=== PATIENT | female | born 1955 | race Caucasian/White ===

== ENCOUNTER → 2016-07-26 | Outpatient (CLI) | payer OTHER ==
[~2016-07-26] MED LIST: ACET-1138 PO; ADVIN10/60 INH; ADVIN25050 INH; ALBU18002 INH; ASPEC81 PO; FLNIN; FLUT0.15; GUAISYP4 PO; IBUP-1459 PO; LVQ500 PO; MONT1TAB3 PO; OXGN; OXYSR10 PO; PSEU60TA80 PO; RXC5 PO; SNK PO; VNTHFA/IN INH
--- NOTE | 2016-07-27 06:36 | PAP/PSG TECHNICIAN REPORT ---
[facility] Avionics Systems Technician Polysomnogram Report Study name: None Report date: 07/27/2016 Study date: 07/26/2016 Referring Physician: Seda Chadwick PA-C, PA-C Name: FRANCIS DAWN Interpreting Physician: Wilfred Greenberg M.D. Date of : 1955 Avionics Systems Technician: Nilam Hsieh [facility]. Sex: Female Age: 61 Study Type: PSG Weight: 293 lbs Height: 61 years, Height 5' 7" BMI: 45.89 Medications: NONE REPORTED Patient History 61 yr-old female here for a baseline study. She has a history of snoring and some daytime sleepiness. Her [place] scale is 8. The test was started on room air. ETCO2 testing was not utilized during this study. Room 1 Parameters Monitored NPSG: E1-M2, E2-M1, Fp1-M2, Fp2-M1, F3-M2, F4-M2, F4-M1, C3-M2, C4-M2, C4-M1, O1-M2, O2-M2, O2-M1, T3-M2, T4-M1, P3-M2, P4-M1, CHIN1, CHIN2, HR, EKG, Legs, PFLOW, SNOR, FLOW, CFLOW, Tidal Volume, THOR, ABDO, SpO2, PLTH, CPRESS, ETCO2 Wave, ETCO2, pH Sleep Architecture Sleep Stages Time at Lights Off 9:18:37 PM STAGES Time (min.) TST (%) Time at Lights On 5:37:07 AM Wake 57.0 -- Total Recording Time (TRT) 498.50 min. N1 54.5 12 Total Sleep Period (TSP) 476.5 min. N2 300.5 68 Total Sleep Time (TST) 441.5min. N3 9.0 2 Awake Time 57.0 min. REM 77.5 18 Wake after Sleep Onset 35.0 min. Sleep Efficiency (SE) 89 % Sleep Onset Latency (BRENDA) 22.0 min. Number of Stage 1 Shifts None Awakenings 20 Stage Changes 110 Number of REM periods 9 REM 77.5 18 REM Latency 111.5 min. NREM 364.0 82 Body Position Analysis Supine Right Left Side Prone Vertical Total Sleep Time (min.) 1.3 201.5 240.0 441.50 0.0 0.0 Total Sleep Time (%) 0% 46% 54% 100 0% N/A% Total Sleep Time REM (min.) 0.0 29.5 48.0 None 0.0 0.0 Total Sleep Time NREM (min.) 0.0 172.0 192.0 None 0.0 0.0 Intermittent Wake (min.) 1.3 15.6 40.1 None 0.0 0.0 Total Sleep Period (%) 0% None None None None None Arousals Myoclonus (PLM) * Events Count Index Events Count Index Spontaneous 53 7 Events Awake (PLMW) 61 64.2 Respiratory 8 1.2 Events Asleep w/ Arousal (PLMA) 9 1.2 PLM 9 1 Events Asleep w/o Arousal (PLMS) 91 12.4 Snoring 19 3 Total Asleep 100 13.6 Total 88 12 Total 161 19 Respiratory Analysis * CA OA MA CH H RERA Total Count 0 0 0 0 24 7 24 Index 0.0 0.0 0.0 0 3.3 1 4.2 Mean Duration 0.0 0.0 0.0 0.00 16.6 16.0 16.5 Longest Duration 0.0 0.0 0.0 0.00 0.0 18.0 22.2 Respiratory Event Summary Total Supine ~Supine Right Left Prone REM NREM Apneas Count 0 N/A 0 0 0 N/A 0 0 Index 0.0 N/A 0 0.0 0.0 N/A 0 0 Hypopneas (4% Desat) Count 24 N/A 24 7 17 N/A 17 7 Index 3.3 N/A 3 2.1 4.3 N/A 13.2 1.2 Apneas & All Hypopneas Count 24 N/A 24 7 17 N/A 17 7 Index 3.3 N/A 3 2 4 N/A 13.2 1.2 Respiratory Events (Safety And Health Manager+All Hyp+RERA) Count 24 N/A 31 10 21 N/A 17 7 Index 4.2 N/A 4 3.0 5.3 N/A 15.5 1.8 Respiratory Related Arousal Count 8 N/A 9 3 6 N/A 4 5 Index 1.2 N/A 1 1 2 N/A 3 1 Snoring Analysis Supine Right Left Prone REM NREM Total Snore duration 46.7 min Snores count N/A 1,093 910 N/A 259 1,744 2,003 Snore mean duration 1.4 Sec Snores index N/A 325 228 N/A 200.5 287.5 272.2 TST with snoring (%) 10.6% Desaturation Event Summary: Minimum %SpO2 Event Count Mean/Min/Max Duration(sec.) Desaturation Index % Time In Bed > 90 11 36.5 / 8.3 / 59.5 99.8 1.3 86 - 90 30 29.5 / 7.0 / 59.5 24.4 15.0 81 - 85 32 29.4 / 5.0 / 54.0 6.0 65.2 76 - 80 12 26.8 / 5.0 / 53.8 8.3 17.5 71 - 75 1 14.3 / 14.3 / 14.3 13.0 0.9 66 - 70 0 N/A 0.0 0.0 61 - 65 0 N/A 0.0 0.0 56 - 60 0 N/A 0.0 0.0 51 - 55 0 N/A 0.0 0.0 < 50 0 N/A 0.0 0.0 Total REM NREM Awake <50% 0.0 min. 0.0 min. 0.0 min. 0.0 min. 51 - 60% 0.0 min. 0.0 min. 0.0 min. 0.0 min. 61 - 70% 0.0 min. 0.0 min. 0.0 min. 0.0 min. 71 - 80% 90.9 min. 25.8 min. 64.2 min. 0.8 min. 81 - 90% 394.3 min. 51.7 min. 298.1 min. 44.6 min. 91 - 100% 6.6 min. 0.0 min. 1.6 min. 5.0 min. Average 83 82 83 87 Minimum SpO2 71 71 76 75 Desaturation Event Index 7.2 17.8 4.6 9.5 # Desat. Events below 89% 60 23 28 9 Time(%) with Saturation below 89% 95.5 15.7 72.6 7.2 Time(min.) with Saturation below 89% 469.7 77.4 357.2 35.2 Time (mins) REM (mins) NREM (mins) % of TST SpO2 Below 90% 51 23 N28 99.4 SpO2 Below 88% 24 0 0 97 Heart Rate Analysis Min (bpm) Max (bpm) Average (bpm) Awake 56 80 70 NREM 57 80 69 REM 52 83 67 Overall 52 83 69 Supplemental O2 Values Minimum O2 level: None Value Start Time End Time Avionics Systems Technician Comments Ms. Dawn slept in the right and left positions. No cardiac arrhythmias were noted. Some PLMs were noted. No bruxism noted. Snoring was noted and scored as a 3 on a scale of 1 through 5. (0=no snoring, 5=snoring loud enough to be heard through a closed door or down the crocker way) Her O2 saturations ran in the low to mid 80's all night. She awoke to use the restroom one time during the night. Ms. Dawn stated that she tossed and turned more than usual. The final report will be interpreted and signed by a sleep physician. The completed physician report will then be placed in the patient medical record. Therapy (cm H2O) 0 TIB (min.) 498.5 TST (min.) 441.5 Sleep Onset (min.) 22.0 REM Onset From Sleep (min.) 111.5 Sleep Efficiency % 89 Wakefulness (%) 11 Wakefulness (min.) 57.0 NREM 1 (%) 12 NREM 1 (min.) 54.5 NREM 2 (%) 68 NREM 2 (min.) 300.5 NREM 3 (%) 2 NREM 3 (min.) 9.0 REM (%) 18 REM (min.) 77.5 # Arousals 88 Arousal Index 12 # Snore 2,003 Snore Index 272.2 AHI 3.3 AHI Supine N/A AHI Non-Supine 3 NREM AHI 1.2 REM AHI 13.2 RDI 4.2 # Obstructive Apnea 0 # Central Apnea 0 # Mixed Apnea 0 # Hypopneas 24 RERAs 7 Total Respiratory Events 32 Time Below SpO2 89% (min.) 434.6 Mean NREM SpO2 (%) 83 Mean REM SpO2 (%) 82 Mean Sleep SpO2 (%) 83 Min NREM SpO2 (%) 76 Min REM SpO2 (%) 71 Position Supine (min.) 1.3 Position Non-supine (min.) 441.5 LM Index Sleep 13.6 LM Index NREM 13.0 LM Index REM 16.3 Mean Heart Rate (bpm) 69 Min Heart Rate (bpm) 52
--- NOTE | 2016-07-28 23:34 | POLYSOMNOGRAPH REPORT ---
CLINICAL DATA: A 61-year-old female with BMI of 45.9 referred by Seda Chadwick, Dr. Pace and Dr. Gera Ludwig for evaluation of daytime fatigue and snoring. Her [place] sleepiness score was 8/24. SLEEP ARCHITECTURE: Total sleep period was 476.5 minutes. Total sleep time was 441.5 minutes divided between 364 minutes of non-REM sleep and 77.5 minutes of REM sleep. Sleep onset latency was 22 minutes. REM latency was 111.5 minutes. Sleep efficiency was 89%. Wake after sleep onset was 35 minutes. Sleep consisted of stage N1 12%, N2 68%, N3 2%, REM 18%. AROUSAL DATA: Eighty eight arousals were recorded for an index of 12 per hour. PLM DATA: One hundred limb movements during sleep were noted for an index of 13.6 per hour with arousal index of 1.2 per hour. RESPIRATORY DATA: There was no evidence of clinically significant sleep apnea/hypopnea noted. The AHI was 3.3. The RDI was 4.2. There were 24 hypopneic episodes. The mean duration of hypopnea was 16.6 seconds. There were 7 RERAs. The longest RERA was 18 seconds. OXIMETRY DATA: Significant nocturnal hypoxemia was seen. Oxygen wilner was 71%. Mean saturation was 83%. EKG: Heart rates ranged from 57-83 beats per minute. No arrhythmias were noted. BACK JOINER'S COMMENTS: The patient slept in the right and left positions. Saturations ran in the low to mid 80s all night. Snoring was moderate, rated 3 on a scale of 1-5. IMPRESSION: 1. No evidence of clinically significant sleep apnea/hypopnea with an apnea-hypopnea index of 3.3. 2. Significant nocturnal hypoxemia. RECOMMENDATIONS: The patient may benefit from use of nocturnal oxygen. It does not appear that CPAP is required at this time. Clinical correlation is needed. [facility]
== END | disposition home or self-care (01) ==
LOC: C.NEUR 20:00
PROVIDERS: ATTEND Internal Medicine Pulmonary Disease
DX: R06.83 Snoring (principal); R06.02 Shortness of breath; G47.36 Sleep related hypoventilation in conditions classified elsewhere

== ENCOUNTER 2016-11-08 05:13 | Inpatient (IN) | payer OTHER ==
--- NOTE | 2016-10-13 10:33 | HISTORY & PHYSICAL EXAMINATION ---
DATE OF ADMISSION: 11/08/2016 PROCEDURE: Right knee replacement. HISTORY OF PRESENT ILLNESS: The patient is a andrew 61-year-old female who presents for preoperative evaluation prior to right knee replacement. She states she has been having pain in this knee for many years now, which has gradually worsened, she has failed conservative measures including oral anti-inflammatories, Depo-Medrol injection, viscosupplementation without relief. She has tried a course of physical therapy. X-rays were obtained which revealed end-stage DJD of her right knee and after discussing further care would like to proceed with a right knee replacement. PAST MEDICAL HISTORY: She denies a history of hypertension, high cholesterol, bleeding or clotting disorders. She was recently diagnosed with sleep apnea and uses a CPAP machine. ALLERGIES: No known drug allergies. CURRENT MEDICATIONS: None. PAST SURGICAL HISTORY: None. SOCIAL HISTORY: She denies a history of smoking or tobacco use. No alcohol consumption. REVIEW OF SYSTEMS: Otherwise negative. Please see HPI for pertinent positives. PHYSICAL EXAMINATION: GENERAL: Andrew 61-year-old female in no acute distress, alert and oriented x3. She is 5 feet 7 inches, weighs 302 pounds. VITAL SIGNS: Blood pressure is 142/88, pulse 64, O2 sats 98% on room air. HEENT: Normocephalic, atraumatic. CARDIAC: Regular rate and rhythm. No murmurs or gallops appreciated. Resting pulse 64 beats per minute. LUNGS: Clear to auscultation without rales or wheezes bilaterally. ABDOMEN: Soft, nontender, obese. Bowel sounds present. EXTREMITIES: Right lower extremity is neurovascularly intact. Calves are soft and nontender. DP pulse +2. Overall has varus alignment. Positive crepitation with motion, range of motion is 0/5/110. Her knee is ligamentously stable. IMAGING: Reviewed of the right knee shows findings consistent with end-stage degenerative joint disease including joint space narrowing, subchondral sclerosis, osteophyte formation noted. She has complete loss of joint space of the medial compartment. IMPRESSION: 1. Right knee degenerative joint disease. PLAN: Further care discussed with patient. At this point in time, has failed conservative measures and would like to proceed with a right knee replacement. We will plan on discharge home with home health physical therapy for 2 weeks, place on aspirin 81 mg p.o. b.i.d. for a month postop.
[2016-10-13 10:50] VITALS: BMI 46.0
--- NOTE | 2016-10-13 11:23 | PAT Medication Instructions ---
Service Date October 13, 2016. Current Home Medication List Albuterol Hfa (Ventolin Hfa), Unknown Dose INH Q6H PRN for cold symptoms Fluticasone Prop/Salmeterol (Advair Diskus 100/50 60 Dose), Unknown Dose INH BID PRN for cold symptoms Fluticasone Propionate (Nasal) (Flonase Allergy Relief), Unknown Dose for cold symptoms Ibuprofen (Motrin), 400 MG PO Q6H PRN for Pain Oxygen (Oxygen), 2 LITERS NA HS Medication Instructions For Your Scheduled Surgery - Check with surgeon for instructions: Ibuprofen (Motrin), 400 MG PO Q6H PRN for Pain - Take the following medications the morning of surgery with a sip of water: Fluticasone Propionate (Nasal) (Flonase Allergy Relief), Unknown Dose for cold symptoms Fluticasone Prop/Salmeterol (Advair Diskus 100/50 60 Dose), Unknown Dose INH BID PRN for cold symptoms Albuterol Hfa (Ventolin Hfa), Unknown Dose INH Q6H PRN for cold symptoms (bring with you to hospital morning of surgery) - Take the following medications as scheduled the night before surgery: Oxygen (Oxygen), 2 LITERS NA HS Fluticasone Propionate (Nasal) (Flonase Allergy Relief), Unknown Dose for cold symptoms Fluticasone Prop/Salmeterol (Advair Diskus 100/50 60 Dose), Unknown Dose INH BID PRN for cold symptoms Albuterol Hfa (Ventolin Hfa), Unknown Dose INH Q6H PRN for cold symptoms If you have any questions please call us at [phone] (Nadja Varghese PA-C) or [phone] or [phone]
--- NOTE | 2016-10-13 12:05 | DIAGNOSTIC IMAGING REPORT ---
CHEST 2 VIEWS ROUTINE CLINICAL HISTORY: PAT preoperative evaluation COMPARISON STUDY: 05/26/2016 FINDINGS: The bones soft tissues and hemidiaphragms are normal. The cardiomediastinal silhouette is normal. The lungs are clear. The pulmonary vasculature is normal. IMPRESSION: Negative chest. Electronically signed by: Luis Shah M.D. 10/13/2016 12:04 PM Dictated Date/Time: 10/13/2016 12:03 PM
[2016-10-13 12:24] LABS: BASO % 0.7 %; BASO ABS # 0.06 K/uL (0-0.2); COMPLETE YES; EOS % 4.4 %; HEMATOCRIT 39.7 % (37-47); IG% 0.1 %; LYMPH % 21.4 %; LYMPH ABS # 1.88 K/uL (1.2-3.4); MEAN CORPUSCULAR HEMOGLOBIN 28.9 pg (25-34); MEAN CORPUSCULAR HGB CONC 32.5 g/dl (32-36); MONO % 4.6 %; NEUT % 68.8 %; PLATELET COUNT 302 K/uL (130-400); RED BLOOD COUNT 4.46 M/uL (4.2-5.4); WHITE BLOOD COUNT 8.77 K/uL (4.8-10.8)
[2016-10-13 12:33] LABS: URINE APPEARANCE CLEAR (CLEAR); URINE BILIRUBIN NEG (NEG); URINE COLOR YELLOW; URINE NITRITE NEG (NEG); URINE SPECIFIC GRAVITY 1.015 (1.000-1.030); UROBILINOGEN NEG (NEG)
[2016-10-13 12:39] LABS: PARTIAL THROMBOPLASTIN RATIO 1.2; PROTHROMBIN TIME (PATIENT) 10.2 SECONDS (9.0-12.0)
[2016-10-13 12:45] LABS: MANUAL MICROSCOPIC REQUIRED? NO; REVIEW REQ? NO
[2016-10-13 13:25] LABS: CALCIUM 9.1 mg/dl (8.5-10.1); CREATININE 0.91 mg/dl (0.60-1.20)
[2016-10-13 13:26] LABS: ESTIMATED AVERAGE GLUCOSE 111 mg/dl; HA1C FLAG Normal (Normal)
[2016-11-08] VITALS (10 sets, daily range): BP systolic 117–148; BP diastolic 70–88; PULSE 42–69; TEMP 36.3–36.7; O2SAT 91–95; Ht 170.2 cm; Wt 134.7 kg
[~2016-11-08] VITALS: Ht 170.2 cm; Wt 134.7 kg
[~2016-11-08 05:13] MED LIST changes: -ACET-1138 PO; -ADVIN25050 INH; -ALBU18002 INH; -ASPEC81 PO; -FLNIN; -GUAISYP4 PO; -LVQ500 PO; -MONT1TAB3 PO; -OXYSR10 PO; -PSEU60TA80 PO; -RXC5 PO; -SNK PO
[2016-11-08] MEDS ORDERED: GABAPENTIN 300 MG CAP PO SCH (06:00)
[2016-11-08] MEDS ORDERED: ROPIVACAINE 5MG/ML 30 ML 150 MG, BUPIVACAINE/EPINEPHR 0.5% MPF 30 ML, KETOROLAC TROMETH... INFIL SCH ×7 (06:00)
[2016-11-08] MEDS ORDERED: LACTATED RINGER'S 1000ML 1,000 ML IV SCH (06:00)
[2016-11-08] MEDS ORDERED: LACTATED RINGER'S 1000ML IV SCH (06:00)
[2016-11-08] MEDS ORDERED: METOCLOPRAMIDE HCL 10 MG TAB PO SCH (06:00)
[2016-11-08] MEDS ORDERED: CEFAZOLIN 3000 MG/65 ML D5W 65 ML IV SCH (06:00)
[2016-11-08] MEDS ORDERED: LACTATED RINGER'S 1000ML 500 ML IV SCH (06:00)
[2016-11-08] MEDS ORDERED: ACETAMINOPHEN 500 MG TAB PO SCH (06:00)
[2016-11-08] MEDS ORDERED: DEXAMETHASONE 4 MG TAB PO SCH (06:00)
[2016-11-08] MEDS ORDERED: CeleBREX 200 MG CAP PO SCH (06:00)
[2016-11-08] MEDS ORDERED: FAMOTIDINE 20 MG TAB PO SCH (06:00)
[2016-11-08] MEDS ORDERED: POVIDONE-IODINE OP SOLN 30 ML BTL ONE (06:32)
[2016-11-08] MEDS ORDERED: ORTHO JOINT ANESTHETIC ONE (06:32)
[2016-11-08] MEDS ORDERED: BACITRACIN 50000 UNIT VIAL ONE (06:32)
[2016-11-08] MEDS ORDERED: BUPIVACAINE 0.5 % 5 MG/1 ML PF 10ML VIAL ONE (06:33)
[2016-11-08] MEDS ORDERED: BUPIVACAINE 0.25% 30 ML VIAL ONE (06:33)
[2016-11-08] MEDS ORDERED: PROPOFOL IV EMULSION 10 MG/ML 20 ML VIAL IV ONE ×2 (06:36→07:43)
[2016-11-08] MEDS ORDERED: LIDOCAINE HCL 2% 2 ML VIAL (20MG/ML) ONE (06:36)
[2016-11-08] MEDS ORDERED: MIDAZOLAM HCL 1 MG/ML 2ML VIAL ONE (06:36)
[2016-11-08] MEDS: TRANEXAMIC ACID INJ 1,000 MG in SODIUM CHLORIDE 0.9% 100ML 100 ML IV SCH ×2 (06:42→10:35)
--- NOTE | 2016-11-08 06:47 | History & Physical Bridge Note ---
H&P Re-Evaluation Bridge Note: I have examined the patient, reviewed the History & Physical and in the interval since the performance of the History & Physical I have noted the following changes of clinical significance: No changes noted
[2016-11-08] MEDS ORDERED: LACTATED RINGER'S 1000ML 1,000 ML IV PRN (07:04)
[2016-11-08] MEDS ORDERED: ONDANSETRON INJ 2 MG/ML 2 ML VIAL IV PRN ×2 (07:15→08:00)
[2016-11-08] MEDS ORDERED: FENTANYL CITRATE INJ 50 MCG/1 ML 2 ML VIAL IV PRN (07:15)
[2016-11-08] MEDS ORDERED: KETAMINE HCL INJ 50 MG/ML 10 ML VIAL ONE (07:26)
[2016-11-08] MEDS ORDERED: SODIUM CHLORIDE 0.9% INJ 10 ML VIAL ONE (07:34)
--- NOTE | 2016-11-08 07:55 | [facility] Post Operative Brief Note ---
Immediate Operative Summary Operative Date November 08, 2016. Pre-Operative Diagnosis Right Knee Degenerative Joint Disease Post-Operative Diagnosis Right Knee Degenerative Joint Disease Procedure(s) Performed Right Total Knee Arthroplasty Surgeon Dr. Nikita Lechuga Respite Care Provider Surgeon(s) Luis Chacko PA-c Estimated Blood Loss 5 ml Findings severe djd rt knee Specimens Permanent Specimen: A: Bone and tissue Right knee Complication(s) None Disposition Recovery Room / PACU
[2016-11-08] MEDS ORDERED: DiphenhydrAMINE HCL 50 MG/ML VIAL IV PRN (08:00)
[2016-11-08] MEDS ORDERED: ZOLPIDEM TARTRATE 5 MG TAB PO PRN (08:00)
[2016-11-08] MEDS ORDERED: TRAMADOL HCL 50 MG TAB PO PRN (08:00)
[2016-11-08] MEDS ORDERED: MAGNESIUM HYDROXIDE SUSP 30 ML UDC PO PRN (08:00)
[2016-11-08] MEDS ORDERED: BISACODYL 10 MG SUPP PR PRN (08:00)
[2016-11-08] MEDS ORDERED: SOD PHOSPHATE/SOD BIPHOSPHATE ENEMA 132 ML BTL PR PRN (08:00)
[2016-11-08] MEDS ORDERED: HYDROCODONE/ACETAMOPHEN 5/325MG TAB PO PRN (08:00)
[2016-11-08] MEDS ORDERED: METOCLOPRAMIDE HCL INJ 5 MG/ML 2 ML VIAL IV PRN (08:00)
[2016-11-08] MEDS ORDERED: ALUMINUM/MAGNESIUM/SIMETH (MAALOX MAX) 30 ML UDC PO PRN (08:00)
--- NOTE | 2016-11-08 08:18 | OPERATIVE REPORT ---
DATE OF OPERATION: 11/08/2016 PREOPERATIVE DIAGNOSIS: Severe end-stage tricompartmental degenerative joint disease, right knee. POSTOPERATIVE DIAGNOSIS: Severe end-stage tricompartmental degenerative joint disease, right knee. PROCEDURE: Right total knee arthroplasty utilizing Vasquez \T\ Nephew Journey II patient matched total knee arthroplasty size 5 femur, 3 tibia, 13 poly, 32 patella. SURGEON: Dr. Lechuga. CLIENT PROFESSIONAL: Luis Chacko, who was necessary for prepping, draping, retraction, wound closure of deep fascia, subQ, and skin and was necessary for the case. ESTIMATED BLOOD LOSS: 5 mL TOURNIQUET TIME: 40 minutes. COMPLICATIONS: None. HISTORY: The patient presents as a 61-year-old white female with severe endstage DJD about her right knee. She presents today for right total knee arthroplasty after failing attempts at conservative management including physical therapy, anti-inflammatories, relative rest, activity modification and presents for total knee arthroplasty. OPERATION AND FINDINGS: PROCEDURE: The patient was properly prepped and draped in supine position for total knee arthroplasty after identifying the appropriate surgical site. An anterior midline incision was made through the subcutaneous tissues down to the region of the extensor mechanism. A medial parapatellar incision was subsequently made. Meticulous hemostasis was obtained and performed at all times. The patella having been subluxed lateralward, medial and lateral meniscal remnants were excised. The patellar cut was then initially made and was sized to the appropriate size. After subluxing the tibia forward the appropriate meniscal fragments having been removed the distal femur was then cut first utilizing a Vasquez and Nephew block. The distal femoral cuts and chamfer cuts were all made under direct visualization and the proximal tibial osteotomy cut was also made utilizing Vasquez and Nephew blocks and checked with an extramedullary guide. The appropriate trial components on the femur and tibia were placed. Appropriate trial spacers were used to check flexion and extension gaps. With flexion and extension gaps being equal, the components were then subsequently after thorough irrigation and debridement lavage components were then subsequently cemented in the following order: femur, tibia and patella. Exparel was used for intraoperative anesthesia, the medial parapatellar incision was closed utilizing #1 Vicryl, subQ was closed with 2-0 Vicryl, skin was closed with skin clips. A sterile compression dressing was placed. The patient was taken to recovery room in stable condition. Due to the complex nature of the procedure, the entire surgery was performed with the operational assistance of Luis Chacko PA-C. The dam tender assistant, under direct supervision, was involved in the actual performance of all aspects of the surgical procedure including hemostasis, tissue retraction and incision, instrument management, patient positioning, and wound closure. I attest to the content of the Intraoperative Record and any orders documented therein. Any exceptio ns are noted below.
[2016-11-08] MEDS ORDERED: KETOROLAC TROMETHAMINE 30 MG/ML VIAL IV PRN (08:45)
[2016-11-08] MEDS ORDERED: MoRPHine SULFATE 2 MG/ML CARP IV PRN (08:45)
[2016-11-08] MEDS ORDERED: ASPIRIN 325 MG ECTAB PO SCH ×2 (09:00)
--- NOTE | 2016-11-08 09:18 | DIAGNOSTIC IMAGING REPORT ---
RIGHT KNEE 1 OR 2 VIEWS ROUTINE CLINICAL HISTORY: Right knee osteoarthritis. COMPARISON: None FINDINGS: Alignment of the total right knee arthroplasty is anatomic. There is no periprosthetic fracture or unexpected radiopaque foreign body. Drains and skin ryan are present. IMPRESSION: Expected findings following total right knee arthroplasty. Electronically signed by: Ayden Key M.D. 11/08/2016 9:17 AM Dictated Date/Time: 11/08/2016 9:16 AM
--- NOTE | 2016-11-08 09:28 | Anesthesiology Progress Note ---
Anesthesia Post Op Note Date & Time November 08, 2016 at 09:26 Vital Signs Pain Intensity: 0 Vital Signs Past 12 Hours Date Time Temp Pulse Resp B/P Pulse Ox O2 Delivery O2 Flow Rate FiO2 11/08/16 09:05 36.5 45 14 113/59 96 Nasal Cannula 4 11/08/16 08:55 50 16 115/66 92 Nasal Cannula 4 11/08/16 08:45 54 14 105/63 95 Mask 6 11/08/16 08:38 36.7 60 15 116/64 95 Mask 10 11/08/16 05:40 36.6 54 20 148/87 93 Room Air Notes Mental Status: alert / awake / arousable, participated in evaluation Pt Amnestic to Procedure: No (recall as expected) Nausea / Vomiting: adequately controlled Pain: adequately controlled Airway Patency, RR, SpO2: stable & adequate BP & HR: stable & adequate Hydration State: stable & adequate Neuraxial Anesthesia: was administered, sensory block is resolving Anesthetic Complications: no major complications apparent SB into 40s which was her pre-op baseline. Asymptomatic w/ this. Needing 4L O2 to keep sats in 90s when she sleeps. She's supposed to wear 2L O2 at home for this reason. I'm ordering continuous pulse ox until at least tomorrow morning.
[2016-11-08] MEDS: SODIUM CHLORIDE 0.9% 1000ML 1,000 ML IV SCH ×2 (10:30→19:50)
[2016-11-08] MEDS ORDERED: MoRPHine SULFATE 10 MG/ML CARP/VIAL IV PRN (10:30)
[2016-11-08] MEDS: OXYCODONE HCL IR 5 MG TAB (IMMEDIATE RELEASE) PO PRN ×2 (12:54→17:56)
[2016-11-08] MEDS ORDERED: TRANEXAMIC ACID INJ 1,000 MG in SODIUM CHLORIDE 0.9% 100ML 100 ML IV SCH (14:00)
[2016-11-08] MEDS: CEFAZOLIN IV 3,000 MG in DEXTROSE 5% 50ML 50 ML IV SCH ×2 (14:13→21:55)
[2016-11-08] MEDS: FERROUS GLUCONATE 324 MG TAB PO SCH (17:56)
[2016-11-08] MEDS: OXYCODONE HCL 10 MG TABCR (OXYCONTIN) PO SCH (21:07)
[2016-11-08] MEDS: SENNA 8.6 MG TAB PO SCH (21:07)
[2016-11-08] MEDS: ASPIRIN 81 MG ECTAB PO SCH (21:07)
[2016-11-08] MEDS: DOCUSATE SODIUM 100 MG CAP PO SCH (21:07)
[2016-11-09 04:02] VITALS: BP 119/81; PULSE 54; TEMP 36.5; O2SAT 92
[2016-11-09] MEDS: OXYCODONE HCL IR 5 MG TAB (IMMEDIATE RELEASE) PO PRN (04:21)
[2016-11-09 06:28] LABS: HEMATOCRIT 36.1 % (37-47); MEAN CELL VOLUME 89.6 fL (80-100); MEAN CORPUSCULAR HEMOGLOBIN 28.5 pg (25-34); MEAN CORPUSCULAR HGB CONC 31.9 g/dl (32-36); MEAN PLATELET VOLUME 10.5 fL (7.4-10.4); PLATELET COUNT 258 K/uL (130-400); RED BLOOD COUNT 4.03 M/uL (4.2-5.4); WHITE BLOOD COUNT 12.59 K/uL (4.8-10.8)
[2016-11-09] MEDS: SODIUM CHLORIDE 0.9% 1000ML 1,000 ML IV SCH (06:31)
--- NOTE | 2016-11-09 07:12 | Orthopedic Progress Note ---
Orthopedic Progress Note Date of Service Nov 09, 2016. Subjective Post OP Day: 1 (s/p Right TKA) Reports: feeling well, pain controlled w PO medications, Denies: complaints, chest pain, SOB, nausea / vomiting, light headedness, calf pain Objective calves soft nontender, N/V intact, capillary refill less than 2 sec., dressing C /D/I, A&O x3, toes mobile, hemovac drainage (150cc/8 hours) Date Time Temp Pulse Resp B/P (MAP) Pulse Ox O2 Delivery O2 Flow Rate FiO2 11/09/16 04:02 36.5 54 16 119/81 (94) 92 Nasal Cannula 2.0 11/08/16 23:19 36.5 58 16 145/88 (107) 94 Nasal Cannula 2.0 11/08/16 19:45 Room Air 11/08/16 19:01 36.6 69 16 128/76 (93) 91 Room Air 11/08/16 15:40 36.7 62 16 126/74 (91) 91 11/08/16 12:35 36.7 52 19 139/84 (102) 95 Nasal Cannula 2.0 11/08/16 11:32 36.3 56 17 137/82 (100) 94 Nasal Cannula 2.0 11/08/16 10:35 36.3 52 16 122/77 (92) 93 Nasal Cannula 2.0 11/08/16 10:10 94 Nasal Cannula 3.0 11/08/16 10:08 36.4 47 16 117/76 (90) 92 Nasal Cannula 2.0 11/08/16 09:35 95 Nasal Cannula 4.0 11/08/16 09:35 Nasal Cannula 4.0 11/08/16 09:35 36.6 42 16 122/70 (87) 95 Nasal Cannula 4.0 11/08/16 09:15 49 14 103/59 (72) 97 Nasal Cannula 4 11/08/16 09:05 36.5 45 14 113/59 96 Nasal Cannula 4 11/08/16 08:55 50 16 115/66 92 Nasal Cannula 4 11/08/16 08:45 54 14 105/63 95 Mask 6 11/08/16 08:38 36.7 60 15 116/64 95 Mask 10 Laboratory Results 24 Hours: Test 11/09/16 05:34 Hematocrit 36.1 % Hemoglobin 11.5 g/dL Assessment & Plan Assessment: POD #1 s/p Right TKA -PT/OT -dvt proph w/ danial/scd/asa -ASA 81 mg po bid x 1 month -[facility]prevena on for 7 days Discharge Planning Discharge Planning: home with home health DVT Prophylaxis: TEDs, SCDs, ASA Therapy: Physical Therapy
[2016-11-09] MEDS: OXYCODONE HCL 10 MG TABCR (OXYCONTIN) PO SCH ×2 (07:42→20:53)
[2016-11-09] MEDS: ASPIRIN 81 MG ECTAB PO SCH ×2 (07:42→20:52)
[2016-11-09] MEDS: PANTOprazole SOD 40 MG TAB PO SCH (07:42)
[2016-11-09] MEDS: FERROUS GLUCONATE 324 MG TAB PO SCH ×3 (07:42→17:19)
[2016-11-09] MEDS: DOCUSATE SODIUM 100 MG CAP PO SCH ×2 (07:43→20:52)
[2016-11-09] MEDS: MULTIVITAMIN TAB PO SCH (07:43)
[2016-11-09 07:45] VITALS: BP 120/68; PULSE 46; TEMP 36.4; O2SAT 91; O2SAT 92
--- NOTE | 2016-11-09 07:59 | Discharge Instructions ---
Discharge Instructions Date of Service Nov 09, 2016. Admission Reason for Admission: Right Knee Osteoarthritis Discharge Discharge Diagnosis / Problem: Right Total Knee Replacement Discharge Goals Goal(s): Decrease discomfort, Improve function, Increase independence Activity Recommendations Activity Limitations: as noted below Weightbearing Status: Right weightbearing (as tolerated) . Instructions / Follow-Up Instructions / Follow-Up ACTIVITY RECOMMENDATIONS: SELF CARE INSTRUCTIONS AFTER TOTAL KNEE REPLACEMENT A. You may need to continue a physical therapy program after discharge from the hospital. There are several options available to you. Your doctor will assist you in selecting the best one for you. 1. An out-patient facility 2 to 3 times a week for therapy or home therapy. 2. Continue working on all exercises taught to you in the hospital. Your goals should be to increase bending of your knee to 90 degrees and beyond and to fully straighten your knee. B. You may progress at your own pace from walking with a walker or crutches to a cane; then to no assistive devices. C. Make walking a part of your daily routine. Be up as much as comfortable with rest periods throughout the day. Rest with leg elevation is very important. Use the ice wrap frequently for the first 3-4 weeks. D. There are no restrictions on activities. You may ride in a car, shop, participate in senior energy market coordinator and all social activities. E. Wear the long elastic stockings (KRISTEN hose) 20 hours a day for 2 weeks after surgery. They can be removed several times a day for laundering and for a bath. F. You may shower, no tub baths until cleared by your doctor. SPECIAL CARE INSTRUCTIONS: VERY IMPORTANT TO READ AND REVIEW A. There are a few signs you need to watch for after you are home. Call [facility] if you notice any of the followin. Increased severe knee pain. Some pain is expected especially when you exercise. 2. Increased swelling in your leg or knee; pain or swelling of the calf muscle in either lower leg. 3. Any fluid drainage from the incision. 4. Shortness of breath or chest pain. B. Please call [facility] at if you have any concerns or questions about your operation or recovery. The doctor or his nurse will return your call promptly. C. You must take antibiotics before dental work, bladder, bowel or other surgery. Your doctor will provide you with a permanent care to carry describing this precaution. IMPORTANT: * REMEMBER TO TAKE ASPIRIN, 81 MG, TWICE DAILY FOR 4 WEEKS UNLESS OTHERWISE DIRECTED. THIS IS YOUR BLOOD THINNER. * HIGH RISK PATIENTS MAY BE PRESCRIBED A STRONGER BLOOD THINNER. THIS WILL BE PROVIDED AT DISCHARGE. * CALL IF INCREASED PAIN, REDNESS, DRAINAGE OR FEVER GREATER THAT 101. * WEAR KRISTEN HOSE 20 HOURS PER DAY FOR 2 WEEKS. * Prevena- This is a large suction dressing covering your incision. This will help pull any excess drainage from the wound and allow your incision to heal properly. You may shower with this if you can keep the unit outside of the shower. If any bleeding or leakage is noted please call your doctor's office. This will remain on your incision for 7 days and then should be removed. This can be done yourself or by the home nursing staff if applicable. The entire unit is disposable once removed. Once removed, keep incision clean and dry. If redness or drainage is noted, please call your surgeon. FOLLOW UP VISIT: If appointment is not already scheduled: Please call [facility] to make a follow-up appointment for 2 weeks after your surgery at . Current Hospital Diet Patient's current hospital diet: Regular Diet Discharge Diet Recommended Diet: Regular Diet Procedures Procedures Performed: Right Total Knee Arthroplasty Pending Studies Studies pending at discharge: no Laboratory Results Hemoglobin A1c Test 10/13/16 11:28 Range/Units Estimated Average Glucose 111 mg/dl Hemoglobin A1c 5.5 4.5-5.6 % Medical Emergencies . Who to Call and When: Medical Emergencies: If at any time you feel your situation is an emergency, please call 911 immediately. . Non-Emergent Contact Non-Emergency issues call your: Primary Care Provider, Surgeon . "Provider Documentation" section prepared by Luis Chacko. . VTE Core Measure Inpt VTE Proph given/why not?: Other Anticoagulation (ASA 81mg po bid x 1 month ), [facility] [place] Drug Monitoring Program Search Results: patient reviewed within database, no issues identified
[2016-11-09 08:05] VITALS: O2SAT 91
--- NOTE | 2016-11-09 09:27 | Anesthesiology Progress Note ---
Anesthesia Post Op Note Date & Time Nov 09, 2016 at 09:27 Vital Signs Pain Intensity: 5.0 Vital Signs Past 12 Hours Date Time Temp Pulse Resp B/P (MAP) Pulse Ox O2 Delivery O2 Flow Rate FiO2 11/09/16 08:05 91 Room Air 11/09/16 07:45 92 Room Air 11/09/16 07:45 36.4 46 20 120/68 (85) 91 Room Air 11/09/16 04:02 36.5 54 16 119/81 (94) 92 Nasal Cannula 2.0 11/08/16 23:19 36.5 58 16 145/88 (107) 94 Nasal Cannula 2.0 Notes Mental Status: alert / awake / arousable, participated in evaluation Pt Amnestic to Procedure: Yes Nausea / Vomiting: adequately controlled Pain: adequately controlled Airway Patency, RR, SpO2: stable & adequate BP & HR: stable & adequate Hydration State: stable & adequate Neuraxial Anesthesia: was administered, sensory block resolved Anesthetic Complications: no major complications apparent
[2016-11-09 11:51] VITALS: BP 120/80; PULSE 38; TEMP 36.6; O2SAT 95
[2016-11-09 15:37] VITALS: BP 156/77; PULSE 46; TEMP 36.6; O2SAT 92
[2016-11-09] MEDS: SENNA 8.6 MG TAB PO SCH (20:52)
[2016-11-09 23:10] VITALS: BP 134/84; PULSE 47; TEMP 36.6; O2SAT 94
[2016-11-10 06:43] VITALS: BP 163/81; PULSE 43; TEMP 36.6; O2SAT 92
[2016-11-10] MEDS: OXYCODONE HCL 10 MG TABCR (OXYCONTIN) PO SCH (07:04)
[2016-11-10] MEDS: PANTOprazole SOD 40 MG TAB PO SCH (07:05)
[2016-11-10] MEDS: OXYCODONE HCL IR 5 MG TAB (IMMEDIATE RELEASE) PO PRN (07:05)
[2016-11-10] MEDS: FERROUS GLUCONATE 324 MG TAB PO SCH ×2 (07:05→12:40)
[2016-11-10] MEDS: MULTIVITAMIN TAB PO SCH (07:05)
[2016-11-10] MEDS: DOCUSATE SODIUM 100 MG CAP PO SCH (07:05)
[2016-11-10] MEDS: ASPIRIN 81 MG ECTAB PO SCH (07:05)
[2016-11-10 07:50] VITALS: O2SAT 93
--- NOTE | 2016-11-10 07:53 | Orthopedic Progress Note ---
Orthopedic Progress Note Date of Service Nov 10, 2016. Subjective Post OP Day: 2 Reports: light headedness (having episodes of LH this am, she feels is related to taking full dose of pain meds this am), pain controlled w PO medications, Denies: chest pain, SOB, nausea / vomiting, calf pain, using FIELD RESEARCH ASSISTANT Objective calves soft nontender, N/V intact, capillary refill less than 2 sec., dressing C /D/I, A&O x3, toes mobile Date Time Temp Pulse Resp B/P (MAP) Pulse Ox O2 Delivery O2 Flow Rate FiO2 11/10/16 06:43 36.6 43 16 163/81 (108) 92 Room Air 11/09/16 23:10 36.6 47 16 134/84 (101) 94 Nasal Cannula 2.0 11/09/16 19:40 Room Air 11/09/16 15:37 36.6 46 19 156/77 (103) 92 Room Air 11/09/16 11:51 36.6 38 20 120/80 (93) 95 Nasal Cannula 2.0 11/09/16 08:05 91 Room Air Assessment & Plan Assessment: POD #2 s/p Right TKA -PT/OT -dvt proph w/ danial/scd/asa -ASA 81 mg po bid x 1 month -[facility]prevena on for 7 days LH this am, low HR, will check H/H, hold on d/c until after labs/PT, recheck this afternoon Discharge Planning Discharge Planning: home with home health DVT Prophylaxis: TEDs, SCDs, ASA Therapy: Physical Therapy
[2016-11-10 08:59] LABS: HEMATOCRIT 36.3 % (37-47)
[2016-11-10 09:03] VITALS: BP 133/67; PULSE 43; O2SAT 91
[2016-11-10 15:33] VITALS: BP 145/87; PULSE 51; TEMP 36.6; O2SAT 96
[2016-11-10] MEDS ORDERED: ASPEC81 PO (15:54)
[2016-11-10] MEDS ORDERED: RXC5 PO (15:54)
[2016-11-10] MEDS ORDERED: OXYSR10 PO (15:54)
[2016-11-10] MEDS ORDERED: SNK PO ×2 (15:54→16:00)
[2016-11-10] MEDS ORDERED: ACET-1138 PO (15:54)
[2016-11-10 16:13] VITALS: BP 145/87; PULSE 51; TEMP 36.6; O2SAT 96
--- NOTE | 2016-11-11 17:26 | Discharge Summary ---
Orthopedic Discharge Summary Admission Date/Reason November 08, 2016 at 06:45 Right Knee Osteoarthritis. Discharge Date/Disposition Nov 10, 2016 Home with services Diagnosis Principal Diagnosis: right total knee replacement Procedure(s) Performed Right total knee arthroplasty utilizing Vasquez \T\ [facility] patient matched total knee arthroplasty size 5 femur, 3 tibia, 13 poly, 32 patella. Medication Reconciliation New Medications: Acetaminophen (Tylenol Extra Strength) 500 Mg Tab 2 TABS PO Q8H for 30 Days Aspirin (Aspirin EC Low Dose) 81 Mg Ectab 81 MG PO BID for 30 Days Oxycodone HCl (Oxycontin) 10 Mg Tabcr 10 MG PO Q12H, #20 Oxycodone HCl (Oxycodone HCl) 5 Mg Tab 5-10 MG PO Q4H PRN for Pain, #60 TAB Senna (Senna Lax) 8.6 Mg Tab 17.2 MG PO HS, #30 TAB Hold for loose stools Continued Medications: Albuterol Hfa (Ventolin Hfa) Unknown Strength Aers Unknown Dose INH Q6H PRN for cold symptoms , #1 INHALER uses as directed prn for cold symptoms...does not use on reg basis - had pneumonia in apr and was prescribed this then Fluticasone Prop/Salmeterol (Advair Diskus 100/50 60 Dose) Unknown Strength Aerp Unknown Dose INH BID PRN for cold symptoms , INHALER uses as directed prn for cold symptoms...does not use on reg basis Fluticasone Propionate (Nasal) (Flonase Allergy Relief) Unknown Strength Spr Unknown Dose PRN for cold symptoms 2 sprays each nosril prn for cold symptoms...does not use on regular basis Oxygen (Oxygen) Gas 2 LITERS NA HS Discontinued Medications: Ibuprofen (Motrin) 400 Mg Tab 400 MG PO Q6H PRN for Pain, TAB pt aware to stop [address] ludwig office paperwork Admission Physical Exam As per Admitting History & Physical. Hospital Course Patient was a same day admission after undergoing a successful left TKA. she tolerated the procedure well. Post-operatively, her activity was progressed and well tolerated. she did experience episodes of lightheadedness on POD #2 which was felt to be related to her pain medication, and was improved by only taking 1 /2 of her scheduled dose. Please refer to daily progress notes and PT notes for complete details. After exam on 11/11/16, patient felt to be stable for discharge home with home PT. Patient will f/u in the office in 2 weeks for further evaluation including x-rays and incision check, sooner if having any issues or concerns. Below are pertinent labs/studies during their hospital stay: Last Vital Signs Documentation Date Time Temp Pulse Resp B/P (MAP) Pulse Ox O2 Delivery O2 Flow Rate FiO2 11/10/16 16:13 36.6 51 17 96 Room Air 11/10/16 15:33 145/87 (106) 11/09/16 23:10 2.0 Last Resulted CBC 11/09/16 05:34 11/10/16 08:15 Last Resulted BMP 10/13/16 11:28 Discharge Instructions ACTIVITY RECOMMENDATIONS: SELF CARE INSTRUCTIONS AFTER TOTAL KNEE REPLACEMENT A. You may need to continue a physical therapy program after discharge from the hospital. There are several options available to you. Your doctor will assist you in selecting the best one for you. 1. An out-patient facility 2 to 3 times a week for therapy or home therapy. 2. Continue working on all exercises taught to you in the hospital. Your goals should be to increase bending of your knee to 90 degrees and beyond and to fully straighten your knee. B. You may progress at your own pace from walking with a walker or crutches to a cane; then to no assistive devices. C. Make walking a part of your daily routine. Be up as much as comfortable with rest periods throughout the day. Rest with leg elevation is very important. Use the ice wrap frequently for the first 3-4 weeks. D. There are no restrictions on activities. You may ride in a car, shop, participate in home theater installer and all social activities. E. Wear the long elastic stockings (KRISTEN hose) 20 hours a day for 2 weeks after surgery. They can be removed several times a day for laundering and for a bath. F. You may shower, no tub baths until cleared by your doctor. SPECIAL CARE INSTRUCTIONS: VERY IMPORTANT TO READ AND REVIEW A. There are a few signs you need to watch for after you are home. Call [facility] if you notice any of the followin. Increased severe knee pain. Some pain is expected especially when you exercise. 2. Increased swelling in your leg or knee; pain or swelling of the calf muscle in either lower leg. 3. Any fluid drainage from the incision. 4. Shortness of breath or chest pain. B. Please call [facility] at if you have any concerns or questions about your operation or recovery. The doctor or his nurse will return your call promptly. C. You must take antibiotics before dental work, bladder, bowel or other surgery. Your doctor will provide you with a permanent care to carry describing this precaution. IMPORTANT: * REMEMBER TO TAKE ASPIRIN, 81 MG, TWICE DAILY FOR 4 WEEKS UNLESS OTHERWISE DIRECTED. THIS IS YOUR BLOOD THINNER. * HIGH RISK PATIENTS MAY BE PRESCRIBED A STRONGER BLOOD THINNER. THIS WILL BE PROVIDED AT DISCHARGE. * CALL IF INCREASED PAIN, REDNESS, DRAINAGE OR FEVER GREATER THAT 101. * WEAR KRISTEN HOSE 20 HOURS PER DAY FOR 2 WEEKS. Prevena- This is a large suction dressing covering your incision. This will help pull any excess drainage from the wound and allow your incision to heal properly. You may shower with this if you can keep the unit outside of the shower. If any bleeding or leakage is noted please call your doctor's office. This will remain on your incision for 7 days and then should be removed. This can be done yourself or by the home nursing staff if applicable. The entire unit is disposable once removed. Once removed, keep incision clean and dry. If redness or drainage is noted, please call your surgeon. FOLLOW UP VISIT: If appointment is not already scheduled: Please call [facility] to make a follow-up appointment for 2 weeks after your surgery at .
== END 2016-11-10 18:00 | disposition home health service (06) | DRG 470 ==
LOC: ENRESERVTM → ENRESERVDT → C.ACU 05:13 → C.3E 06:45
PROVIDERS: ADMIT Orthopaedic Surgery; ATTEND Orthopaedic Surgery
PROC: 0SRC0J9 Replacement of Right Knee Joint with Synthetic Substitute, Cemented, Open Approach (ICD-10-PCS; principal; 2016-11-08 07:00)
DX: M17.11 Unilateral primary osteoarthritis, right knee (principal); Z68.42 Body mass index [BMI] 45.0-49.9, adult; M21.161 Varus deformity, not elsewhere classified, right knee; J45.909 Unspecified asthma, uncomplicated; E66.01 Morbid (severe) obesity due to excess calories; G62.9 Polyneuropathy, unspecified; G47.30 Sleep apnea, unspecified; Z99.81 Dependence on supplemental oxygen; Z99.89 Dependence on other enabling machines and devices; Z79.51 Long term (current) use of inhaled steroids; Z79.899 Other long term (current) drug therapy

== ENCOUNTER 2018-06-12 05:04 | Inpatient (IN) ==
--- NOTE | 2018-05-13 07:48 | History & Physical Report ---
Date of Service May 13, 2018 Assessment & Plan (1) Arthritis of knee, left: Risks and benefits of procedure discussed in detail today, patient would like to proceed with Left TKA @ [facility] as scheduled. will obtain medical clearance prior to surgery as well as obtain PATs at [facility]. Will place on ASA 81mg po bid x 1 month post op, f/u 2 weeks post op for routine post-operative care and xray, sooner if having any problems. will make arrangements for HHPT at the time of discharge. History of Present Illness Chief Complaint: left knee pain Primary Care Provider: Tariq Lou MD Ms Dawn is a 62 year old female who is here for a follow up of left knee pain, presents for her pre-op appt for Left TKA on 06-12-18. She states that the symptoms have been chronic non-traumatic. The symptoms occur intermittently. The problem is fluctuating. Currently the patient states that the symptoms are mild-moderate. The pain is described as aching and sharp. The symptoms occur intermittently. She rates her worst pain as 8/10. She rates her current pain as 3/10. The symptoms are aggravated by ascending stairs, descending stairs, walking and daily activities. Hortensia states that the symptoms are relieved by no specific activity. In addition to left knee pain the patient is also experiencing limping and swelling. The patient has had a previous MRI. Patient had Synvisc one injection on 02/26/17. Patient had the right knee replaced on . 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 She lives in [address] home with one step. Allergies Allergy/AdvReac Type Severity Reaction Status Date / Time No Known Allergies Allergy Unverified 04/30/18 10:55 Home Medications Home Medications Medication Instructions Recorded Confirmed Type No Known Home Medications 04/30/18 04/30/18 History Past Med/Surg History Medical History History of hysterectomy TOTAL-DX'D OVARIAN CANCER WITH [id number] CHEMO/NO RADIATION Hyperlipidemia BORDERLINE-NO MEDS Osteoarthritis Pneumonia 2 YRS AGO Surgical History History of total knee replacement RIGHT Social History Current Living Situation: Spouse Other Information That Helps Us Care for You: No Feels Safe at Home: Yes Safety Concerns: Feels Safe At This Time Smoking Status: Never smoker Do You Dip or Chew Tobacco: No Second Hand Exposure: No Hx Alcohol Use: Yes (RARELY) Alcohol type: hard liquor Alcohol Intake Frequency : holidays/special occasions only Hx Substance Use: No Beliefs That Will Affect Care: None Preferred Language: Divehi Communication Ability: Effective Blood Donor Unit Assistant Required: No Review of Systems All systems reviewed & are unremarkable except as noted in HPI & below Physical Exam 2 Constitutional: WD/WN, vitals as above well developed; no acute distress Respiratory: normal respiratory effort, lungs clear to auscultation Cardiovascular: RRR, no murmur, no edema Heart Sounds: no murmur Musculoskeletal: Left Knee Physical Exam Findings Details Ankle ROM L * Active ROM - Factors: normal, Description: active pain free range of motion. Passive ROM - Factors: normal, Description: passive pain free range of motion. Hip ROM L * Active ROM - Factors: normal, Description: active pain free range of motion. Passive ROM - Factors: normal, Description: passive pain free range of motion. Knee ROM L * Active ROM - Flexion: 120 degrees, Extension: 3 degrees, Factors: pain, Description: active painful range of motion. Passive ROM - Flexion: 120 degrees , Extension: 3 degrees, Factors: pain, Description: passive painful range of motion. Strength LE Normal Strength Description - Normal lower extremity: Bilateral. Hip: Right: strength is normal, Left: strength is normal. Knee: Right: strength is normal, Left: strength is normal. Ankle/Foot: Right: strength is normal, Left: strength is normal. Knee * Inspection - Gait: limp. Alignment - Right: varus, Clinical, Left: varus. Ecchymosis - Right: none, Left: none. Effusion - Right: mild, Left: mild. Swelling - Right: mild. Maximum tenderness - Right: diffuse, Left: diffuse. Patella exam - Crepitation - Right: moderate, Left: moderate. Iris's - Left: Positive. [facility]'s - lateral - Right: Positive, Left: Positive. [facility]'s - medial - Right: Positive, Left: Positive. Knee Comments Calf SNT, DP+2 Knee Normal Inspection - Atrophy - Right: Absent, Left: Absent. Patella exam - Apprehension - Right: Negative. Iris's - Right: Negative. Valgus stress - Right: Negative , Left: Negative. Varus stress - Right: Negative, Left: Negative. Extensor lag - Right: Normal, Left: Normal. Neurovascular LE Normal Neurovascular examination including reflexes, sensation, and pulses is within normal limits. Results & Data Diagnostic Findings Left Knee X-ray: left knee series confirm advanced degenerative changes to the left knee, greatest medial compartments and patellofemoral joint, showing joint space narrowing, osteophyte formation and subchondral sclerosis. no acute bony pathology noted.
--- NOTE | 2018-05-13 12:50 | Anesthesiology Consultation ---
Date of Service May 13, 2018 Assessment & Plan (1) Encounter for pre-operative examination: Chart Review Chart Review: Acceptable Risk for Surgery and Patient seen in Pre Admission Testing Teaching & Discussion Pre-Anesthesia Teaching/Discussion Notes: Instructed NPO after midnight before surgery,except medications with 15 cc of water. Medication instructions provided according to the PAT guidelines. History Surgery Operation Date: 06/12/18 08:20 Proposed Procedures p Left Total Knee Arthroplasty - Nikita Lechuga DO Height/Weight Height: 5 ft 7 in Weight: 115.1 kg Allergies Allergy/AdvReac Type Severity Reaction Status Date / Time No Known Allergies Allergy Unverified 04/30/18 10:55 Medications Home Medications Medication Instructions Recorded Confirmed Last Taken No Known Home Medications 04/30/18 04/30/18 Unknown Past Medical History Medical History Hyperlipidemia "BORDERLINE"- NO MEDS Obesity Osteoarthritis Ovarian cancer NO CHEMO/NO RADIATION Past Surgical History Surgical History History of hysterectomy TOTAL History of total knee replacement RIGHT TKA= 11/08/16= SAB + PNB AT [facility] Past Anesthesia History No Hx of Anesthesia Complications and No Family Hx of Anesthesia Complications History of PONV No Motion Sickness Screening History of Motion Sickness: Yes (OCCASIONAL) Social History Smoking Status: Never smoker Do You Dip or Chew Tobacco: No Hx Alcohol Use: Yes (RARELY) Alcohol type: hard liquor alcohol intake frequency: holidays/special occasions only Hx Substance Use: No Exercise / Class Metabolic Activity II 4-5 Yardwork/Stairs/Walk up hill Review of Systems Patient reports knee pain. Patient denies chest pain, shortness of breath, dyspnea on exertion, reflux, cough, wheezing, palpitations. Physical Exam Vital Signs VITALS BP 118/81 P 59 TEMP 97.7 RESP 14 SP02 93%RA Full neck and c-spine range of motion. Full TMJ range of motion. TMD 3.5 finger breaths Mallampati Score 2 Dentition: intact, upper front/molars caps Lungs: clear throughout to auscultation Cardiac: regular rate and rhythm, no murmurs noted Spine: normal Carotid arteries: negative bruit Extremities: no edema Testing Electrocardiogram Date: 05/13/18 SB with sinus arrhythmia at 49bpm. Low voltage QRS (No significant change from 04/27/16 per cardio). Chest X-Ray Date: 05/13/18 Findings: + NAD Chronic linear scarring left midlung. Laboratory Results 05/13/18 13:20 05/13/18 13:20 Blood Type B Positive 05/13/18 13:20 Antibody Screen NEGATIVE 05/13/18 13:20 PT 10.3 Seconds (9.0-12.0) 05/13/18 13:20 INR 1.0 (0.9-1.1) 05/13/18 13:20 APTT 30.2 Seconds (21.0-31.0) 05/13/18 13:20 Hemoglobin A1c 5.4 % (4.5-5.6) 05/13/18 13:20 Urine Color Yellow 05/13/18 13:20 Urine Appearance Clear (Clear) 05/13/18 13:20 Urine pH 6.0 (4.5-7.5) 05/13/18 13:20 Ur Specific [place] 1.019 (1.000-1.030) 05/13/18 13:20 Urine Protein Negative (Negative) 05/13/18 13:20 Urine Glucose (UA) Negative (Negative) 05/13/18 13:20 Urine Ketones Negative (Negative) 05/13/18 13:20 Urine Nitrite Negative (Negative) 05/13/18 13:20 Ur Leukocyte Esterase Negative (Negative) 05/13/18 13:20
--- NOTE | 2018-05-13 13:47 | XRay Report ---
XR chest Pre-admission PA/Lat CLINICAL HISTORY: PAT preoperative evaluation COMPARISON STUDY: 04/27/2016 FINDINGS: The bones soft tissues and hemidiaphragms are normal. The cardiomediastinal silhouette is n ormal. The lungs are clear. The pulmonary vasculature is normal. Chronic linear scarring left midlung . IMPRESSION: No acute process. The above report was generated using voice recognition software. It may contain grammatical, syntax or spelling errors. Electronically signed by: Luis Shah M.D. 05/13/2018 1:45 PM
[2018-05-13 13:59] LABS: Basophils # (auto) 0.03 K/uL (0-0.2); Basophils % (auto) 0.4 %; Eosinophils # (auto) 0.23 K/uL (0-0.5); Eosinophils % (auto) 2.8 %; Hematocrit (blood only) 36.2 % (37-47); Hemoglobin 12.1 g/dL (12.0-16.0); Immature Granulocytes # (auto) 0.01 K/uL (0.00-0.02); Immature Granulocytes % (auto) 0.1 %; Lymphocytes # (auto) 1.99 K/uL (1.2-3.4); Lymphocytes % (auto) 24.3 %; Mean Corpuscular Hgb Conc 33.4 g/dL (32-36); Mean Corpuscular Volume 89.8 fL (80-100); Mean Platelet Volume 10.1 fL (7.4-10.4); Monocytes # (auto) 0.52 K/uL (0.11-0.59); Monocytes % (auto) 6.4 %; Platelet Count 239 K/uL (130-400); RDW Coefficient of Variation 13.9 % (11.5-14.5); Red Blood Count 4.03 M/uL (4.2-5.4); White Blood Count 8.18 K/uL (4.8-10.8)
[2018-05-13 14:14] LABS: Partial Thromboplastin Ratio 1.2; Partial Thromboplastin Time 30.2 Seconds (21.0-31.0); Prothrombin Time 10.3 Seconds (9.0-12.0)
[2018-05-13 14:18] LABS: Appearance Urine Clear (Clear); Bilirubin Urine Negative (Negative); Color Urine Yellow; Glucose Urine UA Negative (Negative); Ketones Urine Negative (Negative); Leukocyte Esterase Urine Negative (Negative); Nitrite Urine Negative (Negative); Protein Urine Negative (Negative); Specific Gravity Urine 1.019 (1.000-1.030); Urobilinogen Urine Negative (Negative)
[2018-05-13 14:47] LABS: Estimated Average Glucose 108 mg/dl
[2018-05-13 15:25] LABS: Albumin Level 3.5 gm/dl (3.4-5.0); Calcium 8.8 mg/dl (8.5-10.1); Creatinine Clr Calc Pharmacy 84.3 ml/min; Est GFR (African American) 77.4; Est GFR (Non-African American) 66.8
[2018-06-12] MEDS ORDERED: GABAPENTIN 300 MG x 2 PO SCH (06:00)
[2018-06-12] MEDS ORDERED: FAMOTIDINE 20 MG TAB PO SCH (06:00)
[2018-06-12] MEDS ORDERED: TRANEXAMIC ACID 1,000 MG **IV Pre-op IV SCH (06:00)
[2018-06-12] MEDS ORDERED: CEFAZOLIN 2000MG 2,000 MG/15 ML SYR IV SCH (06:00)
[2018-06-12] MEDS ORDERED: ROPIVACAINE 0.5% HCL/PF 150 MG, BUPIVACAINE 0.5% MPF 30 ML, EPINEPHrine 30MG/30ML (OR U... INFIL SCH (06:00)
[2018-06-12] MEDS ORDERED: METOCLOPRAMIDE HCL 10 MG TABLET PO SCH (06:00)
[2018-06-12] MEDS ORDERED: ACETAMINOPHEN 500 MG TAB PO SCH (06:00)
[2018-06-12] MEDS ORDERED: CeleBREX 200 MG CAP PO SCH (06:00)
[2018-06-12] MEDS ORDERED: dexAMETHasone 4 MG TAB PO SCH (06:00)
[2018-06-12] MEDS: LR 500ML BOLUS, THEN 15ML/HR IV SCH ×3 (06:10→11:22)
[2018-06-12] MEDS ORDERED: LIDOCAINE HCL 2% 2 ML VIAL/AMP(20MG/ML) INFIL ONE (06:18)
[2018-06-12] MEDS ORDERED: MIDAZOLAM HCL 1 MG/ML 2ML VIAL ONE ×3 (06:18→07:48)
[2018-06-12] MEDS ORDERED: PROPOFOL IV EMULSION 10 MG/ML 20 ML VIAL IV ONE (06:18)
[2018-06-12] MEDS ORDERED: HYDROmorphone INJ 1 MG/ML SYRINGE IV PRN (06:27)
[2018-06-12] MEDS ORDERED: ONDANSETRON INJ 2 MG/ML 2 ML VIAL IV PRN ×2 (06:27→10:47)
[2018-06-12] MEDS ORDERED: fentaNYL citrate 100 MCG/2 ML VIAL IV PRN (06:27)
[2018-06-12] MEDS ORDERED: PROMETHAZINE HCL 12.5 MG in SODIUM CHLORIDE 0.9% 50 ML IV PRN (06:27)
[2018-06-12] MEDS ORDERED: ePHEDrine sulfate 50 MG/ML AMP IV PRN (06:27)
[2018-06-12] MEDS ORDERED: ATROPINE SULFATE 0.1 MG/ML 5ML SYR IV PRN (06:27)
[2018-06-12] MEDS ORDERED: TRANEXAMIC ACID 1,000 MG **IV Intra-op IV SCH (06:30)
[2018-06-12] MEDS ORDERED: BUPIVACAINE 0.5 % 5 MG/1 ML PF 10ML VIAL ONE (06:31)
[2018-06-12] MEDS ORDERED: ROPIVACAINE 0.5% 5 MG/ML 30 ML VIAL ONE (06:32)
[2018-06-12] MEDS ORDERED: ORTHO JOINT ANESTHETIC ONE (06:33)
[2018-06-12] MEDS ORDERED: POVIDONE-IODINE OP SOLN 30 ML BTL ONE (06:34)
[2018-06-12] MEDS ORDERED: BACITRACIN INJ 50,000 UNIT VIAL ONE (06:34)
--- NOTE | 2018-06-12 06:56 | History & Physical Bridge Note ---
Date of Service June 12, 2018 History & Physical Bridge Note I have examined the patient, reviewed the History & Physical and in the interval since the performance of the History & Physical I have noted the following changes of clinical significance: no changes noted
--- NOTE | 2018-06-12 08:03 | Operative Report ---
Post Operative Report Date of Surgery June 12, 2018 Pre & Post Diagnosis Operation Date: 06/12/18 07:00 Pre-Op Diagnosis: Left Knee Osteoarthritis Post-Op Diagnosis: Left Knee Osteoarthritis Procedure Operation Date: 06/12/18 07:00 Actual Procedures p Left Total Knee Arthroplasty(Left) utilizing [facility] 2 patient matched total knee arthroplasty size 5 femur 3 tibia 15 constrained polyethylene 32 oval patella- Nikita Lechuga DO Surgeon Nikita Lechuga DO Box Maker Wood Osmany PAUL Estimated Blood Loss 10 Findings Consistent with Post-Op Diagnosis Patient presents with severe end-stage DJD of the left knee medial thrust and shift of the femur is related to the tibial medial osteophytes bone to bone changes tricompartmentally with eburnated bone marginal osteophyte subchondral cystic changes a moderate to large effusion there is also substantial ligamentous laxity medially grade 3 Specimens Bone and cartilage Drains Medium bore Hemovac Complications none Disposition Accompanied Patient To Recovery: No Disposition: Recovery Room Indications Patient presents for left total knee arthroplasty after failed attempts at conservative management including physical therapy anti-inflammatories relative rest activity modification corticosteroid injections Visco supplementation patient previously undergone successful right total knee arthroplasty presents today for left total knee arthroplasty Description of Procedure After proper prepping and draping of the left lower extremity anterior midline incision was made over the region of the extensor extensor mechanism after meticulous hemostasis was obtained and maintained in subcutaneous tissues a medial parapatellar incision was made The patella was subluxed lateralward the medial lateral gutter were cleaned from any hypertrophic synovitis and scar tissue of the distal femoral block was placed and the distal femoral osteotomy cut was made subsequently the chamfers anterior and posterior osteotomy cuts were made utilizing the 4-in-1 block the tibia was subsequently subluxed anteriorward medial and ateral meniscal remnants were excised in their entirety remnants of the anterior and posterior cruciate ligaments were excised in their entirety excellent exposure of the proximal tibia was obtained the tibial osteotomy guide was placed on the proximal tibial osteotomy cut was made once again the knee was irrigated with copious amounts of sterile saline solution the patella was subsequently everted lateralward thickened scar tissue around the patella was removed the patella was subsequently cut utilizing a freehand technique and was drilled prepared for final preparation and placement of patella socially flexion-extension gaps were checked and the equal and symmetric trials were placed to the appropriate femoral and tibial trials with poly-spacer being placed for equal flexion and extension gaps and full range of motion including extension to 0 and flexion to 140� the trial components after having been taken to recovery range of motion was subsequently removed meticulous hemostasis was obtained and maintained subsequently a knee block injection of joint cocktail including ropivacaine 0.5% 150 mg. Bupivacaine 0.5 % epinephrine 1-200,030 mL's toradol 30 mg dexamethasone 4 mg ketamine 10 mg clonidine 100 micrograms normal saline solution 30 mg was infiltrated into the soft tissues of the posterior knee medial lateral gutters and periosteal synovium special attention was paid to protect neurovascular structures at all times subsequently trial components having been removed the knee was irrigated with sterile saline solution. debris was removed the proximal tibia was subsequently prepared and was made ready for the placement of the tibial component tibial component was also cemented and tamped into position the femoral component was subsequently placed and cemented in the position the patellar component was subsequently cemented in position because hemostasis once again obtained and maintained wound having been thoroughly irrigated with debridement and debridement lavage was performed as well as a medial parapatellar incision closed with #1 Vicryl in interrupted fashion subcutaneous was closed with #2 Vicryl skin was closed with skin clips. PA-C was necessary for prepping and drapping as well as wound closure of deep fascia Sub cutaneous tissue and skin and was necessary for the case. A sterile compressive dressing was placed patient was taken to recovery in stable condition of report dictated by Ankush I attest to the content of the Intraoperative Record and any orders documented therein. Any exceptions are noted below. I attest to the content of the Intraoperative Record and any orders documented therein. Any exceptions are noted below.
--- NOTE | 2018-06-12 08:08 | Operative Report ---
Post Operative Report Date of Surgery June 12, 2018 Pre & Post Diagnosis Operation Date: 06/12/18 07:00 Pre-Op Diagnosis: Left Knee Osteoarthritis Post-Op Diagnosis: Left Knee Osteoarthritis Procedure Operation Date: 06/12/18 07:00 Actual Procedures p Left Total Knee Arthroplasty(Left) utilizing [employer] [facility] 2 patient matched total knee arthroplasty size 5 femur 3 tibia 15 constrained polyethylene 32 oval patella- Nikita Lechuga DO Surgeon Nikita Lechuga DO Optical Coating Technician Luis PAUL Estimated Blood Loss 10 Findings Consistent with Post-Op Diagnosis Patient presents with severe end-stage DJD with medial thrust of femur on tibia malalignment of the knee joint with medial osteophyte subchondral cystic changes marginal osteophytes subchondral sclerosis pseudo-ligamentous laxity grade 3 medial collateral ligament and moderate to large effusion Specimens Bone Drains Medium bore Hemovac Complications none Disposition Accompanied Patient To Recovery: No Disposition: Recovery Room Indications Patient presents with ongoing complaints of pain about the left knee no response to conservative management including physical therapy anti- inflammatories relative rest activity modification corticosteroid injection Visco supplementation patient's previous undergone successful right total knee arthroplasty presents today for left total knee arthroplasty the above findings were noted Description of Procedure After proper prepping and draping of the left lower extremity anterior midline incision was made over the region of the extensor extensor mechanism after meticulous hemostasis was obtained and maintained in subcutaneous tissues a medial parapatellar incision was made The patella was subluxed lateralward the medial lateral gutter were cleaned from any hypertrophic synovitis and scar tissue of the distal femoral block was placed and the distal femoral osteotomy cut was made subsequently the chamfers anterior and posterior osteotomy cuts were made utilizing the 4-in-1 block the tibia was subsequently subluxed anteriorward medial and ateral meniscal remnants were excised in their entirety remnants of the anterior and posterior cruciate ligaments were excised in their entirety excellent exposure of the proximal tibia was obtained the tibial osteotomy guide was placed on the proximal tibial osteotomy cut was made once again the knee was irrigated with copious amounts of sterile saline solution the patella was subsequently everted lateralward thickened scar tissue around the patella was removed the patella was subsequently cut utilizing a freehand technique and was drilled prepared for final preparation and placement of patella socially flexion-extension gaps were checked and the equal and symmetric trials were placed to the appropriate femoral and tibial trials with poly-spacer being placed for equal flexion and extension gaps and full range of motion including extension to 0 and flexion to 140� the trial components after having been taken to recovery range of motion was subsequently removed meticulous hemostasis was obtained and maintained subsequently a knee block injection of joint cocktail including ropivacaine 0.5% 150 mg. Bupivacaine 0.5 % epinephrine 1-200,030 mL's toradol 30 mg dexamethasone 4 mg ketamine 10 mg clonidine 100 micrograms normal saline solution 30 mg was infiltrated into the soft tissues of the posterior knee medial lateral gutters and periosteal synovium special attention was paid to protect neurovascular structures at all times subsequently trial components having been removed the knee was irrigated with sterile saline solution. debris was removed the proximal tibia was subsequently prepared and was made ready for the placement of the tibial component tibial component was also cemented and tamped into position the femoral component was subsequently placed and cemented in the position the patellar component was subsequently cemented in position because hemostasis once again obtained and maintained wound having been thoroughly irrigated with debridement and debridement lavage was performed as well as a medial parapatellar incision closed with #1 Vicryl in interrupted fashion subcutaneous was closed with #2 Vicryl skin was closed with skin clips. PA-C was necessary for prepping and drapping as well as wound closure of deep fascia Sub cutaneous tissue and skin and was necessary for the case. A sterile compressive dressing was placed patient was taken to recovery in stable condition of report dictated by Ankush I attest to the content of the Intraoperative Record and any orders documented therein. Any exceptions are noted below. I attest to the content of the Intraoperative Record and any orders documented therein. Any exceptions are noted below.
--- NOTE | 2018-06-12 09:26 | XRay Report ---
XR knee LT 2V routine CLINICAL HISTORY: Surgical Post Op postoperative evaluation COMPARISON: None. DISCUSSION: Anatomic alignment post total left knee arthroplasty. Good contact between prosthetic and the Bone. Surgical drains are in position. Expected postoperative soft tissue change. IMPRESSION: Anatomic alignment post total left knee arthroplasty. The above report was generated using voice recognition software. It may contain grammatical, syntax or spelling errors. Electronically signed by: Luis Shah M.D. 06/12/2018 9:25 AM
--- NOTE | 2018-06-12 10:05 | Anesthesiology Progress Note ---
Date of Service June 12, 2018 Anesthesia Post Procedure Vital Signs Vital Signs: Temp Pulse Pulse Resp BP BP Pulse Ox 06/12/18 09:56 48 L 100/62 91 06/12/18 09:55 47 L 91 06/12/18 09:51 46 L 112/60 91 06/12/18 09:50 45 L 92 06/12/18 09:46 45 L 110/64 92 06/12/18 09:45 45 L 92 06/12/18 09:42 44 L 92 06/12/18 09:41 46 L 108/63 92 06/12/18 09:40 43 L 92 06/12/18 09:36 40 L 121/62 92 06/12/18 09:35 41 L 93 06/12/18 09:32 42 L 108/62 98 06/12/18 09:30 42 L 92 06/12/18 09:27 44 L 92 06/12/18 09:26 41 L 120/63 92 06/12/18 09:25 42 L 94 06/12/18 09:21 44 L 114/66 92 06/12/18 09:20 44 L 92 06/12/18 09:18 43 L 98 06/12/18 09:17 44 L 113/64 99 06/12/18 09:15 42 L 92 06/12/18 09:11 44 L 115/63 95 06/12/18 09:10 44 L 96 06/12/18 09:07 47 L 99 06/12/18 09:06 43 L 112/62 99 06/12/18 09:05 45 L 93 06/12/18 09:01 48 L 118/66 92 06/12/18 09:00 50 L 92 06/12/18 08:56 52 L 107/60 94 06/12/18 08:55 47 L 93 06/12/18 08:51 55 L 105/58 L 96 06/12/18 08:50 55 L 95 06/12/18 08:48 36.1 C L 54 L 54 L 97 H 109/62 109/62 92 06/12/18 08:47 96 06/12/18 05:39 36.5 C 52 L 18 137/88 97 Notes Mental Status: alert / awake / arousable Patient Amnestic to Procedure: Yes Nausea / Vomiting: adequately controlled Pain: adequately controlled Airway Patency, RR, SpO2: stable & adequate BP & HR: stable & adequate Neuraxial Anesthesia: was administered and sensory block is resolving Anesthetic Complications: no major complications apparent
[2018-06-12] MEDS ORDERED: MAGNESIUM HYDROXIDE SUSP 30 ML UDC PO PRN (10:47)
[2018-06-12] MEDS ORDERED: BISACODYL 10 MG SUPP PR PRN (10:47)
[2018-06-12] MEDS ORDERED: MoRPHine SULFATE 2 MG/ML CARP IV PRN (10:47)
[2018-06-12] MEDS ORDERED: DiphenhydrAMINE HCL 50 MG/ML VIAL IV PRN (10:47)
[2018-06-12] MEDS: MULTIVITAMIN TAB PO SCH (12:31)
[2018-06-12] MEDS: SODIUM CHLORIDE 0.9% 1000ML 1,000 ML IV SCH ×2 (12:31→23:12)
[2018-06-12] MEDS: DOCUSATE SODIUM 100 MG CAP PO SCH ×2 (12:31→20:35)
[2018-06-12] MEDS: ASPIRIN 81 MG ECTAB PO SCH ×2 (12:31→20:35)
[2018-06-12] MEDS: KETOROLAC TROMETHAMINE 15 MG/ML VIAL IV SCH ×3 (12:33→23:36)
[2018-06-12] MEDS: CEFAZOLIN 2000MG 2,000 MG/15 ML SYR IV SCH ×2 (13:37→21:46)
[2018-06-12] MEDS: ACETAMINOPHEN 500 MG TAB PO SCH ×2 (13:38→21:46)
[2018-06-12] MEDS: OXYCODONE HCL IR 5 MG TAB (IMMEDIATE RELEASE) PO PRN (15:46)
[2018-06-12] MEDS: SENNA 8.6 MG TAB PO SCH (20:35)
[2018-06-12] MEDS ORDERED: Nursing to Pharmacy Communication ONE (20:48)
[2018-06-13] MEDS: KETOROLAC TROMETHAMINE 15 MG/ML VIAL IV SCH (05:54)
[2018-06-13 05:57] LABS: Hematocrit (blood only) 36.2 % (37-47); Hemoglobin 11.8 g/dL (12.0-16.0); Mean Corpuscular Hgb Conc 32.6 g/dL (32-36); Mean Corpuscular Volume 88.7 fL (80-100); Mean Platelet Volume 9.6 fL (7.4-10.4); Platelet Count 250 K/uL (130-400); RDW Coefficient of Variation 13.5 % (11.5-14.5); RDW Standard Deviation 43.9 fL (36.4-46.3); Red Blood Count 4.08 M/uL (4.2-5.4); White Blood Count 18.36 K/uL (4.8-10.8)
[2018-06-13] MEDS ORDERED: dexAMETHasone 4 MG TAB PO SCH (06:00)
[2018-06-13] MEDS: ACETAMINOPHEN 500 MG TAB PO SCH ×3 (06:15→21:06)
[2018-06-13 06:32] LABS: BUN Creatinine Ratio 20.7 (10-20); Calcium 9.2 mg/dl (8.5-10.1); Est GFR (African American) 77.9; Est GFR (Non-African American) 67.2; Potassium 4.2 mmol/L (3.5-5.1)
--- NOTE | 2018-06-13 07:40 | Orthopedic Progress Note ---
Date of Service June 13, 2018 Assessment & Plan (1) Status post left knee replacement: 63 yo female stable POD #1 s/p left TKA 1. Med management 2. DVT prophylaxis- ASA, SCDs 3. PT/OT 4. D/C planning- home w/ HH Subjective Pt resting comfortably in bed, pain controlled, denies complaints Physical Exam 2 Vital Signs (Past 24 Hours): Last Vital Signs Temp 36.8 C 06/13/18 06:55 Pulse 53 L 06/13/18 06:55 Resp 18 06/13/18 06:55 BP 132/81 06/13/18 06:55 Pulse Ox 97 06/13/18 06:55 Physical Exam: Toes mobile, N/V/I, dressing and drain in place, WENDI in place Results & Data Laboratory Results 06/13/18 06/13/18 Range/Units 05:38 05:38 WBC 18.36 H (4.8-10.8) K/uL RBC 4.08 L (4.2-5.4) M/uL Hgb 11.8 L (12.0-16.0) g/dL Hct 36.2 L (37-47) % MCV 88.7 (80-100) fL MCH 28.9 (25-34) pg MCHC 32.6 (32-36) g/dL RDW Std Deviation 43.9 (36.4-46.3) fL RDW Coeff of Bret 13.5 (11.5-14.5) % Plt Count 250 (130-400) K/uL MPV 9.6 (7.4-10.4) fL Sodium 140 (136-145) mmol/L Potassium 4.2 (3.5-5.1) mmol/L Chloride 109 H (98-107) mmol/L Carbon Dioxide 24 (21-32) mmol/L Anion Gap 7.0 (3-11) BUN 19 H (7-18) mg/dl Creatinine 0.92 (0.6-1.2) mg/dl Est Cr Clr Drug Dosing 84.0 ml/min Est GFR ( Amer) 77.9 Est GFR (Non-Af Amer) 67.2 BUN/Creatinine Ratio 20.7 H (10-20) Glucose 139 H (70-99) mg/dl Calcium 9.2 (8.5-10.1) mg/dl
--- NOTE | 2018-06-13 07:42 | Orthopedic Progress Note ---
Date of Service June 13, 2018 Physical Exam 2 Vital Signs (Past 24 Hours): Last Vital Signs Temp 36.8 C 06/13/18 06:55 Pulse 53 L 06/13/18 06:55 Resp 18 06/13/18 06:55 BP 132/81 06/13/18 06:55 Pulse Ox 97 06/13/18 06:55 Results & Data Laboratory Results 06/13/18 06/13/18 Range/Units 05:38 05:38 WBC 18.36 H (4.8-10.8) K/uL RBC 4.08 L (4.2-5.4) M/uL Hgb 11.8 L (12.0-16.0) g/dL Hct 36.2 L (37-47) % MCV 88.7 (80-100) fL MCH 28.9 (25-34) pg MCHC 32.6 (32-36) g/dL RDW Std Deviation 43.9 (36.4-46.3) fL RDW Coeff of Bret 13.5 (11.5-14.5) % Plt Count 250 (130-400) K/uL MPV 9.6 (7.4-10.4) fL Sodium 140 (136-145) mmol/L Potassium 4.2 (3.5-5.1) mmol/L Chloride 109 H (98-107) mmol/L Carbon Dioxide 24 (21-32) mmol/L Anion Gap 7.0 (3-11) BUN 19 H (7-18) mg/dl Creatinine 0.92 (0.6-1.2) mg/dl Est Cr Clr Drug Dosing 84.0 ml/min Est GFR ( Amer) 77.9 Est GFR (Non-Af Amer) 67.2 BUN/Creatinine Ratio 20.7 H (10-20) Glucose 139 H (70-99) mg/dl Calcium 9.2 (8.5-10.1) mg/dl
[2018-06-13] MEDS: ASPIRIN 81 MG ECTAB PO SCH ×2 (08:15→21:06)
[2018-06-13] MEDS: MULTIVITAMIN TAB PO SCH (08:15)
[2018-06-13] MEDS: DOCUSATE SODIUM 100 MG CAP PO SCH ×2 (08:15→21:05)
[2018-06-13] MEDS: OXYCODONE HCL IR 5 MG TAB (IMMEDIATE RELEASE) PO PRN ×3 (13:46→22:25)
--- NOTE | 2018-06-13 14:06 | Anesthesiology Progress Note ---
Date of Service June 13, 2018 Anesthesia Post Procedure Vital Signs Vital Signs: Temp Pulse Resp BP BP Pulse Ox 06/13/18 11:06 36.5 C 54 L 18 127/80 95 06/13/18 06:55 36.8 C 53 L 18 132/81 97 06/13/18 03:06 36.8 C 64 16 132/78 96 06/12/18 23:59 36.6 C 45 L 17 147/84 H 94 06/12/18 19:57 36.0 C L 46 L 17 139/83 96 06/12/18 15:16 36.4 C L 52 L 18 122/72 93 Pain Intensity Left Knee: Pain Intensity: 5 Notes Mental Status: alert / awake / arousable and participated in evaluation Patient Amnestic to Procedure: Yes Nausea / Vomiting: adequately controlled Pain: adequately controlled Airway Patency, RR, SpO2: stable & adequate BP & HR: stable & adequate Hydration State: stable & adequate Neuraxial Anesthesia: was administered and sensory block resolved Anesthetic Complications: no major complications apparent and Pt Satisfied with anesthetic care
[2018-06-13] MEDS: CeleBREX 200 MG CAP PO SCH (21:06)
[2018-06-13] MEDS: SENNA 8.6 MG TAB PO SCH (21:07)
[2018-06-14] MEDS: ACETAMINOPHEN 500 MG TAB PO SCH (06:18)
--- NOTE | 2018-06-14 07:22 | Orthopedic Progress Note ---
Date of Service June 14, 2018 Assessment & Plan (1) Status post left knee replacement: 63 yo female stable POD #2 s/p left TKA 1. Med management 2. DVT prophylaxis- ASA, SCDs 3. PT/OT 4. D/C planning- home w/ HH Subjective POD #2 s/p Left TKA denies CP/SOB, denies Fever/Chills Physical Exam 2 Vital Signs (Past 24 Hours): Last Vital Signs Temp 36.8 C 06/14/18 06:21 Pulse 47 L 06/14/18 06:21 Resp 16 06/14/18 06:21 BP 141/75 H 06/14/18 06:21 Pulse Ox 97 06/14/18 06:21 Musculoskeletal: NVDI, calf SNT, negative sofya sign. DP palpable, able to wiggle toes/ankle movement without difficulty. WENDI dressing clean dry and intact. expected post-operative bruising noted.
[2018-06-14] MEDS: OXYCODONE HCL IR 5 MG TAB (IMMEDIATE RELEASE) PO PRN (07:47)
[2018-06-14] MEDS: CeleBREX 200 MG CAP PO SCH (07:48)
[2018-06-14] MEDS: MULTIVITAMIN TAB PO SCH (07:48)
[2018-06-14] MEDS: ASPIRIN 81 MG ECTAB PO SCH (07:48)
[2018-06-14] MEDS: DOCUSATE SODIUM 100 MG CAP PO SCH (07:48)
--- NOTE | 2018-06-14 08:43 | Discharge Summary ---
Date of Service Date of Admission: 06/12/18 Date of Discharge: June 14, 2018 Admission HPI Per Admitting Provider Ms Dawn is a 62 year old female who is here for a follow up of left knee pain, presents for her pre-op appt for Left TKA on 06-12-18. She states that the symptoms have been chronic non-traumatic. The symptoms occur intermittently. The problem is fluctuating. Currently the patient states that the symptoms are mild-moderate. The pain is described as aching and sharp. The symptoms occur intermittently. She rates her worst pain as 8/10. She rates her current pain as 3/10. The symptoms are aggravated by ascending stairs, descending stairs, walking and daily activities. Hortensia states that the symptoms are relieved by no specific activity. In addition to left knee pain the patient is also experiencing limping and swelling. The patient has had a previous MRI. Patient had Synvisc one injection on 02/26/17. Patient had the right knee replaced on . 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 She lives in [address] with one step. Admission Exam Per Admitting Provider Left Knee Physical Exam Findings Details Ankle ROM L * Active ROM - Factors: normal, Description: active pain free range of motion. Passive ROM - Factors: normal, Description: passive pain free range of motion. Hip ROM L * Active ROM - Factors: normal, Description: active pain free range of motion. Passive ROM - Factors: normal, Description: passive pain free range of motion. Knee ROM L * Active ROM - Flexion: 115 degrees, Extension: 3 degrees, Factors: pain, Description: active painful range of motion. Passive ROM - Flexion: 120 degrees , Extension: 3 degrees, Factors: pain, Description: passive painful range of motion. Strength LE Normal Strength Description - Normal lower extremity: Bilateral. Hip: Right: strength is normal, Left: strength is normal. Knee: Right: strength is normal, Left: strength is normal. Ankle/Foot: Right: strength is normal, Left: strength is normal. Knee * Inspection - Gait: limp. Alignment - Right: varus, Clinical, Left: varus. Ecchymosis - Right: none, Left: none. Effusion - Right: mild, Left: mild. Swelling - Right: mild. Maximum tenderness - Right: diffuse, Left: diffuse. Patella exam - Crepitation - Right: moderate, Left: moderate. Iris's - Left: Positive. Radha's - lateral - Right: Positive, Left: Positive. Radha's - medial - Right: Positive, Left: Positive. Knee Comments Calf SNT, DP+2 Knee Normal Inspection - Atrophy - Right: Absent, Left: Absent. Patella exam - Apprehension - Right: Negative. Iris's - Right: Negative. Valgus stress - Right: Negative , Left: Negative. Varus stress - Right: Negative, Left: Negative. Extensor lag - Right: Normal, Left: Normal. Neurovascular LE Normal Neurovascular examination including reflexes, sensation, and pulses is within normal limits. Principal Diagnosis Left knee osteoarthritis Discharge Exam Musculoskeletal NVDI, calf SNT, negative sofya sign. DP palpable, able to wiggle toes/ankle movement without difficulty. WENDI dressing clean dry and intact. expected post- operative bruising noted. Discharge Data Allergies Allergy/AdvReac Type Severity Reaction Status Date / Time No Known Allergies Allergy Unverified 06/12/18 05:38 Consultations 06/12/18 10:47 Consult Case Management - Discharge Planning Routine Procedures Performed Operation Date: 06/12/18 07:00 Actual Procedures p Left Total Knee Arthroplasty(Left) - Nikita Lechuga DO Ordered Studies 06/12/18 05:00 US - OR guided needle placemen Routine Hospital Course (1) Status post left knee replacement: 63 yo female stable POD #2 s/p left TKA 1. Med management 2. DVT prophylaxis- ASA, SCDs 3. PT/OT 4. D/C planning- home w/ HH Patient was a same day admission after undergoing a successful Left TKA. She tolerated the procedure well. Post-operatively, her activity was progressed and well tolerated. Please refer to daily progress notes and PT notes for complete details. After exam on 06/14/18, patient felt to be stable for discharge home with home health PT. Patient will f/u in the office in 2 weeks for further evaluation including x-rays and incision check, sooner if having any issues or concerns. Below are pertinent labs/studies during their hospital stay: Vital Signs Temp 37.1 C 06/14/18 08:04 Pulse 44 L 06/14/18 08:04 Resp 18 06/14/18 08:04 BP 128/84 06/14/18 08:04 Pulse Ox 96 06/14/18 08:04 Intake & Output 06/13/18 06/14/18 06/14/18 18:59 06:59 18:59 Intake Total 1235 / 1235 Output Total / Balance 1010 / 1010 - Intake: Oral 1235 / 1235 Output: Drain Output Left Knee Hemovac #1 # Bowel Movements Other: # Unmeasured Voids 1 Lab Results 05/13/18 05/13/18 05/13/18 Range/Units 13:20 13:20 13:20 WBC 8.18 (4.8-10.8) K/uL RBC 4.03 L (4.2-5.4) M/uL Hgb 12.1 (12.0-16.0) g/dL Hct 36.2 L (37-47) % MCV 89.8 (80-100) fL MCH 30.0 (25-34) pg MCHC 33.4 (32-36) g/dL RDW Std Deviation 46.0 (36.4-46.3) fL RDW Coeff of Bret 13.9 (11.5-14.5) % Plt Count 239 (130-400) K/uL MPV 10.1 (7.4-10.4) fL Immature Gran % (Auto) 0.1 % Neut % (Auto) 66.0 % Lymph % (Auto) 24.3 % Mcdonald % (Auto) 6.4 % Eos % (Auto) 2.8 % Baso % (Auto) 0.4 % Immature Gran # (Auto) 0.01 (0.00-0.02) K/uL Neut # (Auto) 5.40 (1.4-6.5) K/uL Lymph # (Auto) 1.99 (1.2-3.4) K/uL Mcdonald # (Auto) 0.52 (0.11-0.59) K/uL Eos # (Auto) 0.23 (0-0.5) K/uL Baso # (Auto) 0.03 (0-0.2) K/uL PT 10.3 (9.0-12.0) Seconds INR 1.0 (0.9-1.1) APTT 30.2 (21.0-31.0) Seconds PTT Ratio 1.2 Sodium 140 (136-145) mmol/L Potassium 4.0 (3.5-5.1) mmol/L Chloride 107 (98-107) mmol/L Carbon Dioxide 30 (21-32) mmol/L Anion Gap 3.0 (3-11) BUN 20 H (7-18) mg/dl Creatinine 0.93 (0.6-1.2) mg/dl Est Cr Clr Drug Dosing 84.3 ml/min Est GFR ( Amer) 77.4 Est GFR (Non-Af Amer) 66.8 BUN/Creatinine Ratio 22.0 H (10-20) Glucose 98 (70-99) mg/dl Estimat Average Glucose mg/dl Hemoglobin A1c (4.5-5.6) % Calcium 8.8 (8.5-10.1) mg/dl Albumin 3.5 (3.4-5.0) gm/dl Urine Color Urine Appearance (Clear) Urine pH (4.5-7.5) Ur Specific Florence (1.000-1.030) Urine Protein (Negative) Urine Glucose (UA) (Negative) Urine Ketones (Negative) Urine Blood (Negative) Urine Nitrite (Negative) Urine Bilirubin (Negative) Urine Urobilinogen (Negative) Ur Leukocyte Esterase (Negative) Blood Type Antibody Screen 05/13/18 05/13/18 05/13/18 Range/Units 13:20 13:20 13:20 WBC (4.8-10.8) K/uL RBC (4.2-5.4) M/uL Hgb (12.0-16.0) g/dL Hct (37-47) % MCV (80-100) fL MCH (25-34) pg MCHC (32-36) g/dL RDW Std Deviation (36.4-46.3) fL RDW Coeff of Bret (11.5-14.5) % Plt Count (130-400) K/uL MPV (7.4-10.4) fL Immature Gran % (Auto) % Neut % (Auto) % Lymph % (Auto) % Mcdonald % (Auto) % Eos % (Auto) % Baso % (Auto) % Immature Gran # (Auto) (0.00-0.02) K/uL Neut # (Auto) (1.4-6.5) K/uL Lymph # (Auto) (1.2-3.4) K/uL Mcdonald # (Auto) (0.11-0.59) K/uL Eos # (Auto) (0-0.5) K/uL Baso # (Auto) (0-0.2) K/uL PT (9.0-12.0) Seconds INR (0.9-1.1) APTT (21.0-31.0) Seconds PTT Ratio Sodium (136-145) mmol/L Potassium (3.5-5.1) mmol/L Chloride (98-107) mmol/L Carbon Dioxide (21-32) mmol/L Anion Gap (3-11) BUN (7-18) mg/dl Creatinine (0.6-1.2) mg/dl Est Cr Clr Drug Dosing ml/min Est GFR ( Amer) Est GFR (Non-Af Amer) BUN/Creatinine Ratio (10-20) Glucose (70-99) mg/dl Estimat Average Glucose 108 mg/dl Hemoglobin A1c 5.4 (4.5-5.6) % Calcium (8.5-10.1) mg/dl Albumin (3.4-5.0) gm/dl Urine Color Yellow Urine Appearance Clear (Clear) Urine pH 6.0 (4.5-7.5) Ur Specific Florence 1.019 (1.000-1.030) Urine Protein Negative (Negative) Urine Glucose (UA) Negative (Negative) Urine Ketones Negative (Negative) Urine Blood Negative (Negative) Urine Nitrite Negative (Negative) Urine Bilirubin Negative (Negative) Urine Urobilinogen Negative (Negative) Ur Leukocyte Esterase Negative (Negative) Blood Type B Positive Antibody Screen NEGATIVE 06/13/18 06/13/18 Range/Units 05:38 05:38 WBC 18.36 H (4.8-10.8) K/uL RBC 4.08 L (4.2-5.4) M/uL Hgb 11.8 L (12.0-16.0) g/dL Hct 36.2 L (37-47) % MCV 88.7 (80-100) fL MCH 28.9 (25-34) pg MCHC 32.6 (32-36) g/dL RDW Std Deviation 43.9 (36.4-46.3) fL RDW Coeff of Bret 13.5 (11.5-14.5) % Plt Count 250 (130-400) K/uL MPV 9.6 (7.4-10.4) fL Immature Gran % (Auto) % Neut % (Auto) % Lymph % (Auto) % Mcdonald % (Auto) % Eos % (Auto) % Baso % (Auto) % Immature Gran # (Auto) (0.00-0.02) K/uL Neut # (Auto) (1.4-6.5) K/uL Lymph # (Auto) (1.2-3.4) K/uL Mcdonald # (Auto) (0.11-0.59) K/uL Eos # (Auto) (0-0.5) K/uL Baso # (Auto) (0-0.2) K/uL PT (9.0-12.0) Seconds INR (0.9-1.1) APTT (21.0-31.0) Seconds PTT Ratio Sodium 140 (136-145) mmol/L Potassium 4.2 (3.5-5.1) mmol/L Chloride 109 H (98-107) mmol/L Carbon Dioxide 24 (21-32) mmol/L Anion Gap 7.0 (3-11) BUN 19 H (7-18) mg/dl Creatinine 0.92 (0.6-1.2) mg/dl Est Cr Clr Drug Dosing 84.0 ml/min Est GFR ( Amer) 77.9 Est GFR (Non-Af Amer) 67.2 BUN/Creatinine Ratio 20.7 H (10-20) Glucose 139 H (70-99) mg/dl Estimat Average Glucose mg/dl Hemoglobin A1c (4.5-5.6) % Calcium 9.2 (8.5-10.1) mg/dl Albumin (3.4-5.0) gm/dl Urine Color Urine Appearance (Clear) Urine pH (4.5-7.5) Ur Specific Florence (1.000-1.030) Urine Protein (Negative) Urine Glucose (UA) (Negative) Urine Ketones (Negative) Urine Blood (Negative) Urine Nitrite (Negative) Urine Bilirubin (Negative) Urine Urobilinogen (Negative) Ur Leukocyte Esterase (Negative) Blood Type Antibody Screen Total Time Total Time Spent Total Time Spent (In Minutes): 30 Discharge Plan Discharge Items Patient Disposition: Home - Home Health Services Reason For Visit: Left Knee Osteoarthritis Discharge Diagnosis: Left total knee replacement Condition: Good Discharge Goals: Decrease discomfort, Improve function and Increase independence Activity: Per 'Additional Instructions' section Lifting: Wait until after follow-up appointment Weightbearing: Left weightbearing Weightbearing Comment: WBAT with walker Non-emergency contact: Primary Care Provider and Surgeon Call non-emergency contact if: you have any medication questions, your pain is worsening, your temperature is above 101.5, your wound has increased redness, your wound has increased drainage and your wound pain has increased Follow-up/Referrals: Mickey Ludwig MD [Primary Care Provider] - Diet: Regular Addtl Provider Instructions: ACTIVITY RECOMMENDATIONS: SELF CARE INSTRUCTIONS AFTER TOTAL KNEE REPLACEMENT A. You may need to continue a physical therapy program after discharge from the hospital. There are several options available to you. Your doctor will assist you in selecting the best one for you. 1. An out-patient facility 2 to 3 times a week for therapy or home therapy. 2. Continue working on all exercises taught to you in the hospital. Your goals should be to increase bending of your knee to 90 degrees and beyond and to fully straighten your knee. B. You may progress at your own pace from walking with a walker or crutches to a cane; then to no assistive devices. C. Make walking a part of your daily routine. Be up as much as comfortable with rest periods throughout the day. Rest with leg elevation is very important. Use the ice wrap frequently for the first 3-4 weeks. D. There are no restrictions on activities. You may ride in a car, shop, participate in straightener and all social activities. E. Wear the long elastic stockings (KRISTEN hose) 20 hours a day for 2 weeks after surgery. They can be removed several times a day for laundering and for a bath. F. You may shower, no tub baths until cleared by your doctor. SPECIAL CARE INSTRUCTIONS: VERY IMPORTANT TO READ AND REVIEW A. There are a few signs you need to watch for after you are home. Call [facility] if you notice any of the followin. Increased severe knee pain. Some pain is expected especially when you exercise. 2. Increased swelling in your leg or knee; pain or swelling of the calf muscle in either lower leg. 3. Any fluid drainage from the incision. 4. Shortness of breath or chest pain. B. Please call [facility] at if you have any concerns or questions about your operation or recovery. The doctor or his nurse will return your call promptly. C. You must take antibiotics before dental work, bladder, bowel or other surgery. Your doctor will provide you with a permanent care to carry describing this precaution. IMPORTANT: * REMEMBER TO TAKE ASPIRIN, 81 MG, TWICE DAILY FOR 4 WEEKS UNLESS OTHERWISE DIRECTED. THIS IS YOUR BLOOD THINNER. * HIGH RISK PATIENTS MAY BE PRESCRIBED A STRONGER BLOOD THINNER. THIS WILL BE PROVIDED AT DISCHARGE. * CALL IF INCREASED PAIN, REDNESS, DRAINAGE OR FEVER GREATER THAT 101. * WEAR KRISTEN HOSE 20 HOURS PER DAY FOR 2 WEEKS. * WENDI Dressing- This is a large suction dressing covering your incision. This will help pull any excess drainage from the wound and allow your incision to heal properly. You may shower with this if you can keep the unit outside of the shower. If any bleeding or leakage is noted please call your doctor's office. This will remain on your incision for 7 days and then should be removed. This can be done yourself or by the home nursing staff if applicable. The entire unit is disposable once removed. Once removed, keep incision clean and dry. If redness or drainage is noted, please call your surgeon. Once WENDI dressing is removed, please follow these instructions regarding your incision: DERMABOND Prineo- This is a mesh tape dressing that is covered with glue. It should remain in place until the incision is properly healed, usually 10-14 days. This dressing is designed to naturally slough off. You may trim the excess mesh tape as it peels off. Incision may be briefly wet in a shower. Dry immediately by blotting with a clean, dry towel. Do not bath or swim until instructed by your doctor. Do not scratch, rub, or pick at the dressing. Do not apply any topical ointments or lotions until dressing is completely removed and/or instructed by your doctor. There may be a small piece of suture material at one end of your incision. Do not pull or trim this. If it is bothersome or catching on clothing, you may cover it with a band-aid. FOLLOW UP VISIT: If appointment is not already scheduled: Please call [facility] to make a follow-up appointment for 2 weeks after your surgery at . Prescriptions: New celecoxib [Celebrex] 200 mg Capsule 200 mg PO BID 30 Days Qty: 60 RF: 0 aspirin [Ecotrin Low Strength] 81 mg Tablet,Delayed Release (Dr/Ec) 81 mg PO BID 30 Days Qty: 60 RF: 0 acetaminophen [Pain Reliever] 500 mg Tablet 1,000 mg PO Q8 Qty: 63 RF: 0 docusate sodium 100 mg Capsule 100 mg PO BID 5 Days Qty: 10 RF: 0 oxycodone 5 mg Tablet 5 - 10 mg PO Q4H PRN (Reason: pain) Qty: 30 RF: 0 No Action No Known Home Medications RF: 0 Stand-Alone Forms: [facility] Discharge Orders: Discharge Order (Routine); Ordered 06/14/18 Ordered By: Luis Chacko Admission Data Admit Date/Time: 06/12/18 08:52 Attending Provider: Nikita Lechuga Admit Provider: Nikita Lechuga Primary Care Provider: Mickey Ludwig Service: Surgical Services Other Pending Studies at Discharge: No
== END 2018-06-14 12:03 | disposition home health service (06) | DRG 470 ==
LOC: ASU 05:04 → 3E 08:52

== ENCOUNTER 2021-07-11 09:14 | Inpatient (IN) ==
[2021-07-11] MEDS ORDERED: SODIUM CHLORIDE 0.9% 500 ML IV STA (09:36)
--- NOTE | 2021-07-11 09:42 | Emergency Department Note ---
Impression & Plan Atrial fibrillation with rapid ventricular response, Acute neck pain, SOB (shortness of breath), Near syncope ED Provider Note NAME: FRANCIS RODRIGUEZ AGE: 66 SEX: F : 1955 ARRIVES VIA: Ambulance INFORMANT: [Patient][nursing] ED PROVIDER(S): [Momo Barton MD] CHIEF COMPLAINT: Cardiac assessment HISTORY OF PRESENT ILLNESS: The patient is a 66-year-old female presents with 2.5 hours of symptoms. The patient states that her symptoms resolved just as she got in the ambulance. The patient woke up this morning with a pounding, rapid and somewhat irregular heart rate. She could feel some pain in her neck that was a 5/10. She was short of breath, especially with stairs and exertion. She was slightly nauseated, no sweating. The patient states that she has a history of SVT and is on metoprolol. She went to the EMS building and they did a few ECGs and said that she seemed to be in A. fib. The patient admits that she felt near syncopal today. She has never been officially diagnosed with A. fib but her apple watch today, said she was in A. fib. Patient has been taking her medications as prescribed. She takes her metoprolol once a day. She is not on any anticoagulation. REVIEW OF SYSTEMS: See HPI for pertinent positives and negatives. A total of ten systems were reviewed and were otherwise negative. PMHx/PSHx: See Below SOCIAL HISTORY: See Below. PHYSICAL EXAM: GENERAL: Patient is in no acute distress. HEENT: No acute trauma, normocephalic atraumatic, mucous membranes moist, no nasal congestion, no scleral icterus. NECK: No stridor, no adenopathy, no meningismus, trachea is midline. LUNGS: Clear to auscultation bilaterally, no wheeze, no rhonchi, breath sounds equal. Chest: Nontender chest wall. HEART: Without murmurs gallops or rubs, regular rate and rhythm. ABDOMEN: Soft, nontender, bowel sounds positive, no hernias, no peritonitis. EXTREMITIES: No cyanosis or edema, full range of motion of all the joints witho ut pain or difficulty, no signs for acute trauma. NEUROLOGIC: Oriented x 3, no acute motor or sensory deficits, no focal weakness. SKIN: No rash, no jaundice, no diaphoresis. DIFFERENTIAL DIAGNOSIS: Cardiac ischemia, aortic dissection, pulmonary embolism, SVT, A. fib, a flutter, V. tach, pneumothorax, pneumonia, pericarditis, myocarditis, esophageal rupture, GERD, cholecystitis, pancreatitis, musculoskeletal, as well as other pathologies. EMERGENCY DEPARTMENT COURSE/PROCEDURES: ECG: Indication was chest pain and palpitations. The ECG shows a sinus rhythm with a first-degree AV block. The rate is 66. There is no ST elevation, no PVCs. The QTc is 429. Looking at the patient's ECGs performed prior to arrival, she was in a rapid atrial fibrillation. Continuous Cardiac Monitoring: An order was placed for continuous cardiac monitoring. The monitor shows a rate of 74 with sinus rhythm with a first-degree AV block. MEDICAL DECISION MAKING: There is no leukocytosis or concerning anemia. There is a normal platelet count. No coagulopathy. No significant electrolyte abnormality or kidney failure. No concerning liver enzyme elevation. No evidence for issues with the pancreas. The patient appeared to be in a euthyroid state. ECG shows a sinus rhythm without acute ischemia. Cardiac enzyme testing x2 is not consistent with acute cardiac injury. Chest film does not show pneumonia or CHF. Covid testing is negative. Reviewing her ECGs performed as an outpatient, rapid atrial fibrillation was noted. The patient received IV saline for hydration. The patient has done well here in the ED. There has been no recurrence of her shortness of breath or dysrhythmia. I spoke with cardiology. They saw the patient here in the ED and made some recommendations. The patient is going to be hospitalized for a sotalol load. The patient is aware of her findings, she is currently resting comfortably. I did speak with case management. The on-call hospitalist was consulted. Past Med/Surg History Medical History Hyperlipidemia "BORDERLINE"- NO MEDS Obesity Osteoarthritis Ovarian cancer NO CHEMO/NO RADIATION Surgical History History of hysterectomy TOTAL History of total knee replacement RIGHT TKA= 11/08/16= SAB + PNB AT [facility] Family History Brother Atrial fibrillation hx of ablation Social History Smoking Status: Never smoker Second Hand Exposure: No; Hx Alcohol Use: No (RARELY) Hx Substance Use: No Preferred Language: Kiswahili Communication Ability: Effective Visual Impairment: No Limitations Individual Small Group Instructor Required: No Beliefs That Will Affect Care: None marital status: Current Living Situation: Spouse current occupational status: employed Feels Safe at Home: Yes Assistive Devices: Walker Allergies Allergies Allergy/AdvReac Type Severity Reaction Status Date / Time adhesive tape AdvReac Intermediate blisters Unverified 07/11/21 10:04 Home Meds Home Medications Medication Instructions Recorded Confirmed metoprolol succinate 25 mg 25 mg PO QAM 07/11/21 07/11/21 tablet,extended release 24 hr vitamins A,C,L-[id number]-[id number] 7,160 2 tab PO BID 07/11/21 07/11/21 unit-113 mg-100 unit tablet (PreserVision AREDS) Results & Data (ED) Vital Signs Vital Signs - 24 hr 07/11/21 09:26 07/11/21 09:30 07/11/21 09:40 Temperature 36.9 C Temperature Source Oral Pulse Rate 66 75 68 Pulse Rate [Right Apical] Pulse Rate from SpO2 Sensor 68 75 69 Respiratory Rate 17 16 17 Respiratory Effort / Characteristics Non-Labored Respiratory Depth Normal Blood Pressure 162/97 H Blood Pressure [Right Arm] Blood Pressure Mean 118 Blood Pressure Mean [Right Arm] Blood Pressure Position Lying Blood Pressure Position [Right Arm] Pulse Oximetry 94 95 92 Oxygen Delivery Method Room Air Sepsis Recent Fever Within 48 Hours No Sepsis New/Unexplained Change in Mental Status N/A Sepsis Action Taken by Nursing No Action Required 07/11/21 09:50 07/11/21 10:03 07/11/21 10:10 Temperature Temperature Source Pulse Rate 72 68 Pulse Rate [Right Apical] Pulse Rate from SpO2 Sensor 70 69 Respiratory Rate 14 33 H 15 Respiratory Effort / Characteristics Respiratory Depth Blood Pressure Blood Pressure [Right Arm] Blood Pressure Mean Blood Pressure Mean [Right Arm] Blood Pressure Position Blood Pressure Position [Right Arm] Pulse Oximetry 95 96 Oxygen Delivery Method Sepsis Recent Fever Within 48 Hours Sepsis New/Unexplained Change in Mental Status Sepsis Action Taken by Nursing 07/11/21 10:20 07/11/21 10:30 07/11/21 10:40 Temperature Temperature Source Pulse Rate 64 62 63 Pulse Rate [Right Apical] Pulse Rate from SpO2 Sensor 64 62 63 Respiratory Rate 18 20 23 Respiratory Effort / Characteristics Respiratory Depth Blood Pressure Blood Pressure [Right Arm] Blood Pressure Mean Blood Pressure Mean [Right Arm] Blood Pressure Position Blood Pressure Position [Right Arm] Pulse Oximetry 97 97 96 Oxygen Delivery Method Sepsis Recent Fever Within 48 Hours Sepsis New/Unexplained Change in Mental Status Sepsis Action Taken by Nursing 07/11/21 10:46 07/11/21 12:10 07/11/21 14:24 Temperature Temperature Source Pulse Rate 64 52 L Pulse Rate [Right Apical] 62 Pulse Rate from SpO2 Sensor Respiratory Rate 16 18 18 Respiratory Effort / Characteristics Respiratory Depth Blood Pressure 157/80 H 156/60 H Blood Pressure [Right Arm] 165/83 H Blood Pressure Mean 105 Blood Pressure Mean [Right Arm] 110 Blood Pressure Position Blood Pressure Position [Right Arm] Lying Pulse Oximetry 94 97 Oxygen Delivery Method Room Air Room Air Sepsis Recent Fever Within 48 Hours Sepsis New/Unexplained Change in Mental Status Sepsis Action Taken by [facility] Medications Current Medication List: was personally reviewed by me Laboratory Data Attestation: I reviewed the patient's lab results. Result diagrams: 07/11/21 09:25 07/11/21 09:25 Lab Results 07/11/21 07/11/21 07/11/21 Range/Units 09:25 09:25 09:25 WBC 9.26 (4.8-10.8) K/uL RBC 4.67 (4.2-5.4) M/uL Hgb 13.4 (12.0-16.0) g/dL Hct 41.9 (37-47) % MCV 89.7 (80-100) fL MCH 28.7 (25-34) pg MCHC 32.0 (32-36) g/dL RDW Std Deviation 47.9 H (36.4-46.3) fL RDW Coeff of Bret 14.7 H (11.5-14.5) % Plt Count 258 (130-400) K/uL MPV 10.0 (7.4-10.4) fL Immature Gran % (Auto) 0.2 % Neut % (Auto) 71.9 % Lymph % (Auto) 19.1 % Archer % (Auto) 6.5 % Eos % (Auto) 1.9 % Baso % (Auto) 0.4 % Neut # (Auto) 6.65 H (1.4-6.5) K/uL Lymph # (Auto) 1.77 (1.2-3.4) K/uL Archer # (Auto) 0.60 H (0.11-0.59) K/uL Eos # (Auto) 0.18 (0-0.5) K/uL Baso # (Auto) 0.04 (0-0.2) K/uL Immature Gran # (Auto) 0.02 (0.00-0.02) K/uL PT (9.0-12.0) Seconds INR (0.9-1.1) APTT (21.0-31.0) Seconds PTT Ratio Sodium 142 (136-145) mmol/L Potassium 3.8 (3.5-5.1) mmol/L Chloride 109 H (98-107) mmol/L Carbon Dioxide 24 (21-32) mmol/L Anion Gap 9 (3-11) BUN 16 (6-23) mg/dl Creatinine 0.88 (0.6-1.2) mg/dl Est Cr Clr Drug Dosing 95.8 ml/min Est GFR ( Amer) 80.5 ml/min Est GFR (Non-Af Amer) 69.4 ml/min BUN/Creatinine Ratio 18.2 (10-20) Glucose 81 (70-99(Fasting)) mg/dl Calcium 9.2 (8.5-10.1) mg/dl Magnesium 1.8 (1.7-2.4) mg/dl Total Bilirubin 0.4 (0.2-1.0) mg/dl AST 13 (13-39) U/L ALT 12 (7-52) U/L Alkaline Phosphatase 88 (34-104) U/L Troponin I < 0.03 (0-0.04) ng/ml Total Protein 6.9 (6.0-8.3) gm/dl Albumin 3.9 (3.4-5.0) gm/dl Globulin 3.0 (2.5-4.0) gm/dl Albumin/Globulin Ratio 1.3 (0.9-2) Lipase 46 (11-82) U/L TSH 2.666 (0.300-4.500) uIu/ml SARS-CoV-2, RNA, NAAT (NEGATIVE) 07/11/21 07/11/21 07/11/21 Range/Units 09:25 12:23 12:36 WBC (4.8-10.8) K/uL RBC (4.2-5.4) M/uL Hgb (12.0-16.0) g/dL Hct (37-47) % MCV (80-100) fL MCH (25-34) pg MCHC (32-36) g/dL RDW Std Deviation (36.4-46.3) fL RDW Coeff of Bret (11.5-14.5) % Plt Count (130-400) K/uL MPV (7.4-10.4) fL Immature Gran % (Auto) % Neut % (Auto) % Lymph % (Auto) % Archer % (Auto) % Eos % (Auto) % Baso % (Auto) % Neut # (Auto) (1.4-6.5) K/uL Lymph # (Auto) (1.2-3.4) K/uL Archer # (Auto) (0.11-0.59) K/uL Eos # (Auto) (0-0.5) K/uL Baso # (Auto) (0-0.2) K/uL Immature Gran # (Auto) (0.00-0.02) K/uL PT 9.8 (9.0-12.0) Seconds INR 1.0 (0.9-1.1) APTT 27.0 (21.0-31.0) Seconds PTT Ratio 1.0 Sodium (136-145) mmol/L Potassium (3.5-5.1) mmol/L Chloride (98-107) mmol/L Carbon Dioxide (21-32) mmol/L Anion Gap (3-11) BUN (6-23) mg/dl Creatinine (0.6-1.2) mg/dl Est Cr Clr Drug Dosing ml/min Est GFR ( Amer) ml/min Est GFR (Non-Af Amer) ml/min BUN/Creatinine Ratio (10-20) Glucose (70-99(Fasting)) mg/dl Calcium (8.5-10.1) mg/dl Magnesium (1.7-2.4) mg/dl Total Bilirubin (0.2-1.0) mg/dl AST (13-39) U/L ALT (7-52) U/L Alkaline Phosphatase (34-104) U/L Troponin I < 0.03 (0-0.04) ng/ml Total Protein (6.0-8.3) gm/dl Albumin (3.4-5.0) gm/dl Globulin (2.5-4.0) gm/dl Albumin/Globulin Ratio (0.9-2) Lipase (11-82) U/L TSH (0.300-4.500) uIu/ml SARS-CoV-2, RNA, NAAT NEGATIVE (NEGATIVE) Administered Medications Apixaban (Apixaban 5 Mg Tablet) 5 mg PO BID MIKE Stop: 08/10/21 11:29 Last Admin: 07/11/21 11:59 Dose: 5 mg Documented by: [id number] Sotalol HCl (Sotalol Hcl 80 Mg Tab) 80 mg PO BID MIKE Stop: 08/10/21 11:14 Last Admin: 07/11/21 12:09 Dose: 80 mg Documented by: [id number] Discontinued Medications Sodium Chloride (Nss) 500 mls @ 999 mls/hr IV .Q31M STA Stop: 07/11/21 10:06 Last Infusion: 07/11/21 10:54 Dose: 0 mls/hr Documented by: [id number] Admin: 07/11/21 10:07 Dose: 999 mls/hr Documented by: [id number] Magnesium Sulfate/Dextrose (Magnesium Sulfate / D5w) 1 gm in 100 mls @ 100 mls/hr IV NOW STA Stop: 07/11/21 13:33 Last Infusion: 07/11/21 14:36 Dose: 0 mls/hr Documented by: [id number] Admin: 07/11/21 13:34 Dose: 100 mls/hr Documented by: [id number] Magnesium Oxide (Magnesium Oxide 400 Mg Tab) 400 mg PO ONCE ONE Stop: 07/11/21 11:02 Last Admin: 07/11/21 11:59 Dose: 400 mg Documented by: [id number] Potassium Chloride (Potassium Chloride Crtab 20 Meq Tabcr) 20 meq PO NOW STA Stop: 07/11/21 13:15 Last Admin: 07/11/21 13:33 Dose: 20 meq Documented by: [id number] Imaging Data Radiologist's Impression: Chest X-Ray 07/11/21 09:36 XR chest 1V portable HISTORY: 66 years-old Female Chest Pain elevated blood pressure COMPARISON: Chest radiograph 05/17/2021 TECHNIQUE: Portable AP view of the chest FINDINGS: Calcified plaque of the thoracic aorta. The cardiac mediastinal and hilar silhouettes are within normal limits. No pneumothorax, pleural effusion, airspace consolidation or overt pulmonary edema. Degenerative changes of the shoulders and spine. IMPRESSION: No acute process. ACT 112: Negative or not required by law. The above report was generated using voice recognition software. It may contain grammatical, syntax or spelling errors. Electronically signed by: Anuel Kwong M.D. 07/11/2021 9:48 AM Discharge Plan Visit Data Chief Complaint: Cardiac Assessment ED Provider: Momo Barton Discharge Problem: Atrial fibrillation with rapid ventricular response, Acute neck pain, SOB (shortness of breath), Near syncope Patient Disposition: Admitted As Inpatient Condition: Good Prescriptions Prescriptions: No Action metoprolol succinate 25 mg tablet extended release 24 hr 25 mg PO QAM RF: 0 PreserVision AREDS 7,160 unit- 113 mg-100 unit Tablet 2 tab PO BID RF: 0
--- NOTE | 2021-07-11 09:44 | Cardiology Consultation ---
Date of Consultation July 11, 2021 History of Present Illness History of Present Illness PMHX: 1. Sinus bradycardia 2. Mild hyperlipidemia 3. Paroxysmal supraventricular tachycardia 4. Obesity 5. Obstructive sleep apnea Allergies Allergy/AdvReac Type Severity Reaction Status Date / Time adhesive tape AdvReac Intermediate blisters Unverified 07/11/21 10:04 Home Medications Medication Instructions Recorded Confirmed Type metoprolol succinate 25 mg 25 mg PO QAM 07/11/21 07/11/21 History tablet,extended release 24 hr vitamins A,C,T-oxkp-ldpvno 7,160 2 tab PO BID 07/11/21 07/11/21 History unit-113 mg-100 unit tablet (PreserVision AREDS) Patient History Medical History (Updated 07/11/21 @ 11:07 by FAITH Luu) Hyperlipidemia "BORDERLINE"- NO MEDS Obesity Osteoarthritis Ovarian cancer NO CHEMO/NO RADIATION Surgical History History of hysterectomy TOTAL History of total knee replacement RIGHT TKA= 11/08/16= SAB + PNB AT [facility] Social History Smoking Status: Never smoker Second Hand Exposure: No; Hx Alcohol Use: Yes (RARELY) Alcohol type: hard liquor Hx Substance Use: No Preferred Language: Qatari Communication Ability: Effective Visual Impairment: No Limitations 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 There was sinus bradycardia during the examination. The LV wall thickness is normal. The left ventricular wall motion is normal. Calculated LV ejection Fraction = 68% (three dimensional volumes). The left ventricular diastolic function is moderately abnormal (grade II). The aortic root is normal sized. The proximal ascending thoracic aorta is mildly enlarged with diameter of 4 cm.
--- NOTE | 2021-07-11 09:49 | XRay Report ---
XR chest 1V portable HISTORY: 66 years-old Female Chest Pain elevated blood pressure COMPARISON: Chest radiograph 05/17/2021 TECHNIQUE: Portable AP view of the chest FINDINGS: Calcified plaque of the thoracic aorta. The cardiac mediastinal and hilar silhouettes are within norm al limits. No pneumothorax, pleural effusion, airspace consolidation or overt pulmonary edema. Degene rative changes of the shoulders and spine. IMPRESSION: No acute process. ACT 112: Negative or not required by law. The above report was generated using voice recognition software. It may contain grammatical, syntax o r spelling errors. Electronically signed by: Anuel Kwong M.D. 07/11/2021 9:48 AM
[2021-07-11 09:55] LABS: Basophils # (auto) 0.04 K/uL (0-0.2); Basophils % (auto) 0.4 %; Eosinophils # (auto) 0.18 K/uL (0-0.5); Eosinophils % (auto) 1.9 %; Hematocrit (blood only) 41.9 % (37-47); Hemoglobin 13.4 g/dL (12.0-16.0); Immature Granulocytes # (auto) 0.02 K/uL (0.00-0.02); Immature Granulocytes % (auto) 0.2 %; Lymphocytes # (auto) 1.77 K/uL (1.2-3.4); Lymphocytes % (auto) 19.1 %; Mean Corpuscular Hemoglobin 28.7 pg (25-34); Mean Corpuscular Volume 89.7 fL (80-100); Monocytes % (auto) 6.5 %; Neutrophils # (auto) 6.65 K/uL (1.4-6.5); Neutrophils % (auto) 71.9 %; Platelet Count 258 K/uL (130-400); Prothrombin Time 9.8 Seconds (9.0-12.0); RDW Coefficient of Variation 14.7 % (11.5-14.5); RDW Standard Deviation 47.9 fL (36.4-46.3); Red Blood Count 4.67 M/uL (4.2-5.4); White Blood Count 9.26 K/uL (4.8-10.8)
--- NOTE | 2021-07-11 09:59 | Cardiology Consultation ---
Date of Consultation July 11, 2021 Assessment & Plan (1) Paroxysmal atrial fibrillation: New onset symptomatic paroxysmal atrial fibrillation. I discussed the pathophysiology of atrial fibrillation in detail with both the patient, , and son. Treatment options were discussed. Patient is currently maintaining SR and is asymptomatic. Echo does as an outpatient on 06/15 showed LVEF of 68%, Grade II diastolic dysfunction and normal LA size. Risk vs benefit of anticoagulation discussed. Patient voiced concerns regarding Coumadin, but was agreeable to start Eliquis. Recommended inpatient admission for Sotalol load. Patient in agreement. Case discussed with Dr. Mansfield 1. HOLD metoprolol succinate 2. Start Sotalol 80 mg BID, first dose now. 3. Obtain daily EKGs, monitor QTC 4. Replace electrolytes as necessary. Potassium stable. Mag 1.8- give 400 mg of mag oxide now. 5. Start Eliquis 5 mg BID, first dose now. (2) HTN, goal below 140/80: Elevated above goal. Normally well controlled. Will hold off on making adjustments at this time. (3) GABY (obstructive sleep apnea): Recently diagnosed with GABY. Not currently on CPAP- was planning on obtaining device and being fitted for a mask tomorrow. Can consider arranging this for patient while she is in the hospital. Case and plan discussed with Dr. Mansfield. Supervising Physician Co-Signing Physician Notes Patient seen and examined with FAITH Fish. Agree with findings and assessment as above. Given history of PSVT and now documented coarse atrial fibrillation believe antiarrhythmic therapy would be indicated. Discussed sotalol along with its benefits, risks and alternatives with patient and at bedside. They both state they are in agreement with initiation. Also discussed anticoagulation and patient prefers Eliquis. History of Present Illness Reason for Consultation: Atrial fibrilltion [facility] of Present Illness 66 year old female presenting today for palpitations. Following with Dr. Lou as an outpatient, has seen Dr. Lisa previously. 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 She has been having complaints of palpitations and was also seen at [facility] in May for similar complaints. She was found to be in a narrow complex tachycardia then spontaneously converted to NSR on her own. Today she presents with x2.5 hours of a pound irregular heart rates. Noted worsening dyspnea especially when going up steps and was extremely dizzy, presyncopal. was present and noted that she "turned larkin". No chest pain but did not a pressure. Symptoms resolved when she got into the ambulance. Denies a history of atrial fib. Currently maintains on Metoprolol succinate 25 mg daily. Pre hospital EKGs show course atrial fibrillation. Currently resting comfortably in bed. at bedside. Currently SR with 1 AVB, 66 bpm, QTC 429 ms. No acute concerns. No chest pain, shortness of breath, or palpitations. Denies any lifestyle changes recently. Currently being worked up for GABY by her PCP- was planning on picking up her CPAP tomorrow. PMHX: 1. Sinus bradycardia 2. Mild hyperlipidemia 3. Paroxysmal supraventricular tachycardia 4. Obesity 5. Obstructive sleep apnea Allergies Allergy/AdvReac Type Severity Reaction Status Date / Time adhesive tape AdvReac Intermediate blisters Unverified 07/11/21 10:04 Home Medications Medication Instructions Recorded Confirmed Type metoprolol succinate 25 mg 25 mg PO QAM 07/11/21 07/11/21 History tablet,extended release 24 hr vitamins A,C,Q-rrfl-nqpyfd 7,160 2 tab PO BID 07/11/21 07/11/21 History unit-113 mg-100 unit tablet (PreserVision AREDS) Patient History Medical History (Updated 07/11/21 @ 11:07 by FAITH Luu) Hyperlipidemia "BORDERLINE"- NO MEDS Obesity Osteoarthritis Ovarian cancer NO CHEMO/NO RADIATION Surgical History History of hysterectomy TOTAL History of total knee replacement RIGHT TKA= 11/08/16= SAB + PNB AT [facility] Social History Smoking Status: Never smoker Second Hand Exposure: No; Hx Alcohol Use: Yes (RARELY) Alcohol type: hard liquor Hx Substance Use: No Preferred Language: Serbian Communication Ability: Effective Visual Impairment: No Limitations Nuclear Medicine Medical Director Required: No Beliefs That Will Affect Care: None marital status: Current Living Situation: Spouse Feels Safe at Home: Yes Assistive Devices: Walker Review of Systems Review of Systems: All systems reviewed & are unremarkable except as noted in HPI & below Physical Exam Physical Exam: General: no acute distress and stated age Eyes: conjunctiva are pink and non-injected, sclera clear Neck: normal jugular venous pulse, no hepatojugular reflux Chest: normal shape and normal respiratory effort Lungs: clear to auscultation , no rales rhonchi or wheezing Cardiac Exam: - regular heart sounds, no murmurs, rubs, or gallops Abdomen: abdomen soft, non-tender, no abnormal masses and no hepatosplenomegaly Musculoskeletal: no gait disturbance, no weakness Extremities: no edema and no cyanosis Neuro: grossly normal exam Psych: appropriate affect and insight. Results & Data ([facility]) Vital Signs (Past 12 Hours) Vital Signs Temp Resp BP Pulse Ox 07/11/21 09:26 36.9 C 20 162/97 H 95 Laboratory Results 07/11/21 07/11/21 07/11/21 Range/Units 09:25 09:25 09:25 WBC (4.8-10.8) K/uL RBC (4.2-5.4) M/uL Hgb (12.0-16.0) g/dL Hct (37-47) % MCV (80-100) fL MCH (25-34) pg MCHC (32-36) g/dL RDW Std Deviation (36.4-46.3) fL RDW Coeff of Bret (11.5-14.5) % Plt Count (130-400) K/uL MPV (7.4-10.4) fL Immature Gran % (Auto) % Neut % (Auto) % Lymph % (Auto) % Harrison % (Auto) % Eos % (Auto) % Baso % (Auto) % Neut # (Auto) (1.4-6.5) K/uL Lymph # (Auto) (1.2-3.4) K/uL Harrison # (Auto) (0.11-0.59) K/uL Eos # (Auto) (0-0.5) K/uL Baso # (Auto) (0-0.2) K/uL Immature Gran # (Auto) (0.00-0.02) K/uL PT 9.8 (9.0-12.0) Seconds INR 1.0 (0.9-1.1) APTT 27.0 (21.0-31.0) Seconds PTT Ratio 1.0 Sodium 142 (136-145) mmol/L Potassium 3.8 (3.5-5.1) mmol/L Chloride 109 H (98-107) mmol/L Carbon Dioxide 24 (21-32) mmol/L Anion Gap 9 (3-11) BUN 16 (6-23) mg/dl Creatinine 0.88 (0.6-1.2) mg/dl Est Cr Clr Drug Dosing 95.8 ml/min Est GFR ( Amer) 80.5 ml/min Est GFR (Non-Af Amer) 69.4 ml/min BUN/Creatinine Ratio 18.2 (10-20) Glucose 81 (70-99(Fasting)) mg/dl Calcium 9.2 (8.5-10.1) mg/dl Magnesium 1.8 (1.7-2.4) mg/dl Total Bilirubin 0.4 (0.2-1.0) mg/dl AST 13 (13-39) U/L ALT 12 (7-52) U/L Alkaline Phosphatase 88 (34-104) U/L Troponin I < 0.03 (0-0.04) ng/ml Total Protein 6.9 (6.0-8.3) gm/dl Albumin 3.9 (3.4-5.0) gm/dl Globulin 3.0 (2.5-4.0) gm/dl Albumin/Globulin Ratio 1.3 (0.9-2) Lipase 46 (11-82) U/L TSH Pending 07/11/21 Range/Units 09:25 WBC 9.26 (4.8-10.8) K/uL RBC 4.67 (4.2-5.4) M/uL Hgb 13.4 (12.0-16.0) g/dL Hct 41.9 (37-47) % MCV 89.7 (80-100) fL MCH 28.7 (25-34) pg MCHC 32.0 (32-36) g/dL RDW Std Deviation 47.9 H (36.4-46.3) fL RDW Coeff of Bret 14.7 H (11.5-14.5) % Plt Count 258 (130-400) K/uL MPV 10.0 (7.4-10.4) fL Immature Gran % (Auto) 0.2 % Neut % (Auto) 71.9 % Lymph % (Auto) 19.1 % Harrison % (Auto) 6.5 % Eos % (Auto) 1.9 % Baso % (Auto) 0.4 % Neut # (Auto) 6.65 H (1.4-6.5) K/uL Lymph # (Auto) 1.77 (1.2-3.4) K/uL Harrison # (Auto) 0.60 H (0.11-0.59) K/uL Eos # (Auto) 0.18 (0-0.5) K/uL Baso # (Auto) 0.04 (0-0.2) K/uL Immature Gran # (Auto) 0.02 (0.00-0.02) K/uL PT (9.0-12.0) Seconds INR (0.9-1.1) APTT (21.0-31.0) Seconds PTT Ratio Sodium (136-145) mmol/L Potassium (3.5-5.1) mmol/L Chloride (98-107) mmol/L Carbon Dioxide (21-32) mmol/L Anion Gap (3-11) BUN (6-23) mg/dl Creatinine (0.6-1.2) mg/dl Est Cr Clr Drug Dosing ml/min Est GFR ( Amer) ml/min Est GFR (Non-Af Amer) ml/min BUN/Creatinine Ratio (10-20) Glucose (70-99(Fasting)) mg/dl Calcium (8.5-10.1) mg/dl Magnesium (1.7-2.4) mg/dl Total Bilirubin (0.2-1.0) mg/dl AST (13-39) U/L ALT (7-52) U/L Alkaline Phosphatase (34-104) U/L Troponin I (0-0.04) ng/ml Total Protein (6.0-8.3) gm/dl Albumin (3.4-5.0) gm/dl Globulin (2.5-4.0) gm/dl Albumin/Globulin Ratio (0.9-2) Lipase (11-82) U/L TSH Diagnostic Findings Echo 06/15/20 The examination is adequate to evaluate the referral indication. There was sinus bradycardia during the examination. The LV wall thickness is normal. The left ventricular wall motion is normal. Calculated LV ejection Fraction = 68% (three dimensional volumes). The left ventricular diastolic function is moderately abnormal (grade II). The aortic root is normal sized. The proximal ascending thoracic aorta is mildly enlarged with diameter of 4 cm.
[2021-07-11 10:21] LABS: Troponin I < 0.03 ng/ml (0-0.04)
[2021-07-11 10:33] LABS: Alanine Aminotransferase 12 U/L (7-52); Albumin Globulin Ratio 1.3 (0.9-2); Albumin Level 3.9 gm/dl (3.4-5.0); Alkaline Phosphatase 88 U/L (34-104); Anion Gap 9 (3-11); Aspartate Aminotransferase 13 U/L (13-39); BUN Creatinine Ratio 18.2 (10-20); Bilirubin,Total 0.4 mg/dl (0.2-1.0); Blood Urea Nitrogen 16 mg/dl (6-23); Calcium 9.2 mg/dl (8.5-10.1); Carbon Dioxide 24 mmol/L (21-32); Chloride 109 mmol/L (98-107); Creatinine Clr Calc Pharmacy 95.8 ml/min; Est GFR (African American) 80.5 ml/min; Est GFR (Non-African American) 69.4 ml/min; Glucose 81 mg/dl (70-99(Fasting)); Lipase 46 U/L (11-82); Magnesium 1.8 mg/dl (1.7-2.4); Potassium 3.8 mmol/L (3.5-5.1); Sodium 142 mmol/L (136-145); Total Protein 6.9 gm/dl (6.0-8.3)
[2021-07-11] MEDS ORDERED: MAGNESIUM OXIDE 400 MG TAB PO ONE (11:01)
--- NOTE | 2021-07-11 11:12 | Electrocardiogram Report ---
Test Reason : Blood Pressure : / mmHG Vent. Rate : 066 BPM Atrial Rate : 066 BPM P-R Int : 218 ms QRS Dur : 078 ms QT Int : 410 ms P-R-T Axes : 032 029 033 degrees QTc Int : 429 ms Sinus rhythm with 1st degree A-V block Otherwise normal ECG When compared with ECG of 17-MAY-2021 10:53, No significant change was found Confirmed by Wilfrido Acevedo ([id number]) on 07/11/2021 11:11:33 AM Referred By: ED Confirmed By:Wilfrido Acevedo
[2021-07-11] MEDS: APIXABAN 5 MG TABLET PO SCH ×2 (11:59→20:36)
[2021-07-11] MEDS: SOTALOL HCL 80 MG TAB PO SCH ×2 (12:09→20:36)
[2021-07-11] MEDS ORDERED: MAGNESIUM SULFATE / D5W 1 GM/100 ML BAG IV STA (12:34)
--- NOTE | 2021-07-11 12:47 | History & Physical Report ---
Date of Service July 11, 2021 Assessment & Plan (1) Paroxysmal atrial fibrillation: (2) HTN, goal below 140/80: (3) GABY (obstructive sleep apnea): Plan: This is a 66-year-old female who has significant past medical history of SVT on metoprolol, HTN, GABY, history of endometrial cancer, history of bilateral TKA who presents to ED after experiencing a pounding, rapid and somewhat irregular heart rate for 2.5hrs. Lightheadedness Presyncope - resolved 2/2 to rhythm abating Paroxysmal atrial fibrillation Hx of SVT Admit to telemetry Cardiology consulted Patient will be started on sotalol 80 mg twice daily Eliquis 5 mg twice daily Keep K greater than 4, mag greater than 2, give 1 g magnesium sulfate x1 and Kdur 20meq x 1 TSH WNL pt found to be in afib on outside facility ekg; also reviewed on pt apple watch echo 07/01 revealed ef 68%, grade II diastolic dysfunction, prox ascending aorta mildly enlarged w/ diameter of 4cm. Defer repeat imaging to cardiology. 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 Bone, please see addendum History of Present Illness Chief Complaint: Pounding, irregular heart rate x 2.5 hours. Primary Care Provider: Job Giles DO This is a 66-year-old female who has significant past medical history of SVT on metoprolol, HTN, GABY, history of endometrial cancer, history of bilateral TKA who presents to ED after experiencing a pounding, rapid and somewhat irregular heart rate for 2.5hrs. She woke up this morning with a pounding and rapid heart rate. Symptoms started at approximately 7 AM. She felt unwell, lightheaded, dizzy and presyncopal. She was short of breath with exertion and had a pain in her neck rated as a 5 out of 10. It felt much worse than prior history of SVT. She also had associated nausea. She denied any diaphoresis or fernanda chest pain. She has prior history of SVT on metoprolol and does follow with cardiology. 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 She was unable to drive at home to work and has been drive her. When she presented to work staff performed an EKG which revealed atrial fibrillation. Her blood pressure was also greater than 220 systolically. Of significance patient was seen in ER May 2021 for similar episode. At that time she was found to be in a narrow complex tachycardia which spontaneously converted to normal sinus rhythm. He denies prior history of atrial fibrillation. When found to be in irregular rhythm EMS was summoned and upon arrival patient spontaneously reverted back to normal sinus rhythm. Her symptoms have mostly resolved. She does have a mild occipital headache which she attributes to stress. She also is fatigued. She denies fever, chills, sweats, lightheadedness, dizziness, chest pain, palpitations, nausea, vomiting, abdominal pain, change in bowel or urinary habits. She was seen and evaluated by cardiology who felt symptoms attributed secondary to atrial fibrillation. Her home metoprolol was stopped and she was started on sotalol as well as Eliquis. Allergies Allergy/AdvReac Type Severity Reaction Status Date / Time adhesive tape AdvReac Intermediate blisters Unverified 07/11/21 10:04 Home Medications Medication Instructions Recorded Confirmed Type metoprolol succinate 25 mg 25 mg PO QAM 07/11/21 07/11/21 History tablet,extended release 24 hr vitamins A,C,Q-htla-bqkhxv 7,160 2 tab PO BID 07/11/21 07/11/21 History unit-113 mg-100 unit tablet (PreserVision AREDS) Past Med/Surg History Medical History Hyperlipidemia "BORDERLINE"- NO MEDS Obesity Osteoarthritis Ovarian cancer NO CHEMO/NO RADIATION Surgical History History of hysterectomy TOTAL History of total knee replacement RIGHT TKA= 11/08/16= SAB + PNB AT [facility] Family History Brother Atrial fibrillation hx of ablation Social History Smoking Status: Never smoker Second Hand Exposure: No; Hx Alcohol Use: No Hx Substance Use: No Preferred Language: Mosotho Communication Ability: Effective Visual Impairment: No 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 Beliefs That Will Affect Care: None marital status: Current Living Situation: Alone current occupational status: employed Feels Safe at Home: Yes Assistive Devices: None Review of Systems Review of Systems: All systems reviewed & are unremarkable except as noted in HPI & below Physical Exam Physical Exam: Constitutional: WD/WN, vitals as above, NAD, sitting up in bed, pleasant, conversing easily Head: Normocephalic, Atraumatic Eyes: PERRL, conjunctivae normal, anicteric sclerae ENMT: external ear and nose normal, oropharynx normal Neck: trachea midline, no thyromegaly normal visual inspection Respiratory: normal respiratory effort, lungs clear to auscultation, no wheeze, rales, rhonchi. Normal insp/exp effort, no accessory muscle use Cardiovascular: bradycardiac rate, regular rhythm, no murmur, obese lower ext but no edema Vessels: no JVD or carotid bruit Chest: normal inspection of chest Abdomen: obese abd, normal bowel sounds, soft, nontender, no hepatosplenomegaly Musculoskeletal: no cyanosis or clubbing, extremities motor strength 5/5 Skin: no rashes, warm and dry normal turgor Neurologic: PERRL, EOMI, accommodation nl, no face palsy, no dysarthria CN's II-XI intact bilaterally and moves all extremities Psychiatric: A+Ox3, euthymic affect Lymphatic: no cervical or axillary lymphadenopathy : deferred Results & Data Results & Data ([facility]) Vital Signs (Past 12 Hours) Vital Signs Temp Pulse Pulse Resp BP BP Pulse Ox 07/11/21 12:10 62 18 165/83 H 94 07/11/21 10:46 64 16 157/80 H 07/11/21 10:40 63 23 96 07/11/21 10:30 62 20 97 07/11/21 10:20 64 18 97 07/11/21 10:10 68 15 96 07/11/21 10:03 33 H 07/11/21 09:50 72 14 95 07/11/21 09:40 68 17 92 07/11/21 09:30 75 16 95 07/11/21 09:26 36.9 C 66 17 162/97 H 94 Diagnostic Findings Chest X-Ray 07/11/21 09:36 XR chest 1V portable HISTORY: 66 years-old Female Chest Pain elevated blood pressure COMPARISON: Chest radiograph 05/17/2021 TECHNIQUE: Portable AP view of the chest FINDINGS: Calcified plaque of the thoracic aorta. The cardiac mediastinal and hilar silhouettes are within normal limits. No pneumothorax, pleural effusion, airspace consolidation or overt pulmonary edema. Degenerative changes of the shoulders and spine. IMPRESSION: No acute process. ACT 112: Negative or not required by law. The above report was generated using voice recognition software. It may contain grammatical, syntax or spelling errors. Electronically signed by: Anuel Kwong M.D. 07/11/2021 9:48 AM Medications Administered Medication List Apixaban (Apixaban 5 Mg Tablet) 5 mg PO BID [facility] Stop: 08/10/21 11:29 Last Admin: 07/11/21 11:59 Dose: 5 mg Documented by: [id number] Sotalol HCl (Sotalol Hcl 80 Mg Tab) 80 mg PO BID [facility] Stop: 08/10/21 11:14 Last Admin: 07/11/21 12:09 Dose: 80 mg Documented by: [id number] Discontinued Medications Sodium Chloride (Nss) 500 mls @ 999 mls/hr IV .Q31M STA Stop: 07/11/21 10:06 Last Infusion: 07/11/21 10:54 Dose: 0 mls/hr Documented by: [id number] Admin: 07/11/21 10:07 Dose: 999 mls/hr Documented by: [id number] Magnesium Oxide (Magnesium Oxide 400 Mg Tab) 400 mg PO ONCE ONE Stop: 07/11/21 11:02 Last Admin: 07/11/21 11:59 Dose: 400 mg Documented by: [id number] ECG Rate (beats per minute): 66 Rhythm: normal sinus Findings: + 1st degree AV block COVID-19 Results Results COVID-19 Adm Lab Results: RBC 4.24 M/uL (4.2-5.4) 07/12/21 WBC 9.27 K/uL (4.8-10.8) 07/12/21 Hgb 12.1 g/dL (12.0-16.0) 07/12/21 Hct 38.2 % (37-47) 07/12/21 Plt Count 243 K/uL (130-400) 07/12/21 Neutrophils (%) (Auto) 71.9 % 07/11/21 Lymphocytes (%) (Auto) 19.1 % 07/11/21 Monocytes # (Auto) 0.60 K/uL (0.11-0.59) H 07/11/21 Eosinophils # (Auto) 0.18 K/uL (0-0.5) 07/11/21 Immature Granulocyte % (Auto) 0.2 % 07/11/21 Neutrophils # (Auto) 6.65 K/uL (1.4-6.5) H 07/11/21 Lymphocytes # (Auto) 1.77 K/uL (1.2-3.4) 07/11/21 Monocytes # (Auto) 0.60 K/uL (0.11-0.59) H 07/11/21 Eosinophils # (Auto) 0.18 K/uL (0-0.5) 07/11/21 Basophils # (Auto) 0.04 K/uL (0-0.2) 07/11/21 Immature Granulocyte # (Auto) 0.02 K/uL (0.00-0.02) 07/11/21 Na 139 mmol/L (136-145) 07/12/21 K 4.1 mmol/L (3.5-5.1) 07/12/21 Cl 107 mmol/L (98-107) 07/12/21 CO2 27 mmol/L (21-32) 07/12/21 Anion Gap 5 (3-11) 07/12/21 BUN 17 mg/dl (6-23) 07/12/21 Creatinine 0.89 mg/dl (0.6-1.2) 07/12/21 BUN/Creatinine Ratio 19.1 (10-20) 07/12/21 Glucose Level 96 mg/dl (70-99(Fasting)) 07/12/21 Ca 8.6 mg/dl (8.5-10.1) 07/12/21 Total Bilirubin 0.4 mg/dl (0.2-1.0) 07/11/21 AST/SGOT 13 U/L (13-39) 07/11/21 ALT/SGPT 12 U/L (7-52) 07/11/21 Alkaline Phosphatase 88 U/L (34-104) 07/11/21 Total Protein 6.9 gm/dl (6.0-8.3) 07/11/21 Albumin 3.9 gm/dl (3.4-5.0) 07/11/21 Globulin 3.0 gm/dl (2.5-4.0) 07/11/21 Albumin/Globulin Ratio 1.3 (0.9-2) 07/11/21 Troponin I < 0.03 ng/ml (0-0.04) 07/11/21 PTT 27.0 Seconds (21.0-31.0) 07/11/21 INR 1.0 (0.9-1.1) 07/11/21 SARS-CoV-2, RNA, NAAT NEGATIVE (NEGATIVE) 07/11/21 Chest X-Ray 07/11/21 Code Status & VTE Plan Code Status Full Code VTE Prophylaxis Plan VTE Prophylaxis will be ordered: No Supervising Physician Co-Signing Physician Notes I have seen and examined the patient and have discussed the case with the provider above. I agree with the assessment and plan as stated. 66 yo F presents with symptomatic atrial fibrillation-severe PASCAL, SOB at rest, palpitations. This is the second episode in 3 months. Feels improved now and is in sinus rhythm. My physical exam is consistent with that above. Cont with sotalol load and Eliquis per cardiology recommendations. Committed to 3 day telemetry stay in hospital for close monitoring while loading with sotalol. DO Lizandro
[2021-07-11] MEDS ORDERED: POTASSIUM CHLORIDE CRTAB 20 MEQ TABCR PO STA (13:14)
[2021-07-11] MEDS ORDERED: MAGNESIUM HYDROXIDE SUSP 30 ML UDC PO PRN (14:51)
[2021-07-11] MEDS ORDERED: POLYETHYLENE (MIRALAX) 17 GM PACK PO PRN (14:51)
[2021-07-11] MEDS ORDERED: ACETAMINOPHEN 325 MG TAB PO PRN (14:51)
[2021-07-11] MEDS ORDERED: ALUMINUM/MAGNESIUM SUSP 30 ML UDC PO PRN (14:51)
[2021-07-12 06:28] LABS: Hematocrit (blood only) 38.2 % (37-47); Hemoglobin 12.1 g/dL (12.0-16.0); Mean Corpuscular Hemoglobin 28.5 pg (25-34); Mean Corpuscular Hgb Conc 31.7 g/dL (32-36); Mean Corpuscular Volume 90.1 fL (80-100); Mean Platelet Volume 10.1 fL (7.4-10.4); Platelet Count 243 K/uL (130-400); RDW Standard Deviation 49.5 fL (36.4-46.3); Red Blood Count 4.24 M/uL (4.2-5.4); White Blood Count 9.27 K/uL (4.8-10.8)
[2021-07-12 06:49] LABS: BUN Creatinine Ratio 19.1 (10-20); Calcium 8.6 mg/dl (8.5-10.1); Creatinine Clr Calc Pharmacy 94.6 ml/min; Est GFR (African American) 79.4 ml/min; Est GFR (Non-African American) 68.5 ml/min; Magnesium 2.2 mg/dl (1.7-2.4); Potassium 4.1 mmol/L (3.5-5.1)
[2021-07-12] MEDS: APIXABAN 5 MG TABLET PO SCH ×2 (08:50→20:43)
[2021-07-12] MEDS: CEROVITE ADV FORMULA TAB PO SCH (08:51)
[2021-07-12] MEDS: SOTALOL HCL 80 MG TAB PO SCH ×3 (09:23→20:43)
--- NOTE | 2021-07-12 09:35 | Electrocardiogram Report ---
Test Reason : Blood Pressure : / mmHG Vent. Rate : 052 BPM Atrial Rate : 052 BPM P-R Int : 216 ms QRS Dur : 080 ms QT Int : 484 ms P-R-T Axes : 072 078 070 degrees QTc Int : 450 ms Sinus bradycardia with 1st degree A-V block Early transition of the precordial R wave Otherwise normal ECG When compared with ECG of 11-JUL-2021 09:21, No significant change was found Confirmed by Wilfrido Acevedo ([id number]) on 07/12/2021 9:35:06 AM Referred By: REFERRED SELF Confirmed By:Wilfrido Acevedo
--- NOTE | 2021-07-12 10:29 | Hospitalist Progress Note ---
Date of Service July 12, 2021 Assessment & Plan (1) Paroxysmal atrial fibrillation: Plan: Doing well, remains in sinus rhythm. Cont sotalol load and Eliquis. (2) HTN, goal below 140/80: Plan: chronic, controlled. Toprol XL replaced with sotalol. BP at goal. (3) GABY (obstructive sleep apnea): Plan: recent diagnosis, CPAP in route to home already. CPAP qHS as inpatient. (4) Morbid obesity: Plan: Recommend instituting lifestyle changes at discharge for goal decreased percent body fat and increase lean muscle mass. (5) DVT prophylaxis: Plan: Eliquis Full Dispo-home after sotalol load, must be cleared by cardiology to leave. Angelia Bone DO [facility] Admission and Anticipated Discharge Date Admission Date: July 11, 2021 Subjective 66 yo F with PAF admitted for sotalol loading She is doing well denies CP or SOB tolerating PO normal HR overnight remains in sinus rhythm Review of Systems Review of Systems: All systems were reviewed and negative except as indicated above. Physical Exam Physical Exam: CONSTITUTIONAL: obese, vitals as above, generally well- appearing, NAD EYES: normal conjunctivae, no scleral icterus ENT: external ear and nose normal, NECK: trachea midline, RESPIRATORY: clear to auscultation bilaterally, no crackles, rales or wheezes, normal respiratory effort CARDIOVASCULAR: regular rate and rhythm, S1 and 2 heard without murmurs, gallops or rubs, no JVD, no peripheral edema, CHEST: inspection of chest was normal GASTROINTESTINAL: soft, nontender, no guarding MUSCULOSKELETAL: strength 5/5 throughout, head is normocephalic and atraumatic, SKIN: warm and dry, NEUROLOGIC: pCN 2-12 grossly intact, no sensory deficit, normal cognition, normal speech, no tremor PSYCHIATRIC: alert cooperative and oriented to person, place and time. Results & Data Results & Data ([facility]) Vital Signs (Past 12 Hours) Vital Signs Temp Pulse Pulse Resp BP Pulse Ox 07/12/21 10:13 78 144/81 H 07/12/21 08:20 36.9 C 52 L 16 134/74 93 07/12/21 07:27 54 L 07/12/21 03:08 36.9 C 52 L 18 102/56 L 97 07/12/21 00:00 55 L 07/11/21 23:27 36.6 C 51 L 18 117/68 95 Laboratory Results Short CBC 07/12/21 Range/Units 05:31 WBC 9.27 (4.8-10.8) K/uL Hgb 12.1 (12.0-16.0) g/dL Hct 38.2 (37-47) % Plt Count 243 (130-400) K/uL BMP 07/11/21 07/12/21 09:25 05:31 Sodium 142 139 Potassium 3.8 4.1 Chloride 109 H 107 Carbon Dioxide 24 27 BUN 16 17 Creatinine 0.88 0.89 Glucose 81 96 Calcium 9.2 8.6 Cardiac Enzymes 07/11/21 Range/Units 12:36 Troponin I < 0.03 (0-0.04) ng/ml Liver Function 07/11/21 Range/Units 09:25 Total Bilirubin 0.4 (0.2-1.0) mg/dl AST 13 (13-39) U/L ALT 12 (7-52) U/L Alkaline Phosphatase 88 (34-104) U/L Albumin 3.9 (3.4-5.0) gm/dl Medications Administered Current Inpatient Medications Acetaminophen (Acetaminophen 325 Mg Tab) 650 mg PO Q4H PRN PRN Reason: Pain or Fever Stop: 08/10/21 14:50 Al Hydrox/Mg Hydrox/Simethicone (Aluminum/Magnesium Susp 30 Ml Udc) 15 ml PO Q4H PRN PRN Reason: Dyspepsia Stop: 08/10/21 14:50 Apixaban (Apixaban 5 Mg Tablet) 5 mg PO BID MIKE Stop: 08/10/21 11:29 Last Admin: 07/12/21 08:50 Dose: 5 mg Documented by: Magnesium Hydroxide (Magnesium Hydroxide Susp 30 Ml Udc) 30 ml PO Q12H PRN PRN Reason: Constipation Stop: 08/10/21 14:50 Multivitamins/Minerals (Cerovite Adv Formula Tab) 1 tab PO DAILY MIKE Stop: 08/11/21 08:59 Last Admin: 07/12/21 08:51 Dose: 1 tab Documented by: Polyethylene Glycol (Polyethylene (Miralax) 17 Gm Pack) 17 gm PO DAILY PRN PRN Reason: Constipation Stop: 08/10/21 14:50 Sotalol HCl (Sotalol Hcl 80 Mg Tab) 80 mg PO BID MIKE Stop: 08/10/21 11:14 Last Admin: 07/12/21 10:07 Dose: 80 mg Documented by:
--- NOTE | 2021-07-12 12:34 | Cardiology Progress Note ---
Date of Service July 12, 2021 Assessment & Plan (1) Paroxysmal atrial fibrillation: Plan: New onset symptomatic paroxysmal atrial fibrillation. I discussed the pathophysiology of atrial fibrillation in detail with both the patient, , and son. Treatment options were discussed. Patient is currently maintaining SR and is asymptomatic. Echo does as an outpatient on 06/15 showed LVEF of 68%, Grade II diastolic dysfunction and normal LA size. Risk vs benefit of anticoagulation discussed. Patient voiced concerns regarding Coumadin, but was agreeable to start Eliquis. Recommended inpatient admission for Sotalol load. Patient in agreement. Case discussed with Dr. Mansfield 1. HOLD metoprolol succinate 2. Start Sotalol 80 mg BID, first dose now. 3. Obtain daily EKGs, monitor QTC 4. Replace electrolytes as necessary. Potassium stable. Mag 1.8- give 400 mg of mag oxide now. 5. Start Eliquis 5 mg BID, first dose now. P.m. dose of sotalol was held by nursing for heart rates in the 40s. Sotalol should not be held for rates greater than 40 bpm. I have asked nursing to make a note of this as well. (2) HTN, goal below 140/80: Plan: Elevated above goal. Normally well controlled. Will hold off on making adjustments at this time. (3) GABY (obstructive sleep apnea): Plan: Recently diagnosed with GABY. Not currently on CPAP- was planning on obtaining device and being fitted for a mask tomorrow. Can consider arranging this for patient while she is in the hospital. Plan: Case and plan discussed with Dr. Mansfield. Admission and Anticipated Discharge Date Admission Date: July 11, 2021 Subjective Patient seen and examined, chart reviewed. States that she feels well. States that her resting heart rate is at her baseline in the 40s. Telemetry reviewed: Normal sinus rhythm/sinus bradycardia EKG: Sinus bradycardia with a QTC of 450 ms Review of Systems Review of Systems: All systems reviewed & are unremarkable except as noted in HPI & below Physical Exam Physical Exam: Physical Exam: General: Awake, alert and oriented x 3. No acute distress. HEENT: Normocephalic, atraumatic. Pupils equal, round and reactive to light and accommodation. Extraocular muscles are intact. Anicteric sclera. Moist mucous membranes. Neck: No JVD. No bruit. Cardiovascular: Regular. No S-4. Normal S-1 and S-2. No S-3. No murmurs, rubs or gallops. Pulmonary: Clear to auscultation bilaterally. No rales, rhonchi, or wheezing. Abdomen: Bowel sounds x 4, soft. No rebound, guarding or tenderness. No organomegaly. Extremities: No clubbing, cyanosis or edema. +2 pedal pulses bilaterally. Skin: Warm and dry. Results & Data ([facility]) Vital Signs (Past 12 Hours) Vital Signs Temp Pulse Pulse Resp BP Pulse Ox 07/12/21 11:50 36.9 C 45 L 16 145/75 H 93 07/12/21 10:13 78 144/81 H 07/12/21 08:20 36.9 C 52 L 16 134/74 93 07/12/21 07:27 54 L 07/12/21 03:08 36.9 C 52 L 18 102/56 L 97
[2021-07-13] MEDS: APIXABAN 5 MG TABLET PO SCH ×2 (08:34→20:19)
[2021-07-13] MEDS: SOTALOL HCL 80 MG TAB PO SCH ×2 (08:34→20:19)
[2021-07-13] MEDS: CEROVITE ADV FORMULA TAB PO SCH (08:34)
--- NOTE | 2021-07-13 11:41 | Electrocardiogram Report ---
Test Reason : Blood Pressure : / mmHG Vent. Rate : 046 BPM Atrial Rate : 046 BPM P-R Int : 220 ms QRS Dur : 084 ms QT Int : 504 ms P-R-T Axes : 067 080 058 degrees QTc Int : 441 ms Sinus bradycardia with 1st degree A-V block Otherwise normal ECG When compared with ECG of 12-JUL-2021 06:06, No significant change was found Confirmed by Wilfrido Acevedo ([id number]) on 07/13/2021 11:40:37 AM Referred By: REFERRED SELF Confirmed By:Wilfrido Acevedo
--- NOTE | 2021-07-13 13:10 | Cardiology Progress Note ---
Date of Service July 13, 2021 Assessment & Plan (1) Paroxysmal atrial fibrillation: Plan: New onset symptomatic paroxysmal atrial fibrillation. I discussed the pathophysiology of atrial fibrillation in detail with both the patient, , and son. Treatment options were discussed. Patient is currently maintaining SR and is asymptomatic. Echo does as an outpatient on 06/15 showed LVEF of 68%, Grade II diastolic dysfunction and normal LA size. Risk vs benefit of anticoagulation discussed. Patient voiced concerns regarding Coumadin, but was agreeable to start Eliquis. Recommended inpatient admission for Sotalol load. Patient in agreement. Case discussed with Dr. Mansfield 1. HOLD metoprolol succinate 2. Start Sotalol 80 mg BID, first dose now. 3. Obtain daily EKGs, monitor QTC 4. Replace electrolytes as necessary. Potassium stable. Mag 1.8- give 400 mg of mag oxide now. 5. Start Eliquis 5 mg BID, first dose now. P.m. dose of sotalol was held by nursing for heart rates in the 40s. Sotalol should not be held for rates greater than 40 bpm. I have asked nursing to make a note of this as well. Has tolerated sotalol loading very well to this point. Sixth dose will be tomorrow in the a.m. and will likely discharge to home early in the p.m. (2) HTN, goal below 140/80: Plan: Elevated above goal. Normally well controlled. Will hold off on making adjustments at this time. (3) GABY (obstructive sleep apnea): Plan: Recently diagnosed with GABY. Not currently on CPAP- was planning on obtaining device and being fitted for a mask tomorrow. Can consider arranging this for patient while she is in the hospital. Admission and Anticipated Discharge Date Admission Date: July 11, 2021 Subjective Patient seen and examined, chart reviewed. States that she feels great without complaint. Telemetry reviewed: Sinus bradycardia without arrhythmias or significant ventricular ectopy. EKG: QTC of 441 ms Review of Systems Review of Systems: All systems reviewed & are unremarkable except as noted in HPI & below Physical Exam Physical Exam: Physical Exam: General: Awake, alert and oriented x 3. No acute distress. HEENT: Normocephalic, atraumatic. Pupils equal, round and reactive to light and accommodation. Extraocular muscles are intact. Anicteric sclera. Moist mucous membranes. Neck: No JVD. No bruit. Cardiovascular: Regular. No S-4. Normal S-1 and S-2. No S-3. No murmurs, rubs or gallops. Pulmonary: Clear to auscultation bilaterally. No rales, rhonchi, or wheezing. Abdomen: Bowel sounds x 4, soft. No rebound, guarding or tenderness. No organomegaly. Extremities: No clubbing, cyanosis or edema. +2 pedal pulses bilaterally. Skin: Warm and dry. Results & Data ([facility]) Vital Signs (Past 12 Hours) Vital Signs Temp Pulse Pulse Resp BP Pulse Ox 07/13/21 11:42 36.6 C 46 L 14 120/81 95 07/13/21 07:27 44 L 07/13/21 06:27 36.6 C 52 L 18 111/70 92
--- NOTE | 2021-07-13 13:13 | Hospitalist Progress Note ---
Date of Service July 13, 2021 Assessment & Plan (1) Paroxysmal atrial fibrillation: Plan: Remains in sinus rhythm (sinus bradycardia) Management per Cardiology. Sotalol load began 07/11 (patient did miss one dose), continue Eliquis (2) HTN, goal below 140/80: Plan: Toprol discontinued BP at goal (3) GABY (obstructive sleep apnea): Plan: recent diagnosis, CPAP in route to home already. CPAP qHS as inpatient. (4) Morbid obesity: Plan: Recommend instituting lifestyle changes at discharge for goal decreased percent body fat and increase lean muscle mass. (5) DVT prophylaxis: Plan: Eliquis Full Dispo-home after sotalol load, must be cleared by cardiology to leave. Admission and Anticipated Discharge Date Admission Date: July 11, 2021 Subjective Patient feels well. Denies chest pain, shortness of breath, light headedness, dizziness Anxious to go home Physical Exam Physical Exam: sitting in chair, pleasant, no acute distress Neck: neck thick but supple Respiratory: breathing comfortably on room air, no wheezing/rhonchi/rales Cardiovascular: bradycardic, but regular, no murmurs/rubs/gallops Gastrointestinal (Abdomen): soft, non tender, non distended Musculoskeletal: no edema Neurologic: awake, alert, spontaneously moving extremities Results & Data Results & Data ([facility]) Vital Signs (Past 12 Hours) Vital Signs Temp Pulse Pulse Resp BP Pulse Ox 07/13/21 11:42 36.6 C 46 L 14 120/81 95 07/13/21 07:27 44 L 07/13/21 06:27 36.6 C 52 L 18 111/70 92
[2021-07-14 06:18] LABS: Hematocrit (blood only) 37.7 % (37-47); Hemoglobin 12.1 g/dL (12.0-16.0); Mean Corpuscular Hemoglobin 28.8 pg (25-34); Mean Corpuscular Hgb Conc 32.1 g/dL (32-36); Mean Corpuscular Volume 89.8 fL (80-100); Mean Platelet Volume 9.9 fL (7.4-10.4); Platelet Count 252 K/uL (130-400); RDW Coefficient of Variation 14.5 % (11.5-14.5); RDW Standard Deviation 48.1 fL (36.4-46.3); White Blood Count 9.02 K/uL (4.8-10.8)
[2021-07-14 06:53] LABS: BUN Creatinine Ratio 18.4 (10-20); Calcium 8.6 mg/dl (8.5-10.1); Creatinine Clr Calc Pharmacy 96.6 ml/min; Est GFR (African American) 81.6 ml/min; Est GFR (Non-African American) 70.4 ml/min; Magnesium 2.1 mg/dl (1.7-2.4); Potassium 4.1 mmol/L (3.5-5.1)
[2021-07-14] MEDS: APIXABAN 5 MG TABLET PO SCH (08:45)
[2021-07-14] MEDS: CEROVITE ADV FORMULA TAB PO SCH (08:45)
[2021-07-14] MEDS: SOTALOL HCL 80 MG TAB PO SCH (08:45)
--- NOTE | 2021-07-14 11:51 | Cardiology Progress Note ---
Date of Service July 14, 2021 Assessment & Plan (1) Paroxysmal atrial fibrillation: Plan: New onset symptomatic paroxysmal atrial fibrillation. I discussed the pathophysiology of atrial fibrillation in detail with both the patient, , and son. Treatment options were discussed. Patient is currently maintaining SR and is asymptomatic. Echo does as an outpatient on 06/15 showed LVEF of 68%, Grade II diastolic dysfunction and normal LA size. Risk vs benefit of anticoagulation discussed. Patient voiced concerns regarding Coumadin, but was agreeable to start Eliquis. Recommended inpatient admission for Sotalol load. Patient in agreement. Case discussed with Dr. Mansfield 1. HOLD metoprolol succinate 2. Start Sotalol 80 mg BID, first dose now. 3. Obtain daily EKGs, monitor QTC 4. Replace electrolytes as necessary. Potassium stable. Mag 1.8- give 400 mg of mag oxide now. 5. Start Eliquis 5 mg BID, first dose now. Okay to DC to home. I will send in prescriptions for sotalol and Eliquis My office will call to arrange cardiac follow-up in 4 weeks. (2) HTN, goal below 140/80: Plan: Elevated above goal. Normally well controlled. Will hold off on making adjustments at this time. (3) GABY (obstructive sleep apnea): Plan: Recently diagnosed with GABY. Not currently on CPAP- was planning on obtaining device and being fitted for a mask tomorrow. Can consider arranging this for patient while she is in the hospital. Admission and Anticipated Discharge Date Admission Date: July 11, 2021 Subjective Patient seen and examined, chart reviewed. States that she feels well and without cardiac complaint. Telemetry reviewed: Sinus bradycardia without arrhythmias or significant ventricular ectopy Twelve-lead EKG: Sinus bradycardia with a QTC of 431 ms Review of Systems Review of Systems: All systems reviewed & are unremarkable except as noted in HPI & below Physical Exam Physical Exam: Physical Exam: General: Awake, alert and oriented x 3. No acute distress. HEENT: Normocephalic, atraumatic. Pupils equal, round and reactive to light and accommodation. Extraocular muscles are intact. Anicteric sclera. Moist mucous membranes. Neck: No JVD. No bruit. Cardiovascular: Regular. No S-4. Normal S-1 and S-2. No S-3. No murmurs, rubs or gallops. Pulmonary: Clear to auscultation bilaterally. No rales, rhonchi, or wheezing. Abdomen: Bowel sounds x 4, soft. No rebound, guarding or tenderness. No organomegaly. Extremities: No clubbing, cyanosis or edema. +2 pedal pulses bilaterally. Skin: Warm and dry. Results & Data ([facility]) Vital Signs (Past 12 Hours) Vital Signs Temp Pulse Resp BP Pulse Ox 07/14/21 08:00 37.0 C 50 L 20 141/86 H 96 07/14/21 04:15 37.1 C 45 L 18 137/80 93
--- NOTE | 2021-07-14 11:59 | Discharge Summary ---
Date of Service July 14, 2021 Admission HPI Per Admitting Provider This is a 66-year-old female who has significant past medical history of SVT on metoprolol, HTN, GABY, history of endometrial cancer, history of bilateral TKA who presents to ED after experiencing a pounding, rapid and somewhat irregular heart rate for 2.5hrs. She woke up this morning with a pounding and rapid heart rate. Symptoms started at approximately 7 AM. She felt unwell, lightheaded, dizzy and presyncopal. She was short of breath with exertion and had a pain in her neck rated as a 5 out of 10. It felt much worse than prior history of SVT. She also had associated nausea. She denied any diaphoresis or fernanda chest pain. She has prior history of SVT on metoprolol and does follow with cardiology. 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 She was unable to drive at home to work and has been drive her. When she presented to work staff performed an EKG which revealed atrial fibrillation. Her blood pressure was also greater than 220 systolically. Of significance patient was seen in ER May 2021 for similar episode. At that time she was found to be in a narrow complex tachycardia which spontaneously converted to normal sinus rhythm. He denies prior history of atrial fibrillation. When found to be in irregular rhythm EMS was summoned and upon arrival patient spontaneously reverted back to normal sinus rhythm. Her symptoms have mostly resolved. She does have a mild occipital headache which she attributes to stress. She also is fatigued. She denies fever, chills, sweats, lightheadedness, dizziness, chest pain, palpitations, nausea, vomiting, abdominal pain, change in bowel or urinary habits. She was seen and evaluated by cardiology who felt symptoms attributed secondary to atrial fibrillation. Her home metoprolol was stopped and she was started on sotalol as well as Eliquis. Principal Diagnosis New onset atrial fibrillation Sinus bradycardia GABY new to CPAP Discharge Exam Patient was pleasant and comfortable. Breathing on room air. Sinus bradycardia on telemetry. No light headedness/dizziness. Anxious to return home Discharge Data Allergies Allergy/AdvReac Type Severity Reaction Status Date / Time adhesive tape AdvReac Intermediate blisters Unverified 07/11/21 10:04 Consultations 07/11/21 09:43 Consult Cardiology Stat 07/11/21 12:21 ED Decision to Admit Stat Hospital Course (1) Paroxysmal atrial fibrillation: Remains in sinus rhythm (sinus bradycardia) Management per Cardiology. Started on Sotalol and Eliquis here (2) HTN, goal below 140/80: Toprol discontinued (she was initiated on sotalol here) Will need follow up with PCP for further management (3) GABY (obstructive sleep apnea): recent diagnosis, CPAP in route to home already. CPAP qHS as inpatient. (4) Morbid obesity: Recommend instituting lifestyle changes at discharge for goal decreased percent body fat and increase lean muscle mass. Total Time Total Time Spent Total Time Spent (In Minutes): 35 Discharge Plan Discharge Items Patient Disposition: Home - Self-Care Reason For Visit: AFIB Discharge Diagnosis: New onset atrial fibrillation Sinus bradycardia Condition on Discharge: Good Activity: Resume your previous activity Driving/Machine Use: No limitations Weightbearing: Full weightbearing Non-emergency contact: Primary Care Provider and Scales Inspector Call non-emergency contact if: you have any medication questions and your symptoms worsen Follow-up/Referrals: Job Giles DO [Primary Care Provider] - (Date & Time 07/18/2021 11:20 AM Provider Job Giles DO Department [facility] ) Diet: Low Fat and Low Sodium (2gm) Addtl Attending Provider Instructions: Please follow up with Cardiology for management of your Eliquis and Sotalol Pending Studies at Discharge: No Stand-Alone Forms: My [facility] [employer], Smoking Cessation Medications and DC Order Prescriptions: New Eliquis 5 mg Tablet 5 mg PO BID Qty: 60 RF: 2 sotalol 80 mg Tablet 80 mg PO BID Qty: 60 RF: 2 Continued PreserVision AREDS 7,160 unit- 113 mg-100 unit Tablet 2 tab PO BID RF: 0 Discontinued metoprolol succinate 25 mg tablet extended release 24 hr 25 mg PO QAM RF: 0 Discharge Orders: Discharge Order (Routine); Ordered 07/14/21 Ordered By: Yesica Vázquez/Other Patient Handouts: AFib Dc Admission Data Admit Date/Time: 07/11/21 12:32 Attending Provider: Yesica Armendariz Admit Provider: Angelia Bone Primary Care Provider: Job Giles Other Providers: Isaiah Mansfield ; Angelia Bone
--- NOTE | 2021-07-14 22:32 | Electrocardiogram Report ---
Test Reason : Blood Pressure : / mmHG Vent. Rate : 046 BPM Atrial Rate : 046 BPM P-R Int : 218 ms QRS Dur : 084 ms QT Int : 494 ms P-R-T Axes : 058 065 051 degrees QTc Int : 432 ms Sinus bradycardia with 1st degree A-V block Low voltage QRS Borderline ECG When compared with ECG of 13-JUL-2021 06:05, No significant change was found Confirmed by Shahid Dunbar ([id number]) on 07/14/2021 10:31:51 PM Referred By: REFERRED SELF Confirmed By:Shahid Dunbar
== END 2021-07-14 13:03 | disposition home or self-care (01) | DRG 309 ==
LOC: ED 09:14 → SUATTDRO 12:32 → EDINP 12:32 → 2S 14:24

== ENCOUNTER 2024-07-17 17:11 | Inpatient (IN) ==
[2024-07-17 17:48] LABS: Basophils # (auto) 0.08 K/uL (0.00-0.20); Basophils % (auto) 0.5 %; Eosinophils # (auto) 0.42 K/uL (0.00-0.50); Eosinophils % (auto) 2.9 %; Hematocrit (blood only) 37.9 % (37.0-47.0); Hemoglobin 12.2 g/dl (12.0-16.0); Immature Granulocytes # (auto) 0.05 K/uL (0.01-0.20); Immature Granulocytes % (auto) 0.3 %; Lymphocytes # (auto) 2.23 K/uL (1.20-3.40); Lymphocytes % (auto) 15.3 %; Mean Corpuscular Hemoglobin 28.3 pg (25.0-34.0); Mean Corpuscular Hgb Conc 32.2 g/dL (32.0-36.0); Mean Corpuscular Volume 87.9 fL (80.0-100.0); Mean Platelet Volume 9.8 fL (9.4-12.4); Monocytes # (auto) 0.77 K/uL (0.11-0.59); Monocytes % (auto) 5.3 %; Neutrophils # (auto) 11.07 K/uL (1.40-6.50); Neutrophils % (auto) 75.7 %; Platelet Count 285 K/uL (130-400); RDW Coefficient of Variation 14.3 % (11.5-14.5); RDW Standard Deviation 46.5 fL (36.4-46.3); Red Blood Count 4.31 M/uL (4.20-5.40); White Blood Count 14.62 K/ul (4.8-10.8)
[2024-07-17 18:06] LABS: Albumin Globulin Ratio 1.1 (0.9-2); Albumin Level 3.8 gm/dl (3.4-5.0); BUN Creatinine Ratio 16.8 (10-20); Bilirubin,Total 0.5 mg/dl (0.2-1.0); Calcium 9.8 mg/dl (8.6-10.3); Creatinine Clr Calc Pharmacy 73.9 ml/min; Globulin 3.4 gm/dl (2.5-4.0); Total Protein 7.2 gm/dl (6.0-8.3)
[2024-07-17] MEDS ORDERED: VANCOMYCIN CONSULT ACTIVE PRN (18:11)
[2024-07-17] MEDS: PIPERACILLIN/TAZOBACTAM 4.5 GM/120 ML BAG IV ONE (18:35)
--- NOTE | 2024-07-17 18:57 | Emergency Department Note ---
History of Present Illness General Chief complaint: Referred by Doctor Stated complaint: CELLULITIS IN RT BREAST, IV NEEDED Time Seen by Provider: 07/17/24 18:01 History of Present Illness Provider complaint: Right breast pain Maximum Pain Intensity: 4 69-year-old female presents emergency department for right breast pain. Patient reports she has surgery with Dr. Culp at June 30 at [facility]. She states over the last week she is having increasing pain and redness. She states she saw Dr. Culp in the office was placed on Keflex 2 days ago but the redness has increased. She reports there has been no discharge. She reports chills but no fevers. Home Medications Medication Instructions Recorded Confirmed Type vitamins A,C,I-mlwz-pxgygd 2,148 2 tab PO [facility] 07/11/21 07/17/24 History mcg-113 mg-45 mg-17.4 mg tablet (PreserVision AREDS) apixaban 5 mg tablet (Eliquis) 5 mg PO [facility] 07/17/24 07/17/24 History losartan 50 mg tablet 50 mg PO [facility] 07/17/24 07/17/24 History rosuvastatin 5 mg tablet 5 mg PO [facility] 07/17/24 07/17/24 History Allergies Allergy/AdvReac Type Severity Reaction Status Date / Time adhesive tape AdvReac Intermediate blisters Unverified 07/11/21 10:04 Past Med/Surg History Problem List (Updated 07/17/24 @ 22:58 by Sriram Mccord MD) Breast abscess (Acute) Morbid obesity GABY (obstructive sleep apnea) HTN, goal below 140/80 Paroxysmal atrial fibrillation Status post left knee replacement Encounter for pre-operative examination Arthritis of knee, left Allergic rhinitis DJD (degenerative joint disease) of knee Medical History (Updated 07/17/24 @ 22:58 by Sriram Mccord MD) Atrial fibrillation with rapid ventricular response Obesity Ovarian cancer NO CHEMO/NO RADIATION Osteoarthritis Hyperlipidemia "BORDERLINE"- NO MEDS Surgical History History of total knee replacement RIGHT TKA= 11/08/16= SAB + PNB AT [facility] History of hysterectomy TOTAL Family History Brother Atrial fibrillation hx of ablation Social History Smoking Status: Never smoker Second Hand Exposure: No; Do You Dip or Chew Tobacco: No; Hx Alcohol Use: No Hx Substance Use: No Preferred Language: Mongolian Communication Ability: Effective Visual Impairment: No Limitations Remote Sensing Technologist Required: No Beliefs That Will Affect Care: None marital status: Current Living Situation: Spouse current occupational status: employed How many Children do You have: 3 Other Information That Helps Us Care for You: No Feels Safe at Home: Yes Safety Concerns: Feels Safe At This Time Assistive Devices: Glasses Physical Exam Vital Signs Vital Signs - 24 hr 07/17/24 17:15 07/17/24 19:16 Temperature 36.4 C L Temperature Source Temporal Artery Scan Pulse Rate 86 Pulse Rate [Finger] 58 L Pulse Strength [Finger] Normal Respiratory Rate 20 17 Respiratory Effort / Characteristics Non-Labored Spontaneous Respiratory Depth Normal Respiratory Pattern Regular Blood Pressure 184/96 H Blood Pressure [Right Arm] 125/68 Blood Pressure Mean 125 Blood Pressure Mean [Right Arm] 87 Blood Pressure Position [Right Arm] Sitting Pulse Oximetry 93 98 Oxygen Delivery Method Room Air Room Air Sepsis Recent Fever Within 48 Hours No Sepsis New/Unexplained Change in Mental Status N/A Sepsis Action Taken by Nursing No Action Required Physical Exam performed with female nursing land measurer Dawn at bedside GENERAL: He is oriented to person, place, and time. He appears well-developed and well-nourished. He does not appear distressed. HENT: Exam performed. - Head: Normocephalic and atraumatic. NECK: Normal range of motion. Neck supple. CV: Normal rate, regular rhythm, normal heart sounds and intact distal pulses. There is no peripheral edema. Palpable radial pulses bue. PULM/CHEST: Effort normal and breath sounds normal. No respiratory distress. No stridor. He has no wheezes. He has no rales. BREAST: Right breast: Right breast is greater than large breast. Diffuse erythema over the breast. Tenderness to palpation. Small fluctuant area 9-10 o'clock. No discharge. Left breast: No erythema or warmth. Inverted nipple. NEURO: He is alert and oriented to person, place, and time. He has normal strength. No cranial nerve deficit or sensory deficit. Coordination and gait normal. GCS eye subscore is 4. GCS verbal subscore is 5. GCS motor subscore is 6. Cerebellar tests wnl. SKIN: Skin is warm and dry. He is not diaphoretic. PSYCH: He has a normal mood and affect. Behavior is normal. Judgment and thought content normal. Course Course 1800: The patient was evaluated in room C3. A complete history and physical exam was performed Cardiac monitoring: An order was placed for continuous cardiac monitoring. The monitor shows a rate of 90 with sinus rhythm interpreted by la 2000: Vital signs stable. Labs a leukocytosis of 14. Patient treated with Zosyn and vancomycin. Ultrasound shows a 8.3 x 5.8 x 7 point centimeter right breast abscess at 9:00. Discussed case with on-call general surgery Dr. Hernandez. He states to admit to medicine and the surgical team will evaluate the patient in the morning. N.p.o. after midnight. He agrees with antibiotic choices. Administered Medications Sodium Chloride (Nss) 1,000 mls @ 60 mls/hr IV .[id number] STA Stop: 07/18/24 14:22 Last Admin: 07/17/24 22:54 Dose: 60 mls/hr Documented By: TIMOTEO Discontinued Medications Vancomycin HCl 2,750 mg/ (Sodium Chloride) 555 mls @ 200 mls/hr IV NOW ONE Stop: 07/17/24 20:57 Last Infusion: 07/17/24 22:53 Dose: Infused Documented By: Admin: 07/17/24 19:13 Dose: 200 mls/hr Documented By: AXEL Piperacillin Sod/Tazobactam Sod (Zosyn) 4.5 gm in 120 mls @ 240 mls/hr IV NOW ONE Stop: 07/17/24 18:40 Last Infusion: 07/17/24 19:15 Dose: Infused Documented By: Admin: 07/17/24 18:35 Dose: 240 mls/hr Documented By: MENA Medical Decision Making Laboratory Data Attestation: I reviewed the patient's lab results. 07/17/24 17:33 07/17/24 17:33 Lab Results 07/17/24 07/17/24 Range/Units 17:33 18:21 WBC 14.62 H (4.8-10.8) K/ul RBC 4.31 (4.20-5.40) M/uL Hgb 12.2 (12.0-16.0) g/dl Hct 37.9 (37.0-47.0) % MCV 87.9 (80.0-100.0) fL MCH 28.3 (25.0-34.0) pg MCHC 32.2 (32.0-36.0) g/dL RDW Std Deviation 46.5 H (36.4-46.3) fL RDW Coeff of Bret 14.3 (11.5-14.5) % Plt Count 285 (130-400) K/uL MPV 9.8 (9.4-12.4) fL Immature Gran % (Auto) 0.3 % Neut % (Auto) 75.7 % Lymph % (Auto) 15.3 % Bullock % (Auto) 5.3 % Eos % (Auto) 2.9 % Baso % (Auto) 0.5 % Neut # (Auto) 11.07 H (1.40-6.50) K/uL Lymph # (Auto) 2.23 (1.20-3.40) K/uL Bullock # (Auto) 0.77 H (0.11-0.59) K/uL Eos # (Auto) 0.42 (0.00-0.50) K/uL Baso # (Auto) 0.08 (0.00-0.20) K/uL Immature Gran # (Auto) 0.05 (0.01-0.20) K/uL Sodium 140 (136-145) mmol/L Potassium 4.0 (3.5-5.1) mmol/L Chloride 105 (98-107) mmol/L Carbon Dioxide 26 (21-32) mmol/L Anion Gap 9 (3-11) BUN 18 (6-23) mg/dl Creatinine 1.07 (0.6-1.2) mg/dl Est Cr Clr Drug Dosing 73.9 ml/min eGFR 56.93 BUN/Creatinine Ratio 16.8 (10-20) Glucose 106 H (70-99(Fasting)) mg/dl Lactate 1.9 (0.4-2.0) mmol/L Calcium 9.8 (8.6-10.3) mg/dl Total Bilirubin 0.5 (0.2-1.0) mg/dl AST 13 (13-39) U/L ALT 13 (7-52) U/L Alkaline Phosphatase 84 (34-104) U/L Total Protein 7.2 (6.0-8.3) gm/dl Albumin 3.8 (3.4-5.0) gm/dl Globulin 3.4 (2.5-4.0) gm/dl Albumin/Globulin Ratio 1.1 (0.9-2) Imaging Data Radiologist's Impression: Breast Ultrasound 07/17/24 18:10 EXAM: US Right Breast Limited INDICATION: Pain and redness. Scar tissue removed about 2 weeks ago. TECHNIQUE: Sonographic images right breast 9:00 area of interest provided. COMPARISON: No relevant prior studies available. FINDINGS: Right breast: In the area of interest is a complex fluid collection consistent with an abscess measuring 8.3 x 5.8 x 7.5 cm. There is edema of the surrounding fibroglandular tissue. A tract may be starting to extend to the skin surface. IMPRESSION: 8.3 x 5.8 x 7.5 cm right breast abscess at the 9 o'clock position in the area of interest. BI-RADS 2 ACT 112: Negative or not required by law. Electronically signed by Mariam Kwon 07-17-2024 7:32 PM [facility] Narrative 1801: The patient was evaluated in room C3. A complete history and physical exam was performed Cardiac monitoring: An order was placed for continuous cardiac monitoring. The monitor shows a rate of 90 with sinus rhythm interpreted by me 2000: Vital signs stable. Labs a leukocytosis of 14. Patient treated with Zosyn and vancomycin. Ultrasound shows a 8.3 x 5.8 x 7 point centimeter right breast abscess at 9:00. Discussed case with on-call general surgery Dr. Hernandez. He states to admit to medicine and the surgical team will evaluate the patient in the morning. N.p.o. after midnight. He agrees with antibiotic choices. Impression & Plan Breast abscess Discharge Plan Visit Data Chief Complaint: Referred by Doctor Stated Complaint: CELLULITIS IN RT BREAST, IV NEEDED ED Provider: Sriram Mccord Discharge Problem: Breast abscess Patient Disposition: Admitted As Inpatient Discharge Instructions Interventions: ED Discharge Assessment Last Done: 07/17/24 22:50
[2024-07-17] MEDS: VANCOMYCIN HCL 2,750 MG in SODIUM CHLORIDE 0.9% 500 ML IV ONE (19:13)
--- NOTE | 2024-07-17 19:32 | Ultrasound Report ---
EXAM: US Right Breast Limited INDICATION: Pain and redness. Scar tissue removed about 2 weeks ago. TECHNIQUE: Sonographic images right breast 9:00 area of interest provided. COMPARISON: No relevant prior studies available. FINDINGS: Right breast: In the area of interest is a complex fluid collection consistent with an abscess measuring 8.3 x 5.8 x 7.5 cm. There is edema of the surrounding fibroglandular tissue. A tract may be starting to extend to the skin surface. IMPRESSION: 8.3 x 5.8 x 7.5 cm right breast abscess at the 9 o'clock position in the area of interest. BI-RADS 2 ACT 112: Negative or not required by law. Electronically signed by Mariam Kwon 07-17-2024 7:32 PM
--- OUTSIDE RECORDS SUMMARY | 2024-07-17 19:58 | External Medical Summary | Summary of Care ---
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 [N64.89] Procedures EXC BREAST LESION RADMARK EXCISION OF BREAST LESION RADIOLOGICAL MARKER Jenifer Culp MD [address] [place] [address] Phone: tel: fax: OR [facility], Operating Room, [facility] - 4th Floor [address] [place] [address] Phone: tel: Referral ID Status Reason Start Date Expiration Date Visits Re quested Visits Authorized [id number] Encounter Details Date Type Department Care Team (Latest Contact Info) Description 07/01/2024 6:06 AM EST - 07/01/2024 10:42 AM EST Hospital Encounter OR [facility], Operating Room, [facility] - [facility] Floor [address] [place] [address] Jenifer Culp MD [address] [place] [address] Discharge Disposition: Home - Self Care Allergies Active Allergy Reactions Criticality Noted Date Comments Other Allergy (See Comments) Rash Low 05/14/2018 Rash from dermabond after surgery Sotalol 10/20/2021 Bradycardia, fatigued documented as of this encounter (statuses as of 07/01/2024) Medications CPAP every night at bedtime . Active Amoxicillin 500 MG Oral Tablet TAKE 4 TABLETS BY MOUTH 1 HOUR PRIOR TO PROCEDURE 2 Active PreserVision AREDS Oral Capsule Take 1 Capsule by mouth in the morning and 1 Capsule before bedtime. Active Apixaban 5 MG Oral Tablet (Eliquis)Indica tions:PAF (paroxysmal atrial fibrillation) (HCC) Take 1 Tablet by mouth in the morning and 1 Tablet before bedtime. 180 Tablet 3 4 Active Metoprolol Tartrate 25 MG Oral Tablet (Lopressor)Jodie cations:PAF (paroxysmal atrial fibrillation) (HCC) Take 1 Tablet by mouth 2 times a day as needed (AF/palpitatio ns). 30 Tablet 3 4 Active Rosuvastatin Calcium 5 MG Oral Tablet (Crestor)Indica tions:Dyslipide jordy TAKE 1 TABLET BY MOUTH EVERY DAY IN THE MORNING 90 Tablet 4 Active Losartan Potassium 50 MG Oral Tablet (Cozaar) Take 1 Tablet by mouth in the morning and 1 Tablet before bedtime. 180 Tablet 3 5 Active hydroCHLOROthia zide 25 MG Oral Tablet (Hydrodiuril) Take 1 Tablet by mouth in the morning. 34 Tablet 11 5 Active HYDROcodone-Christopher taminophen 5-325 MG Oral Tablet Take 1 Tablet by mouth every 6 hours as needed for Pain, Moderate. 5 Tablet 5 Active documented as of this encounter (statuses as of 07/01/2024) Active Problems Problem Noted Date Diagnosed Date Radial scar of right breast 05/13/2024 Lichen simplex chronicus 09/07/2023 PAF (paroxysmal atrial fibrillation) 12/10/2021 Chronic heart failure with preserved ejection fr action 12/10/2021 Bradycardia 08/16/2021 Dyslipidemia 08/16/2021 GABY on CPAP 08/16/2021 Endometrial cancer 06/13/2019 Cancer Staging:Clinical stage from 04/03/2017:FIGO Stage IA, calculated as Stage Unknown(cT1a, cNX, cM0) - Signed by Tyrel Sanchez MD on 09/05/2021 Overview (09/07/2023): GynOnc has indicated does not need Pap smears Status post total bilateral knee replacement Obesity documented as of this encounter (statuses as of 07/01/2024) Resolved Problems Problem Noted Date Diagnosed Date Resolved Date Body mass index (BMI) of 40. 0 to 44.9 in adult 12/27/2018 08/24/2021 Overview (03/11/2020): ICD-10 update of inactive term ADVANCE DIRECTIVE INFORMATION 08/28/2018 04/14/2024 Overview (01/28/2007): No, Advance Directive brochure offered , patient declined. BMI 39.0-39.9,adult 02/13/2018 12/28/19 19 Overview: Per Obesity protocol #1 - Primary osteoarthritis of left knee 12/27/2017 12/27/2018 Body mass index (BMI) of 45. 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 (morbid obesity) 06/16/2013 11/01/2016 BMI 40.0-44.9, adult 06/15/2011 014 Hematuria 01/12/2011 09/13/2015 Overview (03/12/2017): ICD-10 update of inactive term NONE 08/06/2007 01/12/2011 documented as of this encounter (statuses as of 07/01/2024) Immunizations Name Administration Dates Next Due Pneumococcal Conjugate Vacci ne, 20-valent ([id number]) 07/14/2022 Seasonal Influenza Vac., MDV , IM, 0.5 mL (Fluzone) 02/27/2013,06/17/2012,06/15/2011 Seasonal Influenza, High Dos e, Trivalent, PF, IM (Fluzone HD) 02/18/2024 Seasonal Influenza, PF, 6 M & above, IM , (FluLaval or Fluzone) 03/18/2022,03/18/2021,03/05/2020,2019,02/28/2018 Seasonal Influenza, Quadriva lent Hd (Fluzone Hd) 03/30/2023 Seasonal Influenza, Quadriva lent, No Preserve, IM 02/27/2017,05/01/2016,03/26/2015 TDAP (age 10 and older)(Boostrix) 01/10/2022 TDAP, Age 7 and older, IM (Adacel) 10/17/2010 Zoster Vaccine Recombinant (Shingrix) 03/03/2019 ,12/27/2018 documented as of this encounter Social History Tobacco Use Types Packs/Day Years Used Date Smoking Tobacco: Never Smokeless Tobacco: Never Alcohol Use Standard Drinks/Week Comments Not Currently 0 (1 standard drink = 0.6 oz pur e alcohol) rarely PHQ-2 Answer Date Recorded PHQ Adult Total Score 0 01/12/2023 Hunger Vital Sign Answer Date Recorded Within the past 12 months, y ou worried that your food would run out before you got the money to buy more. Never true 01/13/20 23 Within the past 12 months, t he food you bought just didn't last and you didn't have money to get more. Never true 01/12/2023 Comments No Sex and Gender Information Value Date Recorded Sex Assigned at Female 01/10/2022 8:54 AM EDT Legal Sex Female 5:27 AM EST Gender Identity Female 01/10/2022 8:54 AM EDT Sexual Orientation Straight 01/10/2022 8: 54 AM EDT documented as of this encounter Last Filed Vital Signs Vital Sign Reading Time Taken Comments Blood Pressure 165/79 07/01/2024 10:30 AM EST Pulse 62 07/01/2024 10:30 AM EST Temperature 36.2 C (97.2 F) 07/01/2024 1 0:30 AM EST Respiratory Rate 16 07/01/2024 10:3 0 AM EST Oxygen Saturation 97% 07/01/2024 10: 30 AM EST Inhaled Oxygen Concentration - - Weight 139.1 kg (306 lb 10.6 oz) 07/01/2024 7:00 AM EST Height 170.2 cm (5' 7.01") 07/01/2024 7:00 AM ES T Body Mass Index 48.02 07/01/2024 7:00 AM EST documented in this encounter Discharge Instructions * Discharge Instr - AVS* Jenifer Culp MD - 07/01/2024 7:47 AM EST Images from the original note were not included. Instructions for: Breast procedures INCISION CARE: If present, remove any outer dressing(s) in 24 hours. The incision(s) may be sealed with a skin adhesive (Dermabond) or covered with white adhesive tapes known as steri-strips. Either way there is noneed to cover up the incisions again with gauze. BRA: Wear a support bra (morning and evening) for at least 1 week and then as you normally do thereafter. ACTIVITY: Avoid any strenuous activity, repetitive motion, lifting over 10 lbs with the affected side for 2 weeks. No high impact or vigorous exercise for 2 weeks. Getting up and walking after surgery aids recovery in many ways. Much of the pain after major surgery is from muscle spasm. Getting out of bed, sitting and walking help you loosen up and actually reduce your pain. This also helps your breathing and quickens the recovery of your bowel function. Walking and using the stairs is permitted. DRIVING: You may resume driving in 24 hours . SHOWER: You may shower in 24 hours (remove outer gauze dressing prior), but do not scrub vigorously over the incisions. It is OK to get the steri-strips wet with soapy water and gently pat them dry. Do not immerse the incision (for example, no swimming, no tub baths, no hot tubs). If the steri-strips come off in the shower, do not become concerned. If they are still in place 10 days after surgery, you may remove them. PAIN MEDICATION: Options for pain medications include products that include ibuprofen or Tylenol. You may alternate between doses of the following medications, every three hours for three days after your surgery: -Tylenol 975mg (3 tabs of 325mg) every 6 hours. Do not take more than 4000mg of Tylenol in 24 hours. -Ibuprofen 600mg (1 tab of 600mg) every 6 hours (take with food). Apply an ice pack to the incision (20 min on, 20 min off) for the first 24-48 hours to help with pain and swelling. If you have been given a script for a narcotic pain medication, this can cause nausea / vomiting and / or constipation. Please take it with food. It is OK to use over the counter laxatives if needed. BIOPSY RESULTS: It normally takes 4-5 working days for the pathology lab to process the biopsy. If you do not hear from the office within 1 week, please call [phone] or send an email in [employer] to see if the results are back. Special Instructions: Call the Surgery office at [phone] if you have any questions or concerns or if you experience any of the following: - Elevated temperatures of 101.5 degrees or greater - Persistent nausea and vomiting - Pus-like drainage or redness around the incision or wound - Pain that is not controlled with prescribed medications Additional Instructions: - Take a stool softener while taking narcotic pain medication; hold for loose stools. - If you have received any drugs or anesthesia you should not drive or drink alcoholic beverages for about [address]. [address] if you are taking narcotics for pain. -Use a surgical bra (if provided) or a sports bra for two weeks - Your incision is typically covered with steri strips or Dermabond which is a clear skin adhesive which will wear off after several weeks. Do not try to remove the adhesive. Do not use tape near theadhesive. Call the office if you have questions about the incision or dressing. There are stitches placed under the skin which will dissolve and do not need to be removed. - You may shower starting 12 hours after surgery. Do not soak or immerse the incisions for about 10-14 days. Do not swim for about 2 weeks. - You may place gauze against the incision if it is irritated by your clothing or bra. Most women find wearing a supportive bra more comfortable than not wearing one after breast surgery. It is not necessary to wear one. Please do whatever you find to be most comfortable. - Please call the office if your incision or surrounding skin becomes red or if there is drainage from the incision. - Please call with signs of an infection such as fever or chills. - We will call you with pathology results as soon as they are available. You will typically be seenin the clinic about 2 weeks after your surgery. Exercises After Breast Surgery: Ball Squeeze, Arm Cross, Broom Stretch As you recover from breast surgery, your doctor will tell you when it is safe to begin exercising, what kind of exercises you can do, and how much exercising you should do. Your goal will be to regain normal range of motion and use of your arm. For your safety, use this handout only as directed by your doctor or physical therapist. [] Ball squeeze While standing, sitting, or lying down, hold a rubber ball in your hand on the operated side. Keep your arm slightly bent, with your palm toward the ceiling. Lift your hand higher than your heart. Squeeze and relax the ball. Repeat 10 times. [] Arm cross Stand with elbows bent and raised to shoulder level. Cross one arm on top of the other arm. Touch your elbows with your fingers. Push your elbows backward, squeezing your shoulder blades together. Repeat 10 times. [] Broom stretch Place the hand on your operated side over the end of a stick (a broom or cane will work). Grasp farther down the stick with your other hand, palm down. Gently but firmly, push the end of the stick as high as you comfortably can. Hold this position for15 seconds. Return to starting position. Repeat 10 times. Exercises After Breast Surgery: Wall Climb, Chicken Wing As you recover from breast surgery, your healthcare provider will tell you when it is safe to beginexercising, what kind of exercises you should do, and how much exercise you should do. Your goal will be to regain normal range of motion and use of your arm. For your safety, use this handout only as directed by your healthcare provider or physical therapist. [] Wall climb Follow these steps: Stand and face a wall, with your toes 4 to [address] your forearms against the wall, hands at eye level. Walk your hands up the wall, keeping palms parallel. Stop if you feel pulling or pain. Hold the stretch for 15 to 20 seconds. Move your hands back down the wall. Repeat 10 times. As you improve, stand closer to the wall. [] Chicken wing Follow these steps: With elbows straight, clasp your fingers in front of you. Raise your arms slowly over your head. Keeping your fingers clasped, put your hands behind your neck. Pull your elbows in until they touch at chin level. (Unclasp your fingers if you need to.) Repeat 10 times. documented in this encounter Progress Notes * Jenifer Culp MD - 07/01/2024 9:24 AM EST [address] [address] OUTPATIENT SURGERY DISCHARGE SUMMARY NOTE Name: Hortensia Dawn Location: [facility] Date: 07/01/2024 Time: 9:24 AM Surgery Date: 07/01/2024 Procedure: EXCISION OF BREAST LESION RADIOLOGICAL MARKER Right Surgeon: Jenifer Culp MD Discharge Diagnosis: right breast biopsy After examination of this patient, I have determined she is ready for discharge to home when the patient meets criteria. Discharge instructions were given to the patient. documented in this encounter H&P Notes * Jenifer Culp MD - 07/01/2024 7:43 AM EST [facility] GENERAL SURGERY NEW BREAST EXAM CLINIC NOTES Chief Complaint Patient presents with NEW PATIENT Right breast radial scar HPI: Hortensia Dawn is a 69 year old female who is here for her excisional right breast biopsy. Since her last visit, she has undergone aneta power saw mechanic placement. She has held her eliquis. No other changes to her medical hsitory. Originally she was seen at the request of Emily Obando MD for evaluation of right breast radial scar. After the biopsy, broke out a rash over her breast/ arm. May have been reaction to solution - took benadryl, used anti itch spray as it was itchy. Rash was over the entire area cleaned. 04/14/24: A. Breast, Right, 10:00 7 cm fn, core biopsy: Benign mammary parenchyma with radial scar No evidence of epithelial atypia or malignancy at 1142 Order Comments Right Breast Ultrasound Guided Core Biopsy of a suspicious hypoechoic area at 10:00 7 cm fn. R/O CA. Gross Description A. Breast, Right. Received in formalin with a container labeled with "Hortensia Dawn", "[id number]", "1955" and " right breast ten o'clock 7 cm from nipple". Received are 5 cores of aviles-yellow fibroadipose tissueranging from 0.3 cm to 0.7 cm in length, each approximately 0.2 cm in diameter. The specimen is entirely submitted in cassettes A1 and A2. Collection/ischemic time: time 8:32 AM, date 04/14/2024, time in formalin: time not provided, date not provided. Gross By: Microscopic Description BNC-5 reveals a benign, polyclonal growth pattern with an intact myoepithelial cell layer surrounding the areas of proliferation. BREAST ROS: No new breast lumps or masses, No severe breast pain, No nipple discharge, and No recent change in shape/color Uterine cancer - s/p hysterectomy and BSO. No further treatment needed. Done in 2017. GYNECOLOGIC HISTORY: LMP: Patient's last menstrual period was 08/26/2007. Patient has had a hysterectomy. Ovaries were removed. Menarche at age: 16 Menopause at age: 52 Number of children: 3 Patient's age at first live : 30 Did you breast feed any of your children: Yes Ever take oral contraceptives? Yes, history of use for 4 or 5 months year(s) Ever take estrogen? No RADIOLOGIC INTERPRETATION: 06/30/24: EXAM US BREAST NEEDLE LOCALIZATION RIGHT; MAMMOGRAM POST BIOPSY CLIP PLACEMENT- 06/30/2024 11:12 am; 06/30/2024 11:23 am HISTORY Right ANETA power saw mechanic COMPARISON Prior examination April 14, 2024 TECHNIQUE Ultrasound-guided localization of the right breast was performed utilizing ANETA power saw mechanic. FINDINGS A timeout procedure was performed by Dr. Terra Middleton in the presence of Abiel Fernando. The patient's identification was verified. Informed consent with agreement of procedure, site, and position was obtained. The procedure matches the verbalized consent. All necessary equipment was availableprior to procedure. The side of the intended procedure was marked on the skin. Patient denies allergies to lidocaine or tape. She does note a sensitivity to chlorhexidine, and therefore an iodine based soap was used to cleanse the skin. She has held her Eliquis as per clinician's instruction. Preliminary images demonstrate subtle hypoechoic mass right breast ten o'clock 7 cm from the nipplemeasuring 5 x 5 x 5 mm. Using aseptic technique, local anesthesia with 1% buffered lidocaine, and sonographic guidance, needle localization using a 7.5 cm needle was advanced through the lesion and the ANETA power saw mechanic reflector was deployed within the mass. ANETA power saw mechanic console and hand piece were used to audibly confirm the presence of the reflector within the breast. The reflector is located 1.8 cm from the skin surface. A bandage was placed at the insertion site. The patient tolerated the procedure well and there were no complications. Confirmatory mammographic images were obtained. The ANETA power saw mechanic reflector is located right breast ten o'clock at site of heart shaped biopsy marker. The images were labeled. The patient left the department in satisfactory condition. IMPRESSION IMPRESSION Ultrasound-guided ANETA power saw mechanic localization of the right breast at 10 o'clock. 04/14/24: ADDENDUM: Received from the department of pathology is the histology diagnosis of benign mammary parenchyma with radial scar. No evidence of epithelial atypia or malignancy. The histology diagnosis is concordant with imaging findings. Surgical consultation and follow-up isadvised. Patient is aware of the findings and recommendations. Telephone encounter was placed with Siomara Kennedy at the breast clinic. Patient has appointment scheduled for 05/13/2024 for surgical c onsultation. Mammography Security Sergeant Tiffanie Alanis has been notified for scheduling and tracking purposes. Signed by Britany Neal MD on 04/28/2024 09:58 ADDENDUM: Preliminary ultrasound demonstrates a 5 x 6 x 6 mm hypoechoic mass at 10 o'clock 7 cm from nipple, right breast. Using aseptic technique, local anesthesia with 1% buffered lidocaine, a small skin incision was made with a surgical blade to permit passage of the 14 gauge core biopsy needle. A spring activated/ automated Inrad biopsy device was utilized. Under direct sonographic guidance and visualization, several passes were made through the target and core specimen obtained. The core specimen were placed in formalin and submitted for histopathologic analysis. Under direct sonographic guidance and visualization, a tissue marker was placed within the lesion for future reference. Post procedural mammogram verified tissue marker placement. The patient tolerated the procedure well and there were no complications. Written discharge instructions were given to the patient and also reviewed verbally with her. The patient expressed understanding of the instructions and was discharged from the department in stable condition. IMPRESSION 1. Ultrasound guided core biopsy of a 5 x 6 x 6 mm hypoechoic mass at 10 o'clock 7 cm from nipple, right breast followed by tissue marker placement. 2. Position of the tissue marker is confirmed on unilateral mammogram obtained following the ultrasound-guided core biopsy and tissue marker placement. 3. Core specimen submitted for histopathologic interpretation. 4. A supplement/addendum to this report will follow pending receipt of pathology results. 5. Further follow-up and management recommendations will be forthcoming once this has been accomplished. Signed by Britany Neal MD on 04/14/2024 13:37 Narrative & Impression EXAM US GUIDED BREAST BIOPSY RIGHT; MAMMOGRAM POST BIOPSY CLIP PLACEMENT- 04/14/2024 8:47 am; 04/14/2024 8:58 am HISTORY Referred for ultrasound guided core biopsy of a 5 x 6 x 6 mm hypoechoic mass at 10 o'clock 7 cm from nipple, right breast. COMPARISON Multiple priors to include most recent previous right diagnostic mammogram and breast ultrasound 04/10/2024. TECHNIQUE ANESTHESIA: 1% lidocaine COATER OPERATOR INSULATION BOARD: Dr. Cuba was present for and performed the entire procedure. The following procedure/examinations were performed: - Ultrasound guided core biopsy and tissue marker placement - Post clip/tissue marker placement unilateral mammogram Following a discussion of the risks and benefits of the procedure as well as a discussion of alternatives to this procedure, the patient was given the opportunity to ask questions. Once the patient'squestions were answered to her satisfaction, informed consent was signed by the patient. A timeout,with verification of patient name and site of procedure was performed by Dr. Cuba in the presence of phlebotomy technologist and it was confirmed that procedure matches verbalized consent. FINDINGS Preliminary ultrasound demonstrates a 5 x 6 x 6 mm hypoechoic mass at 10 o'clock 7 cm from nipple, right breast. Using aseptic technique, local anesthesia with 1% buffered lidocaine, a small skin incision was made with a surgical blade to permit passage of the 14 gauge core biopsy needle. A spring activated/ automated Sertera biopsy device was utilized. Under direct sonographic guidance and visualization, several passes were made through the target and core specimen obtained. The core specimen were placed in formalin and submitted for histopathologic analysis. Under direct sonographic guidance and visualization, a tissue marker was placed within the lesion for future reference. Post procedural mammogramverified tissue marker placement. The patient tolerated the procedure well and there were no complications. Written discharge instructions were given to the patient and also reviewed verbally with her. The patient expressed understanding of the instructions and was discharged from the department in stable condition. IMPRESSION IMPRESSION 1. Ultrasound guided core biopsy of a 5 x 6 x 6 mm hypoechoic mass at 10 o'clock 7 cm from nipple, right breast followed by tissue marker placement. 2. Position of the tissue marker is confirmed on unilateral mammogram obtained following the ultrasound-guided core biopsy and tissue marker placement. 3. Core specimen submitted for histopathologic interpretation. 4. A supplement/addendum to this report will follow pending receipt of pathology results. 5. Further follow-up and management recommendations will be forthcoming once this has been accomplished. 04/10/24: Result MAMMOGRAM DIAGNOSTIC LANRE RIGHT US BREAST LIMITED RIGHT History Abnormal mammogram Family medical history includes ovarian cancer in mother (age of onset: 83). Films Compared 04/04/2024 MAMMOGRAM SCREENING LANRE BILATERAL, 03/30/2023 MAMMOGRAM SCREENING LANRE BILATERAL, 03/22/2022 MAMMOGRAM SCREENING BILATERAL, 03/18/2021 MAMMOGRAM SCREENING BILATERAL, and 03/05/2020 MAMMOGRAM SCREENING BILATERAL Findings MAMMOGRAM DIAGNOSTIC LANRE RIGHT US BREAST LIMITED RIGHT The right breast is heterogeneously dense, which may obscure small masses. The breast tissue has a homogeneous background echotexture - fibroglandular. Targeted ultrasound demonstrates a 6 x 7 x 7 mm taller than wide poorly defined hypoechoic mass at 10 o'clock 7 cm from nipple probable correlate to focal asymmetry with architectural distortion seenin the upper outer middle depth on mammogram. Color Doppler demonstrates no flow in the aforementioned mass lesion. Ultrasound-guided core biopsy and post clip mammogram would be helpful for further evaluation. Ultrasound of the right axilla demonstrates morphologically normal well-defined lymph nodes. Impression MAMMOGRAM DIAGNOSTIC LANRE RIGHT US BREAST LIMITED RIGHT A 6 x 7 x 7 mm poorly defined hypoechoic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
--- OUTSIDE RECORDS SUMMARY | 2024-07-17 19:58 | External Medical Summary | Summary of Care ---
Author Name Unknown Organization [facility] Address [address] [place] [address] Phone [phone] Care Team Providers Care Camera Tuning Engineer Name Role Phone Emily Obando MD Primary Care Provider Reason for Visit * Reason Onset Date Comments Medical Questions 06/10/2024 Pre-Op Testing 06/10/2024 Encounter Details Date Type Department Care Team (Late st Contact Info) Description 06/10/2024 Telephone Pre Surgery Center, [facility] [address] [place] [address] Tash Valdez CRNP [address] [place], [place] [phone] Medical Questions; Pre-Op Testing Allergies Active Allergy Reactions Criticality Noted Date Comments Other Allergy (See Comments) Rash Low 05/14/2018 Rash from dermabond after surgery Sotalol 10/20/2021 Bradycardia, fatigued documented as of this encounter (statuses as of 06/27/2024) Medications CPAP every night at bedtime . Active Amoxicillin 500 MG Oral Tablet TAKE 4 TABLETS BY MOUTH 1 HOUR PRIOR TO PROCEDURE 09/28/19 22 Active PreserVision AREDS Oral Capsule Take 1 Capsule by mouth in the morning and 1 Capsule before bedtime. Active Apixaban 5 MG Oral Tablet (Eliquis)Indic ations:PAF (paroxysmal atrial fibrillation) (HCC) Take 1 Tablet by mouth in the morning and 1 Tablet before bedtime. 180 Tablet 3 09/07/19 24 Active Metoprolol Tartrate 25 MG Oral Tablet (Lopressor)Ind ications:PAF (paroxysmal atrial fibrillation) (HCC) Take 1 Tablet by mouth 2 times a day as needed (AF/palpitati ons). 30 Tablet 3 09/07/19 24 Active Rosuvastatin Calcium 5 MG Oral Tablet (Crestor)Indic ations:Dyslipi demia TAKE 1 TABLET BY MOUTH EVERY DAY IN THE MORNING 90 Tablet 05/19/20 24 Active Losartan Potassium 50 MG Oral Tablet (Cozaar) Take 1 Tablet by mouth in the morning and 1 Tablet before bedtime. 180 Tablet 3 06/25/19 25 Active hydroCHLOROthi azide 25 MG Oral Tablet (Hydrodiuril) Take 1 Tablet by mouth in the morning. 34 Tablet 11 06/25/19 25 Active Losartan Potassium 25 MG Oral Tablet (Cozaar) Take 1 Tablet by mouth in the morning. 34 Tablet 11 06/12/19 25 025 Discontinued documented as of this encounter (statuses as of 06/27/2024) Active Problems Problem Noted Date Diagnosed Date [...] as of this encounter (statuses as of 06/27/2024) Resolved Problems Problem Noted Date Diagnosed Date [...] as of this encounter (statuses as of 06/27/2024) Immunizations Name Administration Dates Next Due Pneumococcal Conjugate Vacci ne, 20-valent ([id number]) 07/14/2022 Seasonal Influenza Vac., MDV , IM, [...] AM EDT documented as of this encounter Miscellaneous Notes * Telephone Encounter - Eileen Jarrell LPN - 06/27/2024 2:47 PM EST Spoke with pt by phone. BP today after taking medication was 118/85 HR "in the 60's" No symptoms, feeling fine. * Telephone Encounter - María Elena James RN - 06/27/2024 1:45 PM EST Following up on HTN control pre-op. Pt is scheduled for surgery on Sunday07/01/24. Is she optimized in regards to her HTN prior to surgery? Thank you, María Elena * Addendum Note - Tash Valdez CRNP - 06/25/2024 9:34 AM EST Addended by: TASH VALDEZ on: 06/25/2024 09:34 AM Modules accepted: Orders * Telephone Encounter - Tash Valdez CRNP - 06/20/2024 11:44 AM EST Personally called patient to see how the readings have been. Still high despite addition of losartan 25 mg dailly 170/101 was the reading today - after the losartan Increase losartan to 50 mg twice per day Will plan to check back next week. Advised to reach out sooner if needed. Thank You, FAITH Avila * Addendum Note - Tash Valdez CRNP - 06/12/2024 10:45 AM EST Addended by: TASH VALDEZ on: 06/12/2024 10:45 AM Modules accepted: Orders * Telephone Encounter - Tash Valdez CRNP - 06/12/2024 10:44 AM EST I personally called the patient and reviewed with her management techniques for the elevated blood pressure. I have requested she start losartan and monitor blood pressure readings at home. I plan to cycle back with her next week via telephone call to see if the readings have improved. Maybe can hold off on repeat in person visit for now. Thank You FAITH Avila * Telephone Encounter - Daniel Hewitt OSA - 06/10/2024 2:18 PM EST Rachel, may I offer this patient a sooner appointment with any provider? Thank you. * Telephone Encounter - Jenifer Culp MD - 06/10/2024 2:11 PM EST She is scheduled for surgery 07/01. Is there any way to get her seen before that please? Thank you. * Telephone Encounter - María Elena James RN - 06/10/2024 1:17 PM EST Spoke with patient to complete ROS for anesthesia on 06/06 and noted pt's recent issues with HTN. She was seen by cardiology on 05/02 and was to have a follow up BP check on 05/13, at which time herBP remained elevated. 05/13/24 188/104 Reviewed pt's hx with Dr. Mason and he is requesting follow up for adequate HTN control prior to surgery. documented in this encounter Plan of Treatment Upcoming Encounters Date Type Department Care Team (Latest Contact Info) Description 06/30/2024 10:30 AM EST Imaging Radiology [facility] [address] [place] [phone] 06/30/2024 10:30 AM EST Imaging Radiology [facility] [address] [place] [address] 07/01/2024 7:40 AM EST Hospital Encounter OR GL, Operating Room, [facility] - 4th Floor [address] [place] [address] Jenifer Culp MD [address] [place] [address] 07/01/2024 7:40 AM EST - 07/01/2024 9:08 AM EST Surgery OR [facility], Operating Room, [facility] - 4th Floor [address] [place] [phone] Jenifer Culp MD [address] [place] [address] EXCISION OF BREAST LESION RADIOLOGICAL MARKER 07/01/2024 3:00 PM EST Imaging Radiology [facility] 132 [facility] [place] [phone] 07/15/2024 10:00 AM EST Office Visit General Surgery, [facility] 132 [facility] [place] [address] Jenifer Culp MD [address] [place] [address] 07/31/2024 2:30 PM EST Office Visit Cardiology, [facility] 132 [facility] [place] [address] Nidhi Jacques PA-C [address] [place] [address] 09/08/2024 10:40 AM EDT Office Visit Family Practice [facility] 132 [facility] [place] [address] Emily Obando MD [address] [place] [address] 09/16/2024 11:30 AM EDT Office Visit Gyne[facility]colog [facility], [facility] [address] Heidi Carpio PA-C [address] [facility] [place] [address] 10/07/2024 10:20 AM EDT Office Visit Sleep Disorders Ctr [facility] [address] [place] [phone] Saskia Vasquez, [address] [place] [address] 10/31/2024 1:30 PM EDT Office Visit Cardiology, [facility] [address] [place] [address] Tash Valdez, FAITH [address] [place] [address] 02/25/2025 2:20 PM EDT Office Visit Dermatology [address] [place] [address] Tiara Pozo PA-C [address] [place] [address] [place] [address] 04/15/2025 9:00 AM EST Imaging Radiology [address] [place] [address] Scheduled Orders Name Type Priority Associated Diagnoses Orde r Schedule BASIC METABOLIC PANEL Lab Routine HTN, goal below 140/90 Expected: 06/25/2024, Expires: 06/25/2025 Scheduled Procedures Name Priority Associated Diagnoses Date/Ti me EXCISION OF BREAST LESION RADIOLOGICAL MARKER Radial scar of right breast 07/01/2024 7:40 AM EST COLONOSCOPY FLEXIBLE PROXIMAL DIAGNOSTIC Recall Encounter for screening colonoscopy Health Maintenance Due Date Last Done Comments Cologuard 2002 Fecal Occult Blood Test 2002 Sigmoidoscopy 2002 Adult Wellness Visit 2023 Depression Screening 01/13/2024 01/12/2023 Mammogram 04/10/2025 04/10/2024, 03/13, 04/04/2024, Additional history exists Diabetes Screening 05/13/2027 05/13/2024, 0 09/27/2023, 08/09/2022, Additional history exists DXA Scan 08/15/2027 08/14/2022, 08/14/2022 Colonoscopy 03/19/2028 03/19/2018, 0 02/2018, 01/30/2011, Additional history exists Colorectal Cancer [...] documented as of this encounter Medical Devices Not on filedocumented as of this encounter Visit Diagnoses Diagnosis Radial scar of right breast- Primary HTN, goal below 140/90- Primary Unspecified essential hypertension Radial scar of right breast Screening mammogram for breast cancer documented in this encounter Advance Directives * Full Code (Latest Code Status on File) Date Activated Date Inactivated Comments 04/03/2017 9:33 AM 04/03/2017 6:32 PM This order reflects the patients wishes and were consensually agreed upon. * Full Code Date Activated Date Inactivated Comments 04/03/2017 5:44 AM 04/03/2017 9:33 AM This order reflects the patients wishes and were consensually agreed upon. Care Teams Camera Tuning Engineer Relationship Specialty Start Date End Date Emily Obando MD 132 [facility] [place] [address] PCP - General Internal Medicine 09/07/23 documented as of this encounter
--- OUTSIDE RECORDS SUMMARY | 2024-07-17 19:58 | External Medical Summary | Summary of Care ---
Author Name Unknown Organization [facility] Address [address] [place] [address] Phone [phone] Care Team Providers Care Statue Maker Name Role Phone Emily Obando MD Primary Care Provider Reason for Visit * Reason Onset Date Comments Medical Questions 06/10/2024 Pre-Op Testing 06/10/2024 Encounter Details Date Type Department Care Team (Late st Contact Info) Description 06/10/2024 Telephone Pre Surgery Center, [facility] [address] [place] [address] Tash Valdez CRNP [address] [place], [place] [phone] Medical Questions; Pre-Op Testing Allergies Active Allergy Reactions Criticality Noted Date Comments Other Allergy (See Comments) Rash Low 05/14/2018 Rash from dermabond after surgery Sotalol 10/20/2021 Bradycardia, fatigued documented as of this encounter (statuses as of 06/20/2024) Medications CPAP every night at bedtime . [...] MORNING 90 Tablet 4 Active Losartan Potassium 25 MG Oral Tablet (Cozaar) Take 1 Tablet by mouth in the morning. 34 Tablet 11 5 Active documented as of this encounter (statuses as of 06/20/2024) Active Problems Problem Noted Date Diagnosed Date [...] as of this encounter (statuses as of 06/20/2024) Resolved Problems Problem Noted Date Diagnosed Date [...] as of this encounter (statuses as of 06/20/2024) Immunizations Name Administration Dates Next Due Pneumococcal Conjugate Vacci ne, 20-valent ([id number]) 07/14/2022 Seasonal Influenza Vac., MDV , IM, [...] encounter Miscellaneous Notes * Telephone Encounter - Tash Valdez CRNP [...] Description 06/30/2024 10:30 AM EST Imaging Radiology [address] [place] [address] 06/30/2024 10:30 AM EST Imaging Radiology [address] [place] [address] 07/01/2024 7:40 AM EST Hospital Encounter OR [facility], Operating Room, [facility] - 4th Floor [address] [phone] Jenifer Culp MD [address] [place] [address] 07/01/2024 7:40 AM EST - 07/01/2024 9:08 AM EST Surgery OR [facility], Operating Room, [facility] - 4th Floor [address] [place] [phone] Jenifer Culp MD [address] [place] [address] EXCISION OF BREAST LESION RADIOLOGICAL MARKER 07/01/2024 3:00 PM EST Imaging Radiology [facility] 1st [facility] [address] [place] [address] 07/15/2024 10:00 AM EST Office Visit General Surgery, [facility] [address] [place] [address] Jenifer Culp MD [address] [place] [address] 07/31/2024 2:30 PM EST Office Visit Cardiology, [facility] [address] [place] [address] Nidhi Jacques PA-C [address] [place] [address] 09/08/2024 10:40 AM EDT Office Visit Family Practice [facility] [address] [place] [address] Emily Obando MD [address] [place] [address] 09/16/2024 11:30 AM EDT Office Visit Gynecology/Oncolog y, [place] [address] [place] [address] Heidi Carpio PA-C [address] [place] [address] 10/07/2024 10:20 AM EDT Office Visit Sleep Disorders Ctr [facility] [address] [place] [phone] Saskia Vasquez DO [address] [facility] [place] [address] 10/31/2024 1:30 PM EDT Office Visit Cardiology, [facility] 132 [facility] [place] [address] Tash Valdez CRNP 400 [facility] [place] [address] 02/25/2025 2:20 PM EDT Office Visit Dermatology [address] [place] [address] Tiara Pozo PA-C [address] [place] [address] [place] [address] 04/15/2025 9:00 AM EST Imaging Radiology [address] [place] [address] Scheduled Procedures Name Priority Associated Diagnoses Date/Ti [...] Not on filedocumented as of this encounter Advance Directives * Full Code (Latest Code Status on File) Date Activated Date Inactivated Comments 04/03/2017 9:33 AM 04/03/2017 6:32 PM This order reflects the patients wishes and were consensually agreed upon. * Full Code Date Activated Date Inactivated Comments 04/03/2017 5:44 AM 04/03/2017 9:33 AM This order reflects the patients wishes and were consensually agreed upon. Care Teams Statue Maker Relationship Specialty Start Date End Date Emily Obando MD [address] [place] [address] PCP - General Internal Medicine 09/07/23 documented as of this encounter
--- OUTSIDE RECORDS SUMMARY | 2024-07-17 19:58 | External Medical Summary | Summary of Care ---
Author Name Unknown Organization [facility] Address [address] [place] [address] Phone [phone] Care Team Providers Care Calender Machine Operator Name Role Phone Emily Obando MD Primary Care Provider Encounter Details Date Type Department Care Team (Late st Contact Info) Description 07/03/2024 Population Health External Data Unspecified Department Allergies Active Allergy Reactions Criticality Noted Date Comments Other Allergy (See Comments) Rash Low 05/14/2018 Rash from dermabond after surgery Sotalol 10/20/2021 Bradycardia, fatigued documented as of this encounter (statuses as of 07/03/2024) Medications CPAP every night at bedtime . [...] as of this encounter (statuses as of 07/03/2024) Active Problems Problem Noted Date Diagnosed Date [...] as of this encounter (statuses as of 07/03/2024) Resolved Problems Problem Noted Date Diagnosed Date Resolved Date Body mass index (BMI) of 40. 0 to 44.9 in adult 12/27/2018 08/24/2021 Overview (03/11/2020): ICD-10 update of inactive term ADVANCE DIRECTIVE INFORMATION 08/28/2018 04/14/2024 Overview (01/28/2007): No, Advance Directive brochure offered , patient declined. BMI 39.0-39.9,adult 02/13/2018 12/28/19 Overview: Per Obesity protocol #1 - Primary [...] as of this encounter (statuses as of 07/03/2024) Immunizations Name Administration Dates Next Due Pneumococcal Conjugate Vacci ne, 20-valent ([id number]) 07/14/2022 Seasonal Influenza Vac., MDV , IM, [...] AM EDT documented as of this encounter Plan of Treatment Upcoming Encounters Date Type Department Care Team (Late st Contact Info) Description 07/15/2024 10:00 AM EST Office Visit General Surgery, [facility] [address] [place] [address] Jenifer Culp MD [address] [place] [address] 07/31/2024 2:30 PM EST Office Visit Cardiology, [facility] [address] [place] [address] Nidhi Jacques PA-C [address] [place] [address] [place] [address] 09/08/2024 10:40 AM EDT Office Visit Family Practice [facility] [address] [place] [address] Emily Obando MD [address] [place] [address] 09/16/2024 11:30 AM EDT Office Visit Gynecology/Oncology, [place] [address] [place] [address] Heidi Carpio PA-C [address] [place] [facility] [place] [address] 10/07/2024 10:20 AM EDT Office Visit Sleep Disorders Ctr [facility] 132 [facility] [place] [phone] Saskia Vasquez, [facility] [place] [address] 10/31/2024 1:30 PM EDT Office Visit Cardiology, [facility] 132 [facility] [place] [address] Sabrina Valdez CRNP 400 [facility] [place], [place] [address] 02/25/2025 2:20 PM EDT Office Visit Dermatology [address] [place] [address] Tiara Pozo PA-C [address] [place] [address] [place] [address] 04/15/2025 9:00 AM EST Imaging Radiology [address] [place] [address] Scheduled Procedures Name Priority Associated Diagnoses Date/Ti me COLONOSCOPY FLEXIBLE PROXIMA L DIAGNOSTIC Recall Encounter for screening colonoscopy Health [...] this encounter Medical Devices Implanted Type Area Aircraft Parts Assembler Device Identifier Shelf Expiration Date Model / Serial / Lot Reflector Aneta Back Strip Machine Operator 7.5cm Sgl - [id number] Implanted:Qty: 1 on 06/30/2024 at [facility] [employer] [facility] [id number] / / documented as of this encounter Advance Directives * [...] and were consensually agreed upon. Care Teams Calender Machine Operator Relationship Specialty Start Date End Date Emily Obando MD [address] [place] [address] PCP - General Internal Medicine 09/07/23 documented as of this encounter
--- OUTSIDE RECORDS SUMMARY | 2024-07-17 19:58 | External Medical Summary | Summary of Care ---
Author Name Unknown Organization [facility] Address [address] [place] [address] Phone [phone] Care Team Providers Care Manager Study Name Role Phone Emily Obando MD Primary Care Provider Encounter Details Date Type Department Care Team (Late st Contact Info) Description 07/07/2024 Telephone General Surgery, [facility] [address] [place] [address] Jenifer Culp MD [address] [facility] [place] [address] Allergies Active Allergy Reactions Criticality Noted Date Comments Other Allergy (See Comments) Rash Low 05/14/2018 Rash from dermabond after surgery Sotalol 10/20/2021 Bradycardia, fatigued documented as of this encounter (statuses as of 07/07/2024) Medications CPAP every night at bedtime . [...] as of this encounter (statuses as of 07/07/2024) Active Problems Problem Noted Date Diagnosed Date [...] as of this encounter (statuses as of 07/07/2024) Resolved Problems Problem Noted Date Diagnosed Date [...] as of this encounter (statuses as of 07/07/2024) Immunizations Name Administration Dates Next Due Pneumococcal Conjugate Vacci ne, 20-valent ([id number]) 07/14/2022 Seasonal Influenza Vac., MDV , IM, [...] encounter Miscellaneous Notes * Telephone Encounter - Emily Obando MD - 07/07/2024 10:29 AM EST Noted, thank you * Telephone Encounter - Jenifer Culp MD - 07/07/2024 10:20 AM EST Path report reviewed with pt. A. 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 No evidence of invasive carcinoma or carcinoma in-situ Changes consistent with prior biopsy site (radiologic clip identified) documented in this encounter Plan of Treatment Upcoming Encounters Date Type Department Care Team (Late st Contact Info) Description 07/15/2024 10:00 AM EST Office Visit General Surgery, [facility] 132 [place] [address] Jenifer Culp MD [address] [place] [address] 07/31/2024 2:30 PM EST Office Visit Cardiology, [facility] 132 [facility] [place] [address] Nidhi Jacques PA-C [facility] [place] [address] 09/08/2024 10:40 AM EDT Office Visit Family Practice [facility] 132 [facility] [place] [address] Emily Obando MD 132 [facility] [place] [address] 09/16/2024 11:30 AM EDT Office Visit Gynecology/Oncology, [place] [address] [place] [address] Heidi Carpio PA-C [address] [place], [place] [phone] 10/07/2024 10:20 AM EDT Office Visit Sleep Disorders Ctr [facility] 132 [facility] [place] [phone] Saskia Vasquez, [address] [place] [address] 10/31/2024 1:30 PM EDT Office Visit Cardiology, [facility] 132 [facility] [place] [address] Sabrina Valdez CRNP 400 [facility] [phone] 02/25/2025 2:20 PM EDT Office Visit Dermatology [address] [place] [address] Tiara Pozo PA-C [address] [place] [address] [place] [address] 04/15/2025 9:00 AM EST Imaging Radiology [address] [place] [address] Scheduled Procedures Name Priority Associated Diagnoses Date/Ti [...] this encounter Medical Devices Implanted Type Area Account Review Specialist Device Identifier Shelf Expiration Date Model / Serial / Lot Reflector Aneta Montez 7.5cm [facility] - [id number] Implanted:Qty: 1 on 06/30/2024 at [facility] [employer] [facility] [id number] / / documented as of this encounter [...] and were consensually agreed upon. Care Teams Manager Study Relationship Specialty Start Date End Date Emily Obando MD [address] [place] [address] PCP - General Internal Medicine 09/07/23 documented as of this encounter
--- OUTSIDE RECORDS SUMMARY | 2024-07-17 19:58 | External Medical Summary | Summary of Care ---
Author Name Unknown Organization [facility] Address [address] [place] [address] Phone [phone] Care Team Providers Care Fixing Machine Operator Name Role Phone mEily Obando MD Primary Care Provider Encounter Details Date Type Department Care Team (Late st Contact Info) Description 07/07/2024 Telephone General Surgery, [facility] [address] [place] [address] Jenifer Culp MD [address] [facility] [place] [address] Allergies Active Allergy Reactions Criticality [...] Next Due Pneumococcal Conjugate Vacci ne, 20-valent ([id number]) 07/14/2022 Seasonal Influenza Vac., MDV , IM, [...] 10:00 AM EST Office Visit General Surgery, [facility] 132 [place] [address] Jenifer Culp MD [address] [place] [address] 07/31/2024 2:30 PM EST Office Visit Cardiology, [facility] 132 [facility] [place] [address] Nidhi Jacques PA-C 400 [facility] [address] 09/08/2024 10:40 AM EDT Office Visit Family Practice [facility] 132 [facility] [place] [address] Emily Obando MD 132 [facility] [place] [address] 09/16/2024 11:30 AM EDT Office Visit Gynecology/Oncology, [place] [address] [place] [address] Heidi Carpio PA-C [address] [place], [place] [phone] 10/07/2024 10:20 AM EDT Office Visit Sleep Disorders Ctr [facility] 132 [facility] [place] [phone] Saskia Vasquez, [address] [place] [address] 10/31/2024 1:30 PM EDT Office Visit Cardiology, [facility] 132 [facility] [place] [address] Sabrina Valdez CRNP 400 [facility] [phone] 02/25/2025 2:20 PM EDT Office Visit Dermatology [address] [place] [address] Tiara Pozo PA-C [address] [place] [address] [place] [address] 04/15/2025 9:00 AM EST Imaging Radiology [address] [place] [address] Scheduled Procedures Name Priority Associated Diagnoses Date/Ti [...] this encounter Medical Devices Implanted Type Area Inspector Chief Device Identifier Shelf Expiration Date Model / Serial / Lot Reflector Aneta Montez 7.5cm [facility] [place] - [id number] Implanted:Qty: 1 on 06/30/2024 at [facility] [email or web address] [facility] [id number] / / documented as of this encounter [...] and were consensually agreed upon. Care Teams Fixing Machine Operator Relationship Specialty Start Date End Date Emily Obando MD [address] [place] [address] PCP - General Internal Medicine 09/07/23 documented as of this encounter
--- OUTSIDE RECORDS SUMMARY | 2024-07-17 19:58 | External Medical Summary | Summary of Care ---
Author Name Unknown Organization [facility] Address [address] [place] [address] Phone [phone] Care Team Providers Care Tooth Cutter Clutch Name Role Phone Emily Obando MD Primary Care Provider Reason for Visit * Reason Comments Post-Op Encounter Details Date Type Department Care Team (Late st Contact Info) Description 07/15/2024 10:00 AM EST Office Visit General Surgery, [facility] [address] [place] [address] Jenifer Culp MD [address] [place] [address] S/P breast biopsy, right*; Superficial skin infection Allergies Active Allergy Reactions Criticality Noted Date Comments Other Allergy (See Comments) Rash Low 05/14/2018 Rash from dermabond after surgery Sotalol 10/20/2021 Bradycardia, fatigued documented as of this encounter (statuses as of 07/16/2024) Medications CPAP every night at bedtime . [...] for Pain, Moderate. 5 Tablet 5 Active Cephalexin 500 MG Oral Capsule (Keflex) Take 1 Capsule by mouth in the morning and 1 Capsule at noon and 1 Capsule in the evening and 1 Capsule before bedtime. Do all this for 10 days. 40 Capsule 5 07/25/19 25 Active documented as of this encounter (statuses as of 07/16/2024) Active Problems Problem Noted Date Diagnosed Date [...] as of this encounter (statuses as of 07/16/2024) Resolved Problems Problem Noted Date Diagnosed Date [...] as of this encounter (statuses as of 07/16/2024) Immunizations Name Administration Dates Next Due Pneumococcal Conjugate Vacci ne, 20-valent ([id number]) 07/14/2022 Seasonal Influenza Vac., MDV , IM, [...] AM EDT documented as of this encounter Progress Notes * Jenifer Culp MD - 07/15/2024 9:55 AM EST [facility] BREAST CLINIC NOTES SUBJECTIVE: Hortensia Dawn is a 69 year old female who is now s/p a right breast biopsy for a radial scar. Developed an infection over the weekend. A. 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 More swollen. No drainage. Woke up this morning in a sweat. Took tylenolyesterday and todayl OBJECTIVE: Last menstrual period 08/26/2007. Examination today reveals healing right breast biopsy upper outer incision(s). There is moderate wound erythema. There is no ecchymosis or hematoma. There is no wound drainage. Warmth is present. Line drawn around erythema. IMPRESSION: Cellulitis following right breast biopsy. Keflex prescribed PLAN: F/u 1 week to assess for improvement. Jenifer Culp M.D. 07/15/2024 4:53 PM documented in this encounter Nursing Notes * So Palacios LPN - 07/15/2024 9:42 AM EST Pt presents in office for post op Dx of mammary parenchyma of right breast radial scar, on 07/01/2024 right breast biopsy. C/o- concern for infection, red rash, swelling, cold chills, malaise, woke up soaking wet with sweat- started to develop redness over weekend and progressed through Sunday. Using tylenol/ice pack documented in this encounter Plan of Treatment Upcoming Encounters Date Type Department Care Team (Late st Contact Info) Description 07/24/2024 11:00 AM EST Office Visit General Surgery, [facility] [address] [place] [address] Jenifer Culp MD 132 [facility] [place] [address] 07/31/2024 2:30 PM EST Office Visit Cardiology, [facility] [address] [place] [address] Nidhi Jacques PA-C [address] [place] [address] [place] [address] 09/08/2024 10:40 AM EDT Office Visit Family Practice [facility] [address] [place] [address] Emily Obando MD [address] [place] [address] 09/16/2024 11:30 AM EDT Office Visit Gynecology/Oncology, [place] [address] [place] [address] Heidi Carpio PA-C [address] [place], [place] [phone] 10/07/2024 10:20 AM EDT Office Visit [facility] Disorders Ctr [facility] [place] [address] Saskia Vasquez DO [address] [place] [address] 10/31/2024 1:30 PM EDT Office Visit Cardiology, [facility] 132 [facility] [place] [address] Sabrina Valdez CRNP [address] [place] [address] 02/25/2025 2:20 PM EDT Office Visit Dermatology [address] [place] [address] Tiara Pozo PA-C [address] [place] [address] [place] [address] 04/15/2025 9:00 AM EST Imaging Radiology [address] [place] [address] Scheduled Procedures Name Priority Associated Diagnoses Date/Ti me COLONOSCOPY FLEXIBLE PROXIMA L DIAGNOSTIC Recall Encounter for screening colonoscopy Health Maintenance Due Date Last Done Comments Cologuard 2002 Fecal Occult Blood Test 2002 Sigmoidoscopy 2002 Adult Wellness Visit 2023 Depression Screening 01/13/2024 01/12/2023 Mammogram 04/10/2025 04/10/2024, 1006/2023, 04/04/2024, Additional history exists Diabetes Screening 05/13/2027 05/13/2024, 0 09/27/2023, 08/09/2022, Additional history exists DXA Scan 08/15/2027 08/14/2022, 08/14/2022 Colonoscopy 03/19/2028 03/19/2018, 100 02/2018, 01/30/2011, Additional history exists Colorectal Cancer [...] this encounter Medical Devices Implanted Type Area Underwear Trimmer Device Identifier Shelf Expiration Date Model / Serial / Lot Reflector [employer] Techn[employer] 7.5cm [facility] [id number] Implanted:Qty: 1 on 06/30/2024 at [facility] [employer] [facility] [id number] / / documented as of this encounter Visit Diagnoses Diagnosis S/P breast biopsy, right- Primary Other postprocedural status Superficial skin infection Unspecified local infection of skin and subcutaneous tissue Screening mammogram for breast cancer documented in [...] and were consensually agreed upon. Care Teams Tooth Cutter Clutch Relationship Specialty Start Date End Date Emily Obando MD [address] [place] [address] PCP - General Internal Medicine 09/07/23 documented as of this encounter
--- OUTSIDE RECORDS SUMMARY | 2024-07-17 19:58 | External Medical Summary | Summary of Care ---
Author Name Unknown Organization [facility] Address [address] [place] [address] Phone [phone] Care Team Providers Care Online Merchandising Manager Name Role Phone Emily Obando MD Primary Care Provider Reason for Visit * Reason Onset Date Comments Medical Questions 06/10/2024 Pre-Op Testing 06/10/2024 Encounter Details Date Type Department Care Team (Late st Contact Info) Description 06/10/2024 Telephone Pre Surgery Center, [facility] [address] [place] [address] Tash Valdez CRNP 400 [place], [place] [phone] Medical Questions; Pre-Op Testing Allergies Active Allergy Reactions Criticality Noted Date Comments Other Allergy (See Comments) Rash Low 05/14/2018 Rash from dermabond after surgery Sotalol 10/20/2021 Bradycardia, fatigued documented as of this encounter (statuses as of 06/25/2024) Medications CPAP every night at bedtime . [...] as of this encounter (statuses as of 06/25/2024) Active Problems Problem Noted Date Diagnosed Date [...] as of this encounter (statuses as of 06/25/2024) Resolved Problems Problem Noted Date Diagnosed Date [...] as of this encounter (statuses as of 06/25/2024) Immunizations Name Administration Dates Next Due Pneumococcal Conjugate Vacci ne, 20-valent ([id number]) 07/14/2022 Seasonal Influenza Vac., MDV , IM, [...] Description 06/30/2024 10:30 AM EST Imaging Radiology [facility] [address] [place] [address] 06/30/2024 10:30 AM EST Imaging Radiology [facility] [place] [address] 07/01/2024 7:40 AM EST Hospital Encounter OR [facility], Operating Room, [facility] - 4th Floor [address] [place] [address] Jenifer Culp MD [address] [place] [address] 07/01/2024 7:40 AM EST - 07/01/2024 9:08 AM EST Surgery OR [facility], Operating Room, [facility] - [address] [place] [address] [address] [place] [address] Jenifer Culp MD [address] [place] [address] EXCISION OF BREAST LESION RADIOLOGICAL MARKER 07/01/2024 3:00 PM EST Imaging Radiology [address] [place] [address] 07/15/2024 10:00 AM EST Office Visit General Surgery, [facility] [address] [place] [address] Jenifer Culp MD [address] [place] [address] 07/31/2024 2:30 PM EST Office Visit Cardiology, [facility] [address] [place] [address] Nidhi Jacques PA-C [address] [place] [address] 09/08/2024 10:40 AM EDT Office Visit Family Practice [facility] [address] [place] [address] Emily Obando MD [address] [place] [address] 09/16/2024 11:30 AM EDT Office Visit Gynecology/Oncolog y, [place] [address] [place] [address] Heidi Carpio PA-C [address] [place] [address] 10/07/2024 10:20 AM EDT Office Visit Sleep Disorders Ctr [facility] [address] [place] [address] Saskia Vasquez DO [address] [place] [address] 10/31/2024 1:30 PM EDT Office Visit Cardiology, [facility] [place] [address] Tash Valdez, FAITH 400 [facility] [place] [address] 02/25/2025 2:20 PM EDT Office Visit Dermatology [address] [place] [address] Tiara Pozo PA-C [address] [place] [address] [place] [address] 04/15/2025 9:00 AM EST Imaging Radiology [address] [place] [address] Scheduled Procedures Name Priority Associated Diagnoses Date/Ti [...] and were consensually agreed upon. Care Teams Online Merchandising Manager Relationship Specialty Start Date End Date Emily Obando MD 132 [facility] [place] [address] PCP - General Internal Medicine 09/07/23 documented as of this encounter
--- OUTSIDE RECORDS SUMMARY | 2024-07-17 19:58 | External Medical Summary | Summary of Care ---
Author Name Unknown Organization [facility] Address [address] [place] [address] Phone [phone] Care Team Providers Care Pathology Technologist Name Role Phone Emily Obando MD Primary Care Provider Reason for Visit * Reason Onset Date Comments Medical Questions 06/10/2024 Pre-Op Testing 06/10/2024 Encounter Details Date Type Department Care Team (Late st Contact Info) Description 06/10/2024 Telephone Pre Surgery Center, [facility] [address] [place] [address] Tash Valdez CRNP [address] [place], [place] [phone] Medical Questions; Pre-Op Testing Allergies Active Allergy [...] Next Due Pneumococcal Conjugate Vacci ne, 20-valent ([id number]) 07/14/2022 Seasonal Influenza Vac., MDV , IM, [...] encounter Miscellaneous Notes * Telephone Encounter - María Elena James [...] high despite addition of losartan 25 mg edylly 170/101 was the reading today - after [...] Description 06/30/2024 10:30 AM EST Imaging Radiology [facility] [address] [place] [address] 06/30/2024 10:30 AM EST Imaging Radiology [address] [place] [address] 07/01/2024 7:40 AM EST Hospital Encounter OR [facility], Operating Room, [facility] - [address] [place] [address] [address] [place] [address] Jenifer Culp MD [address] [place] [address] 07/01/2024 7:40 AM EST - 07/01/2024 9:08 AM EST Surgery OR [facility], Operating Room, [facility] - [facility] Floor [address] [place] [address] Jenifer Culp MD [address] [place] [address] EXCISION OF BREAST LESION RADIOLOGICAL MARKER 07/01/2024 3:00 PM EST Imaging Radiology [address] [place] [address] 07/15/2024 10:00 AM EST Office Visit General Surgery, [facility] [place] [address] Jenifer Culp MD [address] [place] [address] 07/31/2024 2:30 PM EST Office Visit Cardiology, [facility] 132 [facility] [place] [address] Nidhi Jacques PA-C [address] [place] [address] [place] [phone] 09/08/2024 10:40 AM EDT Office Visit Family Practice [facility] [place] [address] Emily Obando MD [address] [place] [address] 09/16/2024 11:30 AM EDT Office Visit Gynecology/Oncolog y, [place] [address] [place] [address] Heidi Carpio PA-C [address] [place], [place] [phone] 10/07/2024 10:20 AM EDT Office Visit Sleep Disorders Ctr [facility] 132 [facility] [place] [address] Saskia Vasquez DO [address] [place] [address] 10/31/2024 1:30 PM EDT Office Visit Cardiology, [facility] 132 [facility] [place] [address] Tash Valdez CRNP [address] [place] [address] 02/25/2025 2:20 PM EDT Office Visit Dermatology [address] [place] [address] Tiara Pozo PA-C [address] [place] [address] [place] [address] 04/15/2025 9:00 AM EST Imaging Radiology [address] [place] [address] Scheduled Orders Name Type Priority Associated Diagnoses [...] and were consensually agreed upon. Care Teams Pathology Technologist Relationship Specialty Start Date End Date Emily Obando MD [address] [place] [address] PCP - General Internal Medicine 09/07/23 documented as of this encounter
--- OUTSIDE RECORDS SUMMARY | 2024-07-17 19:58 | External Medical Summary | Summary of Care ---
Author Name Unknown Organization [facility] Address [address] [place] [address] Phone [phone] Care Team Providers Care Coordinate Measuring Machine Operator Name Role Phone Emily Obando MD Primary Care Provider Reason for Visit * Reason Onset Date Comments Medical Questions 06/10/2024 Pre-Op Testing 06/10/2024 Encounter Details Date Type Department Care Team (Late st Contact Info) Description 06/10/2024 Telephone Pre Surgery Center, [address] [place] [address] Tash Valdez CRNP [address] [place], [place] [phone] Medical Questions; Pre-Op Testing Allergies Active Allergy [...] Next Due Pneumococcal Conjugate Vacci ne, 20-valent ([id number]) 07/14/2022 Seasonal Influenza Vac., MDV , IM, [...] You, FAITH Avila * Addendum Note - Tahs Valdez CRNP - 06/12/2024 10:45 AM EST [...] Description 06/30/2024 10:30 AM EST Imaging Radiology [facility] [address] [place] [address] 06/30/2024 10:30 AM EST Imaging Radiology [address] [place] [address] 07/01/2024 7:40 AM EST Hospital Encounter OR [facility], Operating Room, [facility] - [address] [place] [address] [address] [place] [address] Jenifer Culp MD [address] [place] [address] 07/01/2024 7:40 AM EST - 07/01/2024 9:08 AM EST Surgery OR [facility], Operating Room, [facility] Floor [address] [place] [place] [address] Jenifer Culp MD [address] [place] [address] EXCISION OF BREAST LESION RADIOLOGICAL MARKER 07/01/2024 3:00 PM EST Imaging Radiology [address] [place] [address] 07/15/2024 10:00 AM EST Office Visit General Surgery, [facility] [place] [address] Jenifer Culp MD [address] [place] [address] 07/31/2024 2:30 PM EST Office Visit Cardiology, [facility] 132 [facility] [place] [address] Nidhi Jacques PA-C [address] [place] [address] [place] [id number] 09/08/2024 10:40 AM EDT Office Visit Family Practice [facility] [place] [address] Emily Obando MD [address] [place] [address] 09/16/2024 11:30 AM EDT Office Visit Gynecology/Oncolog y, [place] [address] [place] [address] Heidi Carpio PA-C [address] [place], [place] [phone] 10/07/2024 10:20 AM EDT Office Visit Sleep Disorders Ctr [facility] 132 [facility] [place] [address] Saskia Vasquez DO [address] [place] [address] 10/31/2024 1:30 PM EDT Office Visit Cardiology, [facility] 132 [facility] [place] [address] Tash Valdez CRNP [address] [place] [place] [address] 02/25/2025 2:20 PM EDT Office Visit Dermatology [address] [place] [address] Tiara Pozo PA-C [address] [place] [address] [place] [address] 04/15/2025 9:00 AM EST Imaging Radiology [address] [place] [address] Scheduled Orders Name Type Priority Associated Diagnoses [...] and were consensually agreed upon. Care Teams Coordinate Measuring Machine Operator Relationship Specialty Start Date End Date Emily Obando MD [address] [place] [address] PCP - General Internal Medicine 09/07/23 documented as of this encounter
--- OUTSIDE RECORDS SUMMARY | 2024-07-17 19:58 | External Medical Summary | Summary of Care ---
Author Name Unknown Organization [facility] Address [address] [place] [address] Phone [phone] Care Team Providers Care Postdoctoral Scholar Name Role Phone Emily Obando MD Primary Care Provider Reason for Visit * Reason Onset Date Comments Medical Questions 06/10/2024 Pre-Op Testing 06/10/2024 Encounter Details Date Type Department Care Team (Late st Contact Info) Description 06/10/2024 Telephone Pre Surgery Center, [facility] [address] [place] [address] Tash Valdez CRNP [address] [place], [place] [phone] Medical Questions; Pre-Op Testing Allergies Active Allergy [...] Next Due Pneumococcal Conjugate Vacci ne, 20-valent ([id number]) 07/14/2022 Seasonal Influenza Vac., MDV , IM, [...] as of this encounter Miscellaneous Notes * Addendum Note - Tash Valdez CRNP [...] Description 06/30/2024 10:30 AM EST Imaging Radiology [facility] [address] [place] [address] 06/30/2024 10:30 AM EST Imaging Radiology [address] [place] [address] 07/01/2024 7:40 AM EST Hospital Encounter OR [facility], Operating Room, [facility] - [address] [place] [address] [address] [place] [address] Jenifer Culp MD [address] [place] [address] 07/01/2024 7:40 AM EST - 07/01/2024 9:08 AM EST Surgery OR [facility], Operating Room, [facility] - [address] [place] [address] [address] [place] [phone] Jenifer Culp MD [address] [place] [address] EXCISION OF BREAST LESION RADIOLOGICAL MARKER 07/01/2024 3:00 PM EST Imaging Radiology [address] [place] [address] 07/15/2024 10:00 AM EST Office Visit General Surgery, [facility] [address] [place] [address] Jenifer Culp MD [address] [place] [address] 07/31/2024 2:30 PM EST Office Visit Cardiology, [facility] 132 [facility] [place] [address] Nidhi Jacques PA-C 400 [facility] [phone] 09/08/2024 10:40 AM EDT Office Visit Family Practice [facility] 132 [facility] [place] [address] Emily Obando MD 132 [facility] [place] [address] 09/16/2024 11:30 AM EDT Office Visit Gynecology/Oncolog y, [place] [address] [place], [place] [phone] Heidi Carpio PA-C [address] [place] [address] 10/07/2024 10:20 AM EDT Office Visit Sleep Disorders [facility]tr [facility] 132 [facility] [place] [phone] Saskia Vasquez DO 132 [facility] [place] [address] 10/31/2024 1:30 PM EDT Office Visit Cardiology, [facility] 132 [facility] [place] [address] Tash Valdez CRNP 400 [facility] [place] [address] 02/25/2025 2:20 PM EDT Office Visit Dermatology [address] [place] [address] Tiara Pozo PA-C [address] [place] [address] [place] [address] 04/15/2025 9:00 AM EST Imaging Radiology [address] [place] [address] Scheduled Orders Name Type Priority Associated Diagnoses [...] 01/11/2032 01/10/2022, 10/17/2010 Pap Smear Discontinued 03/01/2017, 040 06/2010 (Done elsewhere), 09/10/2008, Additional history exists [...] and were consensually agreed upon. Care Teams Postdoctoral Scholar Relationship Specialty Start Date End Date Emily Obando MD [address] [place] [address] PCP - General Internal Medicine 09/07/23 documented as of this encounter
--- OUTSIDE RECORDS SUMMARY | 2024-07-17 19:58 | External Medical Summary | Summary of Care ---
Author Name Unknown Organization [facility] Address [address] [place] [address] Phone [phone] Care Team Providers Care International Nurse Name Role Phone Emily Obando MD Primary Care Provider Reason for Visit * Reason Onset Date Comments Medical Questions 06/10/2024 Pre-Op Testing 06/10/2024 Encounter Details Date Type Department Care Team (Late st Contact Info) Description 06/10/2024 Telephone Pre Surgery Center, [facility] 400 [place] [address] Tash Valdez CRNP [address] [place], [place] [phone] Medical Questions; Pre-Op Testing Allergies Active Allergy [...] Next Due Pneumococcal Conjugate Vacci ne, 20-valent ([id number]) 07/14/2022 Seasonal Influenza Vac., MDV , IM, [...] Description 06/30/2024 10:30 AM EST Imaging Radiology [facility] [address] [place] [address] 06/30/2024 10:30 AM EST Imaging Radiology [address] [place] [address] 07/01/2024 7:40 AM EST Hospital Encounter OR [facility], Operating Room, [facility] - [address] [place] [address] [address] [place] [address] Jenifer Culp MD [address] [place] [address] 07/01/2024 7:40 AM EST - 07/01/2024 9:08 AM EST Surgery OR [facility], Operating Room, [facility] Floor [address] [place] [address] Jenifer Culp MD [address] [place] [address] EXCISION OF BREAST LESION RADIOLOGICAL MARKER 07/01/2024 3:00 PM EST Imaging Radiology [address] [place] [address] 07/15/2024 10:00 AM EST Office Visit General Surgery, [facility] [place] [address] Jenifer Culp MD [address] [place] [address] 07/31/2024 2:30 PM EST Office Visit Cardiology, [facility] 132 [place] [address] iNdhi Jacques PA-C [address] [place] [address] [place] [phone] 09/08/2024 10:40 AM EDT Office Visit Family Practice [facility] [place] [address] Emily Obando MD [address] [place] [address] 09/16/2024 11:30 AM EDT Office Visit Gynecology/Oncolog y, [place] [address] [place] [address] Heidi Carpio PA-C [address] [place], [place] [phone] 10/07/2024 10:20 AM EDT Office Visit Sleep Disorders Ctr [facility] 132 [place] [address] Saskia Vasquez DO [address] [place] [address] 10/31/2024 1:30 PM EDT Office Visit Cardiology, [facility] 132 [facility] [place] [address] Tash Valdez CRNP [address] [place] [address] 02/25/2025 2:20 PM EDT Office Visit Dermatology [address] [place] [address] Tiara Pozo PA-C [address] [place] [address] [place] [address] 04/15/2025 9:00 AM EST Imaging Radiology [address] [place] [address] Scheduled Orders Name Type Priority Associated Diagnoses [...] and were consensually agreed upon. Care Teams International Nurse Relationship Specialty Start Date End Date Emily Obando MD [address] [place] [address] PCP - General Internal Medicine 09/07/23 documented as of this encounter
--- OUTSIDE RECORDS SUMMARY | 2024-07-17 19:58 | External Medical Summary ---
Author Name Unknown Address Unknown Organization : Laboratory Report Ordering Provider Test Date Status KUSUM MAYER 07/01/2024 07:04:16 Final Observation Date Value Abnormality Reference (Units ) Status Glucose Point of Care 07/01/2024 07:04:16 90 70-120 (mg/dL) Final Performing Location
--- OUTSIDE RECORDS SUMMARY | 2024-07-17 19:58 | External Medical Summary | Summary of Care ---
Author Name Unknown Organization [facility] Address [address] [place] [address] Phone [phone] Care Team Providers Care Automated Cutting Machine Operator Name Role Phone Emily Obando MD Primary Care Provider Reason for Visit * Reason Onset Date Comments Medical Questions 06/10/2024 Pre-Op Testing 06/10/2024 Encounter Details Date Type Department Care Team (Late st Contact Info) Description 06/10/2024 Telephone Pre Surgery Center, [facility] [address] [place] [address] Tash Valdez CRNP [address] [place], [place] [phone] Medical Questions; Pre-Op Testing Allergies Active Allergy [...] Next Due Pneumococcal Conjugate Vacci ne, 20-valent ([id number]) 07/14/2022 Seasonal Influenza Vac., MDV , IM, [...] Telephone Encounter - Tash Valdez CRNP - 06/27/2024 4:08 PM EST Blood pressure currently well-controlled she is optimized and cleared from a cardiac perspective toundergo procedure as planned. Thank You, FAITH Avila * Telephone Encounter - Eileen Jarrell LPN [...] person visit for now. Thank You FAITH vAila * Telephone Encounter - Daniel Hewitt OSA [...] Description 06/30/2024 10:30 AM EST Imaging Radiology [facility] [address] [place] [phone] 06/30/2024 10:30 AM EST Imaging Radiology [facility] 1st [facility] [place] [address] [place] [address] 07/01/2024 7:40 AM EST Hospital Encounter OR [facility], Operating Room, [facility] - 4th Floor [address] [place] [phone] Jenifer Culp MD [address] [place] [address] 07/01/2024 7:40 AM EST - 07/01/2024 9:08 AM EST Surgery OR [facility], Operating Room, [facility] - 4th Floor [address] [place] [address] Jenifer Culp MD [address] [place] [address] EXCISION OF BREAST LESION RADIOLOGICAL MARKER 07/01/2024 3:00 PM EST Imaging Radiology [facility]st [facility] [address] [place] [phone] 07/15/2024 10:00 AM EST Office Visit General Surgery, [facility] [address] [place] [address] Jenifer Culp MD [address] [place] [address] 07/31/2024 2:30 PM EST Office Visit Cardiology, [facility] [address] [place] [address] Nidhi Jacques PA-C [address] [place] [address] 09/08/2024 10:40 AM EDT Office Visit Family Practice [facility] [address] [place] [address] Emily Obando MD [address] [place] [address] 09/16/2024 11:30 AM EDT Office Visit Gynecology/Oncolog y, [place] [address] [place] [address] Heidi Carpio PA-C 100 [address] [facility] [place] [address] 10/07/2024 10:20 AM EDT Office Visit Sleep Disorders Ctr [facility] [address] [place] [phone] Saskia Vasquez DO [address] [place] [address] 10/31/2024 1:30 PM EDT Office Visit Cardiology, [facility] [place] [address] Tash Valdez CRNP 400 [facility] [place] [phone] 02/25/2025 2:20 PM EDT Office Visit Dermatology [address] [place] [address] Tiara Pozo PA-C [address] [place] [address] [place] [address] 04/15/2025 9:00 AM EST Imaging Radiology [address] [place] [address] Scheduled Orders Name Type Priority Associated Diagnoses [...] and were consensually agreed upon. Care Teams Automated Cutting Machine Operator Relationship Specialty Start Date End Date Emily Obando MD [address] [place] [address] PCP - General Internal Medicine 09/07/23 documented as of this encounter
--- OUTSIDE RECORDS SUMMARY | 2024-07-17 19:58 | External Medical Summary | Summary of Care ---
Author Name Unknown Organization [facility] Address [address] [place] [address] Phone [phone] Care Team Providers Care Youth Services Specialist Name Role Phone Emily Obando MD Primary Care Provider Reason for Visit * Reason Onset Date Comments Order Request 04/11/2024 Encounter Details Date Type Department Care Team (Late st Contact Info) Description 04/11/2024 Telephone Radiology [facility] 132 [facility] [place] [address] Emily Obando MD [address] [facility] [place] [address] Order Request Allergies Active Allergy Reactions Criticality Noted Date Comments Other Allergy (See Comments) Rash Low 05/14/2018 Rash from dermabond after surgery Sotalol 10/20/2021 Bradycardia, fatigued documented as of this encounter (statuses as of 07/12/2024) Medications CPAP every night at bedtime . [...] DAY IN THE MORNING 90 Tablet 3 06/05/20 23 024 Discontinued documented as of this encounter (statuses as of 07/12/2024) Active Problems Problem Noted Date Diagnosed Date [...] as of this encounter (statuses as of 07/12/2024) Resolved Problems Problem Noted Date Diagnosed Date [...] as of this encounter (statuses as of 07/12/2024) Immunizations Name Administration Dates Next Due Pneumococcal Conjugate Vacci ne, 20-valent ([id number]) 07/14/2022 Seasonal Influenza Vac., MDV , IM, [...] encounter Miscellaneous Notes * Telephone Encounter - Abiel Fernando RDMS - 04/11/2024 8:33 AM EDT Pended breast biopsy order following diagnostic breast workup with radiology. Pt scheduled for Apr.14. documented in this encounter Plan of Treatment Upcoming Encounters Date Type Department Care Team (Late st Contact Info) Description 07/15/2024 10:00 AM EST Office Visit General Surgery, [facility] [address] [place] [address] Jenifer Culp MD [address] [place] [address] 07/31/2024 2:30 PM EST Office Visit Cardiology, [facility] [address] [place] [address] Nidhi Jacques PA-C [address] [place] [address] [place] [address] 09/08/2024 10:40 AM EDT Office Visit Family Practice [facility] 132 [facility] [place] [address] Emily Obando MD 132 [facility] [place] [address] 09/16/2024 11:30 AM EDT Office Visit Gynecology/Oncology, [place] [address] [place] [address] Heidi Carpio PA-C [address] [place], [place] [phone] 10/07/2024 10:20 AM EDT Office Visit Sleep Disorders Ctr [facility] 132 [facility] [place] [phone] Saskia Vasquez DO 132 [facility] [place] [address] 10/31/2024 1:30 PM EDT Office Visit Cardiology, [facility] 132 [facility] [place] [address] Sabrina Valdez CRNP [address] [place] [address] [place] [address] 02/25/2025 2:20 PM EDT Office Visit Dermatology [address] [place] [address] Tiara Pozo PA-C [address] [place] [address] [place] [address] 04/15/2025 9:00 AM EST Imaging Radiology [address] [place] [address] Scheduled Procedures Name Priority Associated Diagnoses Date/Ti [...] this encounter Medical Devices Implanted Type Area Occ Therapy Asst Device Identifier Shelf Expiration Date Model / Serial / Lot Reflector Aneta Trauma Coordinator 7.5cm [facility] - [id number] Implanted:Qty: 1 on 06/30/2024 at [facility] [employer] [id number] / / documented as of this encounter Results * US GUIDED BREAST BIOPSY RIGHT (04/14/2024 8:47 AM EST) Anatomical Region Laterality Modality Breast Right Ultrasound 04/14/2024 1:30 PM EST Addenda Addendum by Britany Neal MD on 04/28/2024 9:58 AM EST ADDENDUM: Received from the department of pathology is the histology diagnosis of benign mammary parenchyma with radial scar. No evidence of epithelial atypia or malignancy. The histology diagnosis is concordant with imaging findings. Surgical consultation and follow-up is advised. Patient is aware of the findings and recommendations. Telephone encounter was placed with Siomara Kennedy at the breast clinic. Patient has appointment scheduled for 05/13/2024 for surgical consultation. Mammography Verification Manager Tiffanie Alanis has been notified for scheduling and tracking purposes. Addendum by Britany Neal MD on 04/14/2024 1:37 PM EST ADDENDUM: Preliminary ultrasound demonstrates a 5 x [...] be forthcoming once this has been accomplished. Impressions 04/14/2024 1:28 PM EST IMPRESSION 1. Ultrasound guided core biopsy of [...] be forthcoming once this has been accomplished. Narrative 04/14/2024 1:28 PM EST EXAM US GUIDED BREAST BIOPSY RIGHT; MAMMOGRAM POST BIOPSY CLIP PLACEMENT- 04/14/2024 8:47 am; 04/14/2024 8:58 am HISTORY Referred for ultrasound guided core biopsy of a 5 x 6 x 6 mm hypoechoic mass at 10 o'clock 7 cm from nipple, right breast. COMPARISON Multiple priors to include most recent previous right diagnostic mammogram and breast ultrasound 04/10/2024. TECHNIQUE ANESTHESIA: 1% lidocaine STAFF DEVELOPMENT MANAGER: Dr. Cuba was present for and performed the entire procedure. The following procedure/examinations were performed: - Ultrasound guided core biopsy and tissue marker placement - Post clip/tissue marker placement unilateral mammogram Following a discussion of the risks and benefits of the procedure as well as a discussion of alternatives to this procedure, the patient was given the opportunity to ask questions. Once the patient's questions were answered to her satisfaction, informed consent was signed by the patient. A timeout, with verification of patient name and site of procedure was performed by Dr. Cuba in the presence of electroencephalogram technologist and it was confirmed that procedure [...] discharged from the department in stable condition. Procedure Note Britany Neal MD - 04/14/2024 EXAM US GUIDED BREAST BIOPSY RIGHT; MAMMOGRAM POST BIOPSY CLIP PLACEMENT-04/14/2024 8:47 am; 04/14/2024 8:58 am HISTORY Referred for ultrasound guided core biopsy of a 5 x 6 x 6 mm hypoechoicmass at 10 o'clock 7 cm from nipple, right breast. COMPARISON Multiple priors to include most recent previous right diagnostic mammogramand breast ultrasound 04/10/2024. TECHNIQUE ANESTHESIA: 1% lidocaine STAFF DEVELOPMENT MANAGER: Dr. Cuba was present for and performed the entire procedure.The following procedure/examinations were performed: - Ultrasound guided core biopsy and tissue marker placement - Post clip/tissue marker placement unilateral mammogram Following a discussion of the risks and benefits of the procedure as wellas a discussion of alternatives to this procedure, the patient was giventhe opportunity to ask questions. Once the patient's questions wereanswered to her satisfaction, informed consent was signed by the patient.A timeout, with verification of patient name and site of procedure wasperformed by Dr. Cuba in the presence of electroencephalogram technologist and itwas confirmed that procedure matches verbalized consent. FINDINGS Preliminary ultrasound demonstrates a 5 x 6 x 6 mm hypoechoic mass at 10o'clock 7 cm from nipple, right breast. Using aseptic technique, local anesthesia with 1% buffered lidocaine, asmall skin incision was made with a surgical blade to permit passage ofthe 14 gauge core biopsy needle. A spring activated/ automated Serterabiopsy device was utilized. Under direct sonographic guidance andvisualization, several passes were made through the target and corespecimen obtained. The core specimen were placed in formalin andsubmitted for histopathologic analysis. Under direct sonographic guidanceand visualization, a tissue marker was placed within the lesion for futurereference. Post procedural mammogram verified tissue marker placement. The patient tolerated the procedure well and there were nocomplications. Written discharge instructions were given to the patient and also reviewedverbally with her. The patient expressed understanding of theinstructions and was discharged from the department in stable condition. IMPRESSION IMPRESSION 1. Ultrasound guided core biopsy of a 5 x 6 x 6 mm hypoechoic mass at 10o'clock 7 cm from nipple, right breast followed by tissue markerplacement. 2. Position of the tissue marker is confirmed on unilateral mammogramobtained following the ultrasound-guided core biopsy and tissue markerplacement. 3. Core specimen submitted for histopathologic interpretation. 4. A supplement/addendum to this report will follow pending receipt ofpathology results. 5. Further follow-up and management recommendations will be forthcomingonce this has been accomplished. us Emily Obando MD RAD ULTRASOUND Edited Result - Final documented in this encounter Visit Diagnoses Diagnosis Abnormal mammogram- Primary Abnormal mammogram, unspecified Abnormal mammogram Abnormal mammogram, unspecified Screening mammogram for breast cancer documented in [...] and were consensually agreed upon. Care Teams Youth Services Specialist Relationship Specialty Start Date End Date Emily Obando MD [address] [place] [address] PCP - General Internal Medicine 09/07/23 documented as of this encounter
--- OUTSIDE RECORDS SUMMARY | 2024-07-17 19:59 | External Medical Summary | Summary of Care ---
Author Name Unknown Organization [facility] Address [address] [place] [address] Phone [phone] Care Team Providers Care Regional Truck Driver Name Role Phone Emily Obando MD Primary Care Provider Reason for Visit * Reason Onset Date Comments Medical Questions 06/10/2024 Pre-Op Testing 06/10/2024 Encounter Details Date Type Department Care Team (Late st Contact Info) Description 06/10/2024 Telephone Pre Surgery Center, [facility] [address] [place] [address] Tash Valdez CRNP [address] [place], [place] [phone] Medical Questions; Pre-Op Testing Allergies Active Allergy Reactions Criticality Noted Date Comments Other Allergy (See Comments) Rash Low 05/14/2018 Rash from dermabond after surgery Sotalol 10/20/2021 Bradycardia, fatigued documented as of this encounter (statuses as of 06/12/2024) Medications CPAP every night at bedtime . [...] as of this encounter (statuses as of 06/12/2024) Active Problems Problem Noted Date Diagnosed Date [...] as of this encounter (statuses as of 06/12/2024) Resolved Problems Problem Noted Date Diagnosed Date [...] as of this encounter (statuses as of 06/12/2024) Immunizations Name Administration Dates Next Due Pneumococcal Conjugate Vacci ne, 20-valent ([id number]) 07/14/2022 Seasonal Influenza Vac., MDV , IM, [...] Description 06/30/2024 10:30 AM EST [address] [address] 06/30/2024 10:30 AM EST Imaging Radiology [facility] 1st [facility] 132 [facility] [place] [address] 07/01/2024 7:40 AM EST Hospital Encounter OR [facility], Operating Room, [facility] - 4th Floor [address] [place] [phone] Jenifer Culp MD 132 [facility] [place] [address] 07/01/2024 7:40 AM EST - 07/01/2024 9:08 AM EST Surgery OR [facility], Operating Room, [facility] - 4th Floor [address] [place] [address] Jenifer Culp MD [address] [place] [address] EXCISION OF BREAST LESION RADIOLOGICAL MARKER 07/01/2024 3:00 PM EST Imaging Radiology [facility] 1st [facility] 132 [facility] [place] [address] 07/15/2024 10:00 AM EST Office Visit General Surgery, [facility] 132 [facility] [place] [address] Jenifer Culp MD [address] [place] [address] 07/31/2024 2:30 PM EST Office Visit Cardiology, [facility] 132 [facility] [place] [address] Nidhi Jacques PA-C [address] [place] [address] 09/08/2024 10:40 AM EDT Office Visit Family Practice [facility] 132 [facility] [place] [address] Emily Obando MD 132 [facility] [place] [address] 09/16/2024 11:30 AM EDT Office Visit Gynecology/Oncolog y, [place] [address] [place], [place] [phone] Heidi Carpio PA-C 100 [address] [facility] [place] [address] 10/07/2024 10:20 AM EDT Office Visit Sleep Disorders Ctr [facility] 132 [facility] [place] [phone] Saskia Vasquez, DO [address] [place] [address] 10/31/2024 1:30 PM EDT Office Visit Cardiology, [facility] [address] [place] [address] Tash Valdez CRNP [address] [place] [address] 02/25/2025 2:20 PM EDT Office Visit Dermatology [address] [place] [address] Tiaar Pozo PA-C [address] [place] [address] [place] [address] 04/15/2025 9:00 AM EST Imaging Radiology [address] [place] [address] Scheduled Procedures Name Priority Associated Diagnoses Date/Ti [...] Scan 08/15/2027 08/14/2022, 08/14/2022 Colonoscopy 03/19/2028 03/19/2018, 10/0 02/2018, 01/30/2011, Additional history exists Colorectal Cancer [...] and were consensually agreed upon. Care Teams Regional Truck Driver Relationship Specialty Start Date End Date Emily Obando MD [address] [place] [address] PCP - General Internal Medicine 09/07/23 documented as of this encounter
--- OUTSIDE RECORDS SUMMARY | 2024-07-17 19:59 | External Medical Summary | Summary of Care ---
Author Name Unknown Organization [facility] Address [address] [place] [address] Phone [phone] Care Team Providers Care Chalk Extruding Machine Operator Name Role Phone Emily Obando MD Primary Care Provider Reason for Visit * Reason Onset Date Comments Medical Questions 06/10/2024 Pre-Op Testing 06/10/2024 Encounter Details Date Type Department Care Team (Late st Contact Info) Description 06/10/2024 Telephone Pre Surgery Center, [facility] 400 [place] [address] Sabrina Valdez CRNP [address] [place], [place] [phone] Medical Questions; Pre-Op Testing Allergies Active Allergy Reactions Criticality Noted Date Comments Other Allergy (See Comments) Rash Low 05/14/2018 Rash from dermabond after surgery Sotalol 10/20/2021 Bradycardia, fatigued documented as of this encounter (statuses as of 06/10/2024) Medications CPAP every night at bedtime . 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) 06/16/2013 11/01/2016 BMI 40.0-44.9, adult 06/15/2011 014 Hematuria 01/12/2011 09/13/2015 Overview (03/12/2017): ICD-10 update of inactive term NONE 08/06/2007 01/12/2011 documented as of this encounter (statuses as of 06/10/2024) Immunizations Name Administration Dates Next Due Pneumococcal Conjugate Vacci ne, 20-valent ([id number]) 07/14/2022 Seasonal Influenza Vac., MDV , IM, [...] 8:54 AM EDT Sexual Orientation Straight 01/10/2022 8 :54 AM EDT documented as of this encounter Miscellaneous Notes * Telephone Encounter - Daniel Hewitt OSA - 06/10/2024 2:18 PM EST Rachel, may I offer this patient a sooner appointment with any provider? Thank you. * Telephone Encounter - Jenifer Culp MD - 06/10/2024 2:11 PM EST She is scheduled for surgery 07/01. Is there any way to get her seen before that please? Thank you. * Telephone Encounter - MaríaE lena James RN - 06/10/2024 1:17 PM EST [...] Description 06/30/2024 10:30 AM EST Imaging Radiology [facility] [address] [place] [address] 06/30/2024 10:30 AM EST Imaging Radiology [address] [place] [address] 07/01/2024 7:40 AM EST Hospital Encounter OR [facility], Operating Room, [facility] - [address] [place] [address] [address] [place] [phone] Jenifer Culp MD [address] [place] [address] 07/01/2024 7:40 AM EST - 07/01/2024 9:08 AM EST Surgery OR [facility], Operating Room, [facility] - [facility] Floor [address] [place] [phone] Jenifer Culp MD [address] [place] [address] EXCISION OF BREAST LESION RADIOLOGICAL MARKER 07/01/2024 3:00 PM EST Imaging Radiology [address] [place] [address] 07/15/2024 10:00 AM EST Office Visit General Surgery, [facility] [address] [place] [address] Jenifer Culp MD [address] [place] [address] 07/31/2024 2:30 PM EST Office Visit Cardiology, [facility] [address] [place] [address] Nidhi Jacques PA-C 400 [facility] [place] [address] 09/08/2024 10:40 AM EDT Office Visit Family Practice [facility] 132 [facility] [place] [address] Emily Obando MD 132 [facility] [place] [address] 09/16/2024 11:30 AM EDT Office Visit Gynecology/Oncolog y, [place] [address] [place], [place] [phone] Heidi Carpio PA-C [address] [place] [address] 10/07/2024 10:20 AM EDT Office Visit Sleep Disorders Ctr [facility] 132 [facility] [place] [phone] Saskia Vasquez DO 132 [facility] [place] [address] 10/31/2024 1:30 PM EDT Office Visit Cardiology, [facility] 132 [facility] [place] [address] Sabrina Valdez CRNP 400 [facility] [place] [address] 02/25/2025 2:20 PM EDT Office Visit Dermatology [address] [place] [address] Tiara Pozo PA-C [address] [place] [address] [place] [address] 04/15/2025 9:00 AM EST Imaging Radiology [address] [place] [address] Scheduled Procedures Name Priority Associated Diagnoses Date/Ti [...] and were consensually agreed upon. Care Teams Chalk Extruding Machine Operator Relationship Specialty Start Date End Date Emily Obando MD [address] [place] [address] PCP - General Internal Medicine 09/07/23 documented as of this encounter
--- OUTSIDE RECORDS SUMMARY | 2024-07-17 19:59 | External Medical Summary | Summary of Care ---
Author Name Unknown Organization [facility] Address [address] [place] [address] Phone [phone] Care Team Providers Care College Recruiter Name Role Phone Emily Obando MD Primary Care Provider Reason for Visit * Reason Onset Date Comments Medical Questions 06/10/2024 Pre-Op Testing 06/10/2024 Encounter Details Date Type Department Care Team (Late st Contact Info) Description 06/10/2024 Telephone Pre Surgery Center, [facility] [address] [place] [address] Tash Valdez CRNP [address] [place], [place] [id number] Medical Questions; Pre-Op Testing Allergies Active Allergy Reactions Criticality Noted Date Comments Other Allergy (See Comments) Rash Low 05/14/2018 Rash from dermabond after surgery Sotalol 10/20/2021 Bradycardia, fatigued documented as of this encounter (statuses as of 06/18/2024) Medications CPAP every night at bedtime . [...] as of this encounter (statuses as of 06/18/2024) Active Problems Problem Noted Date Diagnosed Date [...] as of this encounter (statuses as of 06/18/2024) Resolved Problems Problem Noted Date Diagnosed Date [...] as of this encounter (statuses as of 06/18/2024) Immunizations Name Administration Dates Next Due Pneumococcal Conjugate Vacci ne, 20-valent ([id number]) 07/14/2022 Seasonal Influenza Vac., MDV , IM, [...] Description 06/30/2024 10:30 AM EST [address]iology [address] [address] 06/30/2024 10:30 AM EST Imaging Radiology [facility] 1st [facility] 132 [facility] [place] [address] 07/01/2024 7:40 AM EST Hospital Encounter OR [facility], Operating Room, [facility] - 4th Floor [address] [place] [phone] Jenifer Culp MD 132 [facility] [place] [address] 07/01/2024 7:40 AM EST - 07/01/2024 9:08 AM EST Surgery OR [facility], Operating Room, [facility] - 4th Floor [address] [place] [address] Jenifer Culp MD [address] [place] [address] EXCISION OF BREAST LESION RADIOLOGICAL MARKER 07/01/2024 3:00 PM EST Imaging Radiology [facility] 1st [facility] 132 [facility] [place] [address] 07/15/2024 10:00 AM EST Office Visit General Surgery, [facility] 132 [facility] [place] [address] Jenifer Culp MD [address] [place] [address] 07/31/2024 2:30 PM EST Office Visit Cardiology, [facility] 132 [facility] [place] [address] Nidhi Jacques PA-C [address] [place] [address] 09/08/2024 10:40 AM EDT Office Visit Family Practice [facility] 132 [facility] [place] [address] Emily Obando MD 132 [facility] [place] [address] 09/16/2024 11:30 AM EDT Office Visit Gynecology/Oncolog y, [facility] [address] [place], [place] [phone] Heidi Carpio PA-C [address] [facility] [place] [address] 10/07/2024 10:20 AM EDT Office Visit Sleep Disorders Ctr [facility] 132 [facility] [place] [phone] Saskia Vasquez, DO [address] [place] [address] 10/31/2024 1:30 PM EDT Office Visit Cardiology, [facility] [address] [place] [address] Tash Valdez CRNP [address] [place] [address] 02/25/2025 2:20 PM EDT Office Visit Dermatology [address] [place] [address] Tiara Pozo PA-C [address] [place] [address] [place] [address] 04/15/2025 9:00 AM EST Imaging Radiology [address] [place] [address] Scheduled Procedures Name Priority Associated Diagnoses Date/Ti [...] and were consensually agreed upon. Care Teams College Recruiter Relationship Specialty Start Date End Date Emily Obando MD [address] [place] [address] PCP - General Internal Medicine 09/07/23 documented as of this encounter
--- OUTSIDE RECORDS SUMMARY | 2024-07-17 19:59 | External Medical Summary | Summary of Care ---
Author Name Unknown Organization [facility] Address [address] [place] [address] Phone [phone] Care Team Providers Care Slip Cover Sewer Name Role Phone Emily Obando MD Primary Care Provider Reason for Visit * Reason Onset Date Comments Medical Questions 06/10/2024 Pre-Op Testing 06/10/2024 Encounter Details Date Type Department Care Team (Late st Contact Info) Description 06/10/2024 Telephone Pre Surgery Center, [facility] [address] [place] [address] Sabrina Valdez CRNP [address] [place], [place] [phone] Medical Questions; Pre-Op Testing Allergies Active Allergy [...] Next Due Pneumococcal Conjugate Vacci ne, 20-valent ([id number]) 07/14/2022 Seasonal Influenza Vac., MDV , IM, [...] [facility] [address] [place] [address] 06/30/2024 10:30 AM EST Imaging Radiology [address] [place] [address] 07/01/2024 7:40 AM EST Hospital Encounter OR [facility], Operating Room, [facility] - [address] [place] [address] [address] [place] [address] Jenifer Culp MD [address] [place] [address] 07/01/2024 7:40 AM EST - 07/01/2024 9:08 AM EST Surgery OR [facility], Operating Room, [facility] - [facility] Floor [address] [place] [phone] Jenifer Culp MD [address] [place] [address] EXCISION OF BREAST LESION RADIOLOGICAL MARKER 07/01/2024 3:00 PM EST Imaging Radiology [address] [address] 07/15/2024 10:00 AM EST Office Visit General Surgery, [facility] [address] [place] [address] Jenifer Culp MD [address] [place] [address] 07/31/2024 2:30 PM EST Office Visit Cardiology, [facility] [address] [place] [address] Nidhi Jacques PA-C 400 [place] [address] 09/08/2024 10:40 AM EDT Office Visit Family Practice [facility] 132 [facility] [place] [address] Emily Obando MD 132 [facility] [place] [address] 09/16/2024 11:30 AM EDT Office Visit Gynecology/Oncolog y, Opp [address] [place], [place] [phone] Heidi Carpio PA-C [address] [place] [address] 10/07/2024 10:20 AM EDT Office Visit Sleep Disorders Ctr [facility] [address] [facility] [place] [phone] Saskia Vasquez DO 132 [facility] [place] [address] 10/31/2024 1:30 PM EDT Office Visit Cardiology, [facility] [address] [facility] [place] [address] Sabrina Valdez CRNP 400 [facility] [place] [address] 02/25/2025 2:20 PM EDT Office Visit Dermatology [address] [place] [address] Tiara Pozo PA-C [address] [place] [address] [place] [address] 04/15/2025 9:00 AM EST Imaging Radiology [address] [place] [address] Scheduled Procedures Name Priority Associated Diagnoses Date/Ti [...] and were consensually agreed upon. Care Teams Slip Cover Sewer Relationship Specialty Start Date End Date Emily Obando MD [address] [place] [address] PCP - General Internal Medicine 09/07/23 documented as of this encounter
--- OUTSIDE RECORDS SUMMARY | 2024-07-17 19:59 | External Medical Summary ---
Author Name Unknown Address Unknown Organization [id number]:[facility] [place] - [address] [facility] [address] Laboratory Report Ordering Provider Test Date Status CORKY URBINA 05/27/2024 09:43:07 Final Observation Date Value Abnormality Reference (Units ) Status Triglyceride 05/27/2024 09:43:07 153 <=174 ( mg/dL) Final Triglyceride Reference Range s (mg/dL):
<150 Acceptable
150-174 Borderline high
175-499 High
>=500 Very high Cholesterol 05/27/2024 09:43:07 197 <200 (mg /dL) Final Total Cholesterol Reference Ranges (mg/dL):
<200 Desirable
200-239 Borderline high
>=240 High HDL 05/27/2024 09:43:07 67 >49 (mg/dL ) Final HDL Cholesterol Reference Ra nges (mg/dL):
>=60 High (Desirable)
<50 Low (Undesirable) For Females
<40 Low (Undesirable) For Males NON-HDL CHOLESTEROL 05/27/2024 09:43:07 130 <=159 (mg/dL) Final Non-HDL Cholesterol Referenc e Range (mg/dL):
<100 Target level for high risk ASCVD patient
<130 Optimal for general population
130-159 Near optimal for general population
160-189 Borderline High
190-219 High
>=220 Very High LDL, (calculated) 05/27/2024 09:43:07 99 <= 129 (mg/dL) Final LDL Cholesterol Reference Ra nges (mg/dL):
<70 Target level for high risk ASCVD patient
<100 Optimal for general population
100-129 Near optimal for general population
130-159 Borderline high
160-189 High
>=190 Very high Performing Location [facility] [place] - [address] [facility] [address]
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
--- OUTSIDE RECORDS SUMMARY | 2024-07-17 19:59 | External Medical Summary | Summary of Care ---
Author Name Unknown Organization [facility] Address [address] [place] [address] Phone [phone] Care Team Providers Care Heavy Equipment Operating Engineer Name Role Phone Emily Obando MD Primary Care Provider Reason for Visit * Reason Comments Outpatient Testing Encounter Details Date Type Department Care Team (Late st Contact Info) Description 05/27/2024 9:40 AM EST Laboratory Laboratory, [facility] [address] [place] [address] [facility] [address] [place] [address] Dyslipidemia Allergies Active Allergy Reactions Criticality Noted Date Comments Other Allergy (See Comments) Rash Low 05/14/2018 Rash from dermabond after surgery Sotalol 10/20/2021 Bradycardia, fatigued documented as of this encounter (statuses as of 05/27/2024) Medications CPAP every night at bedtime . [...] 1 Tablet before bedtime. 180 Tablet 3 03/29/202 4 Active Metoprolol Tartrate 25 MG Oral Tablet (Lopressor)Jodie cations:PAF (paroxysmal atrial fibrillation) (HCC) Take 1 Tablet by mouth 2 times a day as needed (AF/palpitatio ns). 30 Tablet 3 4 Active Rosuvastatin Calcium 5 MG Oral Tablet (Crestor)Indica tions:Dyslipide jordy TAKE 1 TABLET BY MOUTH EVERY DAY IN THE MORNING 90 Tablet 4 Active documented as of this encounter (statuses as of 05/27/2024) Active Problems Problem Noted Date Diagnosed Date [...] as of this encounter (statuses as of 05/27/2024) Resolved Problems Problem Noted Date Diagnosed Date [...] as of this encounter (statuses as of 05/27/2024) Immunizations Name Administration Dates Next Due Pneumococcal Conjugate Vacci ne, 20-valent ([id number]) 07/14/2022 Seasonal Influenza Vac., MDV , IM, [...] Description 06/30/2024 10:30 AM EST Imaging Radiology [facility] [address] [facility] [place] [address] 06/30/2024 10:30 AM EST Imaging Radiology [address] [place] [address] 07/01/2024 7:40 AM EST Hospital Encounter OR [facility], Operating Room, [facility] - [address] [place] [address] [address] [place] [phone] Jenifer Culp MD [address] [place] [address] 07/01/2024 7:40 AM EST - 07/01/2024 9:08 AM EST Surgery OR [facility], Operating Room, [facility] - [address] [place] [address] [address] [place] [phone] Jenifer Culp MD [address] [address] EXCISION OF BREAST LESION RADIOLOGICAL MARKER 07/01/2024 3:00 PM EST Imaging Radiology [address] [facility] [place] [address] 07/15/2024 10:00 AM EST Office Visit General Surgery, [facility] [address] [facility] [place] [address] Jenifer Culp MD [address] [place] [address] 09/08/2024 10:40 AM EDT Office Visit Family Practice [facility] [address] [facility] [place] [address] Emily Obando MD [address] [facility] [place] [address] 09/16/2024 11:30 AM EDT Office Visit Gynecology/Oncolog , [place] [address] [place], [place] [phone] Heidi Carpio PA-C [address] [place] [address] 10/07/2024 10:20 AM EDT Office Visit Sleep Disorders [facility] [address] [facility] [place] [phone] Saskia Vasquez DO [address] [facility] [place] [address] 10/31/2024 1:30 PM EDT Office Visit Cardiology, [facility] [address] [facility] [place] [address] Sabrina Valdez CRNP [address] [place], [place] [address] [address] 02/25/2025 2:20 PM EDT Office Visit Dermatology [address] [place] [address] Tiara Pozo PA-C [address] [place] [address] [place] [address] 04/15/2025 9:00 AM EST Imaging Radiology [address] [place] [address] Pending Results Name Type Priority Associated Diagnoses Date /Time LIPID PANEL WITH DIRECT LDL IF TG IS HIGH Lab Routine Dyslipidemia 05/27/2024 9:43 AM EST Scheduled Procedures Name Priority Associated Diagnoses Date/Ti [...] Diagnosis Radial scar of right breast- Primary Dyslipidemia Other and unspecified hyperlipidemia Radial scar of right breast Screening mammogram [...] and were consensually agreed upon. Care Teams Heavy Equipment Operating Engineer Relationship Specialty Start Date End Date Emily Obando MD [address] [place] [address] PCP - General Internal Medicine 09/07/23 documented as of this encounter
--- OUTSIDE RECORDS SUMMARY | 2024-07-17 19:59 | External Medical Summary | Summary of Care ---
Author Name Unknown Organization [facility] Address [address] [place] [address] Phone [phone] Care Team Providers Care Shoe Caser Name Role Phone Emily Obando MD Primary Care Provider Encounter Details Date Type Department Care Team (Late st Contact Info) Description 05/22/2024 Orders Only PATIENT PORTAL DO NOT DELETE THIS DEPT USED BY [place] [id number] Allergies Active Allergy Reactions Criticality Noted Date Comments Other Allergy (See Comments) Rash Low 05/14/2018 Rash from dermabond after surgery Sotalol 10/20/2021 Bradycardia, fatigued documented as of this encounter (statuses as of 05/22/2024) Medications CPAP every night at bedtime . [...] as of this encounter (statuses as of 05/22/2024) Active Problems Problem Noted Date Diagnosed Date [...] as of this encounter (statuses as of 05/22/2024) Resolved Problems Problem Noted Date Diagnosed Date [...] as of this encounter (statuses as of 05/22/2024) Immunizations Name Administration Dates Next Due Pneumococcal Conjugate Vacci ne, 20-valent ([id number]) 07/14/2022 Seasonal Influenza Vac., MDV , IM, [...] Description 06/30/2024 10:30 AM EST Imaging Radiology [facility] [address] [place] [address] 06/30/2024 10:30 AM EST Imaging Radiology [address] [place] [address] 07/01/2024 7:40 AM EST Hospital Encounter OR [facility], Operating Room, [facility] - [address] [place] [address] 400 [facility] [place] [phone] Jenifer Culp MD [address] [address] 07/01/2024 7:40 AM EST - 07/01/2024 9:08 AM EST Surgery OR [facility], Operating Room, [facility] - [address] [place] [address] [address] [place] [phone] Jenifer Culp MD [address] [address] EXCISION OF BREAST LESION RADIOLOGICAL MARKER 07/01/2024 3:00 PM EST Imaging Radiology [address] 132 [place] [address] 07/15/2024 10:00 AM EST Office Visit General Surgery, [facility] [address] [place] [address] Jenifer Culp MD [address] [place] [address] 09/08/2024 10:40 AM EDT Office Visit Family Practice [facility] [place] [address] Emily Obando MD [address] [place] [address] 09/16/2024 11:30 AM EDT Office Visit Gynecology/Oncolog y, [place] [address] [place], [place] [phone] Heidi Carpio PA-C [address] [place], [place] [phone] 10/07/2024 10:20 AM EDT Office Visit Sleep Disorders Ctr [facility] 132 [facility] [place] [phone] Saskia Vasquez DO 132 [facility] [place] [address] 10/31/2024 1:30 PM EDT Office Visit Cardiology, [facility] 132 [facility] [place] [address] Sabrina Valdez CRNP 400 [facility] [place] [address] 02/25/2025 2:20 PM EDT Office Visit Dermatology [address] [place] [address] Tiara Pozo PA-C [address] [place] [address] [place] [address] 04/15/2025 9:00 AM EST Imaging Radiology [address] [place] [address] Scheduled Procedures Name Priority Associated Diagnoses Date/Ti [...] Cancer Screening 03/19/2028 Lipid Panel 09/26/2028 09/27/2023, 030 06/2022, 01/10/2022, Additional history exists DTap/Tdap Vaccines [...] and were consensually agreed upon. Care Teams Shoe Caser Relationship Specialty Start Date End Date Emily Obando MD [address] [place] [address] PCP - General Internal Medicine 09/07/23 documented as of this encounter
--- OUTSIDE RECORDS SUMMARY | 2024-07-17 19:59 | External Medical Summary | Summary of Care ---
Author Name Unknown Organization [facility] Address [address] [place] [address] Phone [phone] Care Team Providers Care Generation Engineer Name Role Phone Emily Obando MD Primary Care Provider Reason for Visit * Reason Onset Date Comments Medical Questions 06/10/2024 Pre-Op Testing 06/10/2024 Encounter Details Date Type Department Care Team (Late st Contact Info) Description 06/10/2024 Telephone Pre Surgery Center, [facility] [address] [place] [address] Sabrina Valdez CRNP [address] [place], [place] [phone] Medical Questions; Pre-Op Testing Allergies Active Allergy [...] Next Due Pneumococcal Conjugate Vacci ne, 20-valent ([id number]) 07/14/2022 Seasonal Influenza Vac., MDV , IM, [...] 06/30/2024 10:30 AM EST Imaging Radiology [facility] [address] [place] [address] 06/30/2024 10:30 AM EST Imaging Radiology [address] [place] [address] 07/01/2024 7:40 AM EST Hospital Encounter OR [facility], Operating Room, [facility] - [address] [place] [address] [address] [place] [phone] Jenifer Culp MD [address] [place] [address] 07/01/2024 7:40 AM EST - 07/01/2024 9:08 AM EST Surgery OR [facility], Operating Room, [facility] [address] [place] [phone] Jenifer Culp MD [address] [place] [address] EXCISION OF BREAST LESION RADIOLOGICAL MARKER 07/01/2024 3:00 PM EST Imaging Radiology [address] [place] [address] 07/15/2024 10:00 AM EST Office Visit General Surgery, [facility] [address] [place] [address] Jenifer Culp MD [address] [place] [address] 07/31/2024 2:30 PM EST Office Visit Cardiology, [facility] 132 [place] [address] Nidhi Jacques PA-C 400 [place] [address] 09/08/2024 10:40 AM EDT Office Visit Family Practice [facility] 132 [facility] [place] [address] Emily Obando MD 132 [facility] [place] [address] 09/16/2024 11:30 AM EDT Office Visit Gynecology/Oncolog y, [place] [address] [place], [place] [phone] Heidi Carpio PA-C [address] [place] [address] 10/07/2024 10:20 AM EDT Office Visit Sleep Disorders Ctr [facility] 132 [facility] [place] [phone] Saskia Vasquez DO 132 [facility] [place] [address] 10/31/2024 1:30 PM EDT Office Visit Cardiology, [facility] 132 [facility] [place] [address] Sabrina Valdez CRNP 400 [facility] [place] [address] 02/25/2025 2:20 PM EDT Office Visit Dermatology [address] [place] [address] Tiara Pozo PA-C [address] [place] [address] [place] [address] 04/15/2025 9:00 AM EST Imaging Radiology [address] [place] [address] Scheduled Procedures Name Priority Associated Diagnoses Date/Ti [...] and were consensually agreed upon. Care Teams Generation Engineer Relationship Specialty Start Date End Date Emily Obando MD [address] [place] [address] PCP - General Internal Medicine 09/07/23 documented as of this encounter
--- OUTSIDE RECORDS SUMMARY | 2024-07-17 19:59 | External Medical Summary | Summary of Care ---
Author Name Unknown Organization [facility] Address [address] [place] [address] Phone [phone] Care Team Providers Care Pattern Ruler Name Role Phone Emily Obando MD Primary Care Provider Reason for Visit * Reason Comments eRx-Medication Refill Encounter Details Date Type Department Care Team (Late st Contact Info) Description 05/17/2024 Refill Cardiology, [facility] [address] [facility] [place] [address] Sabrina Stafford CRNP [facility] [address] Dyslipidemia* Allergies Active Allergy Reactions Criticality Noted Date Comments Other Allergy (See Comments) Rash Low 05/14/2018 Rash from dermabond after surgery Sotalol 10/20/2021 Bradycardia, fatigued documented as of this encounter (statuses as of 05/19/2024) Medications CPAP every night at bedtime . [...] THE MORNING 90 Tablet 05/19/20 24 Active Rosuvastatin Calcium 5 MG Oral Tablet (Crestor)Indic ations:Dyslipi demia TAKE 1 TABLET BY MOUTH EVERY DAY IN THE MORNING 90 Tablet 3 06/05/20 23 024 Discontinued documented as of this encounter (statuses as of 05/19/2024) Active Problems Problem Noted Date Diagnosed Date [...] as of this encounter (statuses as of 05/19/2024) Resolved Problems Problem Noted Date Diagnosed Date [...] as of this encounter (statuses as of 05/19/2024) Immunizations Name Administration Dates Next Due Pneumococcal Conjugate Vacci ne, 20-valent ([id number]) 07/14/2022 Seasonal Influenza Vac., MDV , IM, [...] encounter Miscellaneous Notes * Telephone Encounter - Mana Allen RPh - 05/19/2024 11:23 AM ESTPending Prescriptions: Disp Refills Rosuvastatin Calcium 5 MG Oral Tablet (Cre*90 Tab*0 Sig: TAKE 1 TABLET BY MOUTH EVERY DAY IN THE MORNING * Telephone Encounter - Mana Allen RPh - 05/19/2024 11:03 AM EST Per TE from 10/03/23: recommended to increase to Crestor 20 mg daily due to LDL level of 90. Patientdid not respond to patient message sent. Spoke to patient. She was not aware of the dose increase recommendation back in September. Has continued to take 5 mg daily. Will get repeat lipid panel completed before next refill to determine dose adjustment. Previous provider FAITH Fish for primary cardiology. Please approve of refill request. Will be due for primary cardiology follow up in September. Thanks, Mana Allen, PharmD Clinical Pharmacist [facility] 05/19/2024, 11:13 AM Electronically signed by Man[facility] Allen [facility] at 05/19/2024 11:23 AM EST documented in this encounter Plan of Treatment Upcoming Encounters Date Type Department Care Team (Latest Contact Info) Description 06/30/2024 10:30 AM EST Imaging Radiology [facility] [address] [place] [address] 06/30/2024 10:30 AM EST Imaging Radiology [address] [place] [address] 07/01/2024 7:40 AM EST Hospital Encounter OR [facility], Operating Room, [facility] - [address] [place] [address] [address] [place] [phone] Jenifer Culp MD [address] [place] [address] 07/01/2024 7:40 AM EST - 07/01/2024 9:08 AM EST Surgery OR [facility], Operating Room, [facility] - [address] [place] [address] [address] [place] [phone] Jenifer Culp MD [address] [place] [address] EXCISION OF BREAST LESION RADIOLOGICAL MARKER 07/01/2024 3:00 PM EST Imaging Radiology [address] [place] [address] 07/15/2024 10:00 AM EST Office Visit General Surgery, [facility] [address] [place] [address] Jenifer Culp MD [address] [place] [address] 09/08/2024 10:40 AM EDT Office Visit Family Practice [facility] 132 [facility] [place] [address] Emily Obando MD 132 [facility] [place] [address] 09/16/2024 11:30 AM EDT Office Visit Gynecology/Oncolog y, [place] [address] [place] [address] Heidi Carpio PA-C [address] [place], [place] [phone] 10/07/2024 10:20 AM EDT Office Visit Sleep Disorders Ctr [facility] 132 [facility] [place] [phone] Saskia Vasquez DO 132 [facility] [place] [address] 10/31/2024 1:30 PM EDT Office Visit Cardiology, [facility] 132 [facility] [place] [address] Sabrina Valdez, [employer]ATE 400 [place] [address] 02/25/2025 2:20 PM EDT Office Visit Dermatology [address] [place] [address] Tiara Pozo PA-C [address] [place] [address] [place] [address] 04/15/2025 9:00 AM EST Imaging Radiology [address] [place] [address] Scheduled Orders Name Type Priority Associated Diagnoses Orde r Schedule LIPID PANEL WITH DIRECT LDL IF TG IS HIGH Lab Routine Dyslipidemia Expected: 05/26/2024 (Approximate), Expires: 05/19/2025 Scheduled Procedures Name Priority Associated Diagnoses Date/Ti [...] Diagnosis Radial scar of right breast- Primary Dyslipidemia- Primary Other and unspecified hyperlipidemia Radial scar of [...] and were consensually agreed upon. Care Teams Pattern Ruler Relationship Specialty Start Date End Date Emily Obando MD [address] [place] [address] PCP - General Internal Medicine 09/07/23 documented as of this encounter
--- OUTSIDE RECORDS SUMMARY | 2024-07-17 19:59 | External Medical Summary | Summary of Care ---
Author Name Unknown Organization [facility] Address [address] [place] [address] Phone [phone] Care Team Providers Care Ink Printer Name Role Phone Emily Obando MD Primary Care Provider Reason for Visit * Reason Onset Date Comments Blood Pressure Check Blood Pressure Check 05/13/2024 Encounter Details Date Type Department Care Team (Latest Contact Info) Description 05/13/2024 9:45 AM EST Cardiac Studies Cardiac Studies, [facility] [address] [place] [address] HTN, goal below 140/90* Allergies Active Allergy Reactions Criticality Noted Date [...] Active Problems Problem Noted Date Diagnosed Date Lichen simplex chronicus 09/07/2023 PAF (paroxysmal atrial [...] Next Due Pneumococcal Conjugate Vacci ne, 20-valent ([id number]) 07/14/2022 Seasonal Influenza Vac., MDV , IM, [...] Sign Reading Time Taken Comments Blood Pressure 188/104 05/13/2024 9:48 AM EST Pulse 52 05/13/2024 9:48 AM EST Temperature - - Respiratory Rate 12 05/13/2024 9:48 AM EST Oxygen Saturation - - Inhaled Oxygen Concentration - - Weight 139.1 kg (306 lb 12 oz) 05/13/2024 9:48 A M EST Height - - Body Mass Index 48.04 02/26/2024 10:11 AM EDT documented in this encounter Progress Notes * Rachel Cantor CMA - 05/13/2024 9:45 AM EST Hortensia Dawn presented for blood pressure check per provider orders. The blood pressure was obtained using the left arm in the sitting position using a adult large cuff. The results were charted in Vital Signs. BP Readings from Last 3 Encounters: 05/13/24 188/104 05/02/24 208/94 02/26/24 126/70 BP 188/104 (BP Site: Left Arm, BP Position: Sitting) | Pulse 52 | Resp 12 | Wt (!) 139.1 kg (306 lb12 oz) | LMP 08/26/2007 | BMI 48.04 kg/m | BSA 2.56 m Patient denies headache, pressure in head, dizziness, lightheadedness, chest discomfort, focal neurological symptoms, change in vision, nose bleeds. Did patient take medications today? Yes Patient was instructed to follow-up as per their next scheduled appt documented in this encounter Plan of Treatment Upcoming Encounters Date Type Department Care Team (Late st Contact Info) Description 05/13/2024 10:15 AM EST Office Visit General Surgery, [facility] [address] [place] [address] Jenifer Culp MD [address] [place] [address] Arrived 09/08/2024 10:40 AM EDT Office Visit Family Practice [facility] [address] [facility] [place] [address] Emily Obando MD 132 [facility] [place] [address] 09/16/2024 11:30 AM EDT Office Visit Gynecology/Oncology, [place] [address] [place], [place] [phone] Heidi Carpio PA-C [address] [place] [address] 10/07/2024 10:20 AM EDT Office Visit Sleep Disorders [facility] [address] [facility] [place] [phone] Saskia Vasquez DO [address] [place] [address] 10/31/2024 1:30 PM EDT Office Visit Cardiology, [facility] [address] [facility] [place] [address] Sabrina Valdez CRNP 400 [facility] [place] [phone] 02/25/2025 2:20 PM EDT Office Visit Dermatology [address] [place] [address] Tiara Pozo PADerekC [address] [place] [address] [place] [address] 04/15/2025 9:00 AM EST Imaging Radiology [address] [place] [address] Scheduled Orders Name Type Priority Associated Diagnoses Orde r Schedule BLOOD PRESSURE Procedures Routine HTN, goal below 140/90 Ordered: 05/13/2024 Scheduled Procedures Name Priority Associated Diagnoses Date/Ti me COLONOSCOPY FLEXIBLE PROXIMA L DIAGNOSTIC Recall Encounter for screening colonoscopy Health Maintenance Due Date Last Done Comments Cologuard 2002 Fecal Occult Blood Test 2002 Sigmoidoscopy 2002 Adult Wellness Visit 2023 Depression Screening 01/13/2024 01/12/2023 Mammogram 04/10/2025 04/10/2024, 03/12, 03/30/2023, Additional history exists Diabetes Screening 09/26/2026 09/27/2023, 0 08/09/2022, 01/10/2022, Additional history exists DXA Scan 08/15/2027 08/14/2022, [...] as of this encounter Visit Diagnoses Diagnosis HTN, goal below 140/90- Primary Unspecified essential hypertension Screening mammogram for breast cancer documented in [...] and were consensually agreed upon. Care Teams Ink Printer Relationship Specialty Start Date End Date Emily Obando MD [address] [place] [address] PCP - General Internal Medicine 09/07/23 documented as of this encounter"
--- OUTSIDE RECORDS SUMMARY | 2024-07-17 19:59 | External Medical Summary ---
Author Name Unknown Address Unknown Organization K0[facility] [address] [place] [address] Laboratory Report Ordering Provider Test Date Status KUSUM MAYER 05/13/2024 11:17:52 Final Observation Date Value Abnormality Reference (Units ) Status WBC, Total 05/13/2024 11:17:52 9.62 4.00-10.8 0 (K/uL) Final RBC 05/13/2024 11:17:52 4.53 3.85-5.15 (M/uL) Final Hemoglobin 05/13/2024 11:17:52 13.2 12.0-15.3 (g/dL) Final HCT 05/13/2024 11:17:52 41.2 36.0-45.2 (%) Final MCV 05/13/2024 11:17:52 90.9 81.5-97.5 (fL) Final MCH 05/13/2024 11:17:52 29.1 27.0-34.0 (pg) Final MCHC 05/13/2024 11:17:52 32.0 32.0-36.0 (g/dL) Final RDW 05/13/2024 11:17:52 14.4 11.5-15.5 (%) Final Platelets 05/13/2024 11:17:52 250 140-400 (K /uL) Final MPV 05/13/2024 11:17:52 9.7 6.6-11.1 ( fL) Final Performing Location [facility] [address] [place] [address]
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
--- OUTSIDE RECORDS SUMMARY | 2024-07-17 19:59 | External Medical Summary | Summary of Care ---
Author Name Unknown Organization [facility] Address [address] [place] [address] Phone [phone] Care Team Providers Care Meter Maintenance Person Name Role Phone Emily Obando MD Primary Care Provider Reason for Visit * Reason Comments Outpatient Testing Encounter Details Date Type Department Care Team (Late st Contact Info) Description 05/13/2024 11:20 AM EST Laboratory Laboratory, [facility] [address] [place] [address] [facility] [address] [place] [address] Radial scar of right breast; Preop examination Allergies Active Allergy Reactions Criticality [...] Next Due Pneumococcal Conjugate Vacci ne, 20-valent ([id number]) 07/14/2022 Seasonal Influenza Vac., MDV , IM, [...] 06/30/2024 10:30 AM EST Imaging Radiology [facility] 132 [facility] [place] [address] 06/30/2024 10:30 AM EST Imaging Radiology [facility] 1st Floor, [place] [address] [place] [address] 07/15/2024 10:00 AM EST Office Visit General Surgery, [facility] [address] [place] [address] Jenifer Culp MD 132 [facility] [place] [address] 09/08/2024 10:40 AM EDT Office Visit Family Practice [facility] [address] [place] [address] Emily Obando MD [address] [place] [address] 09/16/2024 11:30 AM EDT Office Visit Gynecology/Oncology, [address] [address] Heidi Carpio PA-C [address] [place] [address] 10/07/2024 10:20 AM EDT Office Visit Sleep Disorders Ctr [facility] [address] [place] [phone] Saskia Vasquez DO [address] [place] [address] 10/31/2024 1:30 PM EDT Office Visit Cardiology, [facility] 132 [facility] [place] [address] Sabrina Valdez CRNP 400 [place] [address] 02/25/2025 2:20 PM EDT Office Visit Dermatology [address] [place] [address] Tiara Pozo PA-C [address] [place] [address] [place] [address] 04/15/2025 9:00 AM EST Imaging Radiology [address] [place] [address] Pending Results Name Type Priority Associated Diagnoses Date /Time BASIC METABOLIC PANEL Lab Routine Radial scar of right breast 05/13/2024 11:17 AM EST Scheduled Procedures Name Priority Associated [...] Procedure Name Priority Date/Time Associated Diagnosis Comments CBC Routine 05/13/2024 11:17 AM EST Radial scar of right breast Preop examination documented in this encounter Results * CBC (05/13/2024 11:17 [...] 36.0 g/dL 05/13/2024 11:26 AM EST LABORATORY [facility] 57-10 RDW 14.4 11.5 - 15.5 % 05/13/2024 11:26 AM EST LABORATORY [facility] 57-10 PLT 250 140 - 400 K/uL 05/13/2024 11:26 AM EST LAB[facility]ATORY [facility] 57-10 MPV 9.7 6.6 - 11.1 fL 05/13/2024 11:26 AM EST LAB[facility]ATORY [facility] 57-10 Blood Venous blood specimen / Unknown Venipuncture / Unknown 05/13/2024 11:17 AM EST 05/13/2024 11:17 AM EST us Jenifer Culp MD LAB BLOOD ORDERABLES Final Result LABORATORY [facility] 57-10 [address] [place] [address] documented in this encounter Visit Diagnoses Diagnosis Radial scar of right breast Preop examination Preoperative examination, unspecified Screening mammogram for breast cancer documented [...] and were consensually agreed upon. Care Teams Meter Maintenance Person Relationship Specialty Start Date End Date Emily Obando MD [address] [place] [address] PCP - General Internal Medicine 09/07/23 documented as of this encounter
--- OUTSIDE RECORDS SUMMARY | 2024-07-17 19:59 | External Medical Summary | Summary of Care ---
Author Name Unknown Organization [facility] Address [address] [place] [address] Phone [phone] Care Team Providers Care Upset Welding Machine Operator Name Role Phone Emily Obando MD Primary Care Provider Reason for Visit * Reason Onset Date Comments Medical Questions 06/10/2024 Pre-Op Testing 06/10/2024 Encounter Details Date Type Department Care Team (Late st Contact Info) Description 06/10/2024 Telephone Pre Surgery Center, [facility] [address] [place] [address] Tash Valdez CRNP [address] [place], [place] [phone] Medical Questions; Pre-Op Testing Allergies Active Allergy [...] Next Due Pneumococcal Conjugate Vacci ne, 20-valent ([id number]) 07/14/2022 Seasonal Influenza Vac., MDV , IM, [...] Department Care Team (Latest Contact Info) Description 06/18/2024 2:30 PM EST Office Visit Cardiology, [facility] [address] [place] [address] Brandy Arvizu CRNP 132 [facility] [place] [address] 06/30/2024 10:30 AM EST Imaging Radiology [facility] [address] [place] [address] 06/30/2024 10:30 AM EST Imaging Radiology [facility] 1st [facility] [address] [place] [address] 07/01/2024 7:40 AM EST Hospital Encounter OR GL, Operating Room, [facility] - 4th Floor [address] [place] [address] Jenifer Culp MD [address] [place] [address] 07/01/2024 7:40 AM EST - 07/01/2024 9:08 AM EST Surgery OR GL, Operating Room, [facility] - 4th Floor [address] [place] [address] Jenifer Culp MD [address] [place] [address] EXCISION OF BREAST LESION RADIOLOGICAL MARKER 07/01/2024 3:00 PM EST Imaging Radiology [facility] 1st [facility] 132 [facility] [place] [address] 07/15/2024 10:00 AM EST Office Visit General Surgery, [facility] 132 [facility] [place] [address] Jenifer Culp MD [address] [place] [address] 07/31/2024 2:30 PM EST Office Visit Cardiology, [facility] [address] [place] [address] Nidhi Jacques PA-C 400 [place] [address] 09/08/2024 10:40 AM EDT Office Visit Family Practice [facility] [address] [place] [address] Emily Obando MD [address] [place] [address] 09/16/2024 11:30 AM EDT Office Visit Gynecology/Oncolog y, [place] [address] [place] [facility] [place] [address] Heidi Carpio PA-C [address] [place] [address] 10/07/2024 10:20 AM EDT Office Visit Sleep Disorders Ctr [facility] [address] [place] [phone] Saskia Vasquez DO [address] [place] [address] 10/31/2024 1:30 PM EDT Office Visit Cardiology, [facility] [address] [place] [address] Tash Valdez CRNP 400 [facility] [place] [address] 02/25/2025 2:20 PM EDT Office Visit Dermatology [address] [place] [address] Tiara Pozo PA-C [address] [place] [address] [place] [address] 04/15/2025 9:00 AM EST Imaging Radiology [address] [place] [address] Scheduled Procedures Name Priority Associated Diagnoses Date/Ti [...] and were consensually agreed upon. Care Teams Upset Welding Machine Operator Relationship Specialty Start Date End Date Emily Obando MD [address] [place] [address] PCP - General Internal Medicine 09/07/23 documented as of this encounter
--- OUTSIDE RECORDS SUMMARY | 2024-07-17 19:59 | External Medical Summary | Summary of Care ---
Author Name Unknown Organization [facility] Address [address] [place] [address] Phone [phone] Care Team Providers Care Field Inspector Name Role Phone Emily Obando MD Primary Care Provider Reason for Visit * Reason Onset Date Comments Test Results 05/27/2024 Encounter Details Date Type Department Care Team (Late st Contact Info) Description [facility]/27[facility] [address] [place] [address] Doc Lisa MD [address] [place] [address] Test Results Allergies Active Allergy Reactions Criticality Noted Date [...] Next Due Pneumococcal Conjugate Vacci ne, 20-valent ([id number]) 07/14/2022 Seasonal Influenza Vac., MDV , IM, [...] encounter Miscellaneous Notes * Telephone Encounter - Adliene Spear CMA - 05/27/2024 4:02 PM EST My g sent. * Telephone Encounter - Adilene Spear CMA - 05/27/2024 4:01 PM EST ----- Message from Doc Lisa MD sent at 05/27/2024 3:55 PM EST ----- Lipids look good copy patient documented in this encounter Plan of Treatment Upcoming Encounters Date Type Department Care Team (Latest Contact Info) Description 06/30/2024 10:30 AM EST Imaging Radiology [facility] 132 [facility] [place] [address] 06/30/2024 10:30 AM EST Imaging Radiology [facility] 1st [facility] [address] [place] [address] 07/01/2024 7:40 AM EST Hospital Encounter OR GL, Operating Room, [facility] - 4th Floor [address] [place] [address] [place] [phone] Jenifer Culp MD [address] [place] [address] 07/01/2024 7:40 AM EST - 07/01/2024 9:08 AM EST Surgery OR [facility], Operating Room, [facility] - 4th Floor [address] [place] [address] Jenifer Culp MD [address] [place] [address] EXCISION OF BREAST LESION RADIOLOGICAL MARKER 07/01/2024 3:00 PM EST Imaging Radiology [facility] 1st [facility] [address] [place] [address] 07/15/2024 10:00 AM EST Office Visit General Surgery, [facility] [address] [place] [address] Jenifer Culp MD [address] [place] [address] 09/08/2024 10:40 AM EDT Office Visit Family Practice [facility] [address] [place] [address] Emily Obando MD [address] [place] [address] 09/16/2024 11:30 AM EDT Office Visit Gynecology/Oncolog y, [place] [address] [place] [address] Heidi Carpio PA-C [address] [place] [address] 10/07/2024 10:20 AM EDT Office Visit Sleep Disorders Ctr [facility] [address] [place] [phone] Saskia Vasquez DO [address] [place] [address] 10/31/2024 1:30 PM EDT Office Visit Cardiology, [facility] [address] [place] [address] Sabrina Valdez, AUTOMOBILE MECHANIC MOTOR [address] [place] [address] 02/25/2025 2:20 PM EDT Office Visit Dermatology [address] [place] [address] Tiara Pozo PA-C [address] [place] [address] [place] [address] 04/15/2025 9:00 AM EST Imaging Radiology [address] [place] [address] Scheduled Procedures Name Priority Associated Diagnoses Date/Ti [...] Cancer Screening 03/19/2028 Lipid Panel 05/27/2029 05/27/2024, 0401/2024, 08/09/2022, Additional history exists DTap/Tdap Vaccines (3 - Td or Tdap) 01/11/2032 01/10/2022, 10/17/2010 Pap Smear Discontinued 03/01/2017, 0406/2010 (Done elsewhere), 09/10/2008, Additional history exists Zoster [...] and were consensually agreed upon. Care Teams Field Inspector Relationship Specialty Start Date End Date Emily Obando MD [address] [place] [address] PCP - General Internal Medicine 09/07/23 documented as of this encounter
--- OUTSIDE RECORDS SUMMARY | 2024-07-17 20:00 | External Medical Summary | Summary of Care ---
Author Name Unknown Organization [facility] Address [address] [place] [address] Phone [phone] Care Team Providers Care Hvac Service Tech Name Role Phone Emily Obando MD Primary Care Provider Encounter Details Date Type Department Care Team (Latest Contact Info) Description 02/18/2024 2:16 PM EDT - 02/18/2024 11:59 PM EDT Hospital Encounter Radiology [facility] [address] [place] [address] Arrived Discharge Disposition: Home - Self Care Allergies Active Allergy Reactions Criticality Noted Date Comments Other Allergy (See Comments) Rash Low 05/14/2018 Rash from dermabond after surgery Sotalol 10/20/2021 Bradycardia, fatigued documented as of this encounter (statuses as of 02/19/2024) Medications Medication Sig Dispensed Refills Start Date End Date Status CPAP every night at bedtime . Active Amoxicillin 500 MG Oral Tablet TAKE 4 TABLETS BY MOUTH 1 HOUR PRIOR TO PROCEDURE 09/27/2021 Active PreserVision AREDS Oral Capsule Take 1 Capsule by mouth in the morning and 1 Capsule before bedtime. Active Rosuvastatin Calcium 5 MG Oral Tablet (Crestor)Indication s:Dyslipidemia TAKE 1 TABLET BY MOUTH EVERY DAY IN THE MORNING 90 Tablet 3 06/05/2023 Active Apixaban 5 MG Oral Tablet (Eliquis)Indication s:PAF (paroxysmal atrial fibrillation) (HCC) Take 1 Tablet by mouth in the morning and 1 Tablet before bedtime. 180 Tablet 3 09/07/2023 Active Metoprolol Tartrate 25 MG Oral Tablet (Lopressor)Indicati ons:PAF (paroxysmal atrial fibrillation) (HCC) Take 1 Tablet by mouth 2 times a day as needed (AF/palpitations). 30 Tablet 3 09/07/2023 Active documented as of this encounter (statuses as of 02/19/2024) Active Problems Problem Noted Date Diagnosed Date Lichen simplex chronicus 09/07/2023 PAF (paroxysmal atrial fibrillation) 12/10/2021 Chronic heart failure with preserved ejection fr action 12/10/2021 Bradycardia 08/16/2021 Dyslipidemia 08/16/2021 GABY on CPAP 08/16/2021 Endometrial cancer 06/13/2019 Cancer Staging:Clinical stage from 04/03/2017:FIGO Stage IA, calculated as Stage Unknown(cT1a, cNX, cM0) - Signed by Tyrel Sanchez MD on 09/05/2021 Overview: GynOnc has indicated does not need Pap smears Status post total bilateral knee replacement ADVANCE DIRECTIVE INFORMATION 08/28/2018 Overview: No, Advance Directive brochure offered , patient declined. Obesity documented as of this encounter (statuses as of 02/19/2024) Resolved Problems Problem Noted Date Diagnosed Date Resolved Date Body mass index (BMI) of 40. 0 to 44.9 in adult 12/27/2018 08/24/2021 Overview: ICD-10 update of inactive term BMI 39.0-39.9,adult 02/13/2018 12/28/19 19 Overview: Per [...] 40.0-44.9, adult 06/15/2011 014 Hematuria 01/12/2011 09/13/2015 Overview: ICD-10 update of inactive term NONE 08/06/2007 01/12/2011 documented as of this encounter (statuses as of 02/19/2024) Immunizations Name Administration Dates Next Due Pneumococcal Conjugate Vacci ne, 20-valent ([id number]) 07/14/2022 Seasonal Influenza, High Dos e, Trivalent, PF, IM (Fluzone HD) 02/18/2024 Seasonal Influenza, PF, 6 M & above, IM , (FluLaval or Fluzone) 03/18/2022,03/18/2021,03/05/2020,2019,02/28/2018 Seasonal Influenza, Quadriva lent Hd (Fluzone Hd) 03/30/2023 Seasonal Influenza, Quadriva lent, No Preserve, IM 02/27/2017,05/01/2016,03/26/2015 Seasonal Influenza, Trivalen t, (IIV3), with Preserv, (Fluzone) 02/27/2013,06/17/2012,06/15/2011 TDAP (age 10 and older)(Boostrix) 01/10/2022 TDAP, [...] money to get more. Never true 01/12/2023 Sex and Gender Information Value Date Recorded Sex Assigned at Female 01/10/2022 8:54 AM EDT Gender Identity Female 01/10/2022 8:54 AM EDT Sexual Orientation Straight 01/10/2022 8: 54 AM EDT Job Start Date Occupation Industry Not on file Not on file Not on file documented as of this encounter Plan of Treatment Upcoming Encounters Date Type Department Care Team (Late st Contact Info) Description 02/26/2024 10:20 AM EDT Office Visit Sleep Disorders Ctr [facility] 132 [facility] [place] [phone] Saskia Vasquez DO [address] [place] [address] 04/04/2024 10:00 AM EDT Imaging Radiology [address] [place] [address] 05/02/2024 10:00 AM EST Office Visit Cardiology, [facility] 132 [facility] [place] [address] Sabrina Valdez CRNP [address] [place] [address] [place] [address] 09/08/2024 10:40 AM EDT Office Visit Family Practice [facility] 132 [facility] [place] [address] Emily Obando MD 132 [facility] [place] [address] 09/16/2024 11:30 AM EDT Office [facility]necology[facility]On[facility], [place] [facility] [address] Heidi Carpio PA-C [facility] [address] 02/25/2025 2:20 PM EDT Office Visit Dermatology [address] [place] [address] Tiara Pozo PA-C [address] [place] [address] [place] [address] Scheduled Procedures Name Priority Associated Diagnoses Date/Ti me COLONOSCOPY FLEXIBLE PROXIMA L DIAGNOSTIC Recall Encounter for screening colonoscopy Health Maintenance Due Date Last Done Comments Cologuard 2002 Fecal Occult Blood Test 2002 Sigmoidoscopy 2002 Adult Wellness Visit 2023 Depression Screening 01/13/2024 01/12/2023 Mammogram 03/30/2024 03/30/2023, 03/12, 03/22/2022, Additional history exists Diabetes Screening 09/26/2026 09/27/2023, [...] Procedure Name Priority Date/Time Associated Diagnosis Comments DERM EXAM - DERM (IMAGES ONLY, NO REPORT) Routine 02/18/2024 2:16 PM EDT Lentigines Skin exam, screening for cancer Seborrheic keratosis Venous stasis dermatitis documented in this encounter Results * DERM EXAM - DERM (IMAGES ONLY, NO REPORT) (02/18/2024 2:16 PM EDT) Narrative Scheduling, Silent - 02/18/2024 2:16 PM EDT This is an imaging study not interpreted or resulted by a [employer] contracted radiologist. Tiara Pozo PA-C RADIOLOGY ([facility]) documented in this encounter Advance Directives * Full Code (Latest Code Status on File) Date Activated Date Inactivated Comments 04/03/2017 9:33 AM 04/03/2017 6:32 PM This order reflects the patients wishes and were consensually agreed upon. * Full Code Date Activated Date Inactivated Comments 04/03/2017 5:44 AM 04/03/2017 9:33 AM This order reflects the patients wishes and were consensually agreed upon. Care Teams Hvac Service Tech Relationship Specialty Start Date End Date Emily Obando MD 132 [facility] [place] [address] PCP - General Internal Medicine 09/07/23 documented as of this encounter
--- OUTSIDE RECORDS SUMMARY | 2024-07-17 20:00 | External Medical Summary | Summary of Care ---
Author Name Unknown Organization [facility] Address [address] [place] [address] Phone [phone] Care Team Providers Care Manager Monitoring Name Role Phone Emily Obando MD Primary Care Provider Reason for Visit * Reason Comments Follow Up Encounter Details Date Type Department Care Team (Late st Contact Info) Description 02/26/2024 10:20 AM EDT Office Visit Sleep Disorders Ctr [facility] [address] [place] [phone] Saskia Vasquez, [address] [facility] [address] GABY (obstructive sleep apnea)*; Nocturnal hypoxemia Allergies Active Allergy Reactions Criticality Noted Date Comments Other Allergy (See Comments) Rash Low 05/14/2018 Rash from dermabond after surgery Sotalol 10/20/2021 Bradycardia, fatigued documented as of this encounter (statuses as of 02/26/2024) Medications Medication Sig Dispensed Refills Start Date [...] as of this encounter (statuses as of 02/26/2024) Active Problems Problem Noted Date Diagnosed Date [...] as of this encounter (statuses as of 02/26/2024) Resolved Problems Problem Noted Date Diagnosed Date Resolved Date Body mass index (BMI) of 40. 0 to 44.9 in adult 12/27/2018 08/24/2021 Overview: ICD-10 update of inactive term BMI 39.0-39.9,adult 02/13/2018 12/28/19 Overview: Per Obesity [...] as of this encounter (statuses as of 02/26/2024) Immunizations Name Administration Dates Next Due Pneumococcal Conjugate Vacci ne, 20-valent ([id number]) 07/14/2022 Seasonal Influenza, High Dos e, Trivalent, [...] on file documented as of this encounter Last Filed Vital Signs Vital Sign Reading Time Taken Comments Blood Pressure 126/70 02/26/2024 10:11 AM EDT Pulse 64 02/26/2024 10:11 AM EDT Temperature 37.1 C (98.7 F) 02/26/2024 10:11 AM E DT Respiratory Rate 22 02/26/2024 10:11 AM EDT Oxygen Saturation 94% 02/26/2024 10:11 AM EDT ra, rest Inhaled Oxygen Concentration - - Weight 139.1 kg (306 lb 12 oz) 02/26/2024 10:11 AM EDT Height 170.2 cm (5' 7") 02/26/2024 10:11 AM EDT Body Mass Index 48.04 02/26/2024 10:11 AM EDT documented in this encounter Patient Instructions * Patient Instructions* Saskia Vasquez DO - 02/26/2024 10:37 AM EDT Can change pressure to 6-8cmH20 documented in this encounter Progress Notes * Saskia Vasquez DO - 02/26/2024 10:21 AM EDT Sleep Medicine Follow-Up Clinic Note HISTORY: HPI: Hortensia Dawn is a 68 year old female w/ a pmh of PAF, chronic heart failure (preserved EF), and endometrial cancer who presents for a follow up regarding Obstructive Sleep Apnea and Nocturnal Hypoxemia. She has still not received her new mask she has been waiting for since November. Her current is leakingwhich makes it more difficult for her to wear. She has been losing weight. For a time, she was lessthan 300lbs. She is eating more vegetable from the garden and plans to continue losing weight. *DME orders placed: 12/04/23 12/25/23 01/29/24 02/17/24 Diagnostic Polysomnogram 09/09/20: BMI 47.37 AHI 11.7 Min O2 76 % <89% O2 131 min(s) PLMI 10.2 Overnight Oximetry 11/17/21 SpO2<= 89% 85.4 mins SpO2<= 88% 24.2 mins SpO2 wilner 84% PAP DL confirms overlapping PAP usage (AHI0.3; setting [id number]) Patient-Entered [facility] 2019 Msp: Part I And Employment Question 02/25/2024 12:58 PM EDT - Filed by Patient Are you currently employed? No, Retired Date of assisted: 06/11/2022 Do you have a spouse who is currently employed? No, Retired Date of assisted: Medicare requires that we periodically ask the following questions. Are you receiving benefits under the Black Lung Benefits Act (BL)? No Was the illness/injury due to a work-related accident/condition? No Are you receiving treatment for an injury or illness covered under no-fault (and/or medical-paymentcoverage) including premises or automobile? No Are you receiving treatment for an injury, or illness, for which another libertarian may be liable? No Are you entitled to Medicare based on: Age? Yes End-stage renal disease (ESRD)? No Patient-Entered Msp: Rvw-Yrklyelkya-Nxlp Primary Branch Calculation (range: 0 - 5) 1 Do you have group health plan (GHP) coverage based on your own current employment or the employmentof your spouse? No [place] Sleepiness Scale Question 02/25/2024 12:59 PM EDT - Filed by Patient What is the chance you will doze off in the following situation? Sitting and reading No chance of dozing Watching TV No chance of dozing Sitting inactive in a public place, such as a theater or meeting No chance of dozing As a passenger in a car for an hour without a break No chance of dozing Lying down to rest in the afternoon when circumstances permit No chance of dozing When sitting and talking to someone No chance of dozing When sitting quietly after lunch without alcohol No chance of dozing In a car, while stopped for a few minutes in traffic No chance of dozing Score (range: 0 - 24) 0 Flu Vaccine Questionnaire Question 02/25/2024 1:00 PM EDT - Filed by Patient Get your flu shot at your upcoming appointment. Please select one of the options below. I already received my flu shot Travel Screening Question 02/26/2024 9:46 AM EDT - Filed by Patient Do you have any of the following new or worsening symptoms? None of these Have you recently been in contact with someone who was sick? No / Unsure PAP Compliance: Report date: 01/25/24 to 02/23/24 % total days used: 63% % days used > 4 hours: 60% Average hours a day: 6 hours 49 mins Large leak: 0 AHI: 0.6/hr 95% pressure: 7.8 cmH20 Equipment: DME Provider is SMP 4-8 cmH20 Patient Active Problem List Diagnosis ADVANCE DIRECTIVE INFORMATION Obesity Status post total bilateral knee replacement Endometrial cancer (HCC) Bradycardia Dyslipidemia GABY on CPAP PAF (paroxysmal atrial fibrillation) (HCC) Chronic heart failure with preserved ejection fraction (HCC) Lichen simplex chronicus Current Outpatient Medications Medication Sig Dispense Refill Apixaban 5 MG Oral Tablet (Eliquis) Take 1 Tablet by mouth in the morning and 1 Tablet before bedtime. 180 Tablet 3 Metoprolol Tartrate 25 MG Oral Tablet (Lopressor) Take 1 Tablet by mouth 2 times a day as needed (AF/palpitations). 30 Tablet 3 Rosuvastatin Calcium 5 MG Oral Tablet (Crestor) TAKE 1 TABLET BY MOUTH EVERY DAY IN THE MORNING 90 Tablet 3 PreserVision AREDS Oral Capsule Take 1 Capsule by mouth in the morning and 1 Capsule before bedtime. CPAP every night at bedtime . Amoxicillin 500 MG Oral Tablet TAKE 4 TABLETS BY MOUTH 1 HOUR PRIOR TO PROCEDURE No current facility-administered medications for this visit. Facility-Administered Medications Ordered in Other Visits Medication Dose Route Frequency Provider Last Rate Last Admin Nitroglycerin (Nitrostat) sl tab 0.4 mg 0.4 mg Sublingual Q5 Min PRN Nanci Clark DO PHYSICAL EXAM: BP 126/70 | Pulse 64 | Temp 37.1 C (98.7 F) (Tympanic) | Resp 22 | Ht 1.702 m (5' 7") | Wt (!) 139.1 kg (306 lb 12 oz) | LMP 08/26/2007 | SpO2 94% Comment: ra, rest | BMI 48.04 kg/m | BSA 2.56m Constitutional: Alert, oriented in no acute distress Skin: no markings on face where mask fits Chest: Normal respiratory effort at rest Neuro: Normal speech and comprehension Psych: Appropriate mood and affect ASSESSMENT/PLAN: Obstructive Sleep Apnea Nocturnal Hypoxemia - continues to decline supplemental O2; working on weight loss Encouraged continued use of PAP every night, all night and for naps. Reordered supplies from [facility]. If pt unable to receive supplies, will change DME. Adjust PAP range to 6-8 cmH20 Once sufficient weight lost, will repeat Nox on PAP to assess for potential improvement in Nocturnal Hypoxemia Recommended routine cleaning and change of supplies as needed. The patient should continue a weight reduction program. Even a mild to moderate weight loss should result in significant improvement in the patients nocturnal respiratory events. Exercise should be undertaken daily, with respect given to any orthopedic limitations. Physical therapy or physical medicine consultation may be warranted. Strenuous exercise, which activates the sympathetic nervous system (adrenaline system) not only helps with weight loss, glucose, and mood, but also improves sleep quality, and upper respiratory muscle tone during sleep. Avoid driving, operating heavy machinery or engaging in any activity that requires full alertness if feeling sleepy, drowsy or otherwise impaired. Follow-up with Sleep Medicine in 6-12 months. Saskia Vasquez DO I spent a total of 30-39 minutes (exact time 30 mins) on the date of service in preparation, delivery, and documentation of the care provided to Hortensia Dawn excluding any time spent in the performance of separately billed services. documented in this encounter Nursing Notes * Serena Garnica LPN - 02/26/2024 10:07 AM EDT Pt is here for f/u GABY on CPAP. DME - P [place] Sleepiness Scale Question 02/25/2024 12:59 PM EDT - Filed by Patient What is the chance you will doze off in the following situation? Sitting and reading No chance of dozing Watching TV No chance of dozing Sitting inactive in a public place, such as a theater or meeting No chance of dozing As a passenger in a car for an hour without a break No chance of dozing Lying down to rest in the afternoon when circumstances permit No chance of dozing When sitting and talking to someone No chance of dozing When sitting quietly after lunch without alcohol No chance of dozing In a car, while stopped for a few minutes in traffic No chance of dozing Score (range: 0 - 24) 0 documented in this encounter Plan of Treatment Upcoming Encounters Date Type Department Care Team (Late st Contact Info) Description 04/04/2024 10:00 AM EDT Imaging Radiology [address] [place] [address] 05/02/2024 10:00 AM EST Office Visit Cardiology, [facility] [address] [place] [address] Sabrina Valdez CRNP [address] [facility] [place] [address] 09/08/2024 10:40 AM EDT Office Visit Family Practice [facility] [address] [place] [address] Emily Obando MD [address] [place] [address] 09/16/2024 11:30 AM EDT Office Visit Gynecology/Oncology, [place] [address] [facility] [place] [address] Heidi Carpio PA-C [address] [facility] [place] [address] 10/07/2024 10:20 AM EDT Office Visit Sleep Disorders Ctr [facility] [address] [place] [phone] Saskia Vasquez DO [address] [place] [address] 02/25/2025 2:20 PM EDT Office Visit Dermatology [address] [place] [address] Tiara Pozo PA-C [address] [place] [address] [place] [address] Scheduled Procedures Name Priority Associated Diagnoses Date/Ti [...] as of this encounter Visit Diagnoses Diagnosis GABY (obstructive sleep apnea)- Primary Obstructive sleep apnea (adult) (pediatric) Nocturnal hypoxemia Hypoxemia documented in this encounter Advance Directives * [...] were consensually agreed upon. Care Teams Manager Monitoring Relationship Specialty Start Date End Date Emily Obando MD [address] [place] [address] PCP - General Internal Medicine 09/07/23 documented as of this encounter
--- OUTSIDE RECORDS SUMMARY | 2024-07-17 20:00 | External Medical Summary ---
Author Name Unknown Address Unknown Organization [facility] [place] [address] Laboratory Report Ordering Provider Test Date Status KUSUM MAYER 05/13/2024 11:17:52 Final Observation Date Value Abnormality Reference (Units ) Status BUN 05/13/2024 11:17:52 13 6-20 (mg/dL) Final Creatinine 05/13/2024 11:17:52 0.8 0.5-1.0 (mg/dL) Final Glomerular filtration rate/1.73 sq M.predicted [Volume Rate/Area] in Serum, Plasma or Blood by Creatinine-based formula (CKD-EPI) 05/13/2024 11:17:52 78 >=60 (mL/min) Final eGFR is calculated based on the CKD-EPI 2020 equation. Sodium 05/13/2024 11:17:52 142 135-146 (m mol/L) Final Potassium 05/13/2024 11:17:52 4.6 3.5-5.1 (m mol/L) Final Cl 05/13/2024 11:17:52 103 98-107 (mm ol/L) Final CO2 05/13/2024 11:17:52 28 22-32 (mmo l/L) Final Anion gap 05/13/2024 11:17:52 11 7-15 (mmol /L) Final Glucose 05/13/2024 11:17:52 93 70-120 (mg /dL) Final Calcium 05/13/2024 11:17:52 9.8 8.4-10.2 ( mg/dL) Final Performing Location [facility] [place] [address]
--- OUTSIDE RECORDS SUMMARY | 2024-07-17 20:00 | External Medical Summary | Summary of Care ---
Author Name Unknown Organization [facility] Address [address] [place] [address] Phone [phone] Care Team Providers Care Phlebotomy Support Tech Name Role Phone Emily Obando MD Primary Care Provider Reason for Visit * Reason Onset Date Comments Health Maintenance 02/04/2024 Encounter Details Date Type Department Care Team (Late st Contact Info) Description 02/04/2024 Telephone Family Practice [facility] [address] [place] [address] Emily Obando MD [address] [place] [address] Health Maintenance Allergies Active Allergy Reactions Criticality Noted Date Comments Other Allergy (See Comments) Rash Low 05/14/2018 Rash from dermabond after surgery Sotalol 10/20/2021 Bradycardia, fatigued documented as of this encounter (statuses as of 02/04/2024) Medications Medication Sig Dispensed Refills Start Date [...] as of this encounter (statuses as of 02/04/2024) Active Problems Problem Noted Date Diagnosed Date [...] as of this encounter (statuses as of 02/04/2024) Resolved Problems Problem Noted Date Diagnosed Date [...] as of this encounter (statuses as of 02/04/2024) Immunizations Name Administration Dates Next Due Pneumococcal Conjugate Vacci ne, 20-valent ([id number]) 07/14/2022 Seasonal Influenza, PF, 6 M & above, IM , (FluLaval or Fluzone) 03/18/2022,03/18/2021,03/05/2020,2019,02/28/2018 Seasonal Influenza, Quadriva lent Hd (Fluzone Hd) 03/30/2023 Seasonal Influenza, Quadriva lent, No Preserve, IM 02/27/2017,05/01/2016,03/26/2015 Seasonal Influenza, Split, I IV3, With Preserve, Inj 02/27/2013,06/17/2012,06/15/2011 TDAP (age 10 and older)(Boostrix) 01/10/2022 [...] on file documented as of this encounter Miscellaneous Notes * Telephone Encounter - Cammy Amaral LPN - 02/04/2024 8:56 AM EDT Care Gaps Comprehensive Care Outreach Last Office/Telemedicine Visit: 09/07/2023 (in office), Visit date not found (telemedicine) Next Office Visit: 09/08/2024 Hemoglobin AIC Results: No results found for: "HEMOGLOBIN A1C" BP Readings from Last 1 Encounters: 09/19/23 132/90 Reviewed Health Maintenance below: Health Maintenance Topic Date Due Adult Wellness Visit Never done Depression Screening 01/13/2024 Influenza Vaccine (FLU shot) (1) 02/10/2024 Mammogram 03/30/2024 Diabetes Screening 09/26/2026 Awv Mamm mar 30 already scheduled order placed Care Gap Outreach Action Taken: INPHIhart message sent documented in this encounter Plan of Treatment Upcoming Encounters Date Type Department Care Team (Late st Contact Info) Description 02/26/2024 10:20 AM EDT Office Visit Sleep Disorders Ctr [facility] [address] [place] [phone] Saskia Vasquez DO [address] [place] [address] 04/04/2024 10:00 AM EDT Imaging Radiology [address] [place] [address] 04/11/2024 10:30 AM EDT Office Visit Cardiology, [facility] [address] [place] [address] Sabrina Valdez CRNP [address] [place], [place] [address] [address] 09/08/2024 10:40 AM EDT Office Visit [facility] [address] [place] [address] Emily Obando MD [address] [place] [address] 09/16/2024 11:30 AM EDT Office Visit Gynecology/Oncology, [place] [address] [place] [address] Heidi Carpio PA-C [address] [place] [address] 12/03/2024 8:40 AM EDT Office Visit Dermatology [address] [place] [address] Tiara Pozo PA-C [address] [place] [address] [place] [address] Scheduled Orders Name Type Priority Associated Diagnoses Orde r Schedule MAMMOGRAM SCREENING LANRE BILATERAL Medical Imaging Routine Encounter for screening mammogram for malignant neoplasm of breast Expected: 02/04/2024, Expires: 03/06/2025 Scheduled Procedures Name Priority Associated Diagnoses Date/Ti me COLONOSCOPY FLEXIBLE PROXIMA L DIAGNOSTIC Recall Encounter for screening colonoscopy Health Maintenance Due Date Last Done Comments Cologuard 2002 Fecal Occult Blood Test 2002 Sigmoidoscopy 2002 Adult Wellness Visit 2023 Depression Screening 01/13/2024 01/12/2023 Influenza Vaccine (FLU shot) (#1) 2024 03/30/2023, 03/18/2022, 03/18/2021, Additional history exists Mammogram 03/30/2024 03/30/2023, 03/12, 03/22/2022, Additional history exists Diabetes Screening 09/26/2026 09/27/2023, 0 08/09/2022, 01/10/2022, Additional history exists DXA Scan 08/15/2027 08/14/2022, 08/14/2022 Colonoscopy 03/19/2028 03/19/2018, 02/2018, 01/30/2011, Additional history exists Colorectal Cancer Screening 03/19/2028 Lipid Panel 09/26/2028 09/27/2023, 06/2022, 01/10/2022, Additional history exists DTaP,Tdap,and Td Vaccines (3 - Td or Tdap) 01/11/2032 01/10/2022, 10/17/2010 Pap Smear Discontinued 03/01/2017, 06/2010 (Done elsewhere), 09/10/2008, Additional history exists Zoster Vaccines Completed 03/03/2019, 12/27/2018 Pneumococcal Vaccine: 65+ Years Completed 07/14/2022 COVID-19 Vaccine Discontinued HPV (Gardasil) Vaccine Aged [...] as of this encounter Visit Diagnoses Diagnosis Encounter for screening mammogram for malignant neoplasm of breast- Primary Other screening mammogram documented in this encounter Advance Directives * Full Code (Latest Code Status on File) Date Activated Date Inactivated Comments 04/03/2017 9:33 AM 04/03/2017 6:32 PM This order reflects the patients wishes and were consensually agreed upon. * Full Code Date Activated Date Inactivated Comments 04/03/2017 5:44 AM 04/03/2017 9:33 AM This order reflects the patients wishes and were consensually agreed upon. Care Teams Phlebotomy Support Tech Relationship Specialty Start Date End Date Emily Obando MD [address] [place] [address] PCP - General Internal Medicine 09/07/23 documented as of this encounter
--- OUTSIDE RECORDS SUMMARY | 2024-07-17 20:00 | External Medical Summary | Summary of Care ---
Author Name Unknown Organization [facility] Address [address] [place] [address] Phone [phone] Care Team Providers Care Kiosk Sales Representative Name Role Phone Emily Obando MD Primary Care Provider Reason for Visit * Reason Onset Date Comments Advice 04/10/2024 Encounter Details Date Type Department Care Team (Late st Contact Info) Description 04/10/2024 Telephone Radiology [facility] [address] [place] [address] Doc Lisa MD [address] [place] [address] Advice Allergies Active Allergy Reactions Criticality Noted Date Comments Other Allergy (See Comments) Rash Low 05/14/2018 Rash from dermabond after surgery Sotalol 10/20/2021 Bradycardia, fatigued documented as of this encounter (statuses as of 04/10/2024) Medications Medication Sig Dispensed Refills Start Date [...] as of this encounter (statuses as of 04/10/2024) Active Problems Problem Noted Date Diagnosed Date [...] as of this encounter (statuses as of 04/10/2024) Resolved Problems Problem Noted Date Diagnosed Date [...] as of this encounter (statuses as of 04/10/2024) Immunizations Name Administration Dates Next Due Pneumococcal Conjugate Vacci ne, 20-valent ([id number]) 07/14/2022 Seasonal Influenza Vac., MDV , IM, [...] encounter Miscellaneous Notes * Telephone Encounter - Dez Bryant RN - 04/10/2024 11:36 AM EDT Called and spoke to the patient and reviewed the message with her from Dr. Lisa regarding her Eliquis dosing for her up coming breast surgery. She stated she understood. * Telephone Encounter - Doc Lisa MD - 04/10/2024 11:28 AM EDT Okay to stop Eliquis 2 days prior to procedure. Resume evening after * Telephone Encounter - Beverly Simental RDMS - 04/10/2024 10:51 AM EDT Hortensia is scheduled on 04/14/24, for a breast biopsy. Patient states she is currently taking Eliquis, prescribed by Dr. Lisa. We typically ask patients to discontinue blood thinners, if able. Please advise if this is OK and please communicate medication instructions with patient. Thank you! Ultrasound documented in this encounter Plan of Treatment Upcoming Encounters Date Type Department Care Team (Late st Contact Info) Description 04/14/2024 8:00 AM EST Imaging Radiology [address] [place] [address] 04/14/2024 8:00 AM EST Imaging Radiology [facility] [address] [facility] [place] [address] 05/02/2024 10:00 AM EST Office Visit Cardiology, [facility] [address] [facility] [place] [address] Sabrina Valdez CRNP [address] [facility] [place] [address] 09/08/2024 10:40 AM EDT Office Visit Family Practice [facility] [address] [facility] [place] [address] Emily Obando MD [address] [facility] [place] [address] 09/16/2024 11:30 AM EDT Office Visit Gynecology/Oncology, [place] [address] [place] [address] Heidi Carpio PA-C [address] [place] [address] 10/07/2024 10:20 AM EDT Office Visit Sleep Disorders Ctr [facility] [address] [facility] [place] [phone] Saskia Vasquez DO [address] [facility] [place] [address] 02/25/2025 2:20 PM EDT Office Visit Dermatology [address] [place] [address] Tiara Pozo PA-C [address] [place] [address] [place] [address] 04/15/2025 9:00 AM EST Imaging Radiology [address] [place] [address] Scheduled Procedures Name Priority Associated Diagnoses Date/Ti me COLONOSCOPY FLEXIBLE PROXIMA L DIAGNOSTIC Recall Encounter for screening colonoscopy Health Maintenance Due Date Last Done Comments Cologuard 2002 Fecal Occult Blood Test 2002 Sigmoidoscopy 2002 Adult Wellness Visit 2023 Depression Screening 01/13/2024 01/12/2023 Mammogram 04/04/2025 04/04/2024, 03/12, 03/30/2023, Additional history exists Diabetes Screening 09/26/2026 09/27/2023, 0 08/09/2022, 01/10/2022, Additional history exists DXA Scan 08/15/2027 08/14/2022, 08/14/2022 Colonoscopy 03/19/2028 03/19/2018, 1002/2018, 01/30/2011, Additional history exists Colorectal Cancer Screening 03/19/2028 Lipid Panel 09/26/2028 09/27/2023, 030 06/2022, 01/10/2022, Additional history exists DTap/Tdap Vaccines (3 - Td or Tdap) 01/11/2032 01/10/2022, 10/17/2010 Pap Smear Discontinued 03/01/2017, 0 06/2010 (Done elsewhere), 09/10/2008, Additional history exists [...] and were consensually agreed upon. Care Teams Kiosk Sales Representative Relationship Specialty Start Date End Date Emily Obando MD [address] [place] [address] PCP - General Internal Medicine 09/07/23 documented as of this encounter
--- OUTSIDE RECORDS SUMMARY | 2024-07-17 20:00 | External Medical Summary | Summary of Care ---
Author Name Unknown Organization [facility] Address [address] [place] [address] Phone [phone] Care Team Providers Care Grinding Supervisor Name Role Phone Emily Obando MD Primary Care Provider Reason for Visit * Reason Comments Follow Up Pt here for yearly f ull skin exam. No specific areas of concern. Encounter Details Date Type Department Care Team (Late st Contact Info) Description 02/18/2024 2:20 PM EDT Office Visit Dermatology [address] [place] [address] Tiara Pozo PA-C [address] [place] [address] [place] [address] Venous stasis dermatitis*; Lentigines; Skin exam, screening for cancer; Seborrheic keratosis Allergies Active Allergy Reactions Criticality Noted Date Comments Other Allergy (See Comments) Rash Low 05/14/2018 Rash from dermabond after surgery Sotalol 10/20/2021 Bradycardia, fatigued documented as of this encounter (statuses as of 02/18/2024) Medications Medication Sig Dispensed Refills Start Date [...] as of this encounter (statuses as of 02/18/2024) Active Problems Problem Noted Date Diagnosed Date Lichen simplex chronicus 09/07/2023 PAF (paroxysmal atrial fibrillation) 12/10/2021 Chronic heart failure with preserved ejection fr action 12/10/2021 Bradycardia 08/16/2021 Dyslipidemia 08/16/2021 GABY on CPAP 08/16/2021 Endometrial cancer 06/13/2019 Cancer Staging:Clinical stage from 04/03/2017:FIGO Stage IA, calculated as Stage Unknown(cT1a, cNX, cM0) - Signed by Tyrel Sanchez MD on 09/05/2021 Overview: GynOn has indicated does not need Pap smears Status post total bilateral knee replacement ADVANCE DIRECTIVE INFORMATION 08/28/2018 Overview: No, Advance Directive brochure offered , patient declined. Obesity documented as of this encounter (statuses as of 02/18/2024) Resolved Problems Problem Noted Date Diagnosed Date [...] as of this encounter (statuses as of 02/18/2024) Immunizations Name Administration Dates Next Due Pneumococcal Conjugate Vacci ne, 20-valent ([id number]) 07/14/2022 Seasonal Influenza, High Dos e, Trivalent, [...] on file documented as of this encounter Patient Instructions * Patient Instructions* Tiara Pozo PA-C - 02/18/2024 2:17 PM EDT SUNSCREEN USE AND SUN PROTECTION: 1. The best protection is sun avoidance. Seek shade if you can, especially between 10am to 4pm (peak sun hours). 2. Use sunscreen with an SPF (Sun Protection Factor - the number on most sunscreen bottles) of 30 or more that protects from Ultraviolet A (UVA) and Ultraviolet B (UVB) wavelength light (strongly recommend SPF 50). This is referred to as broad spectrum sun protection because it protects from most wa velengths in both spectrums of UVA and UVB light. Unfortunately, even though the protection is broad it is not complete, therefore making sun avoidance the best protection. UVB and UVA have both beenimplicated in causing skin cancers. Older sunscreens only protected from UVB and sunscreens with added UVA protection should contain Titanium dioxide, Zinc oxide, or Avobenzone. Other oil free, non-comedogenic lotion with SPF 30 or greater is fine. 3. Use sun protection if outside for 15 minutes or more. Apply 20-30 minutes before going out and reapply every 1-2 hours. No sunscreen is truly water ''proof'' and it will wash away with sweat, swimming and rubbing. 4. Wear tightly woven, loose fitting (cooler) long sleeved clothing, UV-blocking sun glasses (eyes need protection as well) and wide-brimmed hatwear (no straw hats with holes because light still getsthrough). Strongly recommended *Neutrogena Pure and Free Baby SPF 60 (have separate face and body lotions) orCeraVe AM facial lotion (with SPF 30). If looking for non toxic alternatives-look for non-xiomara particle zinc. Product examples; Think sport, Think baby, Caprice, EximSoft-Trianzo Cerephex, Alba Cerephex, [place] baby. "Baby" products can be used for all ages. SUNSCREEN USE AND SUN PROTECTION: 1. The best protection is sun avoidance. Seek shade if you can, especially between 10am to 4pm (peak sun hours). 2. Use sunscreen with an SPF (Sun Protection Factor - the number on most sunscreen bottles) of 30 or more that protects from Ultraviolet A (UVA) and Ultraviolet B (UVB) wavelength light (strongly recommend SPF 50). This is referred to as broad spectrum sun protection because it protects from most wa velengths in both spectrums of UVA and UVB light. Unfortunately, even though the protection is broad it is not complete, therefore making sun avoidance the best protection. UVB and UVA have both beenimplicated in causing skin cancers. Older sunscreens only protected from UVB and sunscreens with added UVA protection should contain Titanium dioxide, Zinc oxide, or Avobenzone. Other oil free, non-comedogenic lotion with SPF 30 or greater is fine. 3. Use sun protection if outside for 15 minutes or more. Apply 20-30 minutes before going out and reapply every 1-2 hours. No sunscreen is truly water ''proof'' and it will wash away with sweat, swimming and rubbing. 4. Wear tightly woven, loose fitting (cooler) long sleeved clothing, UV-blocking sun glasses (eyes need protection as well) and wide-brimmed hatwear (no straw hats with holes because light still getsthrough). Strongly recommended *Neutrogena Pure and Free Baby SPF 60 (have separate face and body lotions) orCeraVe AM facial lotion (with SPF 30). If looking for non toxic alternatives-look for non-xiomara particle zinc. Product examples; Think sport, Think baby, Caprice, Babo botanicals, Alba Cerephex, [place] baby. "Baby" products can be used for all ages. documented in this encounter Progress Notes * Kyle Candelaria MD - 02/18/2024 3:16 PM EDT I have seen and examined the patient via teledermatology review of chart note and photos with Tiara Pozo PA-C. I have reviewed and agree with the assessment and plan. * Tiara Pozo PA-C - 02/18/2024 2:20 PM EDT SUBJECTIVE: History of Present Illness: Hortensia Dawn is a 68 year old female seen today for follow up of full skin exam. Previous office visit: 11/13/2022 Last attempted treatments include: NONE Annual vulvar exams performed, no vulvar discoloration and/or lesions to be assessed per pt. No new or changing lesions, per pt. Jewel Sorter Documentation Patient offered interactive media specialist and declined. REVIEW OF SYSTEMS: SKIN: No other new or changing moles. HEME/LYMPH: No new or enlarging lumps or bumps. CONSTITUTIONAL: No nausea, vomiting, fevers, chills, diarrhea. No recent unintended weight loss, night sweats, appetite or malaise. RESP: negative MSK/EXT: Negative or as per HPI GI: negative CV: Negative or as per HPI Rest of systems are negative or as per HPI SKIN CANCER HX: NONE Reviewed, same day as visit, 0 [facility] Dermatology lab work(s)/pathology report(s) as well as those sent by referring provider prior to seeing pt. MEDICA TIONS: Current Outpatient Medications Medication Sig Dispense Refill [...] mg Sublingual Q5 Min Nanci Traylor DO ALLERG IES: Sotalol and Other allergy (see comments) OBJECT PARVIN: GEN: alert, no distress, appears oriented, pleasant and cooperative. SKIN: Detailed exam of hair, face including lids and lips, neck, chest, abdomen, back, bilateral upper ext. (arm, hand, fingers), bilateral lower ext. (leg, foot, toes), palpation of scalp, fingernail afghan present, toenail afghan present, inguinal areas, groin (mons pubis), buttocks and anus completed: Medial malleoli-Ill defined pink scaly plaques among venous insufficiency. 2. Face/trunk/bilat arms and legs-Extensive well defined light to medium brown homogenous stellate macules. 3. Trunk/bilat arms and legs-Many sharply defined, variegated brown, waxy flat papules with velvetyto finely verrucous surfaces. ASSESS MENT/PLAN: Venous stasis dermatitis on medial malleoli-Continue with hydration but instructed that she can usethe betamethasone dip ointment BID prn for flares. -Side effects of each medication discussed and treatment regimen written and printed on checkout sheet. 2. Lentigines on face/neck/trunk/bilat arms and legs-no tx needed, pt given reassurance. 3. Seborrheic/Benign Keratosis(-es) on face/trunk/bilat arms and legs-no tx needed, pt given reassurance. Skin cancer brochure given at previous office visit (pt declined need for another) and ABCDE's discussed with patient. Annual full body skin examination (unless I recommended otherwise), self-examination, and sun protection (SPF 30+ daily to sun exposed areas, with reapplication every 1-2 hours when out in sun for long periods of time) advised and discussed. Recommended sooner follow up for new or changing lesions. These changes include rapid enlargement, changes in color or shape or symptoms, bleeding, or other concerns. The common features and behavior of non-melanoma skin cancers (e.g. BCC/SCC) as well as the ABCDEs and ugly duckling features of melanoma were also reviewed. Patient alone today. Photo(s) of #1-3 taken, pt verbally consented to having photo(s) taken. Follow-up: 1 year for full skin exam (per pt) Applicable photos (if any) and chart reviewed by Dr. Kyle Candelaria. Presumed diagnoses, expected natural histories, and management options discussed with the patient at length. Questions were addressed and anticipatory guidance provided. They were instructed to contact me if additional questions, concerns, or problems develop in the interim. -There were no barriers to learning and no other pain was related to today's visit. The patient and/or person accompanying patient demonstrates understanding of the visit and treatment. Tiara Pozo PA-C 02/18/2024 2:15 PM Dermatology [address] [place]ha [place] [address] documented in this encounter Nursing Notes * Padma Thomas LPN - 02/18/2024 2:16 PM EDT Patient identified by full name and date of Chief Complaint Patient presents with Follow Up Pt here for yearly full skin exam. No specific areas of concern. documented in this encounter Plan of Treatment Upcoming Encounters Date Type Department Care Team (Late st Contact Info) Description 02/26/2024 10:20 AM EDT Office Visit Sleep Disorders Ctr [address] [place] [address] Saskia Vasquez DO [address] [place] [address] 04/04/2024 10:00 AM EDT Imaging Radiology [address] [place] [address] 04/11/2024 10:30 AM EDT Office Visit Cardiology, [facility] [address] [place] [address] Sabrina Valdez CRNP [address] [facility] [place] [id number] 09/08/2024 10:40 AM EDT Office Visit Family Practice [facility] [address] [place] [address] Emily Obando MD [address] [place] [address] 09/16/2024 11:30 AM EDT Office Visit Gynecology/Oncology, [place] [address] [place] [address] Heidi Carpio PA-C [address] [place] [address] 02/25/2025 2:20 PM EDT Office Visit Dermatology [address] [place] [address] Tiara Pozo PA-C [address] [place] [address] [place] [address] Scheduled Procedures Name Priority Associated Diagnoses Date/Ti [...] study not interpreted or resulted by a [facility] or [facility] contracted radiologist. Tiara Pozo PA-C RADIOLOGY ([facility]) documented in this encounter Visit Diagnoses Diagnosis Venous stasis dermatitis- Primary Varicose veins of lower extremities with inflammation Lentigines Other dyschromia Skin exam, screening for cancer Screening for malignant neoplasm of the skin Seborrheic keratosis Other seborrheic keratosis documented in this encounter Advance Directives * Full Code (Latest Code Status on File) Date Activated Date Inactivated Comments 04/03/2017 9:33 AM 04/03/2017 6:32 PM This order reflects the patients wishes and were consensually agreed upon. * Full Code Date Activated Date Inactivated Comments 04/03/2017 5:44 AM 04/03/2017 9:33 AM This order reflects the patients wishes and were consensually agreed upon. Care Teams Grinding Supervisor Relationship Specialty Start Date End Date Emily Obando MD [address] [facility] [place] [address] PCP - General Internal Medicine 09/07/23 documented as of this encounter
--- OUTSIDE RECORDS SUMMARY | 2024-07-17 20:00 | External Medical Summary | Summary of Care ---
Author Name Unknown Organization [facility] Address [address] [place] [address] Phone [phone] Care Team Providers Care [facility]astic [facility] Products Assembler Name Role Phone Emily Obando MD Primary Care Provider Reason for Visit * Reason Comments Follow Up Pt here for yearly f ull skin exam. No specific areas of concern. Encounter Details Date Type Department Care Team (Late st Contact Info) Description 02/18/2024 2:20 PM EDT Office Visit Dermatology [address] [place] [address] Tiara Pozo PA-C [address] [place] [address] [place] [address] Venous stasis dermatitis*; Lentigines; Skin exam, screening [...] Next Due Pneumococcal Conjugate Vacci ne, 20-valent ([id number]) 07/14/2022 Seasonal Influenza, High Dos e, Trivalent, [...] Product examples; Think sport, Think baby, Caprice, [employer], Alba [employer] Project, [place] baby. "Baby" products can be used [...] examples; Think sport, Think baby, Caprice, Babo [employer]an[employer], Alba [employer] Project, [place] baby. "Baby" products can be used for all ages. documented in this encounter Progress Notes * Tiara Pozo PA-C - 02/18/2024 2:20 PM EDT SUBJECTIVE: History of Present Illness: Hortensia Dawn is a 68 year old female seen today for follow up of full skin exam. Previous office visit: 11/13/2022 Last attempted treatments include: NONE Annual vulvar exams performed, no vulvar discoloration and/or lesions to be assessed per pt. No new or changing lesions, per pt. Grooming Assistant Documentation Patient offered biostatistics director and declined. REVIEW OF SYSTEMS: SKIN: No [...] NONE Reviewed, same day as visit, 0 [facility] Dermatology lab work(s)/pathology report(s) as well as [...] mg 0.4 mg Sublingual Q5 Min Nanci Traylor, DO ALLERG IES: Sotalol and Other allergy (see comments) OBJECT PARVIN: GEN: alert, no distress, appears oriented, pleasant and cooperative. SKIN: Detailed exam of hair, face including lids and lips, neck, chest, abdomen, back, bilateral upper ext. (arm, hand, fingers), bilateral lower ext. (leg, foot, toes), palpation of scalp, fingernail cayman islander present, toenail cay[place] islander present, inguinal areas, groin (mons pubis), buttocks [...] Tiara Pozo PA-C 02/18/2024 2:15 PM Dermatology [address] [place]ha [place] [address] documented in this encounter Nursing Notes * Padma Thomas LPN - 02/18/2024 2:16 PM EDT Patient identified by full name and date of Chief Complaint Patient presents with Follow Up Pt here for yearly full skin exam. No specific areas of concern. documented in this encounter Plan of Treatment Upcoming Encounters Date Type Department Care Team (Late st Contact Info) Description 02/18/2024 3:00 PM EDT Immunization Ancillary [address] [place] [address] [place], Nurse [address] [place] [address] Need for prophylactic vaccination and inoculation against influenza* 02/26/2024 10:20 AM EDT [facility] [place] [phone] Saskia Vasquez DO [address] [place] [address] 04/04/2024 10:00 AM EDT Imaging Radiology [address] [place] [address] 04/11/2024 10:30 AM EDT Office Visit Cardiology, [facility] [address] [facility] [place] [address] Sabrina Valdez CRNP [address] [facility] [place] [address] 09/08/2024 10:40 AM EDT Office Visit Family Practice [facility] [address] [place] [address] Emily Obando MD [address] [place] [address] 09/16/2024 11:30 AM EDT Office Visit Gynecology/Oncology, [place] [address] [place] [address] Heidi Carpio PA-C [address] [place] [address] 02/25/2025 2:20 PM EDT Office Visit Dermatology [address] [place] [address] Tiara Pozo PA-C [address] [place] [address] [place] [address] Scheduled Procedures Name Priority Associated Diagnoses Date/Ti [...] interpreted or resulted by a [facility] or [facility] contracted radiologist. Tiara Pozo PA-C RADIOLOGY ([facility]) documented in this encounter Visit Diagnoses Diagnosis Venous stasis dermatitis- Primary Varicose veins of lower extremities with inflammation Lentigines Other dyschromia Skin exam, screening for cancer Screening for malignant neoplasm of the skin Seborrheic keratosis Other seborrheic keratosis Need for prophylactic vaccination and inoculation against influenza- Primary documented in this encounter Advance Directives * Full Code (Latest Code Status on File) Date Activated Date Inactivated Comments 04/03/2017 9:33 AM 04/03/2017 6:32 PM This order reflects the patients wishes and were consensually agreed upon. * Full Code Date Activated Date Inactivated Comments 04/03/2017 5:44 AM 04/03/2017 9:33 AM This order reflects the patients wishes and were consensually agreed upon. Care Teams Plastic Hospital Products Assembler Relationship Specialty Start Date End Date Emily Obando MD [address] [facility] [place] [address] PCP - General Internal Medicine 09/07/23 documented as of this encounter
--- OUTSIDE RECORDS SUMMARY | 2024-07-17 20:00 | External Medical Summary | Summary of Care ---
Author Name Unknown Organization [facility] Address [address] [place] [address] Phone [phone] Care Team Providers Care Ultrasound Tester Name Role Phone Emily Obando MD Primary Care Provider Reason for Visit * Reason Onset Date Comments Durable Medical Equipment 02/26/2024 CPAP s upplies Encounter Details Date Type Department Care Team (Late st Contact Info) Description 02/26/2024 Telephone Sleep Disorders Ctr [facility] [address] [place] [address] Saskia Vasquez, [address] [place] [address] Durable Medical Equipment (CPAP supplies ) Allergies Active Allergy Reactions Criticality Noted Date [...] Next Due Pneumococcal Conjugate Vacci ne, 20-valent ([id number]) 07/14/2022 Seasonal Influenza, High Dos e, Trivalent, [...] encounter Miscellaneous Notes * Telephone Encounter - Alma Figueroa OSA - 02/26/2024 11:50 AM EDT DME order for CPAP supplies submitted to [employer]. documented in this encounter Plan of Treatment Upcoming Encounters Date Type Department Care Team (Late st Contact Info) Description 04/04/2024 10:00 AM EDT Imaging Radiology [address] [place] [address] 05/02/2024 10:00 AM EST Office Visit Cardiology, [facility] [address] [facility] [place] [address] Sabrina Valdez CRNP [address] [place] [address] 09/08/2024 10:40 AM EDT Office Visit Family Practice [facility] [address] [place] [address] Emily Obando MD [address] [place] [address] 09/16/2024 11:30 AM EDT Office Visit Gynecology/Oncology, [place] [address] [facility] [place] [address] Heidi Carpio PA-C [address] [facility] [place] [address] 10/07/2024 10:20 AM EDT Office Visit Sleep Disorders Ctr [facility] [address] [place] [phone] Saskia Vasquez, [address] [place] [address] 02/25/2025 2:20 PM EDT Office Visit Dermatology [address] [place] [address] Tiara Pozo PA-C [address] [place] [address] [place] [address] Scheduled Procedures Name Priority Associated Diagnoses Date/Ti [...] and were consensually agreed upon. Care Teams Ultrasound Tester Relationship Specialty Start Date End Date Emily Obando MD [address] [place] [address] PCP - General Internal Medicine 09/07/23 documented as of this encounter
--- OUTSIDE RECORDS SUMMARY | 2024-07-17 20:00 | External Medical Summary | Summary of Care ---
Author Name Unknown Organization [facility] Address [address] [place] [address] Phone [phone] Care Team Providers Care Biodiesel Operations Manager Name Role Phone Emily Obando MD Primary Care Provider Reason for Referral * Evaluate & Treat - Unlimited Visits (Within 30 days (routine)) - Authorized Specialty Diagnoses / Procedures Referred By Jakob saenz Referred To Contact Breast Clinic Multi Specialty / Surgical Oncology Diagnoses Abnormal mammogram Radial scar of breast Emily Obando MD [address] [place] [address] Phone: tel: fax: Referral ID Status Reason Start Date Expiration Date Visits Requested Visits Authorized [id number] Authorized Specialty Services Required 4 [phone] Question Answer Referral Priority Within 30 days (routine) Where should this appointment be scheduled? [place] What is the reason to be seen? Breast Lump - radial scar on bx Is there suspicion of Breast Cancer? No Reason for Visit * Reason Onset Date Comments Referral 04/14/2024 Encounter Details Date Type Department Care Team (Late st Contact Info) Description 04/14/2024 Telephone Radiology [facility] [address] [place] [address] Emily Obando MD [address] [place] [address] Referral Allergies Active Allergy Reactions Criticality Noted Date Comments Other Allergy (See Comments) Rash Low 05/14/2018 Rash from dermabond after surgery Sotalol 10/20/2021 Bradycardia, fatigued documented as of this encounter (statuses as of 04/23/2024) Medications CPAP every night at bedtime . [...] as of this encounter (statuses as of 04/23/2024) Active Problems Problem Noted Date Diagnosed Date [...] as of this encounter (statuses as of 04/23/2024) Resolved Problems Problem Noted Date Diagnosed Date [...] as of this encounter (statuses as of 04/23/2024) Immunizations Name Administration Dates Next Due Pneumococcal Conjugate Vacci ne, 20-valent ([id number]) 07/14/2022 Seasonal Influenza Vac., MDV , IM, [...] encounter Miscellaneous Notes * Telephone Encounter - Jocelyne Mcintyre OSA - 04/23/2024 2:46 PM EST Pt is scheduled for May 13 * Telephone Encounter - Alayna Santos OSA - 04/23/2024 10:19 AM EST Lmom to return call * Telephone Encounter - Rachel Melara OSA - 04/22/2024 3:56 PM EST Please call pt to schedule breast clinic thank you * Telephone Encounter - Emily Obando MD - 04/22/2024 3:51 PM EST Referral to high risk breast clinic * Telephone Encounter - Abiel Fernando RDMS - 04/14/2024 9:05 AM EST Following completion of right breast ultrasound guided core biopsy, discharge instructions were provided and patient expressed understanding. Specimen was delivered to the lab at 9:01 am. documented in this encounter Plan of Treatment Upcoming Encounters Date Type Department Care Team (Late st Contact Info) Description 05/02/2024 10:00 AM EST Office Visit Cardiology, [facility] [address] [place] [address] Sabrina Valdez [facility] [address] 05/13/2024 10:15 AM EST Office Visit General Surgery, [facility] [address] [place] [address] Jenifer Culp MD [address] [place] [address] 09/08/2024 10:40 AM EDT Office Visit Family Practice [facility] [address] [place] [address] Emily Obando MD [address] [place] [address] 09/16/2024 11:30 AM EDT Office Visit Gynecology/Oncology, [place] [address] [place] [address] Heidi Carpio PA-C [address] [place] [address] 10/07/2024 10:20 AM EDT Office Visit Sleep Disorders Ctr [facility] [address] [place] [phone] Saskia Vasquez, [address] [place] [address] 02/25/2025 2:20 PM EDT Office Visit Dermatology [address] [place] [address] Tiara Pozo PA-C [address] [place] [address] [place] [address] 04/15/2025 9:00 AM EST Imaging Radiology [address] [place] [address] Scheduled Procedures Name Priority Associated Diagnoses Date/Ti me COLONOSCOPY FLEXIBLE PROXIMA L DIAGNOSTIC Recall Encounter for screening colonoscopy Scheduled Referrals Name Type Priority Associated Diagnoses Orde r Schedule BREAST CLINIC REFERRAL OP Referral Within 30 days (routine) Abnormal mammogram Radial scar of breast Ordered: 04/22/2024 Health Maintenance Due Date Last Done Comments [...] as of this encounter Visit Diagnoses Diagnosis Abnormal mammogram- Primary Abnormal mammogram, unspecified Radial scar of breast Scar condition and fibrosis of skin Screening mammogram for breast cancer documented in [...] and were consensually agreed upon. Care Teams Biodiesel Operations Manager Relationship Specialty Start Date End Date Emily Obando MD [address] [place] [address] PCP - General Internal Medicine 09/07/23 documented as of this encounter
--- OUTSIDE RECORDS SUMMARY | 2024-07-17 20:00 | External Medical Summary | Summary of Care ---
Author Name Unknown Organization [facility] Address [address] [place] [address] Phone [phone] Care Team Providers Care Rotary Drier Name Role Phone Emily Obando MD Primary Care Provider Reason for Referral * Evaluate & Treat - Unlimited Visits (Within 30 days (routine)) - Authorized Specialty Diagnoses / Procedures Referred By Jakob saenz Referred To Contact Breast Clinic Multi Specialty / Surgical Oncology Diagnoses Abnormal mammogram Radial scar of breast Emily Obando MD [address] [place] [address] Phone: tel: fax: Referral ID Status Reason Start Date Expiration Date Visits Requested Visits Authorized [id number] Authorized Specialty Services Required 4 [phone] [...] st Contact Info) Description 04/14/2024 Telephone Radiology [facility] [address] [place] [address] Emily Obando MD [address] [place] [address] Referral Allergies Active Allergy Reactions Criticality Noted [...] Next Due Pneumococcal Conjugate Vacci ne, 20-valent ([id number]) 07/14/2022 Seasonal Influenza Vac., MDV , IM, [...] encounter Miscellaneous Notes * Telephone Encounter - Alayna Santos OSA [...] 05/02/2024 10:00 AM EST Office Visit Cardiology, [facility] [address] [facility] [place] [address] Sabrina Valdez CRNP [address] [place] [address] 09/08/2024 10:40 AM EDT Office Visit Family Practice [facility] [address] [facility] [place] [address] Emily Obando MD 132 [facility] [place] [address] 09/16/2024 11:30 AM EDT Office Visit Gynecology/Oncology, [place] [address] [place] [address] Heidi Carpio PA-C [address] [place] [address] 10/07/2024 10:20 AM EDT Office Visit Sleep Disorders Ctr [facility] [address] [facility] [place] [phone] Saskia Vasquez DO [address] [facility] [address] [place] [address] 02/25/2025 2:20 PM EDT Office Visit Dermatology [address] [place] [address] Tiara Pozo PA-C [address] [place] [address] [place] [address] 04/15/2025 9:00 AM EST Imaging Radiology [address] [place] [address] Scheduled Procedures Name Priority Associated Diagnoses Date/Ti [...] Cancer Screening 03/19/2028 Lipid Panel 09/26/2028 09/27/2023, 0 06/2022, 01/10/2022, Additional history exists DTap/Tdap Vaccines [...] and were consensually agreed upon. Care Teams Rotary Drier Relationship Specialty Start Date End Date Emily Obando MD [address] [place] [address] PCP - General Internal Medicine 09/07/23 documented as of this encounter
--- OUTSIDE RECORDS SUMMARY | 2024-07-17 20:00 | External Medical Summary | Summary of Care ---
Author Name Unknown Organization [facility] Address [address] [place] [address] Phone [phone] Care Team Providers Care Backup Engineer Name Role Phone Emily Obando MD Primary Care Provider Reason for Visit * Reason Onset Date Comments Medication Administration 02/18/2024 Flu an d/or Pneumo Inj Encounter Details Date Type Department Care Team (Late st Contact Info) Description 02/18/2024 3:00 PM EDT Immunization Ancillary [address] [place] [address] [place], Nurse [address] [place] [address] Need for prophylactic vaccination and inoculation against influenza* Allergies Active Allergy Reactions Criticality Noted Date [...] Next Due Pneumococcal Conjugate Vacci ne, 20-valent ([id number]) 07/14/2022 Seasonal Influenza, High Dos e, Trivalent, [...] on file documented as of this encounter Progress Notes * Suad Rodriguez LPN - 02/18/2024 2:36 PM EDT PRE - ADMINISTRATION DOCUMENTATION Are you experiencing any cold symptoms or fever? No Have you had Guillain-Danville Syndrome (an illness that causes paralysis) within the last 6 weeks? No Have you had the flu shot in the past? YES Have you ever had a reaction to the flu shot? No Suad Rodriguez LPN, 02/18/2024 2:36 PM Immunization Administration Documentation Time Out Procedure Performed: Yes Patient Identified (Ask Name/Date of ): Yes Does the patient have a fever greater than 101 degrees today? No Patient allergic to latex? No VFC Stock: No Immunization(s) verified: Yes, Immunization Name: Flu, VIS Sheet(s) given: Yes Verified Side and Site: Yes Verified Shot(s) with Parent(s)/Patient: Yes documented in this encounter Plan of Treatment Upcoming Encounters Date Type Department Care Team (Late st Contact Info) Description 02/26/2024 10:20 AM EDT [facility] [address] [place] [phone] Saskia Vasquez, [address] [place] [address] 04/04/2024 10:00 AM EDT Imaging Radiology [address] [place] [address] 04/11/2024 10:30 AM EDT Office Visit Cardiology, [facility] 132 [facility] [place] [address] Sabrina Valdez CRNP [address] [place] [address] 09/08/2024 10:40 AM EDT Office Visit Family Practice [facility] 132 [facility] [place] [address] Emily Obando MD 132 [facility] [place] [address] 09/16/2024 11:30 AM EDT Office Visit Gynecology/Oncology, [place] [address] [place] [address] Heidi Carpio PA-C [address] [place] [address] 02/25/2025 2:20 PM EDT Office Visit Dermatology [address] [place] [address] Tiara Pozo PA-C [address] [place] [address] [place] [address] Scheduled Procedures Name Priority Associated Diagnoses Date/Ti [...] as of this encounter Visit Diagnoses Diagnosis Need for prophylactic vaccination and inoculation against [...] and were consensually agreed upon. Care Teams Backup Engineer Relationship Specialty Start Date End Date Emily Obando MD [address] [place] [address] PCP - General Internal Medicine 09/07/23 documented as of this encounter
--- OUTSIDE RECORDS SUMMARY | 2024-07-17 20:00 | External Medical Summary | Summary of Care ---
Author Name Unknown Organization [facility] Address [address] [place] [address] Phone [phone] Care Team Providers Care Test Engineer Name Role Phone Emily Obando MD Primary Care Provider Reason for Visit * Reason Onset Date Comments Advice 04/10/2024 Encounter Details Date Type Department Care Team (Late st Contact Info) Description 04/10/2024 Telephone Radiology [facility] [address] [facility] [address] [place] [address] Doc Lisa MD [address] [place] [address] Advice Allergies Active Allergy Reactions Criticality Noted [...] Next Due Pneumococcal Conjugate Vacci ne, 20-valent ([id number]) 07/14/2022 Seasonal Influenza Vac., MDV , IM, [...] Description 04/14/2024 8:00 AM EST Imaging Radiology [address] [place] [address] 04/14/2024 8:00 AM EST Imaging Radiology [facility] [address] [facility] [place] [address] 05/02/2024 10:00 AM EST Office Visit Cardiology, [facility] [address] [facility] [place] [address] Sabrina Valdez CRNP 400 [facility] [place] [address] 09/08/2024 10:40 AM EDT Office Visit Family Practice [facility] [address] [facility] [place] [address] Emily Obando MD 132 [facility] [place] [address] 09/16/2024 11:30 AM EDT Office Visit Gynecology/Oncology, [place] [address] [place] [address] Heidi Carpio PA-C [address] [place] [address] 10/07/2024 10:20 AM EDT Office Visit Sleep Disorders Ctr [facility] 132 [facility] [place] [phone] Saskia Vasquez DO 132 [facility] [place] [address] 02/25/2025 2:20 PM EDT Office Visit Dermatology [address] [place] [address] Tiara Pozo PA-C [address] [place] [address] [place] [address] 04/15/2025 9:00 AM EST Imaging Radiology [address] [place] [address] Scheduled Procedures Name Priority Associated Diagnoses Date/Ti [...] and were consensually agreed upon. Care Teams Test Engineer Relationship Specialty Start Date End Date Emily Obando MD [address] [place] [address] PCP - General Internal Medicine 09/07/23 documented as of this encounter
--- OUTSIDE RECORDS SUMMARY | 2024-07-17 20:01 | External Medical Summary | Summary of Care ---
Author Name Unknown Organization [facility] Address [address] [place] [address] Phone [phone] Care Team Providers Care Coagulating Drying Supervisor Name Role Phone Emily Obando MD Primary Care Provider Reason for Visit * Reason Onset Date Comments Order Request 01/29/2024 CPAP supplies Encounter Details Date Type Department Care Team (Late st Contact Info) Description 01/29/2024 Telephone Sleep Disorders Ctr [facility] [address] [facility] [place] [address] Saskia Vasquez, [address] [facility] [place] [address] Order Request (CPAP supplies) Allergies Active Allergy Reactions Criticality Noted Date Comments Other Allergy (See Comments) Rash Low 05/14/2018 Rash from dermabond after surgery Sotalol 10/20/2021 Bradycardia, fatigued documented as of this encounter (statuses as of 01/30/2024) Medications Medication Sig Dispensed Refills Start Date [...] as of this encounter (statuses as of 01/30/2024) Active Problems Problem Noted Date Diagnosed Date [...] as of this encounter (statuses as of 01/30/2024) Resolved Problems Problem Noted Date Diagnosed Date [...] as of this encounter (statuses as of 01/30/2024) Immunizations Name Administration Dates Next Due Pneumococcal Conjugate Vacci ne, 20-valent ([id number]) 07/14/2022 Seasonal Influenza, PF, 6 M & [...] encounter Miscellaneous Notes * Telephone Encounter - Serena Garnica LPN - 01/30/2024 8:10 AM EDT MyG sent. * Telephone Encounter - Saskia Vasquez DO - 01/29/2024 4:38 PM EDT This is the third month in a row that I have entered order for new supplies for pt. She likely needs to touch base with the DME directly. I put both [facility] and [facility] on this order as that was inher last t/e. documented in this encounter Plan of Treatment Upcoming Encounters Date Type Department Care Team (Late st Contact Info) Description 02/26/2024 10:20 AM EDT Office Visit Sleep Disorders Ctr [facility] 132 [facility] [place] [phone] Saskia Vasquez DO [address] [place] [address] 04/04/2024 10:00 AM EDT Imaging Radiology [address] [place] [address] 04/11/2024 10:30 AM EDT [facility] [address] [facility] [place] [address] Sabrina Valdez CRNP [address] [place] [address] [place] [address] 09/08/2024 10:40 AM EDT Office Visit Family Practice [facility] [address] [place] [address] Emily Obando MD [address] [place] [address] 09/16/2024 11:30 AM EDT Office Visit Gynecology/Oncology, [place] [address] [place] [address] Heidi Carpio PA-C [address] [place], [place] [id number] 12/03/2024 8:40 AM EDT Office Visit Dermatology [address] [place] [address] Tiara Pozo PA-C [address] [place] [address] [place] [address] Scheduled Procedures Name Priority Associated Diagnoses Date/Ti [...] apnea)- Primary Obstructive sleep apnea (adult) (pediatric) documented in this encounter Advance Directives * Full Code (Latest Code Status on File) Date Activated Date Inactivated Comments 04/03/2017 9:33 AM 04/03/2017 6:32 PM This order reflects the patients wishes and were consensually agreed upon. * Full Code Date Activated Date Inactivated Comments 04/03/2017 5:44 AM 04/03/2017 9:33 AM This order reflects the patients wishes and were consensually agreed upon. Care Teams Coagulating Drying Supervisor Relationship Specialty Start Date End Date Emily Obando MD 132 [facility] [place] [address] PCP - General Internal Medicine 09/07/23 documented as of this encounter
--- OUTSIDE RECORDS SUMMARY | 2024-07-17 20:01 | External Medical Summary | Summary of Care ---
Author Name Unknown Organization [facility] Address [address] [place] [address] Phone [phone] Care Team Providers Care Director Learning Services Name Role Phone Emily Obando MD Primary Care Provider Reason for Visit * Reason Onset Date Comments Order Request 01/29/2024 CPAP supplies Encounter Details Date Type Department Care Team (Late st Contact Info) Description 01/29/2024 Telephone Sleep Disorders Ctr [facility] [address] [place] [address] Saskia Vasquez, [address] [place] [address] Order Request (CPAP supplies) Allergies [...] Next Due Pneumococcal Conjugate Vacci ne, 20-valent ([id number]) 07/14/2022 Seasonal Influenza, PF, 6 M & [...] Telephone Encounter - Alma Figueroa OSA - 01/30/2024 8:25 AM EDT DME Order from November is still in process with [employer]. I have attached this one as well and sent them a note to follow up. * Telephone Encounter - Serena Garnica LPN - 01/30/2024 8:10 AM EDT MyG sent. * Telephone Encounter - Saskia Vasquez DO - 01/29/2024 4:38 PM EDT This is the third month in a row that I have entered order for new supplies for pt. She likely needs to touch base with the DME directly. I put both [facility] and [facility] on this order as that was inher last t/e. documented in this encounter Plan of Treatment Upcoming Encounters Date Type Department Care Team (Late st Contact Info) Description 02/26/2024 10:20 AM EDT Office Visit Sleep Disorders Ctr [facility] 132 [facility] [place] [phone] Saskia Vasquez DO [address] [place] [address] 04/04/2024 10:00 AM EDT Imaging Radiology [address] [place] [address] 04/11/2024 10:30 AM EDT Office Visit [facility] 132 [facility] [place] [address] Sabrina Valdez CRNP 400 [facility] [place] [address] 09/08/2024 10:40 AM EDT Office Visit [facility] 132 [facility] [place] [address] Emily Obando MD 132 [facility] [place] [address] 09/16/2024 11:30 AM EDT Office Visit Gynecology/Oncology, [place] [address] [place] [address] Heidi Carpio PA- [address] [place] [address] 12/03/2024 8:40 AM EDT Office Visit Dermatology [address] [place] [address] Tiara Pozo PA-C [address] [place] [address] [place] [address] Scheduled Procedures Name Priority Associated Diagnoses Date/Ti [...] and were consensually agreed upon. Care Teams Director Learning Services Relationship Specialty Start Date End Date Emily Obando MD [address] [place] [address] PCP - General Internal Medicine 09/07/23 documented as of this encounter
--- OUTSIDE RECORDS SUMMARY | 2024-07-17 20:01 | External Medical Summary | Summary of Care ---
Author Name Unknown Organization [facility] Address [address] [place] [address] Phone [phone] Care Team Providers Care Rn Lvn Name Role Phone Emily Obando MD Primary Care Provider Reason for Visit * Reason Onset Date Comments Sleep Apnea Device 01/22/2024 Re: CPAP supp lies Encounter Details Date Type Department Care Team (Late st Contact Info) Description 01/22/[address] [facility] [address] [place] [address] Emily Obando MD [address] [place] [address] Sleep Apnea Device (Re: CPAP supplies) Allergies Active Allergy Reactions Criticality Noted Date Comments Other Allergy (See Comments) Rash Low 05/14/2018 Rash from dermabond after surgery Sotalol 10/20/2021 Bradycardia, fatigued documented as of this encounter (statuses as of 01/29/2024) Medications Medication Sig Dispensed Refills Start Date [...] as of this encounter (statuses as of 01/29/2024) Active Problems Problem Noted Date Diagnosed Date [...] as of this encounter (statuses as of 01/29/2024) Resolved Problems Problem Noted Date Diagnosed Date [...] as of this encounter (statuses as of 01/29/2024) Immunizations Name Administration Dates Next Due Pneumococcal Conjugate Vacci ne, 20-valent ([id number]) 07/14/2022 Seasonal Influenza, PF, 6 M & [...] encounter Miscellaneous Notes * Telephone Encounter - Saskia Vasquez DO - 01/29/2024 4:[address] in separate T/E * Telephone Encounter - Serena Garnica LPN - 01/29/2024 9:20 AM EDT Per the pt, she needs supplies-specifically the mask, hose, pillows. She uses SMP. * Telephone Encounter - Saskia Vasquez DO - 01/29/2024 7:55 AM EDT This is written as a request for CPAP. Is her's broken? Is it 5 yrs old? * Telephone Encounter - Siomara Jimenez LPN - 01/23/2024 1:30 PM EDT Ordered by sleep med. * Telephone Encounter - Carissa Santacruz, GABY - 01/22/2024 9:46 AM EDT Caller requesting the following information to be faxed: Name/Company of caller: [employer] Information requested to be faxed: Diagnostic Prescription for cpap Fax number: [phone] Attention to Name/Company: [employer] Any additional information?: n/a documented in this encounter Plan of Treatment Upcoming Encounters Date Type Department Care Team (Late st Contact Info) Description 02/26/2024 10:20 AM EDT Office Visit Sleep Disorders Ctr [facility] [address] [place] [phone] Saskia Vasquez DO [address] [place] [address] 04/04/2024 10:00 AM EDT Imaging Radiology [address] [place] [address] 04/11/2024 10:30 AM EDT Office Visit Cardiology, [facility] 132 [facility] [place] [address] Sabrina Valdez CRNP [address] [place], [place] [address] [address] 09/08/2024 10:40 AM EDT Office Visit Family Practice [facility] [address] [place] [address] Emily Obando MD 132 [facility] [place] [address] 09/16/2024 11:30 AM EDT Office Visit Gynecology/Oncology, [place] [address] [place] [address] Heidi Carpio PA-C [address] [facility] [place] [address] 12/03/2024 8:40 AM EDT Office Visit Dermatology [address] [place] [address] Tiara Pozo PA-C [address] [place] [address] [place] [address] Scheduled Procedures Name Priority Associated Diagnoses Date/Ti [...] 09/27/2023, 030 06/2022, 01/10/2022, Additional history exists DTaP,Tdap,and Td [...] and were consensually agreed upon. Care Teams Rn Lvn Relationship Specialty Start Date End Date Emily Obando MD [address] [place] [address] PCP - General Internal Medicine 09/07/23 documented as of this encounter
--- NOTE | 2024-07-17 20:57 | History & Physical Report ---
Date of Service July 17, 2024 Assessment & Plan (1) Breast abscess: Plan: Right breast abscess History outpatient excisional biopsy (06/30/23) Failed outpatient treatment No sepsis for now chronic diastolic heart failure (EF 60%, TTE 2023), patient euvolemic hx A-fib on Eliquis, chronic bradycardia, patient last dose 7 PM tonight hx thoracic aorta enlargement hypertension, stable GABY on CPAP endometrial cancer status post surgery Admit to [facility] Doxycycline and Zosyn General Surgery consult Re: Right breast abscess (ED provider already in touch with Dr. Burnett who recommends n.p.o. status after midnight in anticipation of procedure.) Hold Eliquis until patient seen by surgeon. DVT prophylaxis SCDs while Eliquis on hold Full code Text document was generated using [employer] voice recognition software. It may contain grammatical or spelling errors. Kindly contact undersigned for clarification of any documentation item in question. History of Present Illness Chief Complaint: Worsening right breast swelling Primary Care Provider: Dr. Obando History obtained from patient, family, and records. Medical history significant for chronic diastolic heart failure (EF 60%, TTE 2023), A-fib on Eliquis, chronic bradycardia, thoracic aorta enlargement, hypertension, GABY on CPAP, endometrial cancer status post surgery, anxiety disorder. Last confinement 2021 for new onset A-fib. Patient discharged on sotalol and Eliquis Rx. Sotalol eventually discontinued outpatient due to bradycardia. Patient underwent outpatient excisional biopsy of right breast radial scar 2 weeks ago at [facility]. Last week, patient noted redness over right breast without drainage. No fever, no chills. [place] [facility] [place] 2 days ago. Keflex prescribed for cellulitis. Worsening swelling and pain despite compliance with medications. Chills at home. Denies SOB. Patient directed to ER for evaluation. Vancomycin and Zosyn administered for right breast abscess. 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 Allergies Allergy/AdvReac Type Severity Reaction Status Date / Time adhesive tape AdvReac Intermediate blisters Unverified 07/11/21 10:04 Home Medications Medication Instructions Recorded Confirmed Type vitamins A,C,L-bhjr-gbzvnw 2,148 2 tab PO AMHS 07/11/21 07/17/24 History mcg-113 mg-45 mg-17.4 mg tablet (PreserVision AREDS) apixaban 5 mg tablet (Eliquis) 5 mg PO AMHS 07/17/24 07/17/24 History losartan 50 mg tablet 50 mg PO AMHS 07/17/24 07/17/24 History rosuvastatin 5 mg tablet 5 mg PO QA 07/17/24 07/17/24 History Past Med/Surg History Problem List (Updated 07/17/24 @ 22:58 by Sriram Mccord MD) Breast abscess (Acute) Morbid obesity GABY (obstructive sleep apnea) HTN, goal below 140/80 Paroxysmal atrial fibrillation Status post left knee replacement Encounter for pre-operative examination Arthritis of knee, left Allergic rhinitis DJD (degenerative joint disease) of knee Medical History (Updated 07/17/24 @ 22:58 by Sriram Mccord MD) Atrial fibrillation with rapid ventricular response Obesity Ovarian cancer NO CHEMO/NO RADIATION Osteoarthritis Hyperlipidemia "BORDERLINE"- NO MEDS Surgical History History of total knee replacement RIGHT TKA= 11/08/16= SAB + PNB AT [facility] History of hysterectomy TOTAL Family History Brother Atrial fibrillation hx of ablation Social History Smoking Status: Never smoker Second Hand Exposure: No; Do You Dip or Chew Tobacco: No; Hx Alcohol Use: No Hx Substance Use: No Preferred Language: Macedonian Communication Ability: Effective Visual Impairment: No Limitations 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 Required: No Beliefs That Will Affect Care: None marital status: Current Living Situation: Spouse current occupational status: employed How many Children do You have: 3 Other Information That Helps Us Care for You: No Feels Safe at Home: Yes Safety Concerns: Feels Safe At This Time Assistive Devices: Glasses Review of Systems Review of Systems: As per HPI, all other systems reviewed and negative Physical Exam Physical Exam: GENERAL: Comfortable, pleasant, slightly anxious, morbidly obese, no respiratory distress SKIN: Normal color, warm HEENT: [place] palpebral conjunctivae, no ptosis, upper lip asymmetry (chronic as per ), moist buccal mucosa NECK : Supple, short neck, no tenderness CHEST : Tender right breast induration, clear to auscultation HEART : Bradycardic, no obvious murmurs ABDOMEN: Some distention, nontender EXTREMITIES : Minimal LE swelling, no LE tenderness, palpable pulses, no other conspicuous deformities noted NEUROLOGIC : Coherent, chronic upper lip asymmetry, no other gross focality Results & Data Results & Data Vital Signs (Past 12 Hours) Vital Signs Temp Pulse Pulse Resp BP BP Pulse Ox 07/17/24 19:16 58 L 17 125/68 98 07/17/24 17:15 36.4 C L 86 20 184/96 H 93 O2 Del Method 07/17/24 19:16 Room Air 07/17/24 17:15 Room Air Laboratory Results Laboratory Results WBC 14.62 K/ul (4.8-10.8) H 07/17/24 17:33 RBC 4.31 M/uL (4.20-5.40) 07/17/24 17:33 Hgb 12.2 g/dl (12.0-16.0) 07/17/24 17:33 Hct 37.9 % (37.0-47.0) 07/17/24 17:33 MCV 87.9 fL (80.0-100.0) 07/17/24 17:33 MCH 28.3 pg (25.0-34.0) 07/17/24 17:33 MCHC 32.2 g/dL (32.0-36.0) 07/17/24 17:33 RDW Std Deviation 46.5 fL (36.4-46.3) H 07/17/24 17:33 RDW Coeff of Bret 14.3 % (11.5-14.5) 07/17/24 17:33 Plt Count 285 K/uL (130-400) 07/17/24 17:33 MPV 9.8 fL (9.4-12.4) 07/17/24 17:33 Immature Gran % (Auto) 0.3 % 07/17/24 17:33 Neut % (Auto) 75.7 % 07/17/24 17:33 Lymph % (Auto) 15.3 % 07/17/24 17:33 [place] % (Auto) 5.3 % 07/17/24 17:33 Eos % (Auto) 2.9 % 07/17/24 17:33 Baso % (Auto) 0.5 % 07/17/24 17:33 Neut # (Auto) 11.07 K/uL (1.40-6.50) H 07/17/24 17:33 Lymph # (Auto) 2.23 K/uL (1.20-3.40) 07/17/24 17:33 [place] # (Auto) 0.77 K/uL (0.11-0.59) H 07/17/24 17:33 Eos # (Auto) 0.42 K/uL (0.00-0.50) 07/17/24 17:33 Baso # (Auto) 0.08 K/uL (0.00-0.20) 07/17/24 17:33 Immature Gran # (Auto) 0.05 K/uL (0.01-0.20) 07/17/24 17:33 Sodium 140 mmol/L (136-145) 07/17/24 17:33 Potassium 4.0 mmol/L (3.5-5.1) 07/17/24 17:33 Chloride 105 mmol/L (98-107) 07/17/24 17:33 Carbon Dioxide 26 mmol/L (21-32) 07/17/24 17:33 Anion Gap 9 (3-11) 07/17/24 17:33 BUN 18 mg/dl (6-23) 07/17/24 17:33 Creatinine 1.07 mg/dl (0.6-1.2) 07/17/24 17:33 Est Cr Clr Drug Dosing 73.9 ml/min 07/17/24 17:33 eGFR 56.93 07/17/24 17:33 BUN/Creatinine Ratio 16.8 (10-20) 07/17/24 17:33 Glucose 106 mg/dl (70-99(Fasting)) H 07/17/24 17:33 Lactate 1.9 mmol/L (0.4-2.0) 07/17/24 18:21 Calcium 9.8 mg/dl (8.6-10.3) 07/17/24 17:33 Total Bilirubin 0.5 mg/dl (0.2-1.0) 07/17/24 17:33 AST 13 U/L (13-39) 07/17/24 17:33 ALT 13 U/L (7-52) 07/17/24 17:33 Alkaline Phosphatase 84 U/L (34-104) 07/17/24 17:33 Total Protein 7.2 gm/dl (6.0-8.3) 07/17/24 17:33 Albumin 3.8 gm/dl (3.4-5.0) 07/17/24 17:33 Globulin 3.4 gm/dl (2.5-4.0) 07/17/24 17:33 Albumin/Globulin Ratio 1.1 (0.9-2) 07/17/24 17:33 Impressions Breast Ultrasound 07/17/24 18:10 EXAM: US Right Breast Limited INDICATION: Pain and redness. Scar tissue removed about 2 weeks ago. TECHNIQUE: Sonographic images right breast 9:00 area of interest provided. COMPARISON: No relevant prior studies available. FINDINGS: Right breast: In the area of interest is a complex fluid collection consistent with an abscess measuring 8.3 x 5.8 x 7.5 cm. There is edema of the surrounding fibroglandular tissue. A tract may be starting to extend to the skin surface. IMPRESSION: 8.3 x 5.8 x 7.5 cm right breast abscess at the 9 o'clock position in the area of interest. BI-RADS 2 ACT 112: Negative or not required by law. Electronically signed by Mariam Kwon 07-17-2024 7:32 PM
[2024-07-17] MEDS ORDERED: ACETAMINOPHEN 325 MG TAB PO PRN (21:43)
[2024-07-17] MEDS ORDERED: oxyCODONE HCL IR 5 MG TAB (IMMEDIATE RELEASE) PO PRN (21:43)
[2024-07-17] MEDS ORDERED: PROMETHAZINE 12.5 MG/50.5 ML BAG IV PRN (21:43)
[2024-07-17] MEDS ORDERED: LORazepam 0.5 MG TAB PO PRN (21:43)
[2024-07-17] MEDS: SODIUM CHLORIDE 0.9% 1,000 ML IV STA (22:54)
[2024-07-17] MEDS: cloNIDine HCL 0.1 MG TAB PO ONE (23:18)
[2024-07-18] MEDS: PIPERACILLIN/TAZOBACTAM 4.5 GM/100 ML BAG IV SCH (00:09)
[2024-07-18 06:22] LABS: Basophils # (auto) 0.06 K/uL (0.00-0.20); Basophils % (auto) 0.5 %; Eosinophils # (auto) 0.51 K/uL (0.00-0.50); Eosinophils % (auto) 4.5 %; Hematocrit (blood only) 33.6 % (37.0-47.0); Immature Granulocytes # (auto) 0.04 K/uL (0.01-0.20); Immature Granulocytes % (auto) 0.4 %; Lymphocytes # (auto) 1.81 K/uL (1.20-3.40); Lymphocytes % (auto) 16.1 %; Mean Corpuscular Hemoglobin 28.6 pg (25.0-34.0); Mean Corpuscular Hgb Conc 32.7 g/dL (32.0-36.0); Mean Corpuscular Volume 87.5 fL (80.0-100.0); Mean Platelet Volume 9.9 fL (9.4-12.4); Monocytes # (auto) 0.84 K/uL (0.11-0.59); Monocytes % (auto) 7.5 %; Neutrophils # (auto) 7.96 K/uL (1.40-6.50); Platelet Count 231 K/uL (130-400); RDW Coefficient of Variation 14.5 % (11.5-14.5); RDW Standard Deviation 46.3 fL (36.4-46.3); Red Blood Count 3.84 M/uL (4.20-5.40); White Blood Count 11.22 K/ul (4.8-10.8)
[2024-07-18 06:40] LABS: BUN Creatinine Ratio 17.8 (10-20)
[2024-07-18] MEDS: ROSUVASTATIN CALCIUM 5 MG TAB PO SCH (07:42)
[2024-07-18] MEDS: CEROVITE ADV FORMULA TAB PO SCH (07:42)
[2024-07-18] MEDS: DOXYCYCLINE HYCLATE 100 MG CAP PO SCH (07:42)
[2024-07-18] MEDS: LOSARTAN POTASSIUM 50 MG TAB PO SCH (07:42)
--- NOTE | 2024-07-18 08:55 | Electrocardiogram Report ---
Test Reason : Blood Pressure : */* mmHG Vent. Rate : 65 BPM Atrial Rate : 65 BPM P-R Int : 212 ms QRS Dur : 76 ms QT Int : 418 ms P-R-T Axes : 67 64 40 degrees QTcB Int : 434 ms Sinus rhythm with 1st degree A-V block Low voltage QRS Borderline ECG When compared with ECG of 14-Jul-2021 06:09, No significant change was found Confirmed by Salvador Sunshine ([id number]) on 07/18/2024 8:55:38 AM Referred By: REFERRED SELF Confirmed By: Salvador Susnhine
--- NOTE | 2024-07-18 08:56 | Surgery Consultation ---
Date of Consultation July 18, 2024 Assessment & Plan (1) Breast abscess: 69 yo s/p right breast lumpectomy 07/01/24 presents with post op abscess. abscess drained at bedside - details in separate operative note plan for 24 hours of IV antibiotics probable d/c on PO antibiotics tomorrow RTC Sunday/Sunday for packing change/wound check History of Present Illness Reason for Consultation: breast abscess Requesting Physician: Jaqueline Copeland MD Attending Physician: Jaqueline Copeland MD History of Present Illness 69 yo woman s/p right breast lumpectomy 07/01/24 at [facility] by Dr. Culp presents with redness, swelling, and pain in her right breast surrounding her incision site. no drainage. no fevers. seen by Dr. Culp two days ago and placed on keflex for erythema at incision. continued to worsen and came to ED. US demonstrates 8 cm abscess/fluid collection extending almost to the skin. elevated WBC. Allergies Allergy/AdvReac Type Severity Reaction Status Date / Time adhesive tape AdvReac Intermediate blisters Unverified 07/11/21 10:04 Home Medications Medication Instructions Recorded Confirmed Type vitamins A,C,P-safe-fsbxdt 2,148 2 tab PO AMHS 07/11/21 07/17/24 History mcg-113 mg-45 mg-17.4 mg tablet (PreserVision AREDS) apixaban 5 mg tablet (Eliquis) 5 mg PO AMHS 07/17/24 07/17/24 History losartan 50 mg tablet 50 mg PO AMHS 07/17/24 07/17/24 History rosuvastatin 5 mg tablet 5 mg PO QA 07/17/24 07/17/24 History Patient History Medical History Atrial fibrillation with rapid ventricular response Obesity Ovarian cancer NO CHEMO/NO RADIATION Osteoarthritis Hyperlipidemia "BORDERLINE"- NO MEDS Surgical History History of total knee replacement RIGHT TKA= 11/08/16= SAB + PNB AT [facility] History of hysterectomy TOTAL Family History Brother Atrial fibrillation hx of ablation Social History Smoking Status: Never smoker Second Hand Exposure: No; Do You Dip or Chew Tobacco: No; Hx Alcohol Use: No Hx Substance Use: No Preferred Language: Mohawk Communication Ability: Effective Visual Impairment: No Limitations 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 Required: No Beliefs That Will Affect Care: None marital status: Current Living Situation: Spouse current occupational status: employed How many Children do You have: 3 Other Information That Helps Us Care for You: No Feels Safe at Home: Yes Safety Concerns: Feels Safe At This Time Assistive Devices: Glasses Review of Systems Review of Systems: All systems reviewed & are unremarkable except as noted in HPI & below Physical Exam Constitutional: WD/WN, vitals as above Eyes: PERRL, conjunctivae normal, anicteric sclerae Neck: trachea midline, no thyromegaly Respiratory: normal respiratory effort; no respiratory distress and no labored breathing Cardiovascular: Rate/Rhythm: regular rate and regular rhythm Chest (Breasts): Additional Comments: right breast incision upper outer quadrant; extensive erythema and induration extending across the breast from the incision; no drainage; no fluctuance Skin: no rashes, warm and dry Psychiatric: A+Ox3, euthymic affect Results & Data Vital Signs (Past 12 Hours) Vital Signs Temp Pulse Resp BP BP Pulse Ox O2 Del Method 07/18/24 06:58 36.8 C 59 L 16 117/72 96 Room Air 07/17/24 23:14 63 117/76 07/17/24 22:17 36.5 C 63 18 170/76 H 94 Room Air 07/17/24 21:00 68 18 123/89 96 Room Air Laboratory Results 07/18/24 07/17/24 07/17/24 Range/Units 05:45 18:21 17:33 WBC 11.22 H 14.62 H (4.8-10.8) K/ul RBC 3.84 L 4.31 (4.20-5.40) M/uL Hgb 11.0 L 12.2 (12.0-16.0) g/dl Hct 33.6 L 37.9 (37.0-47.0) % MCV 87.5 87.9 (80.0-100.0) fL MCH 28.6 28.3 (25.0-34.0) pg MCHC 32.7 32.2 (32.0-36.0) g/dL RDW Std Deviation 46.3 46.5 H (36.4-46.3) fL RDW Coeff of Bret 14.5 14.3 (11.5-14.5) % Plt Count 231 285 (130-400) K/uL MPV 9.9 9.8 (9.4-12.4) fL Immature Gran % (Auto) 0.4 0.3 % Neut % (Auto) 71.0 75.7 % Lymph % (Auto) 16.1 15.3 % [place] % (Auto) 7.5 5.3 % Eos % (Auto) 4.5 2.9 % Baso % (Auto) 0.5 0.5 % Neut # (Auto) 7.96 H 11.07 H (1.40-6.50) K/uL Lymph # (Auto) 1.81 2.23 (1.20-3.40) K/uL [place] # (Auto) 0.84 H 0.77 H (0.11-0.59) K/uL Eos # (Auto) 0.51 H 0.42 (0.00-0.50) K/uL Baso # (Auto) 0.06 0.08 (0.00-0.20) K/uL Immature Gran # (Auto) 0.04 0.05 (0.01-0.20) K/uL Sodium 141 140 (136-145) mmol/L Potassium 4.0 4.0 (3.5-5.1) mmol/L Chloride 110 H 105 (98-107) mmol/L Carbon Dioxide 25 26 (21-32) mmol/L Anion Gap 6 9 (3-11) BUN 16 18 (6-23) mg/dl Creatinine 0.90 1.07 (0.6-1.2) mg/dl Est Cr Clr Drug Dosing 89.0 73.9 ml/min eGFR 70.07 56.93 BUN/Creatinine Ratio 17.8 16.8 (10-20) Glucose 105 H 106 H (70-99(Fasting)) mg/dl Lactate 1.9 (0.4-2.0) mmol/L Calcium 9.0 9.8 (8.6-10.3) mg/dl Total Bilirubin 0.5 (0.2-1.0) mg/dl AST 13 (13-39) U/L ALT 13 (7-52) U/L Alkaline Phosphatase 84 (34-104) U/L Total Protein 7.2 (6.0-8.3) gm/dl Albumin 3.8 (3.4-5.0) gm/dl Globulin 3.4 (2.5-4.0) gm/dl Albumin/Globulin Ratio 1.1 (0.9-2) Diagnostic Findings EXAM: US Right Breast Limited INDICATION: Pain and redness. Scar tissue removed about 2 weeks ago. TECHNIQUE: Sonographic images right breast 9:00 area of interest provided. COMPARISON: No relevant prior studies available. FINDINGS: Right breast: In the area of interest is a complex fluid collection consistent with an abscess measuring 8.3 x 5.8 x 7.5 cm. There is edema of the surrounding fibroglandular tissue. A tract may be starting to extend to the skin surface. IMPRESSION: 8.3 x 5.8 x 7.5 cm right breast abscess at the 9 o'clock position in the area of interest. BI-RADS 2 ACT 112: Negative or not required by law.
--- NOTE | 2024-07-18 09:02 | Operative Report ---
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 the area was prepped with betadine. a small incision was made with an 11 blade scalpel in th e anterior corner of the incision. a large amount of purulent fluid was returned immediately. cultures were taken and sent. the cavity was drained and packed with 1/4 inch nugauze. dressings were applied. she tolerated the procedure without complication. I attest to the content of the Intraoperative Record and any orders documented therein. Any exceptions are noted below.
--- NOTE | 2024-07-18 12:11 | Hospitalist Progress Note ---
Date of Service July 18, 2024 Assessment & Plan (1) Breast abscess: Plan Right breast abscess History outpatient excisional biopsy (06/30/23) Failed outpatient treatment No sepsis for now Breast ultrasound noting " 8.3 x 5.8 x 7.5 cm right breast abscess at the 9 o'clock position in the area of interest." general surgery was consulted, appreciate recs -Status post incision and drainage at the bedside on July 18, 2024 -Continue with IV Zosyn and doxycycline for another 24 hrs -Follow cultures -surgical bra chronic diastolic heart failure (EF 60%, TTE 2023), patient euvolemic hx paroxysmal A-fib on Eliquis, chronic bradycardia, patient last dose 7 PM tonight hx thoracic aorta enlargement hypertension, stable GABY on CPAP endometrial cancer status post surgery Diet: HH DVT prophylaxis SCDs while Eliquis on hold Full code Admission and Anticipated Discharge Date Admission Date: July 17, 2024 Subjective was seen sitting up in a chair near her bed Denies any recent fevers, chills or sweats Had incision and drainage done with general surgery Is already noting some improvement Review of Systems Review of Systems: All systems reviewed & are unremarkable except as noted in Subjective Physical Exam Physical Exam: General: Alert, oriented. No acute distress Skin: right breast with some noted erythema Psych: Appropriate mood and affect HEENT: NC/AT CV: RRR Resp: Breath sounds clear bilaterally, no increased effort of breathing Abdomen: Soft, nontender Extremities: No edema in lower extremities bilaterally. Results & Data Results & Data Vital Signs (Past 12 Hours) Vital Signs Temp Pulse Resp BP Pulse Ox O2 Del Method 07/18/24 06:58 36.8 C 59 L 16 117/72 96 Room Air
[2024-07-18 19:55] VITALS: TEMP 97.9
--- NOTE | 2024-07-18 22:11 | Communication Note ---
Date of Service: July 18, 2024 Patient inquiring about home Eliquis Rx for A-fib. No unusual postop bleed as per RN. Okay to resume Eliquis as per Blayne text communication with Dr. Hughes (surgeon).
[2024-07-18] MEDS: APIXABAN 5 MG TABLET PO SCH (23:11)
[2024-07-19 07:03] VITALS: BP 143/82; PULSE 49; RESP 16; O2SAT 96
[2024-07-19 07:10] LABS: BUN Creatinine Ratio 17.2 (10-20); Calcium 9.5 mg/dl (8.6-10.3); Creatinine Clr Calc Pharmacy 80.9 ml/min; Potassium 4.2 mmol/L (3.5-5.1)
[2024-07-19 07:26] LABS: Basophils # (auto) 0.05 K/uL (0.00-0.20); Basophils % (auto) 0.6 %; Eosinophils # (auto) 0.48 K/uL (0.00-0.50); Hematocrit (blood only) 34.5 % (37.0-47.0); Hemoglobin 11.2 g/dl (12.0-16.0); Immature Granulocytes # (auto) 0.02 K/uL (0.01-0.20); Immature Granulocytes % (auto) 0.3 %; Lymphocytes # (auto) 1.83 K/uL (1.20-3.40); Mean Corpuscular Hemoglobin 28.9 pg (25.0-34.0); Mean Corpuscular Hgb Conc 32.5 g/dL (32.0-36.0); Mean Corpuscular Volume 89.1 fL (80.0-100.0); Mean Platelet Volume 10.1 fL (9.4-12.4); Monocytes # (auto) 0.63 K/uL (0.11-0.59); Monocytes % (auto) 7.9 %; Neutrophils # (auto) 4.96 K/uL (1.40-6.50); Neutrophils % (auto) 62.2 %; Platelet Count 233 K/uL (130-400); RDW Standard Deviation 45.3 fL (36.4-46.3); Red Blood Count 3.87 M/uL (4.20-5.40); White Blood Count 7.97 K/ul (4.8-10.8)
--- NOTE | 2024-07-19 07:55 | Surgery Progress Note ---
Date of Service July 19, 2024 Assessment & Plan (1) Breast abscess: Plan: POD 1 bedside incision and drainage of R breast abscess VSS, afebrile, WBC wnl 7.9 reports pain tolerable Culture results still pending nursing to change packing and dressing prior to patient leaving d/c on oral antibiotics pt has appt. Sunday at [facility] o/p office Pt stable for discharge from a general surgery standpoint Admission and Anticipated Discharge Date Admission Date: July 17, 2024 Supervising Physician Co-Signing Physician Notes pnt S&E, labs reviewed, agree with above. s/p lumpectomy, s/p I&D breast abscess. Feels better. afvss, right breast with resolving erythema, packing in place. okay to d/c, f/u with [facility] surgery on Sunday as scheduled, outpnt abx, local wound care. Subjective denies fever/chills, cp , sob pain tolerable Review of Systems Constitutional: no fever and no chills Respiratory: no dyspnea Cardiovascular: no chest pain Gastrointestinal: no abdominal pain, no nausea and no vomiting Musculoskeletal: no muscle weakness Psychiatric: no confusion Physical Exam Constitutional: cooperative and comfortable; no acute distress Respiratory: normal respiratory effort and able to speak in complete sentences; no respiratory distress Cardiovascular: Rate/Rhythm: + bradycardic (49) Chest (Breasts): Additional Comments: R breast abscess Psychiatric: A+Ox3, euthymic affect Results & Data Vital Signs (Past 12 Hours) Vital Signs Temp Pulse Resp BP BP Pulse Ox O2 Del Method 07/19/24 07:02 97.9 F 49 L 16 143/82 H 96 Room Air 07/18/24 19:53 97.9 F 59 L 18 173/82 H 95 Room Air Results CBC w Diff Results: RBC 3.87 M/uL (4.20-5.40) L 07/19/24 WBC 7.97 K/ul (4.8-10.8) 07/19/24 Hgb 11.2 g/dl (12.0-16.0) L 07/19/24 Hct 34.5 % (37.0-47.0) L 07/19/24 MCV 89.1 fL (80.0-100.0) 07/19/24 MCH 28.9 pg (25.0-34.0) 07/19/24 MCHC 32.5 g/dL (32.0-36.0) 07/19/24 RDW Standard Deviation 45.3 fL (36.4-46.3) 07/19/24 RDW Coefficient of Variation 14.0 % (11.5-14.5) 07/19/24 Plt Count 233 K/uL (130-400) 07/19/24 MPV 10.1 fL (9.4-12.4) 07/19/24 Neutrophils (%) (Auto) 62.2 % 07/19/24 Lymphocytes (%) (Auto) 23.0 % 07/19/24 Monocytes # (Auto) 0.63 K/uL (0.11-0.59) H 07/19/24 Eosinophils # (Auto) 0.48 K/uL (0.00-0.50) 07/19/24 Immature Granulocyte % (Auto) 0.3 % 07/19/24 Neutrophils # (Auto) 4.96 K/uL (1.40-6.50) 07/19/24 Lymphocytes # (Auto) 1.83 K/uL (1.20-3.40) 07/19/24 Monocytes # (Auto) 0.63 K/uL (0.11-0.59) H 07/19/24 Eosinophils # (Auto) 0.48 K/uL (0.00-0.50) 07/19/24 Basophils # (Auto) 0.05 K/uL (0.00-0.20) 07/19/24 Immature Granulocyte # (Auto) 0.02 K/uL (0.01-0.20) 5 PG Care Time/CCT Total # of Minutes Spent Total Time Spent with Patient: Total time spent is greater than 50% in coordination of care (as documented) at patient's floor/unit and/or counseling patient: Coding Level of Care Code 71428 SUB INP/OBS CARE 07/05MIN Diagnoses Breast abscess N61.1
--- NOTE | 2024-07-19 12:11 | Discharge Summary ---
Discharge Summary Date of Service July 19, 2024 Principal Dx & Hospital Course #1 = Principal Diagnosis (1) Breast abscess: Plan Right breast abscess History outpatient excisional biopsy (06/30/23) Failed outpatient treatment No sepsis for now Breast ultrasound noting " 8.3 x 5.8 x 7.5 cm right breast abscess at the 9 o'clock position in the area of interest." general surgery was consulted, appreciate recs -Status post incision and drainage at the bedside on July 18, 2024 -Treated with IV Zosyn and doxycycline for about 48 hours, transitioned to Augmentin and Doxy for an additional 8 days -Follow cultures- prelim growth at time of discharge of MSSA -surgical bra Per general surgery Dr Bone on day of discharge: "... s/p lumpectomy, s/p I&D breast abscess. Feels better. afvss, right breast with resolving erythema, packing in place. okay to d/c, f/u with [facility] surgery on Sunday as scheduled, outpnt abx, local wound care." Her home Eliquis was resumed. PCP and General surgery followup after discharge Chronic Medical Problems: chronic diastolic heart failure (EF 60%, TTE 2023), patient euvolemic hx paroxysmal A-fib on Eliquis, chronic bradycardia, patient last dose 7 PM tonight hx thoracic aorta enlargement hypertension, stable GABY on CPAP endometrial cancer status post surgery Notes For Next Care Provider please ensure close follow-up with general surgery Medication Changes From Visit Augmentin for 8 more days Doxycycline for 8 more days Probiotic Admission HPI Per Admitting Provider History obtained from patient, family, and records. Medical history significant for chronic diastolic heart failure (EF 60%, TTE 2023), A-fib on Eliquis, chronic bradycardia, thoracic aorta enlargement, hypertension, GABY on CPAP, endometrial cancer status post surgery, anxiety disorder. Last confinement 2021 for new onset A-fib. Patient discharged on sotalol and Eliquis Rx. Sotalol eventually discontinued outpatient due to bradycardia. Patient underwent outpatient excisional biopsy of right breast radial scar 2 weeks ago at [facility]. Last week, patient noted redness over right breast without drainage. No fever, no chills. Patient seen at [facility] general surgeon's office 2 days ago. Keflex prescribed for cellulitis. Worsening swelling and pain despite compliance with medications. Chills at home. Denies SOB. Patient directed to ER for evaluation. Vancomycin and Zosyn administered for right breast abscess. 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 Admission Exam Per Admitting Provider GENERAL: Comfortable, pleasant, slightly anxious, morbidly obese, no respiratory distress SKIN: Normal color, warm HEENT: [place] palpebral conjunctivae, no ptosis, upper lip asymmetry (chronic as per ), moist buccal mucosa NECK : Supple, short neck, no tenderness CHEST : Tender right breast induration, clear to auscultation HEART : Bradycardic, no obvious murmurs ABDOMEN: Some distention, nontender EXTREMITIES : Minimal LE swelling, no LE tenderness, palpable pulses, no other conspicuous deformities noted NEUROLOGIC : Coherent, chronic upper lip asymmetry, no other gross focality Discharge Exam General: Alert, oriented. No acute distress Skin: right breast with some noted erythema, packing in place Psych: Appropriate mood and affect HEENT: NC/AT CV: RRR Resp: Breath sounds clear bilaterally, no increased effort of breathing Abdomen: Soft, nontender Extremities: No edema in lower extremities bilaterally. Updated Medication List Medication Instructions Recorded Confirmed Type vitamins A,C,J-zrom-dipimk 2,148 2 tab PO [facility] 07/11/21 07/17/24 History mcg-113 mg-45 mg-17.4 mg tablet (PreserVision AREDS) apixaban 5 mg tablet (Eliquis) 5 mg PO [facility] 07/17/24 07/17/24 History losartan 50 mg tablet 50 mg PO [facility] 07/17/24 07/17/24 History rosuvastatin 5 mg tablet 5 mg PO [facility] 07/17/24 07/17/24 History Saccharomyces boulardii 250 mg 250 mg PO DAILY #30 caps 07/19/24 Rx capsule (Daily Probiotic (S. boulardii)) amoxicillin 875 mg-potassium 1 tab PO BID #16 tabs 07/19/24 Rx clavulanate 125 mg tablet doxycycline hyclate 100 mg tablet 100 mg PO BID #16 tabs 07/19/24 Rx Hospital Stay Data Consultations 07/17/24 20:25 ED Decision to Admit Stat 07/17/24 21:50 Consult General Surgery Routine Diagnostic Imagining Performed 07/17/24 18:10 US breast RT limited Stat Breast Ultrasound 07/17/24 18:10 EXAM: US Right Breast Limited INDICATION: Pain and redness. Scar tissue removed about 2 weeks ago. TECHNIQUE: Sonographic images right breast 9:00 area of interest provided. COMPARISON: No relevant prior studies available. FINDINGS: Right breast: In the area of interest is a complex fluid collection consistent with an abscess measuring 8.3 x 5.8 x 7.5 cm. There is edema of the surrounding fibroglandular tissue. A tract may be starting to extend to the skin surface. IMPRESSION: 8.3 x 5.8 x 7.5 cm right breast abscess at the 9 o'clock position in the area of interest. BI-RADS 2 ACT 112: Negative or not required by law. Electronically signed by Mariam Kwon 07-17-2024 7:32 PM Discharge Instructions Given to Patient (Per Discharging Provider) Hortensia, You were admitted and treated for an infection of your breast. You were seen by the surgeon who performed an incision and drainage of an abscess that was noted. We are discharging you home with 2 antibiotics until your cultures are final. Please continue with 8 more days of Augmentin and doxycycline. You are also prescribed a probiotic to take while on the antibiotics. Please keep close follow up with your primary care provider and general surgery after discharge. Please do not hesitate to come back to the emergency room if your symptoms worsen or return. It was a pleasure taking care of you while you were here. your surgeon left additional instructions for you noted below: Total Time Total Time Spent Total Time Spent (In Minutes): 65
== END 2024-07-19 13:29 | disposition home or self-care (01) | DRG 584 ==
LOC: ED 17:11 → 3W 20:58